=== PATIENT | male | born 1935 | race Caucasian/White ===

== ENCOUNTER 2018-09-18 17:21 | Inpatient (IN) | payer MEDICARE, SELFPAY ==
[2018-09-18] VITALS (7 sets, daily range): BP systolic 128–164; BP diastolic 70–90; PULSE 59–82; RESP 15–24; TEMP 35.7–36.8; O2SAT 97–100; BMI 18.8
--- NOTE | 2018-09-18 17:38 | ED.SYNCOPE ---
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 He states that he had 3 episodes where he passed out he states that he was walking while he was doing this and that he fell. He denies any head injury. He does have some bruising to his right upper arm. He does state that he has had have difficulty and swallowing over the past several weeks. He reports that he is not currently taking any radiation or chemotherapy he states that that was completed approximately 1 month ago. He denies any fevers or chills. No chest pain no shortness of breath. He does state that he has had decreased p.o. intake due to the difficulty in swallowing. Patient does live by himself. He denies any fevers or chills no urinary symptoms. No other concerns or complaints at this time. He denies any discomfort at Related Data Home Medications Medication Instructions Recorded Confirmed amlodipine [Norvasc] 5 mg PO QDAY #0 11/23/17 clopidogrel 75 mg PO QDAY #0 11/23/17 furosemide 80 mg PO QDAY #0 11/23/17 losartan 50 mg PO QDAY #0 11/23/17 meclizine 25 mg PO HS #0 11/23/17 mupirocin 1 shahbaz TOPICAL BID #0 11/23/17 Previous Rx's Medication Instructions Recorded hydrocodone-acetaminophen [[place]] 1 tab PO Q6H PRN #10 tab 11/23/17 ondansetron [Zofran ODT] 4 mg SUBLINGUAL Q6HP PRN #10 odt 11/23/17 Allergies Allergy/AdvReac Type Severity Reaction Status Date / Time No Known Allergies Allergy Uncoded 09/18/18 17:35 Review of Systems <AVA Villatoro - Last Filed: 09/18/18 22:15> Constitutional Denies chills, Denies fatigue, Denies fever(s), Denies lethargy and Denies weakness Eyes Denies change in vision, Denies eye discharge, Denies irritation and Denies loss of vision ENT Ears, Nose, Mouth, and Throat: Denies change in voice, Denies neck pain and Denies sore throat Cardiovascular Denies dyspnea and Denies dyspnea on exertion Comments: Syncopal episodes Respiratory Denies cough, Denies dyspnea, Denies dyspnea on exertion and Denies wheezing Gastrointestinal Gastrointestinal: Denies abdominal pain, Denies change in bowel habits, Denies diarrhea, Denies nausea and Denies vomiting Genitourinary Denies hematuria, Denies flank pain, Denies urinary incontinence and Denies urinary urgency Musculoskeletal Denies neck pain Integumentary/Breasts Denies pruritus, Denies erythema, Denies rash and Denies wounds Neurologic Denies confusion, Denies loss of vision and Denies weakness Psychiatric Denies anxiety, Denies confusion, Denies depression, Denies homicidal ideation and Denies suicidal ideation Endocrine Denies fatigue and Denies flushing Hematologic/Lymphatic Denies easy bruising Allergic/Immunologic Denies wheezing Exam <AVA Villatoro - Last Filed: 09/18/18 22:15> Initial Vital Signs Initial Vital Signs: Vital Signs Temperature 98.1 F 09/18/18 17:32 Pulse Rate 82 09/18/18 17:32 Respiratory Rate 24 09/18/18 17:32 Blood Pressure 134/70 09/18/18 17:32 Pulse Oximetry 98 09/18/18 17:32 Const General: cooperative and well developed Nutritional Appearance: well nourished Orientation: alert, awake, oriented x3 and not confused [facility] Head: normal to inspection, normocephalic and atraumatic Mouth: oral mucosae normal Eyes Conjunctivae: conjunctivae normal Sclera: sclerae normal Pupils: PERRL EOM: EOM intact bilaterally Chest Chest: normal inspection of the chest Resp Effort & Inspection: normal respiratory effort, able to speak in complete sentences, no respiratory distress and no use of accessory muscles Auscultation: clear to auscultation bilaterally, no rales, no rhonchi and no wheezes Cardio Rate: regular rate Rhythm: regular rhythm Heart Sounds: no click, no gallops, no murmurs and no rubs Pulses: normal peripheral pulses GI Inspection: non-distended Palpation: soft, no hepatosplenomegaly, No guarding, No pulsatile mass and No tender Auscultation: normal bowel sounds General: No CVA tenderness Skin General: no rashes or lesions noted, No jaundice and No petechiae Neuro General: alert, oriented x3, gait normal and no focal motor deficits Speech: speech normal Extrem Other: Right upper extremity with ecchymosis. No open lesions. No swelling. Distal sensation is intact. Distal pulses are intact. Distal range of motion is intact. <Jacklyn Edwards DO - Last Filed: 09/19/18 04:22> Initial Vital Signs Initial Vital Signs: Vital Signs Temperature 98.1 F 09/18/18 17:32 Pulse Rate 82 09/18/18 17:32 Respiratory Rate 24 09/18/18 17:32 Blood Pressure 134/70 09/18/18 17:32 Pulse Oximetry 98 09/18/18 17:32 Course <AVA Villatoro - Last Filed: 09/18/18 22:15> Orders Ordered: ED Orders 09/18/18 23:41 Consult to Dietitian, Adult Routine Consult to Discharge Planning Routine 09/18/18 23:42 Consult to Physical Therapy Evaluate & Treat 09/19/18 00:17 Troponin I Routine 09/19/18 03:55 Consult to Speech Therapy Evaluate & Treat 09/19/18 06:00 Troponin I Routine Acetaminophen (Tylenol) 650 mg PO Q6HR PRN PRN Reason: As Needed for Fever/Mild Pain Heparin Sodium (Porcine) (Heparin) 5,000 unit SUBCUT BID MARY Sodium Chloride (Normal Saline 0.9%) 1,000 mls @ 75 mls/hr IV CONT MARY Last Admin: 09/18/18 23:15 Dose: 75 mls/hr Ondansetron HCl (Zofran Odt) 4 mg PO Q8HR PRN PRN Reason: Nausea And Vomiting Discontinued Medications Sodium Chloride (Normal Saline 0.9%) 1,000 mls @ 1,000 mls/hr IV BOLUS ONE Stop: 09/18/18 18:39 Last Infusion: 09/18/18 22:53 Dose: 1,000 mls/hr Infusion: 09/18/18 20:40 Dose: 0 mls/hr Admin: 09/18/18 18:20 Dose: 1,000 mls/hr Sodium Chloride (Normal Saline 0.9%) 1,000 mls @ 1,000 mls/hr IV BOLUS ONE Stop: 09/18/18 22:47 Last Admin: 09/18/18 22:11 Dose: 1,000 mls/hr Vital Signs - 8 hr 09/18/18 21:00 09/18/18 22:00 09/18/18 22:50 Temperature 96.3 F L Pulse Rate 67 64 61 Respiratory Rate 17 15 16 Blood Pressure 152/77 H Blood Pressure [Left Arm] 141/75 H 137/77 Pulse Oximetry 100 100 97 09/18/18 22:58 09/18/18 23:40 09/19/18 03:42 Temperature 98.2 F 97.9 F Pulse Rate 59 L 65 62 Respiratory Rate 18 16 16 Blood Pressure 144/72 H 164/90 H 156/75 H Blood Pressure [Left Arm] Pulse Oximetry 99 98 98 <Jacklyn Edwards, - Last Filed: 09/19/18 04:22> Orders Ordered: ED Orders 09/18/18 23:41 Consult to Dietitian, Adult Routine Consult to Discharge Planning Routine 09/18/18 23:42 Consult to Physical Therapy Evaluate & Treat 09/19/18 00:17 Troponin I Routine 09/19/18 03:55 Consult to Speech Therapy Evaluate & Treat 09/19/18 06:00 Troponin I Routine Acetaminophen (Tylenol) 650 mg PO Q6HR PRN PRN Reason: As Needed for Fever/Mild Pain Heparin Sodium (Porcine) (Heparin) 5,000 unit SUBCUT BID MARY Sodium Chloride (Normal Saline 0.9%) 1,000 mls @ 75 mls/hr IV CONT MARY Last Admin: 09/18/18 23:15 Dose: 75 mls/hr Ondansetron HCl (Zofran Odt) 4 mg PO Q8HR PRN PRN Reason: Nausea And Vomiting Discontinued Medications Sodium Chloride (Normal Saline 0.9%) 1,000 mls @ 1,000 mls/hr IV BOLUS ONE Stop: 09/18/18 18:39 Last Infusion: 09/18/18 22:53 Dose: 1,000 mls/hr Infusion: 09/18/18 20:40 Dose: 0 mls/hr Admin: 09/18/18 18:20 Dose: 1,000 mls/hr Sodium Chloride (Normal Saline 0.9%) 1,000 mls @ 1,000 mls/hr IV BOLUS ONE Stop: 09/18/18 22:47 Last Admin: 09/18/18 22:11 Dose: 1,000 mls/hr Vital Signs - 8 hr 09/18/18 21:00 09/18/18 22:00 09/18/18 22:50 Temperature 96.3 F L Pulse Rate 67 64 61 Respiratory Rate 17 15 16 Blood Pressure 152/77 H Blood Pressure [Left Arm] 141/75 H 137/77 Pulse Oximetry 100 100 97 09/18/18 22:58 09/18/18 23:40 09/19/18 03:42 Temperature 98.2 F 97.9 F Pulse Rate 59 L 65 62 Respiratory Rate 18 16 16 Blood Pressure 144/72 H 164/90 H 156/75 H Blood Pressure [Left Arm] Pulse Oximetry 99 98 98 MDM - Syncope <AVA Villatoro - Last Filed: 09/18/18 22:15> Lab Data Result diagrams: 09/18/18 18:10 09/18/18 18:10 Lab Results 09/18/18 09/18/18 09/18/18 Range/Units 18:10 18:10 18:10 WBC 10.8 (4.5-11.0) X10^3/uL RBC 3.99 L (4.5-5.9) X10^6/uL Hgb 13.0 L (13.5-17.5) g/dL Hct 38.2 L (41-53) % MCV 95.9 (80-100) fL MCH 32.7 (26-34) PG MCHC 34.1 (30-36) % RDW 14.0 (11.6-14.8) % Plt Count 214 (150-400) X10^3/uL Neut % (Auto) 87.2 H (50-75) % Lymph % (Auto) 4.1 L (25-40) % [place] % (Auto) 7.7 (3-14) % Eos % (Auto) 0.5 L (2-4) % Baso % (Auto) 0.5 (0-2) % Neut # (Auto) 9500 H (7433-0078) /uL PT 12.2 (10.1-12.7) SECONDS INR 1.1 (0.9-1.3) D-Dimer 2922 H (<230) ng/mL Sodium 140 (137-145) mmol/L Potassium 3.8 (3.4-5.1) mmol/L Chloride 102 (98-107) mmol/L Carbon Dioxide 25 (22-32) mmol/L BUN 20 (9-20) mg/dL Creatinine 0.90 (0.66-1.25) mg/dL Estimated GFR > 60.0 (>60) mL/min BUN/Creatinine Ratio 22.2 H (6-22) Glucose 111 H (80-110) mg/dL Lactate (0.7-2.1) mmol/L Calcium 9.2 (8.4-10.2) mg/dL Total Bilirubin 0.6 (0.2-1.3) mg/dL AST 20 (17-59) IU/L ALT 24 (21-72) IU/L Alkaline Phosphatase 82 (38-126) U/L Total Creatine Kinase 54 L (55-170) U/L CK-MB (CK-2) TNP CK-MB (CK-2) Rel Index TNP Troponin I 0.105 H (0.01-0.034) ng/mL Total Protein 7.1 (6.3-8.2) g/dL Albumin 3.8 (3.5-5.0) g/dL Globulin 3.3 (1.7-4.1) g/dL Albumin/Globulin Ratio 1.2 (1.0-2.8) 09/18/18 09/19/18 Range/Units 18:10 00:17 WBC (4.5-11.0) X10^3/uL RBC (4.5-5.9) X10^6/uL Hgb (13.5-17.5) g/dL Hct (41-53) % MCV (80-100) fL MCH (26-34) PG MCHC (30-36) % RDW (11.6-14.8) % Plt Count (150-400) X10^3/uL Neut % (Auto) (50-75) % Lymph % (Auto) (25-40) % [place] % (Auto) (3-14) % Eos % (Auto) (2-4) % Baso % (Auto) (0-2) % Neut # (Auto) (5254-0920) /uL PT (10.1-12.7) SECONDS INR (0.9-1.3) D-Dimer (<230) ng/mL Sodium (137-145) mmol/L Potassium (3.4-5.1) mmol/L Chloride (98-107) mmol/L Carbon Dioxide (22-32) mmol/L BUN (9-20) mg/dL Creatinine (0.66-1.25) mg/dL Estimated GFR (>60) mL/min BUN/Creatinine Ratio (6-22) Glucose (80-110) mg/dL Lactate 1.5 (0.7-2.1) mmol/L Calcium (8.4-10.2) mg/dL Total Bilirubin (0.2-1.3) mg/dL AST (17-59) IU/L ALT (21-72) IU/L Alkaline Phosphatase (38-126) U/L Total Creatine Kinase (55-170) U/L CK-MB (CK-2) CK-MB (CK-2) Rel Index Troponin I 0.088 H (0.01-0.034) ng/mL Total Protein (6.3-8.2) g/dL Albumin (3.5-5.0) g/dL Globulin (1.7-4.1) g/dL Albumin/Globulin Ratio (1.0-2.8) Point of Care Testing Glucose POC 109 Urine Dip Bedside Urine Glucose Negative Bedside Urine Bilirubin - Negative Bedside Urine Ketone ++ 40 Urine Specific [place] 1.020 Bedside Urine Occult Blood - Negative Bedside Urine pH 6.0 Bedside Urine Protein - Negative Bedside Urine Urobilinogen - Negative Bedside Urine Nitrite - Negative Bedside Urine Leukocytes - Negative Esterase Imaging Data Chest x-ray: Radiologist's impression: [address] [address] XRay Report Signed Patient: Murali Grant LMR#: [id number] : 5Acct:[id number] Age/Sex: 83 / MDate of Service: 09/18/18 Loc: ED Accession Number: [id number] Procedure: XR chest 1V Ordering Provider: Fernando Shipman PROCEDURE: XR CHEST 1V INDICATIONS: Syncopal episodes TECHNIQUE: One view of the chest was acquired. COMPARISON: None. FINDINGS: Surgical changes and devices: None. Lungs and pleura: No pleural effusions or pneumothorax. Lungs are clear. Mediastinum: Mediastinal contours appear normal. Heart size is normal. Bones and chest wall: No suspicious bony lesions. Overlying soft tissues appear unremarkable. IMPRESSION: No acute cardiopulmonary findings. Dictated by: Natalia De La O M.D. on 09/18/2018 at 18:42 Approved by: Natalia De La O M.D. on 09/18/2018 at 18:42 CT scan - chest: Radiologist's impression: Signed Patient: Murali Grant LMR#: [id number] : 5Acct:[id number] Age/Sex: 83 / MDate of Service: 09/18/18 Loc: ED Accession Number: [id number] Procedure: CT angio chest PE protocol Ordering Provider: Fernando Shipman PROCEDURE: CT ANGIO CHEST PE PROTOCOL INDICATIONS: Elevated D-dimer and syncopal episodes TECHNIQUE: After the administration of intravenous contrast, 2 mm thick sections acquired from the pulmonary apices to the posterior costophrenic angles. 3-dimensional maximum intensity projection (MIP) coronal and sagittal reformats were then acquired through the thorax. For radiation dose reduction, the following was used: automated exposure control, adjustment of mA and/or kV according to patient size. COMPARISON: [facility], CT, PE STUDY (CTA CHEST), 09/09/2014, 19:53. FINDINGS: Image quality: Excellent. Pulmonary arteries: Pulmonary arteries are normal in size, and demonstrate no intraluminal filling defects to suggest central pulmonary embolism. Lungs and pleura: Mild pulmonary radiopacities are present within the superior segment of the right lower lobe. 2 adjacent 3 mm diameter pulmonary nodules are present at the lateral left lung base (series 5, image 42). The lungs are otherwise clear. No pleural effusions or pneumothorax. Central and peripheral airways are patent. Mediastinum: Heart size is normal, without pericardial effusion. No mediastinal or hilar adenopathy. 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 Thoracic aorta is normal in caliber and enhancement. Esophagus is normal in caliber, without hiatal hernia. Bones and chest wall: No suspicious bony lesions. Ribs and thoracic spine appear intact throughout. Thyroid gland is unremarkable. No axillary or supraclavicular adenopathy. Abdomen: Visualized upper abdominal solid organs appear normal in the early arterial phase of enhancement. IMPRESSION: 1. No acute pulmonary embolus. 2. 3 mm left lower lobe pulmonary nodules. Please see followup guidelines below. Low-risk patient no further followup recommended. 3. Trace pulmonary radiopacities within the right lower lobe which may represent mild aspiration or infection. Short interval followup is recommended to ensure resolution of this finding and exclude underlying pulmonary pathology. Note: Fleischner Society criteria for lung nodule followup. Nodule size (mm)Low-risk patientHigh-risk patient?4No follow-up neededFollow-up at 12 mo; if no change, no further follow-up>6-5Pflbpl-ba CT at 12 mo; if no change, no further follow-up needed.Initial follow-up CT at 6-12 mo, then 18-24 mo if no change. >6-8Initial follow-up CT at 6-12 mo, then 18-24 mo if no change. Initial follow-up CT at 3-6 mo, then 9-12 mo and 24 mo if no change. >8Follow-up CT at 3, 9, 24 mo. Or PET and/or biopsy.Same as for low-risk pts. Non-solid (ground-glass) or partly solid nodules may require longer follow-up to exclude indolent adenocarcinoma. Dictated by: Natalia De La O M.D. on 09/18/2018 at 19:42 Approved by: Natalia De La O M.D. on 09/18/2018 at 19:48 CT scan - head: Radiologist's impression: Signed Patient: Murali Grant LMR#: [id number] : 5Acct:[id number] Age/Sex: 83 / MDate of Service: 09/18/18 Loc: ED Accession Number: [id number] Procedure: CT head/brain wo con Ordering Provider: Fernando Shipman PROCEDURE: CT HEAD/BRAIN WO CON INDICATIONS: Syncopal episodes today TECHNIQUE: Noncontrast 4.5 mm thick angled axial sections acquired from the foramen magnum to the vertex, with coronal and sagittal reformats. For radiation dose reduction, the following was used: automated exposure control, adjustment of mA and/or kV according to patient size. COMPARISON: [facility], CT, CT HEAD WITHOUT CONTRAST, 09/05/2018, 11:54. FINDINGS: Image quality: Excellent. CSF spaces: Basal cisterns are patent. No extra-axial fluid collections. The ventricles are symmetric in size and shape. Brain: No intracranial bleeds or masses. There is cerebral volume loss for age, with resultant ventricular and sulcal prominence. There are periventricular and deep white matter chronic small vessel ischemic changes. Chronic appearing lacunar infarcts are present within the bilateral basal ganglia. There is intracranial internal carotid artery atherosclerosis. Skull and face: Calvarium and visualized facial bones appear intact, without suspicious lesions. Sinuses: Fluid is redemonstrated within the right maxillary sinus unchanged from the study dated 09/05/18. Visualized sinuses and mastoids are otherwise clear. IMPRESSION: 1. No acute intracranial findings. 2. Findings associated with chronic microvascular ischemic changes and old lacunar infarcts. 3. Probable right maxillary sinusitis. Dictated by: Natalia De La O M.D. on 09/18/2018 at 19:01 Approved by: Natalia De La O M.D. on 09/18/2018 at 19:08 R humerus: Radiologist's impression: [address] [address] XRay Report Signed Patient: Murali Grant LMR#: [id number] : 5Acct:[id number] Age/Sex: 83 / MDate of Service: 09/18/18 Loc: ED Accession Number: [id number] Procedure: XR humerus RT 2V Ordering Provider: Fernando Shipman PROCEDURE: XR HUMERUS RT 2V INDICATIONS: Bruising to right upper arm area after ground level fall TECHNIQUE: 2 views of the humerus were acquired. COMPARISON: None. FINDINGS: Bones: No fractures or dislocations. No suspicious bony lesions. Moderate degenerative changes present at the acromioclavicular joint. Soft tissues: No suspicious soft tissue calcifications. IMPRESSION: Degenerative change. No acute radiographic findings. If pain persists, repeat study in 5-7 days is recommended to exclude occult fracture. Dictated by: Natalia De La O M.D. on 09/18/2018 at 18:41 Approved by: Natalia De La O M.D. on 09/18/2018 at 18:42 soft tissue neck: Radiologist's impression: [address] [address] [address] Scan Report Signed Patient: Murali Grant LMR#: [id number] : 5Acct:[id number] Age/Sex: 83 / MDate of Service: 09/18/18 Loc: ED Accession Number: [id number] Procedure: CT soft tissue neck w con Ordering Provider: Fernando Shipman PROCEDURE: CT SOFT TISSUE NECK W CON INDICATIONS: Difficulty in swallowing,hx of CA TECHNIQUE: After the administration of intravenous contrast, 3.0 mm axial sections acquired from the sella to the aortic arch. Additional oblique axial 3.0 mm sections acquired through the pharynx. 3 mm thick coronal and sagittal reformats were generated. For radiation dose reduction, the following was used: automated exposure control. COMPARISON: [facility], CT, CT SOFT TISSUE NECK WITH CONTRAST, 06/30/2018, 14:05. FINDINGS: Image quality: Excellent. Lymph nodes: No enlarged lymph nodes seen throughout the neck. Vessels: Visualized vasculature appears patent. Neck spaces: The oropharynx, nasopharynx, and pharynx demonstrate no mucosal lesions. The vocal cords, false vocal cords, pyriform sinuses, epiglottis, vallecula, and tongue base all appear normal. Extramucosal spaces appear unremarkable. Glands: The right parotid and submandibular glands appear normal. Patient is status post left parotid gland resection. Thyroid gland is unremarkable. Miscellaneous: Visualized brain and orbits appear normal. Lung apices appear clear. Superficial soft tissues appear normal. Bones: No suspicious bony lesions. Severe degenerative changes are present throughout the cervical spine. There is grade I C3 on C4 anterolisthesis. There is mucoperiosteal thickening of the right maxillary sinus and an air-fluid level within. This finding is similar to the study dated 06/30/18. Visualized sinuses and mastoids appear otherwise unremarkable. IMPRESSION: 1. No findings to explain dysphagia. If further characterization is warranted, a functional study such as a modified speech exam may be helpful. 2. Findings suspicious for acute on chronic right maxillary sinusitis. Dictated by: Natalia De La O M.D. on 09/18/2018 at 19:09 Approved by: Natalia De La O M.D. on 09/18/2018 at 19:18 ECG Data Interpretation: EKG shows normal sinus rhythm with no ST elevation or depression. No ectopy. Ventricular rate is 76. Pr interval 150. QRS duration of 96. QTC 432. MDM Narrative Medical decision making narrative: CT scan of the head was obtained was negative for any acute findings. CT scan of soft tissue of the neck was obtained and was unremarkable. X-ray of the right humerus area was obtained and was negative for any acute fractures. Chest x-ray was obtained and was negative for any acute findings. CBC results were unremarkable. Chemistry panel was unremarkable. D-dimer was elevated at 2900. Therefore chest CT PE protocol was obtained was negative for PE. Troponin was elevated at 0.1. EKG shows normal sinus rhythm with no ST elevation or depression. No ectopy. Patient is admitted due to weakness and syncopal episodes. This may be due to dehydration and poor dietary intake due to having difficulty in swallowing. <Jacklyn Edwards, DO - Last Filed: 09/19/18 04:22> Lab Data Lab Results 09/18/18 09/18/18 09/18/18 Range/Units 18:10 18:10 18:10 WBC 10.8 (4.5-11.0) X10^3/uL RBC 3.99 L (4.5-5.9) X10^6/uL Hgb 13.0 L (13.5-17.5) g/dL Hct 38.2 L (41-53) % MCV 95.9 (80-100) fL MCH 32.7 (26-34) PG MCHC 34.1 (30-36) % RDW 14.0 (11.6-14.8) % Plt Count 214 (150-400) X10^3/uL Neut % (Auto) 87.2 H (50-75) % Lymph % (Auto) 4.1 L (25-40) % [place] % (Auto) 7.7 (3-14) % Eos % (Auto) 0.5 L (2-4) % Baso % (Auto) 0.5 (0-2) % Neut # (Auto) 9500 H (4270-3308) /uL PT 12.2 (10.1-12.7) SECONDS INR 1.1 (0.9-1.3) D-Dimer 2922 H (<230) ng/mL Sodium 140 (137-145) mmol/L Potassium 3.8 (3.4-5.1) mmol/L Chloride 102 (98-107) mmol/L Carbon Dioxide 25 (22-32) mmol/L BUN 20 (9-20) mg/dL Creatinine 0.90 (0.66-1.25) mg/dL Estimated GFR > 60.0 (>60) mL/min BUN/Creatinine Ratio 22.2 H (6-22) Glucose 111 H (80-110) mg/dL Lactate (0.7-2.1) mmol/L Calcium 9.2 (8.4-10.2) mg/dL Total Bilirubin 0.6 (0.2-1.3) mg/dL AST 20 (17-59) IU/L ALT 24 (21-72) IU/L Alkaline Phosphatase 82 (38-126) U/L Total Creatine Kinase 54 L (55-170) U/L CK-MB (CK-2) TNP CK-MB (CK-2) Rel Index TNP Troponin I 0.105 H (0.01-0.034) ng/mL Total Protein 7.1 (6.3-8.2) g/dL Albumin 3.8 (3.5-5.0) g/dL Globulin 3.3 (1.7-4.1) g/dL Albumin/Globulin Ratio 1.2 (1.0-2.8) 09/18/18 09/19/18 Range/Units 18:10 00:17 WBC (4.5-11.0) X10^3/uL RBC (4.5-5.9) X10^6/uL Hgb (13.5-17.5) g/dL Hct (41-53) % MCV (80-100) fL MCH (26-34) PG MCHC (30-36) % RDW (11.6-14.8) % Plt Count (150-400) X10^3/uL Neut % (Auto) (50-75) % Lymph % (Auto) (25-40) % [place] % (Auto) (3-14) % Eos % (Auto) (2-4) % Baso % (Auto) (0-2) % Neut # (Auto) (7642-4029) /uL PT (10.1-12.7) SECONDS INR (0.9-1.3) D-Dimer (<230) ng/mL Sodium (137-145) mmol/L Potassium (3.4-5.1) mmol/L Chloride (98-107) mmol/L Carbon Dioxide (22-32) mmol/L BUN (9-20) mg/dL Creatinine (0.66-1.25) mg/dL Estimated GFR (>60) mL/min BUN/Creatinine Ratio (6-22) Glucose (80-110) mg/dL Lactate 1.5 (0.7-2.1) mmol/L Calcium (8.4-10.2) mg/dL Total Bilirubin (0.2-1.3) mg/dL AST (17-59) IU/L ALT (21-72) IU/L Alkaline Phosphatase (38-126) U/L Total Creatine Kinase (55-170) U/L CK-MB (CK-2) CK-MB (CK-2) Rel Index Troponin I 0.088 H (0.01-0.034) ng/mL Total Protein (6.3-8.2) g/dL Albumin (3.5-5.0) g/dL Globulin (1.7-4.1) g/dL Albumin/Globulin Ratio (1.0-2.8) Point of Care Testing Glucose POC 109 Urine Dip Bedside Urine Glucose Negative Bedside Urine Bilirubin - Negative Bedside Urine Ketone ++ 40 Urine Specific [place] 1.020 Bedside Urine Occult Blood - Negative Bedside Urine pH 6.0 Bedside Urine Protein - Negative Bedside Urine Urobilinogen - Negative Bedside Urine Nitrite - Negative Bedside Urine Leukocytes - Negative Esterase Discharge Plan Departure Patient Disposition: Admitted As Inpatient Clinical Impression: Syncope, Weakness Discharge Date/Time: 09/18/18 23:00 Interventions: ED Discharge Assessment Last Done: 09/18/18 22:58 Admit Date/Time: 09/18/18 21:48 Admit Provider: Calvin Hope <Jacklyn Edwards DO - Last Filed: 09/19/18 04:22> Cosign ED Attending Cosignature Attestation: I was immediately available in the department for consultation. This documentation has been reviewed and I agree with assessment and plan. Supervised by Jacklyn Edwards DO
--- NOTE | 2018-09-18 17:41 | DI.CT.S_ITS ---
PROCEDURE: CT HEAD/BRAIN WO CON INDICATIONS: Syncopal episodes today TECHNIQUE: Noncontrast 4.5 mm thick angled axial sections acquired from the foramen magnum to the vertex, with coronal and sagittal reformats. For radiation dose reduction, the following was used: automated exposure control, adjustment of mA and/or kV according to patient size. COMPARISON: [facility], CT, CT HEAD WITHOUT CONTRAST, 09/05/2018, 11:54. FINDINGS: Image quality: Excellent. CSF spaces: Basal cisterns are patent. No extra-axial fluid collections. The ventricles are symmetric in size and shape. Brain: No intracranial bleeds or masses. There is cerebral volume loss for age, with resultant ventricular and sulcal prominence. There are periventricular and deep white matter chronic small vessel ischemic changes. Chronic appearing lacunar infarcts are present within the bilateral basal ganglia. There is intracranial internal carotid artery atherosclerosis. Skull and face: Calvarium and visualized facial bones appear intact, without suspicious lesions. Sinuses: Fluid is redemonstrated within the right maxillary sinus unchanged from the study dated 09/05/18. Visualized sinuses and mastoids are otherwise clear. IMPRESSION: 1. No acute intracranial findings. 2. Findings associated with chronic microvascular ischemic changes and old lacunar infarcts. 3. Probable right maxillary sinusitis. Dictated by: Natalia De La O M.D. on 09/18/2018 at 19:01 Approved by: Natalia De La O M.D. on 09/18/2018 at 19:08
--- NOTE | 2018-09-18 17:41 | DI.RAD.S_ITS ---
PROCEDURE: XR CHEST 1V INDICATIONS: Syncopal episodes TECHNIQUE: One view of the chest was acquired. COMPARISON: None. FINDINGS: Surgical changes and devices: None. Lungs and pleura: No pleural effusions or pneumothorax. Lungs are clear. Mediastinum: Mediastinal contours appear normal. Heart size is normal. Bones and chest wall: No suspicious bony lesions. Overlying soft tissues appear unremarkable. IMPRESSION: No acute cardiopulmonary findings. Dictated by: Natalia De La O M.D. on 09/18/2018 at 18:42 Approved by: Natalia De La O M.D. on 09/18/2018 at 18:42
--- NOTE | 2018-09-18 17:43 | DI.RAD.S_ITS ---
PROCEDURE: XR HUMERUS RT 2V INDICATIONS: Bruising to right upper arm area after ground level fall TECHNIQUE: 2 views of the humerus were acquired. COMPARISON: None. FINDINGS: Bones: No fractures or dislocations. No suspicious bony lesions. Moderate degenerative changes present at the acromioclavicular joint. Soft tissues: No suspicious soft tissue calcifications. IMPRESSION: Degenerative change. No acute radiographic findings. If pain persists, repeat study in 5-7 days is recommended to exclude occult fracture. Dictated by: Natalia De La O M.D. on 09/18/2018 at 18:41 Approved by: Natalia De La O M.D. on 09/18/2018 at 18:42
--- NOTE | 2018-09-18 18:13 | PC.NURSE ---
Milly(sister) and Abdiaziz Prasad [phone] in [place]
[2018-09-18] MEDS: SODIUM CHLORIDE 0.9% 1,000 ML 1000 ML IV ×2 (18:20→22:11)
[2018-09-18 18:24] LABS: Add Manual Diff / Slide Review NO; Basophils Percent Auto 0.5 % (0-2); Eosinophils Percent Auto 0.5 % (2-4); Hematocrit 38.2 % (41-53); Lymphocytes Percent Auto 4.1 % (25-40); Mean Corpuscular HGB Conc 34.1 % (30-36); Mean Corpuscular Hemoglobin 32.7 PG (26-34); Mean Corpuscular Volume 95.9 fL (80-100); Monocytes Percent Auto 7.7 % (3-14); Neutrophils Absolute Auto 9500 /uL (3000-5900); Neutrophils Percent Auto 87.2 % (50-75); Platelet Count 214 X10^3/uL (150-400); Red Blood Cell Count 3.99 X10^6/uL (4.5-5.9); White Blood Cell Count 10.8 X10^3/uL (4.5-11.0)
[2018-09-18 18:27] LABS: INR 1.1 (0.9-1.3); Prothrombin Time 12.2 SECONDS (10.1-12.7)
[2018-09-18 18:31] LABS: Lactate (Lactic Acid) 1.5 mmol/L (0.7-2.1)
[2018-09-18 18:32] LABS: Alanine Aminotransferase 24 IU/L (21-72); Albumin 3.8 g/dL (3.5-5.0); Albumin Globulin Ratio 1.2 (1.0-2.8); Alkaline Phosphatase 82 U/L (38-126); Aspartate Aminotransferase 20 IU/L (17-59); BUN Creatinine Ratio 22.2 (6-22); Bilirubin Total 0.6 mg/dL (0.2-1.3); Blood Urea Nitrogen 20 mg/dL (9-20); Calcium 9.2 mg/dL (8.4-10.2); Carbon Dioxide 25 mmol/L (22-32); Chloride 102 mmol/L (98-107); Creatine Kinase 54 U/L (55-170); Estimated Glomerular Filt Rate > 60.0 mL/min (>60); Globulin 3.3 g/dL (1.7-4.1); Glucose 111 mg/dL (80-110); HEMOLYSIS < 15 (0-50); Potassium 3.8 mmol/L (3.4-5.1); Sodium 140 mmol/L (137-145); Total Protein 7.1 g/dL (6.3-8.2)
[2018-09-18 18:37] LABS: D Dimer 2922 ng/mL (<230)
[2018-09-18 18:43] LABS: Troponin I 0.105 ng/mL (0.01-0.034)
--- NOTE | 2018-09-18 19:18 | DI.CT.S_ITS ---
PROCEDURE: CT ANGIO CHEST PE PROTOCOL INDICATIONS: Elevated D-dimer and syncopal episodes TECHNIQUE: After the administration of intravenous contrast, 2 mm thick sections acquired from the pulmonary apices to the posterior costophrenic angles. 3-dimensional maximum intensity projection (MIP) coronal and sagittal reformats were then acquired through the thorax. For radiation dose reduction, the following was used: automated exposure control, adjustment of mA and/or kV according to patient size. COMPARISON: [facility], CT, PE STUDY (CTA CHEST), 09/09/2014, 19:53. FINDINGS: Image quality: Excellent. Pulmonary arteries: Pulmonary arteries are normal in size, and demonstrate no intraluminal filling defects to suggest central pulmonary embolism. Lungs and pleura: Mild pulmonary radiopacities are present within the superior segment of the right lower lobe. 2 adjacent 3 mm diameter pulmonary nodules are present at the lateral left lung base (series 5, image 42). The lungs are otherwise clear. No pleural effusions or pneumothorax. Central and peripheral airways are patent. Mediastinum: Heart size is normal, without pericardial effusion. No mediastinal or hilar adenopathy. 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 Thoracic aorta is normal in caliber and enhancement. Esophagus is normal in caliber, without hiatal hernia. Bones and chest wall: No suspicious bony lesions. Ribs and thoracic spine appear intact throughout. Thyroid gland is unremarkable. No axillary or supraclavicular adenopathy. Abdomen: Visualized upper abdominal solid organs appear normal in the early arterial phase of enhancement. IMPRESSION: 1. No acute pulmonary embolus. 2. 3 mm left lower lobe pulmonary nodules. Please see followup guidelines below. Low-risk patient no further followup recommended. 3. Trace pulmonary radiopacities within the right lower lobe which may represent mild aspiration or infection. Short interval followup is recommended to ensure resolution of this finding and exclude underlying pulmonary pathology. Note: Fleischner Society criteria for lung nodule followup. Nodule size (mm)Low-risk patientHigh-risk patient?4No follow-up neededFollow-up at 12 mo; if no change, no further follow-up>[id number] CT at 12 mo; if no change, no further follow-up needed.Initial follow-up CT at 6-12 mo, then 18-24 mo if no change. >6-8Initial follow-up CT at 6-12 mo, then 18-24 mo if no change. Initial follow-up CT at 3-6 mo, then 9-12 mo and 24 mo if no change. >8Follow-up CT at 3, 9, 24 mo. Or PET and/or biopsy.Same as for low-risk pts. Non-solid (ground-glass) or partly solid nodules may require longer follow-up to exclude indolent adenocarcinoma. Dictated by: Natalia De La O M.D. on 09/18/2018 at 19:42 Approved by: Natalia De La O M.D. on 09/18/2018 at 19:48
--- NOTE | 2018-09-18 21:42 | ED_ITS ---
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 He states that he had 3 episodes where he passed out he states that he was walking while he was doing this and that he fell. He denies any head injury. He does have some bruising to his right upper arm. He does state that he has had have difficulty and swallowing over the past several weeks. He reports that he is not currently taking any radiation or chemotherapy he states that that was completed approximately 1 month ago. He denies any fevers or chills. No chest pain no shortness of breath. He does state that he has had decreased p.o. intake due to the difficulty in swallowing. Patient does live by himself. He denies any fevers or chills no urinary symptoms. No other concerns or complaints at this time. He denies any discomfort at Related Data Home Medications Medication Instructions Recorded Confirmed amlodipine [Norvasc] 5 mg PO QDAY #0 11/23/17 clopidogrel 75 mg PO QDAY #0 11/23/17 furosemide 80 mg PO QDAY #0 11/23/17 losartan 50 mg PO QDAY #0 11/23/17 meclizine 25 mg PO HS #0 11/23/17 mupirocin 1 shahbaz TOPICAL BID #0 11/23/17 Previous Rx's Medication Instructions Recorded hydrocodone-acetaminophen [[place]] 1 tab PO Q6H PRN #10 tab 11/23/17 ondansetron [Zofran ODT] 4 mg SUBLINGUAL Q6HP PRN #10 odt 11/23/17 Allergies Allergy/AdvReac Type Severity Reaction Status Date / Time No Known Allergies Allergy Uncoded 09/18/18 17:35 Review of Systems <AVA Villatoro - Last Filed: 09/18/18 22:15> Constitutional Denies chills, Denies fatigue, Denies fever(s), Denies lethargy and Denies weakness Eyes Denies change in vision, Denies eye discharge, Denies irritation and Denies loss of vision ENT Ears, Nose, Mouth, and Throat: Denies change in voice, Denies neck pain and Denies sore throat Cardiovascular Denies dyspnea and Denies dyspnea on exertion Comments: Syncopal episodes Respiratory Denies cough, Denies dyspnea, Denies dyspnea on exertion and Denies wheezing Gastrointestinal Gastrointestinal: Denies abdominal pain, Denies change in bowel habits, Denies diarrhea, Denies nausea and Denies vomiting Genitourinary Denies hematuria, Denies flank pain, Denies urinary incontinence and Denies urinary urgency Musculoskeletal Denies neck pain Integumentary/Breasts Denies pruritus, Denies erythema, Denies rash and Denies wounds Neurologic Denies confusion, Denies loss of vision and Denies weakness Psychiatric Denies anxiety, Denies confusion, Denies depression, Denies homicidal ideation and Denies suicidal ideation Endocrine Denies fatigue and Denies flushing Hematologic/Lymphatic Denies easy bruising Allergic/Immunologic Denies wheezing Exam <AVA Villatoro - Last Filed: 09/18/18 22:15> Initial Vital Signs Initial Vital Signs: Vital Signs Temperature 98.1 F 09/18/18 17:32 Pulse Rate 82 09/18/18 17:32 Respiratory Rate 24 09/18/18 17:32 Blood Pressure 134/70 09/18/18 17:32 Pulse Oximetry 98 09/18/18 17:32 Const General: cooperative and well developed Nutritional Appearance: well nourished Orientation: alert, awake, oriented x3 and not confused [facility] Head: normal to inspection, normocephalic and atraumatic Mouth: oral mucosae normal Eyes Conjunctivae: conjunctivae normal Sclera: sclerae normal Pupils: PERRL EOM: EOM intact bilaterally Chest Chest: normal inspection of the chest Resp Effort & Inspection: normal respiratory effort, able to speak in complete sentences, no respiratory distress and no use of accessory muscles Auscultation: clear to auscultation bilaterally, no rales, no rhonchi and no wheezes Cardio Rate: regular rate Rhythm: regular rhythm Heart Sounds: no click, no gallops, no murmurs and no rubs Pulses: normal peripheral pulses GI Inspection: non-distended Palpation: soft, no hepatosplenomegaly, No guarding, No pulsatile mass and No tender Auscultation: normal bowel sounds General: No CVA tenderness Skin General: no rashes or lesions noted, No jaundice and No petechiae Neuro General: alert, oriented x3, gait normal and no focal motor deficits Speech: speech normal Extrem Other: Right upper extremity with ecchymosis. No open lesions. No swelling. Distal sensation is intact. Distal pulses are intact. Distal range of motion is intact. <Jacklyn Edwards DO - Last Filed: 09/19/18 04:22> Initial Vital Signs Initial Vital Signs: Vital Signs Temperature 98.1 F 09/18/18 17:32 Pulse Rate 82 09/18/18 17:32 Respiratory Rate 24 09/18/18 17:32 Blood Pressure 134/70 09/18/18 17:32 Pulse Oximetry 98 09/18/18 17:32 Course <AVA Villatoro - Last Filed: 09/18/18 22:15> Orders Ordered: ED Orders 09/18/18 23:41 Consult to Dietitian, Adult Routine Consult to Discharge Planning Routine 09/18/18 23:42 Consult to Physical Therapy Evaluate & Treat 09/19/18 00:17 Troponin I Routine 09/19/18 03:55 Consult to Speech Therapy Evaluate & Treat 09/19/18 06:00 Troponin I Routine Acetaminophen (Tylenol) 650 mg PO Q6HR PRN PRN Reason: As Needed for Fever/Mild Pain Heparin Sodium (Porcine) (Heparin) 5,000 unit SUBCUT BID MARY Sodium Chloride (Normal Saline 0.9%) 1,000 mls @ 75 mls/hr IV CONT MARY Last Admin: 09/18/18 23:15 Dose: 75 mls/hr Ondansetron HCl (Zofran Odt) 4 mg PO Q8HR PRN PRN Reason: Nausea And Vomiting Discontinued Medications Sodium Chloride (Normal Saline 0.9%) 1,000 mls @ 1,000 mls/hr IV BOLUS ONE Stop: 09/18/18 18:39 Last Infusion: 09/18/18 22:53 Dose: 1,000 mls/hr Infusion: 09/18/18 20:40 Dose: 0 mls/hr Admin: 09/18/18 18:20 Dose: 1,000 mls/hr Sodium Chloride (Normal Saline 0.9%) 1,000 mls @ 1,000 mls/hr IV BOLUS ONE Stop: 09/18/18 22:47 Last Admin: 09/18/18 22:11 Dose: 1,000 mls/hr Vital Signs - 8 hr 09/18/18 21:00 09/18/18 22:00 09/18/18 22:50 Temperature 96.3 F L Pulse Rate 67 64 61 Respiratory Rate 17 15 16 Blood Pressure 152/77 H Blood Pressure [Left Arm] 141/75 H 137/77 Pulse Oximetry 100 100 97 09/18/18 22:58 09/18/18 23:40 09/19/18 03:42 Temperature 98.2 F 97.9 F Pulse Rate 59 L 65 62 Respiratory Rate 18 16 16 Blood Pressure 144/72 H 164/90 H 156/75 H Blood Pressure [Left Arm] Pulse Oximetry 99 98 98 <Jacklyn Edwards, - Last Filed: 09/19/18 04:22> Orders Ordered: ED Orders 09/18/18 23:41 Consult to Dietitian, Adult Routine Consult to Discharge Planning Routine 09/18/18 23:42 Consult to Physical Therapy Evaluate & Treat 09/19/18 00:17 Troponin I Routine 09/19/18 03:55 Consult to Speech Therapy Evaluate & Treat 09/19/18 06:00 Troponin I Routine Acetaminophen (Tylenol) 650 mg PO Q6HR PRN PRN Reason: As Needed for Fever/Mild Pain Heparin Sodium (Porcine) (Heparin) 5,000 unit SUBCUT BID MARY Sodium Chloride (Normal Saline 0.9%) 1,000 mls @ 75 mls/hr IV CONT MARY Last Admin: 09/18/18 23:15 Dose: 75 mls/hr Ondansetron HCl (Zofran Odt) 4 mg PO Q8HR PRN PRN Reason: Nausea And Vomiting Discontinued Medications Sodium Chloride (Normal Saline 0.9%) 1,000 mls @ 1,000 mls/hr IV BOLUS ONE Stop: 09/18/18 18:39 Last Infusion: 09/18/18 22:53 Dose: 1,000 mls/hr Infusion: 09/18/18 20:40 Dose: 0 mls/hr Admin: 09/18/18 18:20 Dose: 1,000 mls/hr Sodium Chloride (Normal Saline 0.9%) 1,000 mls @ 1,000 mls/hr IV BOLUS ONE Stop: 09/18/18 22:47 Last Admin: 09/18/18 22:11 Dose: 1,000 mls/hr Vital Signs - 8 hr 09/18/18 21:00 09/18/18 22:00 09/18/18 22:50 Temperature 96.3 F L Pulse Rate 67 64 61 Respiratory Rate 17 15 16 Blood Pressure 152/77 H Blood Pressure [Left Arm] 141/75 H 137/77 Pulse Oximetry 100 100 97 09/18/18 22:58 09/18/18 23:40 09/19/18 03:42 Temperature 98.2 F 97.9 F Pulse Rate 59 L 65 62 Respiratory Rate 18 16 16 Blood Pressure 144/72 H 164/90 H 156/75 H Blood Pressure [Left Arm] Pulse Oximetry 99 98 98 MDM - Syncope <AVA Villatoro - Last Filed: 09/18/18 22:15> Lab Data Result diagrams: 09/18/18 18:10 09/18/18 18:10 Lab Results 09/18/18 09/18/18 09/18/18 Range/Units 18:10 18:10 18:10 WBC 10.8 (4.5-11.0) X10^3/uL RBC 3.99 L (4.5-5.9) X10^6/uL Hgb 13.0 L (13.5-17.5) g/dL Hct 38.2 L (41-53) % MCV 95.9 (80-100) fL MCH 32.7 (26-34) PG MCHC 34.1 (30-36) % RDW 14.0 (11.6-14.8) % Plt Count 214 (150-400) X10^3/uL Neut % (Auto) 87.2 H (50-75) % Lymph % (Auto) 4.1 L (25-40) % Weber % (Auto) 7.7 (3-14) % Eos % (Auto) 0.5 L (2-4) % Baso % (Auto) 0.5 (0-2) % Neut # (Auto) 9500 H (9948-7727) /uL PT 12.2 (10.1-12.7) SECONDS INR 1.1 (0.9-1.3) D-Dimer 2922 H (<230) ng/mL Sodium 140 (137-145) mmol/L Potassium 3.8 (3.4-5.1) mmol/L Chloride 102 (98-107) mmol/L Carbon Dioxide 25 (22-32) mmol/L BUN 20 (9-20) mg/dL Creatinine 0.90 (0.66-1.25) mg/dL Estimated GFR > 60.0 (>60) mL/min BUN/Creatinine Ratio 22.2 H (6-22) Glucose 111 H (80-110) mg/dL Lactate (0.7-2.1) mmol/L Calcium 9.2 (8.4-10.2) mg/dL Total Bilirubin 0.6 (0.2-1.3) mg/dL AST 20 (17-59) IU/L ALT 24 (21-72) IU/L Alkaline Phosphatase 82 (38-126) U/L Total Creatine Kinase 54 L (55-170) U/L CK-MB (CK-2) TNP CK-MB (CK-2) Rel Index TNP Troponin I 0.105 H (0.01-0.034) ng/mL Total Protein 7.1 (6.3-8.2) g/dL Albumin 3.8 (3.5-5.0) g/dL Globulin 3.3 (1.7-4.1) g/dL Albumin/Globulin Ratio 1.2 (1.0-2.8) 09/18/18 09/19/18 Range/Units 18:10 00:17 WBC (4.5-11.0) X10^3/uL RBC (4.5-5.9) X10^6/uL Hgb (13.5-17.5) g/dL Hct (41-53) % MCV (80-100) fL MCH (26-34) PG MCHC (30-36) % RDW (11.6-14.8) % Plt Count (150-400) X10^3/uL Neut % (Auto) (50-75) % Lymph % (Auto) (25-40) % Weber % (Auto) (3-14) % Eos % (Auto) (2-4) % Baso % (Auto) (0-2) % Neut # (Auto) (4474-7462) /uL PT (10.1-12.7) SECONDS INR (0.9-1.3) D-Dimer (<230) ng/mL Sodium (137-145) mmol/L Potassium (3.4-5.1) mmol/L Chloride (98-107) mmol/L Carbon Dioxide (22-32) mmol/L BUN (9-20) mg/dL Creatinine (0.66-1.25) mg/dL Estimated GFR (>60) mL/min BUN/Creatinine Ratio (6-22) Glucose (80-110) mg/dL Lactate 1.5 (0.7-2.1) mmol/L Calcium (8.4-10.2) mg/dL Total Bilirubin (0.2-1.3) mg/dL AST (17-59) IU/L ALT (21-72) IU/L Alkaline Phosphatase (38-126) U/L Total Creatine Kinase (55-170) U/L CK-MB (CK-2) CK-MB (CK-2) Rel Index Troponin I 0.088 H (0.01-0.034) ng/mL Total Protein (6.3-8.2) g/dL Albumin (3.5-5.0) g/dL Globulin (1.7-4.1) g/dL Albumin/Globulin Ratio (1.0-2.8) Point of Care Testing Glucose POC 109 Urine Dip Bedside Urine Glucose Negative Bedside Urine Bilirubin - Negative Bedside Urine Ketone ++ 40 Urine Specific [place] 1.020 Bedside Urine Occult Blood - Negative Bedside Urine pH 6.0 Bedside Urine Protein - Negative Bedside Urine Urobilinogen - Negative Bedside Urine Nitrite - Negative Bedside Urine Leukocytes - Negative Esterase Imaging Data Chest x-ray: Radiologist's impression: [address] [address] XRay Report Signed Patient: Murali Grant LMR#: [id number] : 5Acct:[id number] Age/Sex: 83 / MDate of Service: 09/18/18 Loc: ED Accession Number: [id number] Procedure: XR chest 1V Ordering Provider: Fernando Shipman PROCEDURE: XR CHEST 1V INDICATIONS: Syncopal episodes TECHNIQUE: One view of the chest was acquired. COMPARISON: None. FINDINGS: Surgical changes and devices: None. Lungs and pleura: No pleural effusions or pneumothorax. Lungs are clear. Mediastinum: Mediastinal contours appear normal. Heart size is normal. Bones and chest wall: No suspicious bony lesions. Overlying soft tissues appear unremarkable. IMPRESSION: No acute cardiopulmonary findings. Dictated by: Natalia De La O M.D. on 09/18/2018 at 18:42 Approved by: Natalia De La O M.D. on 09/18/2018 at 18:42 CT scan - chest: Radiologist's impression: Signed Patient: Murali Grant LMR#: [id number] : 5Acct:[id number] Age/Sex: 83 / MDate of Service: 09/18/18 Loc: ED Accession Number: [id number] Procedure: CT angio chest PE protocol Ordering Provider: Fernando Shipman PROCEDURE: CT ANGIO CHEST PE PROTOCOL INDICATIONS: Elevated D-dimer and syncopal episodes TECHNIQUE: After the administration of intravenous contrast, 2 mm thick sections acquired from the pulmonary apices to the posterior costophrenic angles. 3-dimensional maximum intensity projection (MIP) coronal and sagittal reformats were then acquired through the thorax. For radiation dose reduction, the following was used: automated exposure control, adjustment of mA and/or kV according to patient size. COMPARISON: [facility], CT, PE STUDY (CTA CHEST), 09/09/2014, 19:53. FINDINGS: Image quality: Excellent. Pulmonary arteries: Pulmonary arteries are normal in size, and demonstrate no intraluminal filling defects to suggest central pulmonary embolism. Lungs and pleura: Mild pulmonary radiopacities are present within the superior segment of the right lower lobe. 2 adjacent 3 mm diameter pulmonary nodules are present at the lateral left lung base (series 5, image 42). The lungs are otherwise clear. No pleural effusions or pneumothorax. Central and peripheral airways are patent. Mediastinum: Heart size is normal, without pericardial effusion. No mediastinal or hilar adenopathy. 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 Thoracic aorta is normal in caliber and enhancement. Esophagus is normal in caliber, without hiatal hernia. Bones and chest wall: No suspicious bony lesions. Ribs and thoracic spine appear intact throughout. Thyroid gland is unremarkable. No axillary or supraclavicular adenopathy. Abdomen: Visualized upper abdominal solid organs appear normal in the early arterial phase of enhancement. IMPRESSION: 1. No acute pulmonary embolus. 2. 3 mm left lower lobe pulmonary nodules. Please see followup guidelines below. Low-risk patient no further followup recommended. 3. Trace pulmonary radiopacities within the right lower lobe which may represent mild aspiration or infection. Short interval followup is recommended to ensure resolution of this finding and exclude underlying pulmonary pathology. Note: Fleischner Society criteria for lung nodule followup. Nodule size (mm)Low-risk patientHigh-risk patient?4No follow-up neededFollow-up at 12 mo; if no change, no further follow-up>5-2Oryebx-fd CT at 12 mo; if no change, no further follow-up needed.Initial follow-up CT at 6-12 mo, then 18-24 mo if no change. >6-8Initial follow-up CT at 6-12 mo, then 18-24 mo if no change. Initial follow- up CT at 3-6 mo, then 9-12 mo and 24 mo if no change. >8Follow-up CT at 3, 9, 24 mo. Or PET and/or biopsy.Same as for low-risk pts. Non-solid (ground-glass) or partly solid nodules may require longer follow-up to exclude indolent adenocarcinoma. Dictated by: Natalia De La O M.D. on 09/18/2018 at 19:42 Approved by: Natalia De La O M.D. on 09/18/2018 at 19:48 CT scan - head: Radiologist's impression: Signed Patient: Murali Grant LMR#: [id number] : 5Acct:[id number] Age/Sex: 83 / MDate of Service: 09/18/18 Loc: ED Accession Number: [id number] Procedure: CT head/brain wo con Ordering Provider: Fernando Shipman PROCEDURE: CT HEAD/BRAIN WO CON INDICATIONS: Syncopal episodes today TECHNIQUE: Noncontrast 4.5 mm thick angled axial sections acquired from the foramen magnum to the vertex, with coronal and sagittal reformats. For radiation dose reduction, the following was used: automated exposure control, adjustment of mA and/or kV according to patient size. COMPARISON: [facility], CT, CT HEAD WITHOUT CONTRAST, 09/05/2018, 11:54. FINDINGS: Image quality: Excellent. CSF spaces: Basal cisterns are patent. No extra-axial fluid collections. The ventricles are symmetric in size and shape. Brain: No intracranial bleeds or masses. There is cerebral volume loss for age , with resultant ventricular and sulcal prominence. There are periventricular and deep white matter chronic small vessel ischemic changes. Chronic appearing lacunar infarcts are present within the bilateral basal ganglia. There is intracranial internal carotid artery atherosclerosis. Skull and face: Calvarium and visualized facial bones appear intact, without suspicious lesions. Sinuses: Fluid is redemonstrated within the right maxillary sinus unchanged from the study dated 09/05/18. Visualized sinuses and mastoids are otherwise clear. IMPRESSION: 1. No acute intracranial findings. 2. Findings associated with chronic microvascular ischemic changes and old lacunar infarcts. 3. Probable right maxillary sinusitis. Dictated by: Natalia De La O M.D. on 09/18/2018 at 19:01 Approved by: Natalia De La O M.D. on 09/18/2018 at 19:08 R humerus: Radiologist's impression: [address] [address] XRay Report Signed Patient: Murali Grant LMR#: [id number] : 5Acct:[id number] Age/Sex: 83 / MDate of Service: 09/18/18 Loc: ED Accession Number: [id number] Procedure: XR humerus RT 2V Ordering Provider: Fernando Shipman PROCEDURE: XR HUMERUS RT 2V INDICATIONS: Bruising to right upper arm area after ground level fall TECHNIQUE: 2 views of the humerus were acquired. COMPARISON: None. FINDINGS: Bones: No fractures or dislocations. No suspicious bony lesions. Moderate degenerative changes present at the acromioclavicular joint. Soft tissues: No suspicious soft tissue calcifications. IMPRESSION: Degenerative change. No acute radiographic findings. If pain persists, repeat study in 5-7 days is recommended to exclude occult fracture. Dictated by: Natalia De La O M.D. on 09/18/2018 at 18:41 Approved by: Natalia De La O M.D. on 09/18/2018 at 18:42 soft tissue neck: Radiologist's impression: [address] [address] [address] Scan Report Signed Patient: Murali Grant LMR#: [id number] : 5Acct:[id number] Age/Sex: 83 / MDate of Service: 09/18/18 Loc: ED Accession Number: [id number] Procedure: CT soft tissue neck w con Ordering Provider: Fernando Shipman PROCEDURE: CT SOFT TISSUE NECK W CON INDICATIONS: Difficulty in swallowing,hx of CA TECHNIQUE: After the administration of intravenous contrast, 3.0 mm axial sections acquired from the sella to the aortic arch. Additional oblique axial 3.0 mm sections acquired through the pharynx. 3 mm thick coronal and sagittal reformats were generated. For radiation dose reduction, the following was used: automated exposure control. COMPARISON: [facility], CT, CT SOFT TISSUE NECK WITH CONTRAST, 06/30, 14:05. FINDINGS: Image quality: Excellent. Lymph nodes: No enlarged lymph nodes seen throughout the neck. Vessels: Visualized vasculature appears patent. Neck spaces: The oropharynx, nasopharynx, and pharynx demonstrate no mucosal lesions. The vocal cords, false vocal cords, pyriform sinuses, epiglottis, vallecula, and tongue base all appear normal. Extramucosal spaces appear unremarkable. Glands: The right parotid and submandibular glands appear normal. Patient is status post left parotid gland resection. Thyroid gland is unremarkable. Miscellaneous: Visualized brain and orbits appear normal. Lung apices appear clear. Superficial soft tissues appear normal. Bones: No suspicious bony lesions. Severe degenerative changes are present throughout the cervical spine. There is grade I C3 on C4 anterolisthesis. There is mucoperiosteal thickening of the right maxillary sinus and an air-fluid level within. This finding is similar to the study dated 06/30/18. Visualized sinuses and mastoids appear otherwise unremarkable. IMPRESSION: 1. No findings to explain dysphagia. If further characterization is warranted, a functional study such as a modified speech exam may be helpful. 2. Findings suspicious for acute on chronic right maxillary sinusitis. Dictated by: Natalia De La O M.D. on 09/18/2018 at 19:09 Approved by: Natalia De La O M.D. on 09/18/2018 at 19:18 ECG Data Interpretation: EKG shows normal sinus rhythm with no ST elevation or depression. No ectopy. Ventricular rate is 76. Pr interval 150. QRS duration of 96. QTC 432. MDM Narrative Medical decision making narrative: CT scan of the head was obtained was negative for any acute findings. CT scan of soft tissue of the neck was obtained and was unremarkable. X-ray of the right humerus area was obtained and was negative for any acute fractures. Chest x-ray was obtained and was negative for any acute findings. CBC results were unremarkable. Chemistry panel was unremarkable. D-dimer was elevated at 2900. Therefore chest CT PE protocol was obtained was negative for PE. Troponin was elevated at 0.1. EKG shows normal sinus rhythm with no ST elevation or depression. No ectopy. Patient is admitted due to weakness and syncopal episodes. This may be due to dehydration and poor dietary intake due to having difficulty in swallowing. <Jacklyn Edwards, DO - Last Filed: 09/19/18 04:22> Lab Data Lab Results 09/18/18 09/18/18 09/18/18 Range/Units 18:10 18:10 18:10 WBC 10.8 (4.5-11.0) X10^3/uL RBC 3.99 L (4.5-5.9) X10^6/uL Hgb 13.0 L (13.5-17.5) g/dL Hct 38.2 L (41-53) % MCV 95.9 (80-100) fL MCH 32.7 (26-34) PG MCHC 34.1 (30-36) % RDW 14.0 (11.6-14.8) % Plt Count 214 (150-400) X10^3/uL Neut % (Auto) 87.2 H (50-75) % Lymph % (Auto) 4.1 L (25-40) % Weber % (Auto) 7.7 (3-14) % Eos % (Auto) 0.5 L (2-4) % Baso % (Auto) 0.5 (0-2) % Neut # (Auto) 9500 H (1682-0573) /uL PT 12.2 (10.1-12.7) SECONDS INR 1.1 (0.9-1.3) D-Dimer 2922 H (<230) ng/mL Sodium 140 (137-145) mmol/L Potassium 3.8 (3.4-5.1) mmol/L Chloride 102 (98-107) mmol/L Carbon Dioxide 25 (22-32) mmol/L BUN 20 (9-20) mg/dL Creatinine 0.90 (0.66-1.25) mg/dL Estimated GFR > 60.0 (>60) mL/min BUN/Creatinine Ratio 22.2 H (6-22) Glucose 111 H (80-110) mg/dL Lactate (0.7-2.1) mmol/L Calcium 9.2 (8.4-10.2) mg/dL Total Bilirubin 0.6 (0.2-1.3) mg/dL AST 20 (17-59) IU/L ALT 24 (21-72) IU/L Alkaline Phosphatase 82 (38-126) U/L Total Creatine Kinase 54 L (55-170) U/L CK-MB (CK-2) TNP CK-MB (CK-2) Rel Index TNP Troponin I 0.105 H (0.01-0.034) ng/mL Total Protein 7.1 (6.3-8.2) g/dL Albumin 3.8 (3.5-5.0) g/dL Globulin 3.3 (1.7-4.1) g/dL Albumin/Globulin Ratio 1.2 (1.0-2.8) 09/18/18 09/19/18 Range/Units 18:10 00:17 WBC (4.5-11.0) X10^3/uL RBC (4.5-5.9) X10^6/uL Hgb (13.5-17.5) g/dL Hct (41-53) % MCV (80-100) fL MCH (26-34) PG MCHC (30-36) % RDW (11.6-14.8) % Plt Count (150-400) X10^3/uL Neut % (Auto) (50-75) % Lymph % (Auto) (25-40) % Weber % (Auto) (3-14) % Eos % (Auto) (2-4) % Baso % (Auto) (0-2) % Neut # (Auto) (9790-3100) /uL PT (10.1-12.7) SECONDS INR (0.9-1.3) D-Dimer (<230) ng/mL Sodium (137-145) mmol/L Potassium (3.4-5.1) mmol/L Chloride (98-107) mmol/L Carbon Dioxide (22-32) mmol/L BUN (9-20) mg/dL Creatinine (0.66-1.25) mg/dL Estimated GFR (>60) mL/min BUN/Creatinine Ratio (6-22) Glucose (80-110) mg/dL Lactate 1.5 (0.7-2.1) mmol/L Calcium (8.4-10.2) mg/dL Total Bilirubin (0.2-1.3) mg/dL AST (17-59) IU/L ALT (21-72) IU/L Alkaline Phosphatase (38-126) U/L Total Creatine Kinase (55-170) U/L CK-MB (CK-2) CK-MB (CK-2) Rel Index Troponin I 0.088 H (0.01-0.034) ng/mL Total Protein (6.3-8.2) g/dL Albumin (3.5-5.0) g/dL Globulin (1.7-4.1) g/dL Albumin/Globulin Ratio (1.0-2.8) Point of Care Testing Glucose POC 109 Urine Dip Bedside Urine Glucose Negative Bedside Urine Bilirubin - Negative Bedside Urine Ketone ++ 40 Urine Specific Brinklow 1.020 Bedside Urine Occult Blood - Negative Bedside Urine pH 6.0 Bedside Urine Protein - Negative Bedside Urine Urobilinogen - Negative Bedside Urine Nitrite - Negative Bedside Urine Leukocytes - Negative Esterase Discharge Plan Departure Patient Disposition: Admitted As Inpatient Clinical Impression: Syncope, Weakness Discharge Date/Time: 09/18/18 23:00 Interventions: ED Discharge Assessment Last Done: 09/18/18 22:58 Admit Date/Time: 09/18/18 21:48 Admit Provider: Calvin Hope <Jacklyn Edwards DO - Last Filed: 09/19/18 04:22> Cosign ED Attending Cosignature Attestation: I was immediately available in the department for consultation. This documentation has been reviewed and I agree with assessment and plan. Supervised by Jacklyn Edwards DO
--- NOTE | 2018-09-18 23:08 | P.HP_ITS ---
History of Present Illness Date Patient Seen: 09/18/18 Time Patient Seen: 21:45 Chief complaint: I could not stand up. I kept passing out Narrative: The patient is an 83-year-old male with PMH significant for HTN, bladder cancer, and throat cancer (s/p right parotid gland resection, receiving radiation treatments). It is reported that patient was found by his neighbor who contacted the EMS for evaluation in hospital transfer. Patient reports experiencing syncopal with loss of consciousness events over the past week. He notes having 3 episodes today, 2 yesterday, and once daily multiple days prior. Events typically occur with position change. Associated symptoms include lightheadedness and generalized weakness. Denies experiencing chest pain, palpitations, diaphoresis, or dyspnea. Reports an injury to the head and right upper extremity. The events have been unwitnessed and patient is unable to know duration for loss of consciousness. Denies bowel or bladder incontinence. Denies recent illness and hospitalizations. Reports tolerance to radiation therapy. Notes having a surgery on left aspect of the neck 6 weeks ago, respectively. Patient has been having difficulty swallowing and as a result has had poor food and fluid intake. Reports weight loss of 33 lb over the past 1 month. There is a concern in regard to patient's ability to care for himself. He reports living on his own and doing his own activities of daily living; however , patient does have a degree of cognitive decline. It is not clear if that is his baseline or an acute presentation. In addition he has decreased mobility and degree of deconditioning, which poses a concern for safety. Patient does has a son, who manages his medications; however, it is not entirely clear how frequently he interacts w/ the patient. Patient History Medical History Essential hypertension (Acute) Malignant neoplasm of throat (Acute) History of bladder cancer (Inactive) Family & Social History Tobacco & Substance use: Smoking Status Denies prior or current use alcohol intake frequency holiday/special occasion, last drink 1 year ago , denies history of heavy or excessive EtOH use Substance Use Type Denies prior or current use Meds Home Medications Medication Instructions Recorded Confirmed Type amlodipine [Norvasc] 5 mg PO QDAY #0 11/23/17 History clopidogrel 75 mg PO QDAY #0 11/23/17 History furosemide 80 mg PO QDAY #0 11/23/17 History hydrocodone-acetaminophen [[place]] 1 tab PO Q6H PRN #10 tab 11/23/17 Rx losartan 50 mg PO QDAY #0 11/23/17 History meclizine 25 mg PO HS #0 11/23/17 History mupirocin 1 shahbaz TOPICAL BID #0 11/23/17 History ondansetron [Zofran ODT] 4 mg SUBLINGUAL Q6HP PRN #10 odt 11/23/17 Rx Allergies Allergy/AdvReac Type Severity Reaction Status Date / Time No Known Allergies Allergy Uncoded 09/18/18 17:35 Review of Systems Review of Systems Detailed review of systems is unobtainable due to age related memory decline Constitutional: 33 lb weight loss in 1 month, diminished appetite Cardiovascular: Reports dizziness and lightheadedness Denies dyspnea, orthopnea, peripheral edema Respiratory: Denies pleurisy GI: Denies abdominal pain, nausea, vomiting, diarrhea, melena and hematochezia : Denies dysuria, hematuria, or change and maturation Musc: Generalized weakness, unsteady gait and difficulty ambulating unobtainable due to mental condition Constitutional Constitutional: Reports poor appetite, Reports weakness and Reports weight loss Neurologic Neurologic: Reports weakness Exam Vital Signs (past 8 hours): - 09/18/18 17:32 09/18/18 20:09 09/18/18 21:00 Temperature 98.1 F Pulse Rate 82 60 67 Respiratory Rate 24 15 17 Blood Pressure 134/70 Blood Pressure [Left Arm] 128/77 141/75 H Pulse Oximetry 98 100 100 09/18/18 22:00 Temperature Pulse Rate 64 Respiratory Rate 15 Blood Pressure Blood Pressure [Left Arm] 137/77 Pulse Oximetry 100 Oxygen Delivery Method Room Air Narrative Exam Narrative: Constitutional: No acute distress Head: NC / AT EENT: Pupils equal and reactive, sclerae anicteric Right external ear w/ scabbing / abrasion External nose intact, no epistaxis Oropharynx without lesions, dental caries, poor oral hygiene Neck: NC / AT, mild edema and tenderness at the left aspect of the neck, no focal cervical tenderness Chest: CTAB, on room air, symmetrical chest rise, respiratory effort unlabored CV: S1S2, no m/r/g : NT / ND, hypoactive BS, no organomegally Back / Spine / Pelvis: no focal neurological tenderness of spine Skin: numerous lesions and actinic keratosis noted on face and upper torso; right forearm hematoma Neuro: Alert, oriented to self, aware of being in the hospital, fair recall of events that led to hospital admission, no tremmor Extremities: No edema, distal pulses diminished, extremity sensation intact Objective Labs Result Diagrams: 09/18/18 18:10 09/18/18 18:10 Labs: Laboratory Results - last 24 hr 09/18/18 09/18/18 09/18/18 18:10 18:10 18:10 WBC 10.8 RBC 3.99 L Hgb 13.0 L Hct 38.2 L MCV 95.9 MCH 32.7 MCHC 34.1 RDW 14.0 Plt Count 214 Neut % (Auto) 87.2 H Lymph % (Auto) 4.1 L [place] % (Auto) 7.7 Eos % (Auto) 0.5 L Baso % (Auto) 0.5 Neut # (Auto) 9500 H PT 12.2 INR 1.1 D-Dimer 2922 H Sodium 140 Potassium 3.8 Chloride 102 Carbon Dioxide 25 BUN 20 Creatinine 0.90 Estimated GFR > 60.0 BUN/Creatinine Ratio 22.2 H Glucose 111 H Lactate Calcium 9.2 Total Bilirubin 0.6 AST 20 ALT 24 Alkaline Phosphatase 82 Total Creatine Kinase 54 L CK-MB (CK-2) TNP CK-MB (CK-2) Rel Index TNP Troponin I 0.105 H Total Protein 7.1 Albumin 3.8 Globulin 3.3 Albumin/Globulin Ratio 1.2 09/18/18 18:10 WBC RBC Hgb Hct MCV MCH MCHC RDW Plt Count Neut % (Auto) Lymph % (Auto) [place] % (Auto) Eos % (Auto) Baso % (Auto) Neut # (Auto) PT INR D-Dimer Sodium Potassium Chloride Carbon Dioxide BUN Creatinine Estimated GFR BUN/Creatinine Ratio Glucose Lactate 1.5 Calcium Total Bilirubin AST ALT Alkaline Phosphatase Total Creatine Kinase CK-MB (CK-2) CK-MB (CK-2) Rel Index Troponin I Total Protein Albumin Globulin Albumin/Globulin Ratio Assessment & Plan Plan: Assessment/Plan Narrative: Syncope and collapse CT head without acute intracranial findings; chronic microvascular ischemic changes and old lacunar infarcts - Telemetry monitoring - Echo - Orthostatic BPs - IVF - Fall precautions - Request records from PCP Elevated Troponin No angina or symptoms of ACS. EKG non-ischemic. - Trend troponin Q6H, scheduled for 0000 and 0600 Elevated D-Dimer, CTA negative for PE Malignant neoplasm of throat, s/p recent (6 weeks, by report) left parotid gland resection CT soft tissue neck without acute findings / abnormalities - concern for delayed complication - records requested Facial weakness / Right facial droop - a complication of parotidectomy ? - h/o TIA / CVA, reason for plavix is not clear (per CT head: chronic appearing lacunar infarcts are present within the bilateral basal ganglia) Weight loss (significant) 2/2 facial weakness, dysphagia - Consult speech, eval and treat - NPO - Aspiration precautions Generalized weakness multifactorial: debility / deconditioning vs weight loss vs side effect radiation tx - PT eval and treat re: debility and deconditioning Dysphagia w/ concern for aspiration - NPO - Swallow evaluation in am Essential Hypertension BP controlled. 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 Not clear if was on amlodipine and lasix as well. - Trend BP - Hold OIL AND GAS DRAFTER anti-hypertensives Right arm pain XR humerus negative for fracture and dislocation Home safety concern - Consult SW re: home care, determine if patient is safe to return home
[2018-09-18] MEDS: SODIUM CHLORIDE 0.9% 1,000 ML 75 ML IV (23:15)
--- NOTE | 2018-09-18 23:17 | PC.NURSE ---
Addendum entered by Katharine Lamar R.N. 09/18/18 23:22: Pt oriented to room and call system. Call light w/in reach, bed alarm on for pt safety. Original Note: Pt arrived to [facility] 209 from ER at 2250. Awake, oriented. Had a fall at home this afternoon, Denies discomfort, Pt states he has lost 33 pound in the past month. Dietary consult senet. IV fluids infusing as per orders.
[2018-09-19] VITALS (9 sets, daily range): BP systolic 152–169; BP diastolic 61–108; PULSE 51–86; RESP 16–20; TEMP 36.4–36.7; O2SAT 98–100; BMI 20.9
[2018-09-19 00:53] LABS: Troponin I 0.088 ng/mL (0.01-0.034)
[2018-09-19 06:42] LABS: Troponin I 0.085 ng/mL (0.01-0.034)
--- NOTE | 2018-09-19 08:31 | CM.DANOTE ---
DCP: Case received, EMR reviewed and met with patient. Introduced self and role. DCP template completed with information currently available. Patient is an 83 year old male who admitted yesterday evening via ambulance to te care of the hospitalist team. PCP: Dr. Price. Payer: confirmed: Medicare/[employer]. Patient came in with symptoms of syncope. Lives alone, but has son that is lives nearby. Initially was told that patient lives with son, but patient said that he does not. Asked patient if he had any other family, a daughter, and denied. Son's name is mauricio, and has a [place] address. P: DCP to continue to follow closely. Will contact son as well regarding home plan. Torri Dave RN/Gas Cutter
[2018-09-19] MEDS: HEPARIN 5,000 UNIT/ML VIAL 5000 UNIT SUBCUT ×2 (09:39→21:04)
--- NOTE | 2018-09-19 09:55 | PT.IIE ---
Addendum entered and electronically signed by Cata Edward, PT 09/19/18 13:27: I certify I directly supervised and guided this session. Pili Edward DPT Original Note: Medical History (Last Reviewed 09/18/18 @ 23:00 by AVA Alegria) Essential hypertension (Acute) Malignant neoplasm of throat (Acute) History of bladder cancer (Inactive) Physical Therapy Inpatient Evaluation/Re-Eval M1 PT/OT-IP Prior Functional Status Start: 09/19/18 12:03 Freq: NEEDED Status: Active Protocol: Document 09/19/18 09:55 (Rec: 09/19/18 12:44 [email or web address]) Medical Review Prior Functional Status Medical History Reviewed Yes Communication No deficits noted. Mobility and Gait Prior to admit, pt states full independence with all mobilities including ambulation > 1 mile and no AD. Social History Household Members none Living Arrangements House Number of Floors (Floors) One Floor Number of Stairs To Enter/Railing? 1 step to enter Home Environment Standard Height Toilet Walk in Shower Built-In Shower Seat Home Equipment Hand Held Shower Additional Social History Comment Son Javy visits and checks in periodically (unclear how often). Pt states his son could be availiable for / assist at d/c if needed. M2 PT-IP Current Condition Start: 09/19/18 12:03 Freq: NEEDED Status: Active Protocol: Document 09/19/18 09:55 (Rec: 09/19/18 12:44 [email or web address]) Physical Therapy Current Condition Current Condition Evaluation Date 09/19/18 Treatment Diagnosis Generalized weakness, difficulty with gait; s/p GLF with syncope episode Onset Date 09/18/18 M3 PT-IP Subjective Start: 09/19/18 12:03 Freq: NEEDED Status: Active Protocol: Document 09/19/18 09:55 (Rec: 09/19/18 12:44 [email or web address]) Subjective Physical Therapy Visit Type Type Initial Evaluation Visit Start Time 09:55 Visit Stop Time 10:36 Total Visit Minutes 41 Number of X RAY PHYSICIAN Visits 0 Physical Therapy Visit Comments Patient Comments Pt agreeable to work with PT today including ambulation. States he thinks his syncope episode is related to his recent cancer treatment. Patient Goals Pt plans to return home when discharged. M4 PT-IP Mobility and Gait Start: 09/19/18 12:03 Freq: NEEDED Status: Active Protocol: Document 09/19/18 09:55 (Rec: 09/19/18 12:44 [email or web address]) PT-Bed Mobility Assessment Supine to Sit Supine to Sit Standby Assistance Scooting Scooting to Edge of Bed Standby Assistance PT-Transfer Assessment Sit to and From Stand Sit to and from Stand Minimal Assistance Moderate Assistance 1 Person Assistance Equipment Transfer Assistive Device Front Wheeled Walker Orthotic/Prosthetic Devices or Brace: No Transfers Transfer Destination Chair Comments Mobility Comments Supine/HOB elevated BP at rest is 157/70. Seated EOB 152/72 . Pt standing EOB and marching in place ~30 secs is [place] X1 with fww and pt c/o of dizziness with BP 160/70. Stand > sit [place] x1 and pt cued to rest and breathe. After about 1 min rest he stated feeling ready to try again. Sit > stand is modA x1 and fww, no c/o dizziness and pt agrees to ambulate to chair. Gait Assessment Gait Gait Assistance Required: Contact Guard Assist Distance (Feet) 15 Able to Maintain Weight Bearing Status Yes During Gait Assistive Devices Assistive Device Gait Belt Front Wheeled Walker Orthotic/Prosthetic Devices or Brace: No Gait Deviations General Gait Pattern Decreased Stride Length Decreased Feet Clearance Factors Limiting Gait Function Factors Limiting Gait Function Decreased Activity Tolerance Decreased Strength Poor Balance Poor Safety Awareness Comments Gait Comments Pt ambulates 15 ft. from EOB to recliner using fww and CGA. He demontrates decreased gait speed with small steps of variable step width. He demonstrates no LOB and has no c/o of dizziness during ambulation. PT-Balance Assessment Sitting Balance and Reactions Static Sitting Balance Ability Good Dynamic Sitting Balance Ability Fair Standing Balance and Reactions Static Standing Balance Ability Fair Dynamic Standing Balance Ability Fair Device Used fww M5 PT-IP Objective Assessments Start: 09/19/18 12:03 Freq: NEEDED Status: Active Protocol: Document 09/19/18 09:55 (Rec: 09/19/18 12:44 [email or web address]) Orientation Orientation/Cognition Level of Alertness Alert Orientation Name Birthday Place Situation Language Function Ability No Deficits Noted Safety Awareness Decreased Safety Awareness Comments Pt has soft voice and does require some additional time to respond at times. Strength Lower Extremity Strength Assessment Bilaterally Impaired Comments Strength Comments Grossly tested 3+/5 BLE. M6 PT-IP Treatment Start: 09/19/18 12:03 Freq: NEEDED Status: Active Protocol: Document 09/19/18 09:55 (Rec: 09/19/18 12:44 [email or web address]) Physical Therapy Treatment Exercises Exercises Quad Sets Heel Slides Other Treatments Other Treatment Performed Quad sets X10, 5 sec holds. Heel slides X10, 5 sec holds. M7 PT-IP Assessment and Plan Start: 09/19/18 12:03 Freq: NEEDED Status: Active Protocol: Document 09/19/18 09:55 (Rec: 09/19/18 12:44 [email or web address]) PT Summary Assessment and Plan Potential Rehabilitation Potential Good Status of Condition at Evaluation Evolving Summary Impairments Pain ROM Strength Balance Bed Mobility Transfers Gait Activity Tolerance Progress Towards Goals Slow Progress due to Activity Tolerance Assessment Summary Pt presents with generalized weakness and difficulty walking after a recent episode of syncope and resultant GLF. Pt fatigues easily and requires modA for sit <> stands and CGA during walking. Increase risk for falls is also noted with variable step width during ambulation. Recommendation at this time is for SNF vs. Home with 24/7 assist and HH. Goals Bed Mobility Goal Independent Transfer Goal Standby Assistance Gait Goal Standby Assistance Front Wheel Walker Gait Distance 150 Other Goals Up/down 1 platform step with fww. Days to Meet Goals 5 Frequency of Treatment Frequency Of Treatment Twice a Day Treatment Plan Physical Therapy Treatment Plan Bed Mobility Training Transfer Training Gait Training Therapeutic Exercise Balance Retraining Discharge Planning Hot or Cold Pack Neuromuscular Re-ed Coordination Retraining Other Recommendations and Next Treatment Progress ambulation and Focus functional strengthening. Recommendations To Nursing Amount of Assist Needed 2 Person Assist Discharge Recommendations PT Discharge Recommendations Home with 24/7 Assist Home Health SNF Rehab Other Discharge Recommendations Home with 24/7 assist and HH vs. SNF Equipment Needed for Home Before fww depending on pt status at Discharge discharge.
[2018-09-19] MEDS: SODIUM CHLORIDE 0.9% 1,000 ML 125 ML IV (11:16)
--- NOTE | 2018-09-19 11:24 | P.PN_ITS ---
Subjective Date Patient Seen: 09/19/18 Time Patient Seen: 11:20 Interval history: FOLLOW UP ON SYNCOPE, DECONDITIONING, WEAKNESS Patient seen at bedside. Still complains of profound weakness but was able to stand up with PT (however heart rate went up to 160 while doing so). He complained of dizziness. No overnight events. Exam Vital Signs (past 8 hours): - 09/19/18 03:42 09/19/18 06:37 09/19/18 07:30 Temperature 97.9 F 97.9 F Pulse Rate 62 64 Pulse Rate [Orthostatic Lying] 60 Pulse Rate [Orthostatic Sitting] 75 Pulse Rate [Orthostatic Standing] 86 Respiratory Rate 16 19 Blood Pressure 156/75 H 155/108 H Blood Pressure [Orthostatic Lying] 159/83 H Blood Pressure [Orthostatic Sitting] 158/79 H Blood Pressure [Orthostatic Standing] 158/86 H Pulse Oximetry 98 100 09/19/18 10:36 Temperature Pulse Rate Pulse Rate [Orthostatic Lying] 54 L Pulse Rate [Orthostatic Sitting] 69 Pulse Rate [Orthostatic Standing] 71 Respiratory Rate Blood Pressure Blood Pressure [Orthostatic Lying] 157/70 H Blood Pressure [Orthostatic Sitting] 152/72 H Blood Pressure [Orthostatic Standing] 160/77 H Pulse Oximetry Oxygen Delivery Method Room Air Narrative Exam Narrative: Constitutional: No acute distress, AAOx1-2 Head: NC / AT, PERRLA BL Neck: Supple, no JVD Chest: CTABL, no wheezing or crackles CV: S1S2, no m/r/g GI: Normal BS, soft, nontender, no organomegally Skin: numerous lesions and actinic keratosis noted on face and upper torso; right forearm hematoma Neuro: NFD Psych: AAOx1-2, appropriate mood. Able to make his own decisions Extremities: No edema Objective Labs Result Diagrams: 09/18/18 18:10 09/18/18 18:10 Labs: Laboratory Results - last 24 hr 09/18/18 09/18/18 09/18/18 18:10 18:10 18:10 WBC 10.8 RBC 3.99 L Hgb 13.0 L Hct 38.2 L MCV 95.9 MCH 32.7 MCHC 34.1 RDW 14.0 Plt Count 214 Neut % (Auto) 87.2 H Lymph % (Auto) 4.1 L [place] % (Auto) 7.7 Eos % (Auto) 0.5 L Baso % (Auto) 0.5 Neut # (Auto) 9500 H PT 12.2 INR 1.1 D-Dimer 2922 H Sodium 140 Potassium 3.8 Chloride 102 Carbon Dioxide 25 BUN 20 Creatinine 0.90 Estimated GFR > 60.0 BUN/Creatinine Ratio 22.2 H Glucose 111 H Lactate Calcium 9.2 Total Bilirubin 0.6 AST 20 ALT 24 Alkaline Phosphatase 82 Total Creatine Kinase 54 L CK-MB (CK-2) TNP CK-MB (CK-2) Rel Index TNP Troponin I 0.105 H Total Protein 7.1 Albumin 3.8 Globulin 3.3 Albumin/Globulin Ratio 1.2 09/18/18 09/19/18 09/19/18 18:10 00:17 06:00 WBC RBC Hgb Hct MCV MCH MCHC RDW Plt Count Neut % (Auto) Lymph % (Auto) [place] % (Auto) Eos % (Auto) Baso % (Auto) Neut # (Auto) PT INR D-Dimer Sodium Potassium Chloride Carbon Dioxide BUN Creatinine Estimated GFR BUN/Creatinine Ratio Glucose Lactate 1.5 Calcium Total Bilirubin AST ALT Alkaline Phosphatase Total Creatine Kinase CK-MB (CK-2) CK-MB (CK-2) Rel Index Troponin I 0.088 H 0.085 H Total Protein Albumin Globulin Albumin/Globulin Ratio Assessment & Plan Plan: Assessment/Plan Narrative: 1. Syncope and collapse -Possibly due to weakness and deconditioning -Patient is orthostatic -CT head without acute intracranial findings; chronic microvascular ischemic changes and old lacunar infarcts -Continue Telemetry monitoring at this time -Increase hydration to 150cc/hr - Echo pending - Continue Fall precautions 2. Elevated Troponin - Likely demand ischemia in light of dehydration - No angina or symptoms of ACS. EKG non-ischemic - Trop x3 downtrending - Continue to monitor on telemetry 3. Elevated D-Dimer - very non specific finding, possibly from throat neoplasm - CTA negative for PE - CT soft tissue neck without acute findings / abnormalities - Continue to monitor for hypoxia or LE swelling 4. Facial weakness / Right facial droop - Possibly from prior CVA vs complication of surgery - h/o TIA / CVA, reason for plavix is not clear (per CT head: chronic appearing lacunar infarcts are present within the bilateral basal ganglia) 5. Deconditioning - With weight loss and generalized weakness - No consistent pediatric care coordinator present - Speech, PT/OT on board, will follow up - NPO for now - Aspiration precautions - Social work consult for possible placement 6. Dysphagia w/ concern for aspiration - NPO for now - Swallow evaluation pending 7. Essential Hypertension - BP elevated this morning - Will resume amlodipine and losartan at this time - monitor BP 8. Right arm pain - Possible concussion - PE with R forearm hematoma - XR humerus negative for fracture and dislocation - icepacks as needed 20 min spent evaluating and providing care for patient FULL CODE Quality VTE Deep Vein Thrombosis/Pulmonary Embolism Present on Admission: No
--- NOTE | 2018-09-19 13:37 | PT.IPTN ---
Physical Therapy Treatment Note M2 PT-IP Current Condition Start: 09/19/18 12:03 Freq: NEEDED Status: Active Protocol: Document 09/19/18 09:55 (Rec: 09/19/18 12:44 [email or web address]) Physical Therapy Current Condition Current Condition Evaluation Date 09/19/18 Treatment Diagnosis Generalized weakness, difficulty with gait; s/p GLF with syncope episode Onset Date 09/18/18 M3 PT-IP Subjective Start: 09/19/18 12:03 Freq: NEEDED Status: Active Protocol: Document 09/19/18 13:37 (Rec: 09/19/18 15:17 [email or web address]) Subjective Physical Therapy Visit Type Type Treatment Note Visit Start Time 13:37 Visit Stop Time 14:11 Total Visit Minutes 34 Number of CUSHION COVER INSPECTOR Visits 0 Physical Therapy Visit Comments Patient Comments Pt says he is trying to do his exercises once/hour. States that prior to admit he was able to walk from room to room in his house easily (this is different from what he reported at [facility] as a mile or greater ambulation tolerances) . M4 PT-IP Mobility and Gait Start: 09/19/18 12:03 Freq: NEEDED Status: Active Protocol: Document 09/19/18 13:37 (Rec: 09/19/18 15:17 [email or web address]) PT-Transfer Assessment Sit to and From Stand Sit to and from Stand Contact Guard Assistance Equipment Transfer Assistive Device Front Wheeled Walker Orthotic/Prosthetic Devices or Brace: No Comments Mobility Comments Sit <> stand requires CGA fww and BUE assist for ascend/ descend. When pt asked to attempt sitting without UE assist, he is able to control 60% of the descend and then finishes with a plop despite cues. Gait Assessment Gait Gait Assistance Required: Contact Guard Assist Able to Maintain Weight Bearing Status Yes During Gait Assistive Devices Assistive Device Gait Belt Front Wheeled Walker Orthotic/Prosthetic Devices or Brace: No Gait Deviations General Gait Pattern Decreased Stride Length Decreased Feet Clearance Factors Limiting Gait Function Factors Limiting Gait Function Decreased Activity Tolerance Decreased Strength Poor Balance Poor Safety Awareness Comments Gait Comments Pt ambulates 2 x10 ft from chair <> EOB with CGA and fww . Continues to need cuing for improved gait mechanics and upright posture. He fatigues easily and needed a few minutes rest before returning to the recliner. M5 PT-IP Objective Assessments Start: 09/19/18 12:03 Freq: NEEDED Status: Active Protocol: Document 09/19/18 13:37 (Rec: 09/19/18 15:17 [email or web address]) Orientation Orientation/Cognition Level of Alertness Alert M6 PT-IP Treatment Start: 09/19/18 12:03 Freq: NEEDED Status: Active Protocol: Document 09/19/18 13:37 (Rec: 09/19/18 15:17 [email or web address]) Physical Therapy Treatment Other Treatments Other Treatment Performed 3X3 sit <> stands performed with cues to stand upright 5 seconds before descending with control to the chair. Pt completes using BUE assist on arm rests for ascend/descend or uses [place] maneuver to help control. Max cues to use the power of his legs and to remember to breathe. Pt needs ~2 mins rest between sets. VSS remain stable for duration of session. M7 PT-IP Assessment and Plan Start: 09/19/18 12:03 Freq: NEEDED Status: Active Protocol: Document 09/19/18 13:37 (Rec: 09/19/18 15:17 [email or web address]) PT Summary Assessment and Plan Potential Rehabilitation Potential Good Summary Impairments Pain ROM Strength Balance Bed Mobility Transfers Gait Activity Tolerance Assessment Summary Pt with generalized weakness and difficulty with gait. He demonstrates motivation to get stronger, reporting that he is trying to do his exercises every hour. He fatigues easily, needing frequent breaks. CGA needed for sit <> stand and ambulation. Continue to recommend SNF vs home with 24/7 assist and HH. Goals Bed Mobility Goal Independent Transfer Goal Standby Assistance Gait Goal Standby Assistance Gait Distance 150 Other Goals Up/down 1 platform step with fww. Days to Meet Goals 5 Frequency of Treatment Frequency Of Treatment Twice a Day Treatment Plan Physical Therapy Treatment Plan Bed Mobility Training Transfer Training Gait Training Therapeutic Exercise Balance Retraining Discharge Planning Hot or Cold Pack Neuromuscular Re-ed Coordination Retraining Other Recommendations and Next Treatment Assess standing and ambulation Focus without AD. Recommendations To Nursing Amount of Assist Needed 2 Person Assist Discharge Recommendations PT Discharge Recommendations Home with 24/7 Assist Home Health SNF Rehab Other Discharge Recommendations Home with 24/7 assist and HH vs. SNF Equipment Needed for Home Before fww depending on pt status at Discharge discharge.
--- NOTE | 2018-09-19 13:37 | PT.IPTN ---
Addendum entered and electronically signed by Cata Edward, PT 09/19/18 15:51: I certify I directly supervised and guided this session. Pili Edward, DPJuan F Original Note: Physical Therapy Treatment Note M2 PT-IP Current Condition Start: 09/19/18 12:03 Freq: NEEDED Status: Active Protocol: Document 09/19/18 09:55 (Rec: 09/19/18 12:44 [email or web address]) Physical Therapy Current Condition Current Condition Evaluation Date 09/19/18 Treatment Diagnosis Generalized weakness, difficulty with gait; s/p GLF with syncope episode Onset Date 09/18/18 M3 PT-IP Subjective Start: 09/19/18 12:03 Freq: NEEDED Status: Active Protocol: Document 09/19/18 13:37 (Rec: 09/19/18 15:17 [email or web address]) Subjective Physical Therapy Visit Type Type Treatment Note Visit Start Time 13:37 Visit Stop Time 14:11 Total Visit Minutes 34 Number of EDUCATIONAL RESOURCE COORDINATOR Visits 0 Physical Therapy Visit Comments Patient Comments Pt says he is trying to do his exercises once/hour. States that prior to admit he was able to walk from room to room in his house easily (this is different from what he reported at [facility] as a mile or greater ambulation tolerances) . M4 PT-IP Mobility and Gait Start: 09/19/18 12:03 Freq: NEEDED Status: Active Protocol: Document 09/19/18 13:37 (Rec: 09/19/18 15:17 [email or web address]) PT-Transfer Assessment Sit to and From Stand Sit to and from Stand Contact Guard Assistance Equipment Transfer Assistive Device Front Wheeled Walker Orthotic/Prosthetic Devices or Brace: No Comments Mobility Comments Sit <> stand requires CGA fww and BUE assist for ascend/ descend. When pt asked to attempt sitting without UE assist, he is able to control 60% of the descend and then finishes with a plop despite cues. Gait Assessment Gait Gait Assistance Required: Contact Guard Assist Able to Maintain Weight Bearing Status Yes During Gait Assistive Devices Assistive Device Gait Belt Front Wheeled Walker Orthotic/Prosthetic Devices or Brace: No Gait Deviations General Gait Pattern Decreased Stride Length Decreased Feet Clearance Factors Limiting Gait Function Factors Limiting Gait Function Decreased Activity Tolerance Decreased Strength Poor Balance Poor Safety Awareness Comments Gait Comments Pt ambulates 2 x10 ft from chair <> EOB with CGA and fww . Continues to need cuing for improved gait mechanics and upright posture. He fatigues easily and needed a few minutes rest before returning to the recliner. M5 PT-IP Objective Assessments Start: 09/19/18 12:03 Freq: NEEDED Status: Active Protocol: Document 09/19/18 13:37 (Rec: 09/19/18 15:17 [email or web address]) Orientation Orientation/Cognition Level of Alertness Alert M6 PT-IP Treatment Start: 09/19/18 12:03 Freq: NEEDED Status: Active Protocol: Document 09/19/18 13:37 (Rec: 09/19/18 15:17 [email or web address]) Physical Therapy Treatment Other Treatments Other Treatment Performed 3X3 sit <> stands performed with cues to stand upright 5 seconds before descending with control to the chair. Pt completes using BUE assist on arm rests for ascend/descend or uses [place] maneuver to help control. Max cues to use the power of his legs and to remember to breathe. Pt needs ~2 mins rest between sets. VSS remain stable for duration of session. M7 PT-IP Assessment and Plan Start: 09/19/18 12:03 Freq: NEEDED Status: Active Protocol: Document 09/19/18 13:37 (Rec: 09/19/18 15:17 [email or web address]) PT Summary Assessment and Plan Potential Rehabilitation Potential Good Summary Impairments Pain ROM Strength Balance Bed Mobility Transfers Gait Activity Tolerance Assessment Summary Pt with generalized weakness and difficulty with gait. He demonstrates motivation to get stronger, reporting that he is trying to do his exercises every hour. He fatigues easily, needing frequent breaks. CGA needed for sit <> stand and ambulation. Continue to recommend SNF vs home with 24/7 assist and HH. Goals Bed Mobility Goal Independent Transfer Goal Standby Assistance Gait Goal Standby Assistance Gait Distance 150 Other Goals Up/down 1 platform step with fww. Days to Meet Goals 5 Frequency of Treatment Frequency Of Treatment Twice a Day Treatment Plan Physical Therapy Treatment Plan Bed Mobility Training Transfer Training Gait Training Therapeutic Exercise Balance Retraining Discharge Planning Hot or Cold Pack Neuromuscular Re-ed Coordination Retraining Other Recommendations and Next Treatment Assess standing and ambulation Focus without AD. Recommendations To Nursing Amount of Assist Needed 2 Person Assist Discharge Recommendations PT Discharge Recommendations Home with / Assist Home Health SNF Rehab Other Discharge Recommendations Home with 24/7 assist and HH vs. SNF Equipment Needed for Home Before fww depending on pt status at Discharge discharge.
--- NOTE | 2018-09-19 13:41 | CM.DPC ---
Addendum entered by Torri Dave R.N. 09/19/18 16:06: Have discussed case with SID Rashid, who is taking over case. Original Note: DCP Cont: Genevieve called, and wanted to know about switching Power of Liquid Sugar Fortifier from the son to her, and how to go about doing this? She also wanted to send pictures of what patient's house looked like. Let her know that social security benefits interviewer is now handling the case, and gave her the direct number. Let her know that social security benefits interviewer would be in touch with her, for she is seeing patients, and interviewing patient as well. Continued to repeat statement as before, calling the police, etc. P: family preservation caseworker to take over case. oTrri Dave RN/[employer]
--- NOTE | 2018-09-19 15:02 | OT.IP.TRT ---
Occupational Therapy Treatment Note M3 OT- IP Subjective and Pain Start: 09/19/18 15:00 Freq: Status: Active Protocol: Document 09/19/18 15:01 [facility] (Rec: 09/19/18 15:02 [facility] [id number]) OT- Subjective Occupational Therapy Visit Type Type Patient Refusal Notes Pt just finishing up with PT and too tired at this time to participate with with OT for OT eval, therefore to eval pt tomorrow.
--- NOTE | 2018-09-19 16:47 | ST.IPIE ---
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 History of bladder cancer (Inactive Medical) ST IP Initial Evaulation Report HUMAN RESOURCES SPECIALIST Clinical Swallow Evaluation Start: 09/19/18 15:19 Freq: Status: Active Protocol: Document 09/19/18 15:19 [facility] (Rec: 09/19/18 15:29 [facility] [id number]) Clinical Swallow Evaluation Session Time Total Visit Minutes 60 Referral Reason for Referral NPO d/t difficulty swallowing Setting Assessment Location Acute Care Visit Type Note Type Initial Evaluation Next Note Type Next Note Type Treatment Note Patient Information Identification Type Name History Patient was made NPO in the ER and referred for a swallow evaluation due to complaints of difficulty swallowing s/p radiation and 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 Review of previous medical records showed patient had a clinical swallow evaluation at [facility] on 09/06/18. Recommendations were for regular textures, thin liquids with an MBSS to be considered as an outpatient procedure. Patient's medical history is significant for recent 30 lb weight loss. He reports he lives at home alone and cooks for himself. Subjective Observations Patient was alert and oriented . He agreed to participate in the evaluation stating he was hungry and his mouth was dry. Evaluation Liquids Trialed Ice Chips Thin Solids Trialed Puree Dysphagia Mechanical Dysphagia Advanced Administration Type Tea Spoon Controlled Cup Sip Self-Feeding Oral Impairment Mildly Impaired Oral Strategies Upright at 90 degrees Lingual Sweep Controlled Bite/Sip Size Alternate Liquids/Solids Oral Phase Comments Oral mechanism evaluation revealed right tongue deviation upon protrusion ( likely related to facial palsy). Patient able to lateralize tongue to right and left. Mildly impaired coordination and range of motion. Dentition consists of upper denture with a few lower natural teeth. Adequate bolus acceptance. No anterior spillage noted. Mastication appeared functional for puree and dysphagia mechanical textures. Patient exhibited difficulty with dysphagia advanced textures requiring finger sweep to clear residue from teeth. His preference is for softer foods at this time. Pharyngeal Impairment Mildly Impaired Pharyngeal Strategies Double Swallow Small Bites and Sips Pharyngeal Phase Comments Patient stated he usually has difficulty with the second swallow when he drinks. This was observed on one instance when patient self-administered a large cup sip of water requiring two swallows resulting in coughing. Suspect decreased coordination and swallow timing. No coughing was observed on all other occasions when patient took small controlled sips requiring one swallow only. No overt s/sx of aspiration on solid trials, though on a few occasions patient grimaced and swallow response was delayed 3-4 seconds. Patient denied odynophagia. He is requesting softer foods at this time for ease. Findings Rehabilitation Potential Fair Impressions Patient presents with mild oral dysphagia and suspected mild pharyngeal dysphagia related to impairments in swallow timing. 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 Patient is able to self-feed but would benefit from 1:1 supervision during meals for reminders to use cues and to ensure swallow safety. Diet Recommendations Liquids Order Thin Diet Order Dysphagia Mechanical Medication Recommendations As Tolerated Additional Dietary Needs Single Sips 1:1 Supervision Reminders to Use Strategies Aspiration Precautions Recommended Precautions Upright at 90 Degrees Alternate Liquids/Solids Small Bites/Sips Lingual Sweep Treatment Plan Placement Recommendations after [facility] Facility Discharge Appropriate for Therapy Yes Therapy Recommendations Continue to see patient during inpatient stay for ongoing education and dysphagia management including instrumental assessment as needed if patient shows clinical signs of aspiration. Recommend cognitive evaluation to assist in discharge planning. Dysphagia Goals The patient will demonstrate diet texture upgrade trials with adequate mastication and w/o s/sx of aspiration with 10/10 trials. The patient will demonstrate the ability to adequately self -monitor swallowing skills and perform appropriate compensatory techniques to reduce s/s of aspiration without cues. The patient will participate in cognitive assessment to assist in discharge planning.
[2018-09-19] MEDS: ATORVASTATIN 20 MG TABLET 40 MG PO (21:04)
[2018-09-20] VITALS (8 sets, daily range): BP systolic 138–169; BP diastolic 67–91; PULSE 51–77; RESP 16–21; TEMP 36.2–36.6; O2SAT 94–99
--- NOTE | 2018-09-20 00:40 | PC.NURSE ---
Checked pt.x 2 sound asleep, will monitor & assess pt. when he wakes up.
[2018-09-20] MEDS: SODIUM CHLORIDE 0.9% 1,000 ML 125 ML IV ×2 (02:35→10:54)
[2018-09-20 06:49] LABS: Add Manual Diff / Slide Review NO; Basophils Percent Auto 0.5 % (0-2); Eosinophils Percent Auto 4.5 % (2-4); Hematocrit 34.9 % (41-53); Hemoglobin 11.7 g/dL (13.5-17.5); Lymphocytes Percent Auto 7.3 % (25-40); Mean Corpuscular HGB Conc 33.4 % (30-36); Mean Corpuscular Hemoglobin 32.2 PG (26-34); Mean Corpuscular Volume 96.5 fL (80-100); Monocytes Percent Auto 8.3 % (3-14); Neutrophils Absolute Auto 5100 /uL (3000-5900); Neutrophils Percent Auto 79.4 % (50-75); Platelet Count 178 X10^3/uL (150-400); Red Blood Cell Count 3.62 X10^6/uL (4.5-5.9); Red Cell Distribution Width 13.9 % (11.6-14.8); White Blood Cell Count 6.5 X10^3/uL (4.5-11.0)
[2018-09-20 06:56] LABS: Blood Urea Nitrogen 9 mg/dL (9-20); Calcium 8.3 mg/dL (8.4-10.2); Carbon Dioxide 25 mmol/L (22-32); Chloride 107 mmol/L (98-107); Estimated Glomerular Filt Rate > 60.0 mL/min (>60); Glucose 86 mg/dL (80-110); HEMOLYSIS < 15 (0-50); Potassium 3.4 mmol/L (3.4-5.1); Sodium 141 mmol/L (137-145)
--- NOTE | 2018-09-20 08:12 | CM.SWNOTE ---
CERTIFIED HAND THERAPIST Note: Reviewed chart. Patient is a 83yr old male admitted to I. with complaints of passing out. CERTIFIED HAND THERAPIST received referral from [facility] for d/c planning and social issues. CERTIFIED HAND THERAPIST met with patient on 09-19 in AM to do assessment. Patient sitting in recliner at time of visit. has seen him prior to CERTIFIED HAND THERAPIST visit and reports patient alert and oriented x3. Patient somewhat slow responding to questions but appropriate. Patient reports that he resides alone in [place]. Patient has neighbors nearby by that he considers close friends they are: Arturo, Genevieve, and Alisha whom is Arturo's spouse. Patient also reports he has one living son Javy. Patient denies having additional biological children. Notes from [facility] approximately 2 weeks ago report patient was at [facility] treated for CVA. At time of that d/c patient was sent home with and it was recommended that patient have 24/ supervision. Patient reports that he refused HH because I don't want anyone in my home. Patient reports that his son/Javy lives with him off/on. Currently patient has not seen or heard from Javy since last week. Patient reports that he receives approximately $2,000.00 per month from . Patient does report that if Javy needs money patient gives it to him. CERTIFIED HAND THERAPIST asked patient if he is aware of whether or not Javy uses drugs? Patient reports probably. Several call from patient's friends Genevieve and Arturo to I. staff with concerns related to patient's currently living situation. Friend's report that residence is filthy and that patient's son is not taking care of him. Patient reports that Javy is his medical decision maker if patient is unable to make decisions. Patient also provided CM team with permission to speak with son/Javy, friend's Genevieve and Arturo. CERTIFIED HAND THERAPIST requested PT/OT/ST evaluations to assist in determining d/c planning needs. P: Pending. Patient denies any physical/verbal abuse by son/Javy. Patient also denies that his son takes his income without permission. Patient may need SNF pending therapy results. It sounds that lobsterman planning may be needed. Will discuss further with patient, son and friend's today. SID Maloney Discharge Planning/Care Management CM Discharge Assessment Start: 09/19/18 08:30 Freq: Status: Active Protocol: Document 09/19/18 08:30 (Rec: 09/19/18 08:41 [id number]) Discharge Planning Assessment Advance Directives? No Advance Directives on File No History Provided By Patient Medical Record Prior Living Arrangements House Household Members none Type of transporation used prior to Drives own vehicle admit Independent with ADL's Yes Is patient alert and oriented? Yes Barriers to Discharge Yes Comment Unclear how involved son is, patient lives alone Transportation Arrangement Son Whiteboard Updated in Patient Room with Yes name and ext. # of Steamfitter Apprentice Review Status In Process Next Review Type Continued Stay Review 09/19/18 08:31 CM Disch. Assessment Note by Torri Dave DCP: Case received, EMR reviewed and met with patient. Introduced self and role. DCP template completed with information currently available. Patient is an 83 year old male who admitted yesterday evening via ambulance to te care of the hospitalist team. PCP: Dr. Price. Payer: confirmed: Medicare/[employer]. Patient came in with symptoms of syncope. Lives alone, but has son that is lives nearby. Initially was told that patient lives with son, but patient said that he does not. Asked patient if he had any other family, a daughter, and denied. Son's name is javy, and has a [place] address. P: DCP to continue to follow closely. Will contact son as well regarding home plan. Torri Dave RN/Mutual Fund Manager Initialized on 09/19/18 08:31 - END OF NOTE
[2018-09-20] MEDS: AMLODIPINE 5 MG TABLET PO (09:19)
[2018-09-20] MEDS: LOSARTAN 50 MG TABLET PO (09:19)
[2018-09-20] MEDS: ASPIRIN EC 81 MG TABLET PO (09:19)
[2018-09-20] MEDS: CLOPIDOGREL 75 MG TABLET PO (09:19)
[2018-09-20] MEDS: HEPARIN 5,000 UNIT/ML VIAL 5000 UNIT SUBCUT ×2 (09:20→19:11)
--- NOTE | 2018-09-20 10:55 | PT.IPTN ---
Current Diagnoses Syncope and collapse (09/18/18) Physical Therapy Treatment Note M2 PT-IP Current Condition Start: 09/19/18 12:03 Freq: NEEDED Status: Active Protocol: Document 09/19/18 09:55 (Rec: 09/19/18 12:44 [email or web address]) Physical Therapy Current Condition Current Condition Evaluation Date 09/19/18 Treatment Diagnosis Generalized weakness, difficulty with gait; s/p GLF with syncope episode Onset Date 09/18/18 M3 PT-IP Subjective Start: 09/19/18 12:03 Freq: NEEDED Status: Active Protocol: Document 09/20/18 10:55 AB (Rec: 09/20/18 12:18 AB [id number]) Subjective Physical Therapy Visit Type Type Progress Note Visit Start Time 10:55 Visit Stop Time 11:20 Total Visit Minutes 25 Number of CLINICAL REIMBURSEMENT SPECIALIST Visits 0 Physical Therapy Visit Comments Patient Comments pt agreeable to do PT Therapy Pain Assessment Pain Present Pain Present Denied Pain M4 PT-IP Mobility and Gait Start: 09/19/18 12:03 Freq: NEEDED Status: Active Protocol: Document 09/20/18 10:55 AB (Rec: 09/20/18 12:18 AB [id number]) PT-Bed Mobility Assessment Supine to Sit Supine to Sit Standby Assistance Scooting Scooting to Edge of Bed Standby Assistance PT-Transfer Assessment Sit to and From Stand Sit to and from Stand Contact Guard Assistance Minimal Assistance Equipment Transfer Assistive Device Gait Belt Front Wheeled Walker Transfers Transfer Destination Toilet Transfer Technique pt ambulated to the toilet using FWW Comments Mobility Comments pt ambulated to the tilet using FWW CGA to min A and cues with (+) LOB x 1 requiring min A for recovery. pt was able to maintain standing using FWW for support CGA while completing toileting and ambulated towards the sink using FWW CGA to min A. BP in supine: 139/65 sitting on EOB: 150/71 after ambulation sitting on chair: 142/67 O2 sat 96%; pt with c/o dizziness but less during ambulation Gait Assessment Gait Gait Assistance Required: Contact Guard Assist Minimum Assistance Distance (Feet) 30 Able to Maintain Weight Bearing Status Yes During Gait Assistive Devices Assistive Device Gait Belt Front Wheeled Walker Orthotic/Prosthetic Devices or Brace: No Gait Deviations General Gait Pattern Decreased Stride Length Decreased Feet Clearance Factors Limiting Gait Function Factors Limiting Gait Function Decreased Activity Tolerance Decreased Strength Poor Balance Poor Safety Awareness Comments Gait Comments pt agreed to do further ambulation in room and completed ~ 30 ft using FWW CGA to min A and cues. M5 PT-IP Objective Assessments Start: 09/19/18 12:03 Freq: NEEDED Status: Active Protocol: Document 09/19/18 13:37 (Rec: 09/19/18 15:17 [email or web address]) Orientation Orientation/Cognition Level of Alertness Alert M6 PT-IP Treatment Start: 09/19/18 12:03 Freq: NEEDED Status: Active Protocol: Document 09/20/18 10:55 AB (Rec: 09/20/18 12:18 AB [id number]) Physical Therapy Treatment Education Education Provided Safety M7 PT-IP Assessment and Plan Start: 09/19/18 12:03 Freq: NEEDED Status: Active Protocol: Document 09/20/18 10:55 AB (Rec: 09/20/18 12:18 AB [id number]) PT Summary Assessment and Plan Potential Rehabilitation Potential Fair Summary Impairments Pain ROM Strength Balance Coordination Sensation Tone Cognition Bed Mobility Transfers Gait Activity Tolerance Progress Towards Goals Slow Progress due to Activity Tolerance Assessment Summary Pt requiring CGA to min A with ambulation wiht (+) LOB during ambulation. pt will require 24/7 assist. pt will need SNF rehab at this time unless there will be 24/7 assist at home and also homehealth PT. Goals Bed Mobility Goal Independent Transfer Goal Standby Assistance Gait Goal Standby Assistance Gait Distance 150 Other Goals Up/down 1 platform step with fww. Days to Meet Goals 5 Frequency of Treatment Frequency Of Treatment Twice a Day Treatment Plan Physical Therapy Treatment Plan Bed Mobility Training Transfer Training Gait Training Therapeutic Exercise Balance Retraining Discharge Planning Hot or Cold Pack Neuromuscular Re-ed Coordination Retraining Other Recommendations and Next Treatment ambulation Focus Recommendations To Nursing Amount of Assist Needed 1 Person Assist Discharge Recommendations Other Discharge Recommendations SNF vs home with 24/7 and PT Equipment Needed for Home Before fww depending on pt status at Discharge discharge.
--- NOTE | 2018-09-20 12:52 | P.PN_ITS ---
Subjective Date Patient Seen: 09/20/18 Time Patient Seen: 12:46 Interval history: FOLLOW UP ON SYNCOPE, DECONDITIONING, WEAKNESS Patient seen at bedside. Doing better but is still pretty weak. No acute overnight events. Son is present at bedside. Per son, Patient was diagnosed with skin cancer around throat 2 months ago. He had it resected, irradiated, and chemotherapy first round was finished 2 weeks ago. Since then patient progressively gotten weak with decreased PO intake and frequent falls. He was evaluated at another hospital 2 weeks ago for possibility of TIA which according to son was ruled out but no reason as to why he is weak has been found. Exam Vital Signs (past 8 hours): - 09/20/18 09:19 09/20/18 10:27 Temperature 97.9 F Pulse Rate 64 64 Pulse Rate [Orthostatic Lying] 59 L Pulse Rate [Orthostatic Sitting] 60 Pulse Rate [Orthostatic Standing] 74 Respiratory Rate 19 Blood Pressure 143/73 H 143/73 H Blood Pressure [Orthostatic Lying] 154/67 H Blood Pressure [Orthostatic Sitting] 145/89 H Blood Pressure [Orthostatic Standing] 138/82 Pulse Oximetry 96 Oxygen Delivery Method Room Air Narrative Exam Narrative: Constitutional: No acute distress, AAOx1-2 Head: NC / AT, PERRLA BL Neck: Supple, no JVD Chest: CTABL, no wheezing or crackles CV: S1S2, no m/r/g GI: Normal BS, soft, nontender, no organomegally Skin: numerous lesions and actinic keratosis noted on face and upper torso; right forearm hematoma Neuro: NFD Psych: AAOx1-2, appropriate mood. Able to make his own decisions Extremities: No edema Objective Labs Result Diagrams: 09/20/18 06:24 09/20/18 06:24 Labs: Laboratory Results - last 24 hr 09/20/18 09/20/18 06:24 06:24 WBC 6.5 RBC 3.62 L Hgb 11.7 L Hct 34.9 L MCV 96.5 MCH 32.2 MCHC 33.4 RDW 13.9 Plt Count 178 Neut % (Auto) 79.4 H Lymph % (Auto) 7.3 L [place] % (Auto) 8.3 Eos % (Auto) 4.5 H Baso % (Auto) 0.5 Neut # (Auto) 5100 Sodium 141 Potassium 3.4 Chloride 107 Carbon Dioxide 25 BUN 9 Creatinine 0.60 L Estimated GFR > 60.0 BUN/Creatinine Ratio 15.0 Glucose 86 Calcium 8.3 L Assessment & Plan Plan: Assessment/Plan Narrative: 1. Syncope and collapse -Possibly due to weakness and deconditioning -Patient is orthostatic -CT head without acute intracranial findings; chronic microvascular ischemic changes and old lacunar infarcts -Continue Telemetry monitoring at this time -Decrease hydration to 100cc/hr as patient is now passed swallow evaluation - Echo pending - Continue Fall precautions 2. Elevated Troponin - Likely demand ischemia in light of dehydration - No angina or symptoms of ACS. EKG non-ischemic - Trop x3 downtrending - Continue to monitor on telemetry 3. Elevated D-Dimer - very non specific finding, possibly from throat neoplasm - CTA negative for PE - CT soft tissue neck without acute findings / abnormalities - Continue to monitor for hypoxia or LE swelling 4. Facial weakness / Right facial droop - Possibly from prior CVA vs complication of surgery/chemotherapy - Passed swallow evaluation by speech - Resume ASA, Atorvastatin, Plavix (unclear why patient is on plavix at home- possibly due to ASA failure?) 5. Deconditioning - With weight loss and generalized weakness - No consistent urgent care nurse practitioner present - Speech, PT/OT on board, recommend SNF - Passed swallow eval - Aspiration precautions - Social work consult for possible placement 6. Dysphagia w/ concern for aspiration - Passed swallow evaluation, on dysphagia diet 7. Essential Hypertension - BP elevated this morning - Will resume amlodipine and losartan at this time - monitor BP 8. Right arm pain - Possible concussion - PE with R forearm hematoma - XR humerus negative for fracture and dislocation - icepacks as needed 20 min spent evaluating and providing care for patient Family and the patient wish to pursue other sources of help before going to nursing facility, pending discussion with case managemeng FULL CODE Quality VTE Deep Vein Thrombosis/Pulmonary Embolism Present on Admission: No
--- NOTE | 2018-09-20 12:55 | OT.IP.EVAL ---
Current Diagnoses Syncope and collapse (09/18/18) Past Medical History (Last Reviewed 09/18/18 @ 23:00 by AVA Alegria) Essential hypertension (Acute) Malignant neoplasm of throat (Acute) History of bladder cancer (Inactive) Occupational Therapy Inpatient Evaluation/Re-Eval M1 PT/OT-IP Prior Functional Status Start: 09/19/18 12:03 Freq: NEEDED Status: Active Protocol: Document 09/19/18 09:55 (Rec: 09/19/18 12:44 [email or web address]) Medical Review Prior Functional Status Medical History Reviewed Yes Communication No deficits noted. Mobility and Gait Prior to admit, pt states full independence with all mobilities including ambulation > 1 mile and no AD. Social History Household Members none Living Arrangements House Number of Floors (Floors) One Floor Number of Stairs To Enter/Railing? 1 step to enter Home Environment Standard Height Toilet Walk in Shower Built-In Shower Seat Home Equipment Hand Held Shower Additional Social History Comment Son Javy visits and checks in periodically (unclear how often). Pt states his son could be available for 24/7 assist at d/c if needed. M1 PT/OT-IP Prior Functional Status Start: 09/19/18 15:00 Freq: NEEDED Status: Active Protocol: Document 09/20/18 12:30 [facility] (Rec: 09/20/18 12:54 [facility] [id number]) Medical Review Prior Functional Status Medical History Reviewed Yes Communication No deficits noted. Mobility and Gait Prior to admit, pt states full independence with all mobilities including ambulation > 1 mile and no AD. However pt later states after last hospitalization only walking in his house mainly and neighbors needed assist with yardwork and driving. Activities of Daily Living and IADL's Independent with ADl's. Social History Household Members none Living Arrangements House Number of Floors (Floors) One Floor Number of Stairs To Enter/Railing? 1 step to enter Home Environment Standard Height Toilet Walk in Shower Built-In Shower Seat Home Equipment Hand Held Shower Additional Social History Comment Son Javy visits and checks in periodically (unclear how often). Pt states his son could be available for 24/7 assist at d/c if needed. M2 OT-IP Current Condition Start: 09/19/18 15:00 Freq: Status: Active Protocol: Document 09/20/18 12:30 [facility] (Rec: 09/20/18 12:54 [facility] [id number]) Occupational Therapy Current Condition Current Condition Evaluation Date 09/20/18 Treatment Diagnosis Syncope, weakness Diagnosis Onset Date 09/18/18 M3 OT- IP Subjective and Pain Start: 09/19/18 15:00 Freq: Status: Active Protocol: Document 09/20/18 12:30 [facility] (Rec: 09/20/18 12:54 [facility] [id number]) OT- Subjective Occupational Therapy Visit Type Type Initial Evaluation Visit Start Time 11:40 Visit Stop Time 12:10 Notes Seen in AM also for cognitive assessment. Occupational Therapy Visit Comments Patient Comments Pt insistent on going home versus to rehab. Pt states neighbor had a bad experience at rehab, and states that his son will be home to assist . Patient/Caregiver Goals To go home. OT Pain Assessment Pain When Pain Assessed At Rest Pain Present Pain Present Denied Pain M4 OT- IP ADL's Start: 09/19/18 15:00 Freq: Status: Active Protocol: Document 09/20/18 12:30 [facility] (Rec: 09/20/18 12:54 [facility] [id number]) OT ADL-Grooming General Evaluation Grooming Ability Standby Assistance Contact Guard Assistance Comments OT Grooming Comments CGA for balance occasionally, or pt having to hold to the counter for balance. OT ADL-Oral Care General Eval Oral Care Ability Independent OT ADL-Dressing General Eval Lower Body Dressing Ability Standby Assistance Minimal Assistance Comments OT Dressing Comments CGA to SHARRON for balance while adjusting gown while trying to stand and urinate into urinal. Pt able to bend over while sitting to fiona/doff socks. However pt complaining of dizziness BP 160/77. OT ADL-Toileting General Evaluation Toileting Ability Contact Guard Assistance Devices Toileting Assistive Devices Urinal Comments OT Toileting Comments CGA for balance while standing to use the urinal for balance . SHARRON when not using one hand on the walker. M5 OT- IP IADL's Start: 09/19/18 15:00 Freq: Status: Active Protocol: Document 09/20/18 12:30 [facility] (Rec: 09/20/18 12:54 [facility] [id number]) OT-Instrumental Activities of Daily Living Home Safety Awareness Home Safety Comments Pt states has been able to do IADL needs, however do to pt's decreased balance and endurance will need assist if going home. Medication Management Medication Management Comments Pt will need assist at home. Money Management Money Management Comments Pt will need assist at home Meal Preparation Meal Preparation Comments Pt will need assist at home. Truss Maker Truss Maker Comments Pt will need assist at home. Driving Driving Comments Pt states has been recently getting intermittent assist for driving. M6 OT- IP Functional Cognition Start: 09/19/18 15:00 Freq: Status: Active Protocol: Document 09/20/18 12:30 [facility] (Rec: 09/20/18 12:54 [facility] [id number]) Cognitive Factors Limiting Selfcare Function Cognitive Ability Level of Alertness Alert Patient Orientation Name Place Situation Attention Span Ability Capable of Focused Attention Capable of Sustained Attention Ability to Follow Commands Able to Follow One Step Commands Memory Description Short Term Impaired Working Impaired Safety Awareness Underestimates Need for Assistance Problem Solving Ability Needs Assist to Identify Solutions Cognitive Tests SLUMS Pt scored 21/30 which implies cognitive deficits and having trouble with memory items and drawing on a clock. Pt needing increased time to complete and digest information of the assessment. Cognitive Comments Cognitive Assessment Comments Pt is a bit impulsive, decreased safety awareness and vc to keep fww in front of him at all times. M7 OT- IP Mobility and Balance Start: 09/19/18 15:00 Freq: Status: Active Protocol: Document 09/20/18 12:30 [facility] (Rec: 09/20/18 12:54 [email or web address]) OT-Transfer Assessment Sit to and From Stand Sit to and from Stand Moderate Assistance Transfers Transfer Ability Contact Guard Assistance Technique Transfer Destination Chair Transfer Technique Stand Step Pivot Devices Transfer Assistive Devices Gait Belt Front Wheeled Walker Comments Mobility Comments Pt needing MODA to stand from recliner, pt states recliner in lower at home. Pt once up CGA for balance . Pt in a loyola to get to the bathroom and needing SHARRON for balance and ended up having the pt use the urinal instead. OT- Balance Assessment Sitting Balance and Reactions Static Sitting Balance Ability Normal Dynamic Sitting Balance Ability Normal Standing Balance and Reactions Static Standing Balance Ability Fair Dynamic Standing Balance Ability Poor Balance Tests Functional Reach Test 5 inches which indicates high fall risk M8 OT- IP Objective Assessments Start: 09/19/18 15:00 Freq: Status: Active Protocol: Document 09/20/18 12:30 [facility] (Rec: 09/20/18 12:54 [facility] [id number]) OT Gross Range of Motion Upper Extremity Range of Motion Assessment Bilaterally Impaired ROM Impairments RUE shoulder 0-20, bruise noted on his right elbow from fall. PROM 0-100 RUE. LUE 0-80. OT Strength Upper Extremity Strength Assessment Bilaterally Impaired Comments Strength Comments BUE strength 3-/5 to 3+/5. M9 OT- IP Assessment and Plan Start: 09/19/18 15:00 Freq: Status: Active Protocol: Document 09/20/18 12:30 [facility] (Rec: 09/20/18 12:54 [facility] [id number]) OT Summary Assessment and Plan Potential Rehabilitation Potential Good Analytic Complexity at Evaluation Moderate Summary OT Impairments Range of Motion Strength Balance Functional Cognition Functional Mobility Self-Feeding Grooming Dressing Toileting Bathing Toilet Transfers Shower Transfers Progress Towards Goals Slow Progress due to Medical Issues Slow Progress due to Activity Tolerance Slow Progress due to Cognition Assessment Summary Pt MOD complexity main barriers are balance, decreased endurance, safety awareness, strength, and now needing assist for all ADl's and functional mobility needs. In addition pt has decreased use of RUE due to the fall and suggested pt would benefit from skilled rehab to get back to prior level of care FREDERICK for all needs and lives alone. Curently pt is a high fall risk. Pt now needing use of FWW for safety. Goals Self-Feeding Goal Standby Assistance Grooming Goal Independent Dressing Goal Independent Toileting Goal Independent Bathing Goal Standby Assistance Toilet Transfer Goal Standby Assistance Shower Transfer Goal Standby Assistance Patient/Caregiver Education Goal Caregiver Independent Assisting Patient Days to Meet Goals 7 Frequency of Treatment Frequency Of Treatment Once a Day Treatment Plan OT Treatment Plan ADL Training Functional Cognition Training Functional Mobility Patient/Family Education Discharge Planning Other Treatment Recommendations and Next Family training with pt's son. Treatment Focus Discharge Recommendations OT Discharge Recommendations SNF Rehab Other Discharge Recommendations Pt refusing SNF, therefore pt will need / assist and home health. Home Equipment Needs FWW
--- NOTE | 2018-09-20 13:55 | PT.IPTN ---
Addendum entered and electronically signed by Cata Edward, PT 09/20/18 14:58: I certify I directly supervised and guided this session. Pili Edward, DPT Original Note: Current Diagnoses Syncope and collapse (09/18/18) Physical Therapy Treatment Note M2 PT-IP Current Condition Start: 09/19/18 12:03 Freq: NEEDED Status: Active Protocol: Document 09/19/18 09:55 (Rec: 09/19/18 12:44 [email or web address]) Physical Therapy Current Condition Current Condition Evaluation Date 09/19/18 Treatment Diagnosis Generalized weakness, difficulty with gait; s/p GLF with syncope episode Onset Date 09/18/18 M3 PT-IP Subjective Start: 09/19/18 12:03 Freq: NEEDED Status: Active Protocol: Document 09/20/18 13:50 (Rec: 09/20/18 14:52 [id number]) Subjective Physical Therapy Visit Type Type Treatment Note Visit Start Time 13:55 Visit Stop Time 14:20 Total Visit Minutes 25 Number of DOOR CLAMPER Visits 0 Physical Therapy Visit Comments Patient Comments Pt agreeable to do PT today. Still working on his exercises maybe 6X/day. Patient Goals States wanting to go home at discharge. M4 PT-IP Mobility and Gait Start: 09/19/18 12:03 Freq: NEEDED Status: Active Protocol: Document 09/20/18 13:50 (Rec: 09/20/18 14:52 [id number]) PT-Bed Mobility Assessment Sit to Supine Sit to Supine Standby Assistance Scooting Scooting to Edge of Bed Standby Assistance PT-Transfer Assessment Sit to and From Stand Sit to and from Stand Contact Guard Assistance Equipment Transfer Assistive Device Gait Belt Front Wheeled Walker Orthotic/Prosthetic Devices or Brace: No Transfers Transfer Destination Bed Comments Mobility Comments Sit <> stand CGA for balance and performs slowly, but with good control (no plopping or LOB). Pt requests to use urinal and maintains standing balance SBA to complete. Gait Assessment Gait Gait Assistance Required: Contact Guard Assist Distance (Feet) 150 Able to Maintain Weight Bearing Status Yes During Gait Assistive Devices Assistive Device Gait Belt Front Wheeled Walker Orthotic/Prosthetic Devices or Brace: No Gait Deviations General Gait Pattern Decreased Stride Length Decreased Feet Clearance Factors Limiting Gait Function Factors Limiting Gait Function Decreased Activity Tolerance Decreased Strength Poor Balance Poor Safety Awareness Comments Gait Comments Pt prefered to ambulate vs. perform sit <> stand functional strengthening. Ambulated 150 ft CGA with fww and min cues for upright posture. At one point during ambulation pt did report a little dizziness, but requested to continue. Functional Assessments Other Functional Tests Performed BP = 149/77 resting/seated After standing to use the urinal (~2 mins) BP 141/79. Post ambulation, seated BP 140 /70 with increased c/o dizziness when seated. M5 PT-IP Objective Assessments Start: 09/19/18 12:03 Freq: NEEDED Status: Active Protocol: Document 09/19/18 13:37 (Rec: 09/19/18 15:17 [email or web address]) Orientation Orientation/Cognition Level of Alertness Alert M6 PT-IP Treatment Start: 09/19/18 12:03 Freq: NEEDED Status: Active Protocol: Document 09/20/18 10:55 AB (Rec: 09/20/18 12:18 AB [id number]) Physical Therapy Treatment Education Education Provided Safety M7 PT-IP Assessment and Plan Start: 09/19/18 12:03 Freq: NEEDED Status: Active Protocol: Document 09/20/18 13:50 (Rec: 09/20/18 14:52 [id number]) PT Summary Assessment and Plan Potential Rehabilitation Potential Good Summary Impairments Pain ROM Strength Balance Coordination Cognition Bed Mobility Transfers Gait Activity Tolerance Progress Towards Goals Slow Progress due to Activity Tolerance Assessment Summary Pt ambulated 150ft with fww and CGA. Balance is improved this session as evidenced by ability to stand ~2 mins. without UE assist and SBA. He fatigues easily and c/o of dizziness off/on throughout session. Continue to recommend SNF, or home with 24 /7 assist and HH. Goals Bed Mobility Goal Independent Transfer Goal Standby Assistance Gait Goal Standby Assistance Front Wheel Walker Gait Distance 200 Other Goals Up/down 1 platform step with fww. Days to Meet Goals 5 Frequency of Treatment Frequency Of Treatment Twice a Day Treatment Plan Physical Therapy Treatment Plan Bed Mobility Training Transfer Training Gait Training Therapeutic Exercise Balance Retraining Discharge Planning Hot or Cold Pack Neuromuscular Re-ed Coordination Retraining Other Recommendations and Next Treatment ambulation. Functional LE Focus strengthening. Recommendations To Nursing Amount of Assist Needed 1 Person Assist Discharge Recommendations PT Discharge Recommendations Home with 24/7 Assist Home Health SNF Rehab Other Discharge Recommendations SNF vs home with 24/7 and PT Equipment Needed for Home Before fww depending on pt status at Discharge discharge.
--- NOTE | 2018-09-20 14:01 | ST.IPDYTX ---
Care Team Visit Care Team Role Provider Type Quincy Price MD Family Provider Physician Primary Care Provider Specialty: Family Practice Address: [address], [place], [address] Email: AVA Villatoro Emergency Provider Advanced Assignment Desk Assistant Specialty: Emergency Medicine Address: [address] [place] [address], [address] Email: AVA Alegria Admit Provider Advanced Assignment Desk Assistant Attending Provider Specialty: Internal Medicine Address: [address] [place] [address], [id number] Email: PHARMACEUTICAL SALES SPECIALIST Dysphagia Treatment PHARMACEUTICAL SALES SPECIALIST Dysphagia Treatment Start: 09/20/18 13:52 Freq: Status: Active Protocol: Document 09/20/18 13:52 MRM (Rec: 09/20/18 14:00 MRM [id number]) Dysphagia Treatment Session Time Visit Start Time 12:00 Visit Stop Time 12:20 Total Visit Minutes 20 Setting Assessment Location Acute Care Visit Type Note Type Treatment Note Next Note Type Next Note Type Treatment Note Patient Information Identification Type Name ID Wristband Other Subjective Observations Patient awake and alert, finishing occupational therapy with [employer]. No complaints of pain. He stated that he feels that he is getting stronger. Throughout the session, patient presented with significant depression and often became teary. PHARMACEUTICAL SALES SPECIALIST provided education related to ideal types of foods to eat when he is discharged. Patient stated that he cooks his own meals. He then stated, I've lost 35 pounds in a month. He then became visibly upset and began to cry. PHARMACEUTICAL SALES SPECIALIST inquired if the patient was feeling well and asked if he needed anything. Patient stated that he was doing much better and did not need anything. However, he continued to cry. His demeanor was consistent throughout treatment. OTDigna, came back briefly during speech treatment to ask patient for his son's phone number. The patient had difficulty recalling the phone number and stated, He will be sleeping during the day. OT asked if his son worked at night and patient stated, No, he doesn't work. He stays up all night. PHARMACEUTICAL SALES SPECIALIST informed nursing of patient's emotional state and will speak with care management about these events after the session. Treatment Liquids Trialed Thin Solids Trialed Dysphagia Mechanical Oral Strategies Upright at 90 degrees Pharyngeal Strategies Double Swallow Small Bites and Sips Alternate Liquids/Solids Treatment Activities Patient independent in eating lunch. Able to tolerate soup and thin liquids without overt s/s of aspiration. Patient did present with a wet vocal quality prior to eating. This was observed x3 during meal, but independent throat clear was implemented. No cough or overt s/s of aspriation observed during 20 minutes of treatment. Patient stated that he takes about an hour to complete a meal. No apparent difficulty observed. Good tolerance of current meal. No upgrade recommended due to patient's need for moisture with meals (history of pharyngeal radiation). Continue current diet. Assessment Patient Response to Treatment Good Rehab Potential Good Assessment of Improvement Patient is tolerating dysphagia mechanical textures and thin liquids without difficulty. 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 Continue to reassess patient's swallowing ability. Diet Recommendations Recommendations Continue Current Diet Liquids Order Thin Diet Order Dysphagia Mechanical Medication Recommendations As Tolerated Aspiration Precautions Recommended Precautions Upright at 90 Degrees Alternate Liquids/Solids Frequent Rest Periods Small Bites/Sips Effortful Swallow Treatment Plan Placement Recommendation after Discharge Other Appropriate for Continued Therapy Yes Therapy Recommendations Ongoing dysphagia intervention . Follow up with additional written resources for effects on swallowing after radiation. Dysphagia Goals 1. The patient will demonstrate diet upgrade trials without signs and/or symptoms of aspiration with 10/10 trials. 2. The patient will demonstrate the ability to adequately self-monitor swallowing skills and perform appropriate compensatory techniques to reduce s/s of aspiration. 3. The patient will participate in cognitive assessment to assist in discharge planning.
--- NOTE | 2018-09-20 16:17 | CM.DPNOTE ---
DCP/Continued: Reviewed chart. All therapies have recommended SNF at time of d/c. SNF list has been provided to patient. Per OT/Albina, she has spoken to patient's son/Javy # [phone]. He reports that he can care for patient in the home. He plans to meet therapy at [facility] tomorrow at 10:00AM for caregiver training. RESIDENTIAL DESIGNER unable to follow up with friend/neighbors today re: patient's current living situation. Will request RESIDENTIAL DESIGNER follow up tomorrow with patient and son. Unclear at this time if A.P.S. report needed. Will need to call back friend/neighbors and discuss living circumstances with son and patient. Current recommendation is SNF. Patient would benefit greatly from additional therapy and nutrition. P: Pending. Home vs. SNF. If home recommend HH but patient has cancelled HH in the past. SID Maloney
[2018-09-20] MEDS: ATORVASTATIN 20 MG TABLET 40 MG PO (19:10)
[2018-09-21] VITALS (9 sets, daily range): BP systolic 133–182; BP diastolic 63–101; PULSE 55–87; RESP 18–19; TEMP 36.3–36.7; O2SAT 97–100
[2018-09-21] MEDS: SODIUM CHLORIDE 0.9% 1,000 ML 100 ML IV (05:18)
--- NOTE | 2018-09-21 06:50 | PC.NURSE ---
Pt A&O. able to make needs known. pt has urinary frequency and urgency. bed alarm active. he does feel dizzy when getting up. call light in reach. IVF infusing.
[2018-09-21] MEDS: CLOPIDOGREL 75 MG TABLET PO (08:58)
[2018-09-21] MEDS: LOSARTAN 50 MG TABLET PO (08:59)
[2018-09-21] MEDS: AMLODIPINE 5 MG TABLET PO (09:00)
[2018-09-21] MEDS: HEPARIN 5,000 UNIT/ML VIAL 5000 UNIT SUBCUT ×2 (09:02→21:11)
[2018-09-21] MEDS: ASPIRIN EC 81 MG TABLET PO (09:56)
--- NOTE | 2018-09-21 11:01 | ST.IPDYTX ---
Care Team Visit Care Team Role Provider Type Quincy Price MD Family Provider Physician Primary Care Provider Specialty: Family Practice Address: [address], [place], [address] Email: AVA Villatoro Emergency Provider Advanced Terminal Gauger Specialty: Emergency Medicine Address: [address] [place] [address], [id number] Email: AVA Alegria Admit Provider Advanced Terminal Gauger Attending Provider Specialty: Internal Medicine Address: [address] [place] [address], [id number] Email: OPHTHALMIC TECHNICIAN Dysphagia Treatment OPHTHALMIC TECHNICIAN Dysphagia Treatment Start: 09/20/18 13:52 Freq: Status: Active Protocol: Document 09/21/18 10:52 MRM (Rec: 09/21/18 11:01 MRM [id number]) Dysphagia Treatment Session Time Visit Start Time 10:10 Visit Stop Time 10:22 Total Visit Minutes 12 Setting Assessment Location Acute Care Visit Type Note Type Treatment Note Next Note Type Next Note Type Treatment Note Patient Information Identification Type Name Other Subjective Observations Patient was resting in bed, but woke easily after OPHTHALMIC TECHNICIAN voicing. He told OPHTHALMIC TECHNICIAN that he did not rest much last night and frequently felt the need to urinate. He stated that he feels very weak today and does not feel strong enough to go home. He appeared very fatigued and spoke with significantly reduced vocal quality. OPHTHALMIC TECHNICIAN asked the patient if he would be willing to go somewhere to have more therapy before going home. Patient immediately shook his head and stated, No, I don't want to anywhere other than home. OPHTHALMIC TECHNICIAN reinforced the importance of regaining strength and adequately learning how to implement strategies and use new compensatory measures (walker, etc.) prior to going home in order to ensure safety. The patient agreed, but again declined to go anywhere other than home after leaving the hospital. OPHTHALMIC TECHNICIAN encouraged petenet to voice his concern about strength to the doctor and discuss further discharge options. He would largely benefit from discharging to SNF for additional intervention prior to returning home. Patient's son was scheduled for family training at 10:00 am, but by 10:22, he still had not arrived. OPHTHALMIC TECHNICIAN was only able to provide education to patient. Relayed all info to the RN, Alcon. Treatment Treatment Activities OPHTHALMIC TECHNICIAN provided extensive written education regarding the effects of radiation therapy on swallowing. The packet contained information targeting improving swallowing ability (oropharyngeal strenght, lingual ROM and strength), meal preparation, strategies on how often to eat and what to eat, how to prevent trismus, how to address dry mouth, etc. OPHTHALMIC TECHNICIAN summarized the information to avoid overwhelming the patient . He was able to read all the information and verbalize understanding. OPHTHALMIC TECHNICIAN had planned to address this information in detail with the patient's family, who will be his primary caregiver should he return home, but his son did not show up. Patient accepted the information and verbalized understanding and stated that would read it again to use it at home. Nursing reported that the patient was eating and drinking without difficulty. No trials observed this session. Assessment Patient Response to Treatment Good Rehab Potential Good Assessment of Improvement Patient continues to tolerate dysphagia mechanical textures with thin liquids without difficulty. OPHTHALMIC TECHNICIAN provided education regarding radition and swallowing for the patient in order for him to improve his eating ability when he goes home (however, his ability to cook for himself and independently maintain adequtae nutrition/hydration aside from radiation treatment to his pharynx remains uncertain). Patient verbalized understanding. OPHTHALMIC TECHNICIAN will attempt to follow up for reassessment of diet and to answer any questions the patient or his son may have, if time allows. Strongly recommend discharge to SNF due to patient's overall reduced strength and his voiced aprehension of discharging home today. Diet Recommendations Recommendations Continue Current Diet Liquids Order Thin Diet Order Dysphagia Mechanical Medication Recommendations As Tolerated Aspiration Precautions Recommended Precautions Upright at 90 Degrees Alternate Liquids/Solids Frequent Rest Periods Small Bites/Sips Effortful Swallow Double Swallow Lingual Sweep Treatment Plan Placement Recommendation after Discharge Care Home Facility Appropriate for Continued Therapy Yes Therapy Recommendations Ongoing dysphagia intervention . Follow up to answer any remaining questions after providing written resources for effects on swallowing after radiation. Dysphagia Goals 1. The patient will demonstrate diet upgrade trials without signs and/or symptoms of aspiration with 10/10 trials. 2. The patient will demonstrate the ability to adequately self-monitor swallowing skills and perform appropriate compensatory techniques to reduce s/s of aspiration. 3. The patient will participate in cognitive assessment to assist in discharge planning.
--- NOTE | 2018-09-21 11:56 | PT.IPTN ---
Current Diagnoses Syncope and collapse (09/18/18) Physical Therapy Treatment Note M2 PT-IP Current Condition Start: 09/19/18 12:03 Freq: NEEDED Status: Active Protocol: Document 09/19/18 09:55 (Rec: 09/19/18 12:44 [id number]) Physical Therapy Current Condition Current Condition Evaluation Date 09/19/18 Treatment Diagnosis Generalized weakness, difficulty with gait; s/p GLF with syncope episode Onset Date 09/18/18 M3 PT-IP Subjective Start: 09/19/18 12:03 Freq: NEEDED Status: Active Protocol: Document 09/21/18 11:55 GGD (Rec: 09/21/18 11:56 GGD [id number]) Subjective Physical Therapy Visit Type Type Patient Refusal Notes Pt states he had a bad night and dosen't want to get up. PT Discharge Recommendations Home with 24/7 Assist Home Health SNF Rehab Other Discharge Recommendations SNF vs home with 24/7 and PT Equipment Needed for Home Before fww depending on pt status at Discharge discharge.
--- NOTE | 2018-09-21 12:55 | OT.IP.TRT ---
Current Diagnoses Syncope and collapse (09/18/18) Occupational Therapy Treatment Note M2 OT-IP Current Condition Start: 09/19/18 15:00 Freq: Status: Active Protocol: Document 09/20/18 12:30 [facility] (Rec: 09/20/18 12:54 [facility] [id number]) Occupational Therapy Current Condition Current Condition Evaluation Date 09/20/18 Treatment Diagnosis Syncope, weakness Diagnosis Onset Date 09/18/18 M3 OT- IP Subjective and Pain Start: 09/19/18 15:00 Freq: Status: Active Protocol: Document 09/21/18 12:49 [facility] (Rec: 09/21/18 12:55 [facility] [id number]) OT- Subjective Occupational Therapy Visit Type Type Patient eating lunch. Notes Pt's son, Javy called yesterday and agreed to come for family training today at 10 AM. Javy has not shown up yet and left a message on the home answering machine. Pt stating not feeling well and observed pt eating lunch Noted pt coughing and needing cues to slow down and re-educated to [employer] precautions /suggestions posted on the wall. While out of the room talking to the nurse,observed pt standing up from the bed without calling for assist , pt has poor safety awareness and high fall risk and would benefit from skilled rehab as questionable if pt will have 21/06 assist at home as pt's son has not shown up for caregiver training. Status: Active Protocol: Document 09/20/18 12:30 [facility] (Rec: 09/20/18 12:54 [facility] [id number]) OT Summary Assessment and Plan Potential Rehabilitation Potential Good Analytic Complexity at Evaluation Moderate Summary OT Impairments Range of Motion Strength Balance Functional Cognition Functional Mobility Self-Feeding Grooming Dressing Toileting Bathing Toilet Transfers Shower Transfers Progress Towards Goals Slow Progress due to Medical Issues Slow Progress due to Activity Tolerance Slow Progress due to Cognition Assessment Summary Pt MOD complexity main barriers are balance, decreased endurance, safety awareness, strength, and now needing assist for all ADl's and functional mobility needs. In addition pt has decreased use of RUE due to the fall and suggested pt would benefit from skilled rehab to get back to prior level of care FREDERICK for all needs and lives alone. Curently pt is a high fall risk. Pt now needing use of FWW for safety. Goals Self-Feeding Goal Standby Assistance Grooming Goal Independent Dressing Goal Independent Toileting Goal Independent Bathing Goal Standby Assistance Toilet Transfer Goal Standby Assistance Shower Transfer Goal Standby Assistance Patient/Caregiver Education Goal Caregiver Independent Assisting Patient Days to Meet Goals 7 Frequency of Treatment Frequency Of Treatment Once a Day Treatment Plan OT Treatment Plan ADL Training Functional Cognition Training Functional Mobility Patient/Family Education Discharge Planning Other Treatment Recommendations and Next Family training with pt's son. Treatment Focus Discharge Recommendations OT Discharge Recommendations SNF Rehab Other Discharge Recommendations Pt refusing SNF, therefore pt will need 24/ assist and home health. Home Equipment Needs FWW
--- NOTE | 2018-09-21 13:31 | CM.DPC ---
Addendum entered by SID Tristan 09/21/18 15:35: ADD: Per PT, completed PT/OT CG training with Alisha and Arturo and was bedside and discussion regarding recommendation of SNF and pt now agreeable to SNF at [facility]. SW met bedside with pt, Alisha and Arturo, and they confirm that preference is [facility] at d/c likely tomorrow due to the late time in the day. Alisha and Arturo also helping pt to complete DPOA pwk and pt requesting they also work on financial POA to help pay his bills. CC Deisy made referral to [facility] and Kylie admissions confirms they can accept the pt tomorrow. SW updated RN and left msg for MD. Plan: SW to follow for likely d/c to [facility] tomorrow if medically stable. SID Tristan Original Note: DCP Discharge Home with HH Per PT/OT, pt requesting not to do therapy today as he feels too weak and tired and PT/OT encouraged SNF rehab and pt resistant and declining SNF at this time. Per MD, pt is medically stable to d/c today and since pt refusing SNF then d/c home with HH. Pt's son Javy was scheduled to arrive bedside at 1000 for CG training with PT/OT and as of 1314 son still not bedside and SW called him twice and left messages for return call and no word from son Javy yet. SW called pt's neighbor/friend Alisha ([phone]) who pt has approved for SW to contact and discussed pt's current situation, recommendations, and pt's refusal for SNF and d/c orders. Alisha states she is a AGRICULTURAL SYSTEMS SPECIALIST and would be willing to come bedside to participate in CG training with PT/OT and discuss SNF with the pt as she feels pt is unsafe to return home and feels pt's son Javy is not reliable to be present 21/06 for assist. SW met bedside with pt and explained role and discussed current recommendation of SNF and 100% coverage for first 20 days by Medicare and pt states he just want to go home. SW discussed the concerns with going straight home and possible readmit in worse shape and updated that Alisha will be bedside soon and pt thankful. SW discussed HH since pt has cancelled HH in the past and pt discussed how HH just filled out paperwork and asked him questions and SW informed him that the first appointment involves this but subsequent appointments would include PT and RN support if he could manage getting through the first assessment appointment and pt states he would be agreeable to this and does not have HH preference. SW updated PT/OT/RN and waiting for friend support Alisha to be bedside soon. Plan: SW to follow closely for CG training with pt and friend Alisha towards encouraging towards recommendation of SNF rehab. If pt decides on home then HH to be set up. SID Tristan
--- NOTE | 2018-09-21 14:30 | OT.IP.TRT ---
Current Diagnoses Syncope and collapse (09/18/18) Occupational Therapy Treatment Note M2 OT-IP Current Condition Start: 09/19/18 15:00 Freq: Status: Active Protocol: Document 09/20/18 12:30 [facility] (Rec: 09/20/18 12:54 [facility] [id number]) Occupational Therapy Current Condition Current Condition Evaluation Date 09/20/18 Treatment Diagnosis Syncope, weakness Diagnosis Onset Date 09/18/18 M3 OT- IP Subjective and Pain Start: 09/19/18 15:00 Freq: Status: Active Protocol: Document 09/21/18 14:30 PJM (Rec: 09/21/18 15:38 PJM [id number]) OT- Subjective Occupational Therapy Visit Type Type Administrative Note Visit Start Time 14:30 Notes Pt's son did not arrive for scheduled family training at 10 AM. Per therapeutic case manager, Mary, pt's neighbor, Taurus to come for training this afternoon. When Taurus arrived, she states she lives across town from pt and cannot provide 24 hr assist at d/c. Dr Schroeder in room to discuss d/c plan with pt. Pt now agreeable to go to SNF and will d/c tomorrow if bed available. No charge.
--- NOTE | 2018-09-21 15:45 | PC.NURSE ---
Patient reported he did not feel ready for discharge today. Patient now agreeable to SNF after talking to his friend/neighbor that helps care for him. Patient c/o of frequent urination overnight, stating he had a very hard night because of it, reports it has been improving since this morning. Denies pain. Discharge order cancelled and anticipate transfer to SNF tomorrow or as able per discharge planning. Unable to reach pérez Palafox today, patient aware. Bed alarm on for safety with urinal and call light within reach.
--- NOTE | 2018-09-21 18:22 | PM.PN.1 ---
Subjective Date Patient Seen: 09/21/18 Interval history: Patient reports feeling dizzy. He is tearful as his neighbor is here and recommending SNF stay. The patient agrees to go to [facility] Exam Vital Signs (past 8 hours): - 09/21/18 13:00 09/21/18 16:00 Temperature 97.4 F L 97.6 F Pulse Rate 78 57 L Pulse Rate [Orthostatic Lying] 57 L Pulse Rate [Orthostatic Sitting] 65 Pulse Rate [Orthostatic Standing] 72 Respiratory Rate 18 19 Blood Pressure 140/77 153/77 H Blood Pressure [Orthostatic Lying] 153/77 H Blood Pressure [Orthostatic Sitting] 133/63 Blood Pressure [Orthostatic Standing] 134/75 Pulse Oximetry 99 100 Oxygen Delivery Method Room Air Narrative Exam Narrative: Ill appearing male in No Acute Distress Lungs: decreased but clear to ausculatation CV: RRR nl Sl S2 ABd: soft/ non tender Ext: no edema Objective Labs Result Diagrams: 09/20/18 06:24 09/20/18 06:24 Assessment & Plan (1) Syncope: Problem details: Suspect secondary to generalized weakness Patient did have evidence of orthostatic hypotension. Will continue to follow Qualifiers: Encounter type: Syncope type: unspecified Qualified Code(s): R55 - Syncope and collapse Current visit: Yes Status: Acute (2) Weakness: Problem details: Suspect he has generalized weakness and would benefit from prolonged skill PT/OT at discharge Current visit: Yes Status: Acute (3) Strain of right shoulder: Problem details: continue pain management Current visit: No Status: Acute (4) Generalized weakness: Current visit: No Status: Acute Plan: Assessment/Plan Narrative: To SNF when bed available Quality VTE Deep Vein Thrombosis/Pulmonary Embolism Present on Admission: No
--- NOTE | 2018-09-21 18:25 | P.PN_ITS ---
Subjective Date Patient Seen: 09/21/18 Interval history: Patient reports feeling dizzy. He is tearful as his neighbor is here and recommending SNF stay. The patient agrees to go to [facility] Exam Vital Signs (past 8 hours): - 09/21/18 13:00 09/21/18 16:00 Temperature 97.4 F L 97.6 F Pulse Rate 78 57 L Pulse Rate [Orthostatic Lying] 57 L Pulse Rate [Orthostatic Sitting] 65 Pulse Rate [Orthostatic Standing] 72 Respiratory Rate 18 19 Blood Pressure 140/77 153/77 H Blood Pressure [Orthostatic Lying] 153/77 H Blood Pressure [Orthostatic Sitting] 133/63 Blood Pressure [Orthostatic Standing] 134/75 Pulse Oximetry 99 100 Oxygen Delivery Method Room Air Narrative Exam Narrative: Ill appearing male in No Acute Distress Lungs: decreased but clear to ausculatation CV: RRR nl Sl S2 ABd: soft/ non tender Ext: no edema Objective Labs Result Diagrams: 09/20/18 06:24 09/20/18 06:24 Assessment & Plan (1) Syncope: Problem details: Suspect secondary to generalized weakness Patient did have evidence of orthostatic hypotension. Will continue to follow Qualifiers: Encounter type: Syncope type: unspecified Qualified Code(s): R55 - Syncope and collapse Current visit: Yes Status: Acute (2) Weakness: Problem details: Suspect he has generalized weakness and would benefit from prolonged skill PT/ OT at discharge Current visit: Yes Status: Acute (3) Strain of right shoulder: Problem details: continue pain management Current visit: No Status: Acute (4) Generalized weakness: Current visit: No Status: Acute Plan: Assessment/Plan Narrative: To SNF when bed available Quality VTE Deep Vein Thrombosis/Pulmonary Embolism Present on Admission: No
[2018-09-21] MEDS: TAMSULOSIN 0.4 MG CAPSULE PO (21:10)
[2018-09-21] MEDS: ATORVASTATIN 20 MG TABLET 40 MG PO (21:11)
[2018-09-22 05:51] VITALS: BP 152/69; PULSE 88; RESP 18; TEMP 36.5; O2SAT 98
[2018-09-22 08:00] VITALS: BP 125/75; BP 147/68; BP 161/91; PULSE 87; PULSE 89; PULSE 98; TEMP 36.4; O2SAT 97
--- NOTE | 2018-09-22 09:24 | PC.NURSE ---
Orthostatic BP and HR checked this morning. Patient reported a little dizziness with sitting and a little more dizziness with standing. Patient wanted to sit up in chair for breakfast, assisted to chair, patient feeling better. Call light within reach. Chair alarm for safety.
[2018-09-22] MEDS: LOSARTAN 50 MG TABLET PO (09:46)
[2018-09-22] MEDS: HEPARIN 5,000 UNIT/ML VIAL 5000 UNIT SUBCUT (09:46)
[2018-09-22] MEDS: CLOPIDOGREL 75 MG TABLET PO (09:47)
[2018-09-22] MEDS: AMLODIPINE 5 MG TABLET PO (09:47)
[2018-09-22] MEDS: ASPIRIN EC 81 MG TABLET PO (09:47)
--- NOTE | 2018-09-22 10:20 | PT.IPTN ---
Current Diagnoses Weakness (09/18/18) Syncope and collapse (09/18/18) Strain of unspecified muscle, fascia and tendon at shoulder and upper arm level, right arm, initial encounter (09/18/18) Physical Therapy Treatment Note M2 PT-IP Current Condition Start: 09/19/18 12:03 Freq: NEEDED Status: Active Protocol: Document 09/19/18 09:55 (Rec: 09/19/18 12:44 [id number]) Physical Therapy Current Condition Current Condition Evaluation Date 09/19/18 Treatment Diagnosis Generalized weakness, difficulty with gait; s/p GLF with syncope episode Onset Date 09/18/18 M3 PT-IP Subjective Start: 09/19/18 12:03 Freq: NEEDED Status: Active Protocol: Document 09/22/18 10:20 GGD (Rec: 09/22/18 12:14 GGD [id number]) Subjective Physical Therapy Visit Type Type Treatment Note Visit Start Time 09:55 Visit Stop Time 10:20 Total Visit Minutes 25 Number of CROP OR GRAIN FARMER Visits 1 Physical Therapy Visit Comments Patient Comments Pt states he willing to walk. M4 PT-IP Mobility and Gait Start: 09/19/18 12:03 Freq: NEEDED Status: Active Protocol: Document 09/22/18 10:20 GGD (Rec: 09/22/18 12:14 GGD [id number]) PT-Transfer Assessment Sit to and From Stand Sit to and from Stand Contact Guard Assistance Use of Upper Extremities Equipment Transfer Assistive Device Gait Belt Front Wheeled Walker Orthotic/Prosthetic Devices or Brace: No Transfers Transfer Destination Chair Gait Assessment Gait Gait Assistance Required: Contact Guard Assist Distance (Feet) 80 Able to Maintain Weight Bearing Status Yes During Gait Assistive Devices Assistive Device Gait Belt Front Wheeled Walker Orthotic/Prosthetic Devices or Brace: No Gait Deviations General Gait Pattern Decreased Stride Length Decreased Feet Clearance Factors Limiting Gait Function Factors Limiting Gait Function Decreased Activity Tolerance Decreased Strength Poor Balance Comments Gait Comments Pt safely used UE for transfers. He had no Unseadiness with gait. He did have dizziness with initial stand. M5 PT-IP Objective Assessments Start: 09/19/18 12:03 Freq: NEEDED Status: Active Protocol: Document 09/19/18 13:37 (Rec: 09/19/18 15:17 [id number]) Orientation Orientation/Cognition Level of Alertness Alert M6 PT-IP Treatment Start: 09/19/18 12:03 Freq: NEEDED Status: Active Protocol: Document 09/20/18 10:55 AB (Rec: 09/20/18 12:18 AB [id number]) Physical Therapy Treatment Education Education Provided Safety M7 PT-IP Assessment and Plan Start: 09/19/18 12:03 Freq: NEEDED Status: Active Protocol: Document 09/22/18 10:20 GGD (Rec: 09/22/18 12:14 GGD [id number]) PT Summary Assessment and Plan Summary Assessment Summary Pt improved with gait and safety. He was less impulsive and had improved in safety awareness. He did fatigue with gait and had slowly gait pace . He would benifit from SNF rehab to improve strength and safety. Frequency of Treatment Frequency Of Treatment Twice a Day Treatment Plan Other Recommendations and Next Treatment ambulation. Functional LE Focus strengthening. Recommendations To Nursing Amount of Assist Needed 1 Person Assist Discharge Recommendations PT Discharge Recommendations SNF Rehab
--- NOTE | 2018-09-22 12:16 | CM.DPC ---
Referral faxed to [facility] and patient accepted yesterday, 09/21/18 per Mary
--- NOTE | 2018-09-22 13:39 | P.DS_ITS ---
History of Present Illness Date Patient Seen: 09/22/18 Chief complaint: I could not stand up. I kept passing out Narrative: The patient is an 83-year-old male with PMH significant for HTN, bladder cancer, and throat cancer (s/p right parotid gland resection, receiving radiation treatments). It is reported that patient was found by his neighbor who contacted the EMS for evaluation in hospital transfer. Patient reports experiencing syncopal with loss of consciousness events over the past week. He notes having 3 episodes today, 2 yesterday, and once daily multiple days prior. Events typically occur with position change. Associated symptoms include lightheadedness and generalized weakness. Denies experiencing chest pain, palpitations, diaphoresis, or dyspnea. Reports an injury to the head and right upper extremity. The events have been unwitnessed and patient is unable to know duration for loss of consciousness. Denies bowel or bladder incontinence. Denies recent illness and hospitalizations. Reports tolerance to radiation therapy. Notes having a surgery on left aspect of the neck 6 weeks ago, respectively. Patient has been having difficulty swallowing and as a result has had poor food and fluid intake. Reports weight loss of 33 lb over the past 1 month. There is a concern in regard to patient's ability to care for himself. He reports living on his own and doing his own activities of daily living; however , patient does have a degree of cognitive decline. It is not clear if that is his baseline or an acute presentation. In addition he has decreased mobility and degree of deconditioning, which poses a concern for safety. Patient does has a son, who manages his medications; however, it is not entirely clear how frequently he interacts w/ the patient. Discharge Providers Date of admission: 09/18/18 21:48 Primary care physician: Quincy Price MD Consults: 09/18/18 23:41 Consult to Dietitian, Adult Routine Comment: Reason For Exam: weight loss of 33 lbs in the past 30 days Consult to Discharge Planning Routine Comment: d/c planning, alternative living arrangement 09/18/18 23:42 Consult to Physical Therapy Evaluate & Treat Comment: debility and deconditioning Physician Instructions: Evaluate and Treat 09/19/18 03:55 Consult to Speech Therapy Evaluate & Treat Comment: Physician Instructions: Evaluate and treat 09/19/18 11:19 Consult to Occupational Therapy Evaluate & Treat Comment: Physician Instructions: Evaluate and treat Consult to Outpatient Psychiatrist Routine Comment: home situation, inability to care for himself Discharge provider: Anita Schroeder MD Discharge Date: 09/22/18 Summary Discharge Diagnosis: Syncope Orthostatic Hypotension Hypertension Hyperlipidemia History of bladder Cancer History of Head and Neck Cancer Hospital Course: Patient was admitted to the hospital for syncope. He was found to have orthostatic hypotension and dehydration. With rehydration his blood pressure improved. Patient was started back on his usual blood pressure medications but developed orthostasis again. He noted dizziness when standing upright. He was able to tolerate a dysphagia diet. After discussion with friends patient elected to go to a SNF for ongoing rehabilitation. Patient was felt to be at high risk for falling again and discharged to [facility] for ongoing care. Status at Discharge Functional status at discharge: uses cane/walker Overall status at discharge: patient is not back to baseline Time Spent with Patient Less than 30 minutes Exam Vital Signs (past 8 hours): - 09/22/18 05:51 09/22/18 08:00 Temperature 97.7 F 97.5 F L Pulse Rate 88 Pulse Rate [Orthostatic Lying] 87 Pulse Rate [Orthostatic Sitting] 89 Pulse Rate [Orthostatic Standing] 98 H Respiratory Rate 18 Blood Pressure 152/69 H Blood Pressure [Orthostatic Lying] 161/91 H Blood Pressure [Orthostatic Sitting] 147/68 H Blood Pressure [Orthostatic Standing] 125/75 Pulse Oximetry 98 97 Oxygen Delivery Method Room Air Narrative Exam Narrative: Pleasant Ill appearing male Lungs: decreased breath sounds Cv: RRR nl Sl S2 Neck: dry scaly skin on left neck/ chest wall Abd; soft/ non tender/ non distended Ext: no edema Objective Labs Result Diagrams: 09/20/18 06:24 09/20/18 06:24 Discharge Plan Discharge Plan Patient Disposition: SNF Transfer to: [facility] Under care of provider: Dr. Yan Transportation: [facility] I certify the postop hospital fdc care is medically necessary on a continuing basis for any conditions for which he/ she received care during this hospitalization.: Yes The receiving facility has agreed to accept transfer and provide medical treatment.: Yes Discharge Med Rec/Prescriptions Prescriptions: New atorvastatin [Lipitor] 20 mg Tablet 40 mg PO BEDTIME Qty: 30 RF: 0 Continue clopidogrel 75 MG tablet 75 mg PO QDAY Qty: 0 RF: 0 meclizine 25 MG tablet 25 mg PO HS Qty: 0 RF: 0 Compazine 5 mg PO Q6HR PRN (Reason: Nausea) RF: 0 Proscar 5 mg PO DAILY RF: 0 benzonatate [Tessalon Perles] 100 mg Capsule 1 cap PO TID RF: 0 Vitamin C 1,000 mg PO DAILY RF: 0 aspirin 325 mg PO DAILY RF: 0 mupirocin 2 % Ointment 1 applic TOPICAL DIRECTED RF: 0 tamsulosin 0.4 mg Capsule 0.4 mg PO DAILY RF: 0 clotrimazole 10 mg Erasto 10 mg MUCOUS MEMBRANE 5XD RF: 0 niacinamide 500 mg Tablet 500 mg PO BIDWM RF: 0 Discontinued losartan 50 MG tablet 50 mg PO QDAY Qty: 0 RF: 0 atorvastatin 10 mg Tablet 10 mg PO 4-6XD RF: 0 hydrochlorothiazide 25 mg Tablet 25 mg PO DAILY RF: 0 Follow up/Referrals: Quincy Price MD [Primary Care Provider] - Discharge Health Status Brief summary of current health status: Patient is weak Provider Discharge Instructions Diet: Low-sodium Food texture: Soft Activity: As tolerated Special Rehabilitation Services Reason for rehabilitation: Recovery r/t decondition Rehab type: Physical therapy, Occupational therapy and Speech therapy Discharge Data Primary Care Provider: Quincy Price Attending Provider: Calvin Hope Admit Date/Time: 09/18/18 21:48 Quality VTE Deep Vein Thrombosis/Pulmonary Embolism Present on Admission: No
--- NOTE | 2018-09-22 14:40 | ST.IPDYTX ---
Care Team Visit Care Team Role Provider Type Quincy Price MD Family Provider Physician Primary Care Provider Specialty: Family Practice Address: [address], [place], [address] Email: AVA Villatoro Emergency Provider Advanced Firestopper Installer Specialty: Emergency Medicine Address: [address] [place] [address], [address] Email: AVA Alegria Admit Provider Advanced Firestopper Installer Attending Provider Specialty: Internal Medicine Address: [address] [place] [address], [id number] Email: BROKERAGE BRANCH MANAGER Dysphagia Treatment BROKERAGE BRANCH MANAGER Dysphagia Treatment Start: 09/20/18 13:52 Freq: Status: Active Protocol: Document 09/22/18 14:15 MRM (Rec: 09/22/18 14:39 MRM [id number]) Dysphagia Treatment Session Time Visit Start Time 12:38 Visit Stop Time 13:00 Total Visit Minutes 22 Setting Assessment Location Acute Care Visit Type Note Type Treatment Note Next Note Type Next Note Type Treatment Note Patient Information Identification Type Name ID Wristband Other Subjective Observations Patient was awake and alert, sitting up in chair with neighbors present. Patient has agreed to discharge to [facility] for rehabilitation rather than discharge home. No complaints of pain pre/post treatment. Patient stated that he had no difficulty eating/drinking with breakfast, but both neighbors confirmed that they observed some coughing while he was eating breakfast. Nursing reported that the cougling was related to use of straw, which was immediately removed. Treatment Liquids Trialed Thin Solids Trialed Dysphagia Mechanical Administration Type Self-Feeding Oral Strategies Upright at 90 degrees Double Swallow Controlled Bite/Sip Size Alternate Liquids/Solids Other Pharyngeal Strategies Sitting Upright (90 deg) Double Swallow Small Bites and Sips Alternate Liquids/Solids Additional Dysphagia Treatment Throat clear, double swallow Strategies Treatment Activities Patient independent in all PO intake. Able to tolerate thin liquids, soup, soft banana and a magic cup (thickened ice cream). Cough observed x1 throughout 20 minute period of eating. BROKERAGE BRANCH MANAGER provided ongoing cues for patient to implement throat clear and extra swallow to clear pharynx of residue. Patient has a wet vocal quality often in conversational speech as well as during meals. With implementation of throat clear /double swallow, vocal quality improves and no coughing is observed.Patient required ongoing cues throughout therapy due to unaware of reduced vocal quality and difficulty remembering to implement strategies. BROKERAGE BRANCH MANAGER reviewed radiation+ swallowing relationship and made further recommendations ( vary temperature to improve sensation, add moisture to foods, use plastic utensils rather than metal utensils to reduce acidic taste in mouth). Assessment Patient Response to Treatment Good Rehab Potential Good Assessment of Improvement Patient and neighbors present for dyspyhagia management and training. They verbalized understanding regarding safe swallowing as well as strategies to increase appetite and intake following radiation therapy. Continues to tolerate dysphagia mechcanical textures with thin liquids. No upgrade recommended at this time. Continue no straw recommendation. Diet Recommendations Recommendations Continue Current Diet Liquids Order Thin Diet Order Dysphagia Mechanical Medication Recommendations As Tolerated Aspiration Precautions Recommended Precautions Upright at 90 Degrees Alternate Liquids/Solids Frequent Rest Periods Small Bites/Sips Effortful Swallow Double Swallow Additional Precautions Throat clear, double swallow Treatment Plan Placement Recommendation after Discharge Senior Living Facility Appropriate for Continued Therapy Yes Therapy Recommendations Continue with dysphagia management and training prior to discharge. Dysphagia Goals 1. The patient will demonstrate diet upgrade trials without signs and/or symptoms of aspiration with 10/10 trials. 2. The patient will demonstrate the ability to adequately self-monitor swallowing skills and perform appropriate compensatory techniques to reduce s/s of aspiration. 3. The patient will participate in cognitive assessment to assist in discharge planning.
--- NOTE | 2018-09-22 15:01 | CM.DPC ---
DCP Cont: DC order in place for [facility] today and Kylie w/ [facility] had accepted pt's admission. Pt and family remain agreeable to this DCP. Rural Mail Contractor Ed arranged DCP details, faxed completed PASSR and DC ppk to [facility]. RN and family updated on w/c p/u. Following closely. P: [facility] via [facility]. SID Negro
--- NOTE | 2018-09-22 15:20 | PC.NURSE ---
IV removed intact. Patient has glasses and jacket and home medications at bedside waiting for poultry picking machine tender by [facility]. Report given to Kylie at [facility] with opportunity for questions. Call light within reach.
--- NOTE | 2018-09-22 21:02 | PC.NURSE ---
Pt discharged off ac unit via wheelchair to [facility]. All belongings with patient/family member.
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
--- NOTE | 2018-09-23 13:43 | CM.SWNOTE ---
TC received from son Javy today, TRISTAN Chiang V took the call and passed the information along to this SPLITTER HEAD. Son javy states he arrived to the hospital looking for his father and seeing he was gone now is saying I'm worried sick about him. Mariia Barriga did ask is there any other family you can contact for additional information? Javy stated no. No information shared w/pérez martínez today P# [phone], son is no longer pt's DPOA and pt/family can update son as needed. Danna Black, SPLITTER HEAD
== END 2018-09-22 16:30 | DRG 312 ==
LOC: ED 21:42 → AC 21:49
PROVIDERS: Internal Medicine; Admitting Provider Nurse Practitioner Gerontology; Emergency Provider Nurse Practitioner Family; Family Provider Family Medicine; PCP Family Medicine; Visit Provider Nurse Practitioner Gerontology
DX: R55 Syncope and collapse (principal); E43 Unspecified severe protein-calorie malnutrition; I24.8 Other forms of acute ischemic heart disease; Z68.1 Body mass index [BMI] 19.9 or less, adult; C07 Malignant neoplasm of parotid gland; R13.10 Dysphagia, unspecified; M79.601 Pain in right arm; E86.0 Dehydration; I10 Essential (primary) hypertension; I95.1 Orthostatic hypotension; E78.5 Hyperlipidemia, unspecified
CPT/HCPCS: 36415; 70450; 70491; 71045; 71275; 73060; 80048; 80053; 81003; 82550; 82962; 83605; 84484; 85025; 85379; 85610; 92526; 92610; 93005; 93010; 94762; 96360; 96361; 97116; 97127; 97162; 97166; 97530; 97535; 99284; 99285; J1644; Q9967

== ENCOUNTER 2018-11-11 11:29 | Emergency (ER) | payer MEDICARE, SELFPAY ==
[2018-09-18 23:01] VITALS: BMI 18.8
[2018-11-11] VITALS (8 sets, daily range): BP systolic 115–179; BP diastolic 62–106; PULSE 67–92; RESP 14–26; TEMP 36.4; O2SAT 95–100; BMI 19.0
--- NOTE | 2018-11-11 12:02 | DI.RAD.S_ITS ---
PROCEDURE: XR CHEST 1V INDICATIONS: weakness, near syncope TECHNIQUE: One view of the chest was acquired. COMPARISON: [facility], CR, XR CHEST 1V, 09/18/2018, 17:52. FINDINGS: Surgical changes and devices: None. Lungs and pleura: No pleural effusions or pneumothorax. Lungs are clear. Mediastinum: Mediastinal contours appear normal. Heart size is normal. Bones and chest wall: No suspicious bony lesions. Overlying soft tissues appear unremarkable. IMPRESSION: No acute cardiopulmonary disease process. Dictated by: Kayla Vogt MD, PhD on 11/11/2018 at 12:26 Approved by: Kayla Vogt MD, PhD on 11/11/2018 at 12:27
[2018-11-11 12:16] LABS: Add Manual Diff / Slide Review NO; Basophils Percent Auto 0.3 % (0-2); Hematocrit 36.7 % (41-53); Hemoglobin 12.5 g/dL (13.5-17.5); Lymphocytes Percent Auto 6.6 % (25-40); Mean Corpuscular Hemoglobin 33.7 PG (26-34); Mean Corpuscular Volume 98.9 fL (80-100); Monocytes Percent Auto 8.9 % (3-14); Neutrophils Absolute Auto 8300 /uL (1500-7000); Neutrophils Percent Auto 82.2 % (50-75); Platelet Count 269 X10^3/uL (150-400); Red Blood Cell Count 3.72 X10^6/uL (4.5-5.9); Red Cell Distribution Width 14.3 % (11.6-14.8); White Blood Cell Count 10.1 X10^3/uL (4.5-11.0)
[2018-11-11 12:29] LABS: Alanine Aminotransferase 28 IU/L (21-72); Albumin 4.3 g/dL (3.5-5.0); Albumin Globulin Ratio 1.2 (1.0-2.8); Alkaline Phosphatase 90 U/L (38-126); Aspartate Aminotransferase 22 IU/L (17-59); BUN Creatinine Ratio 24.4 (6-22); Bilirubin Total 0.5 mg/dL (0.2-1.3); Blood Urea Nitrogen 22 mg/dL (9-20); Calcium 9.4 mg/dL (8.4-10.2); Carbon Dioxide 30 mmol/L (22-32); Chloride 101 mmol/L (98-107); Creatine Kinase 31 U/L (55-170); Estimated Glomerular Filt Rate > 60.0 mL/min (>60); Globulin 3.5 g/dL (1.7-4.1); Glucose 100 mg/dL (80-110); HEMOLYSIS < 15 (0-50); Lipase 58 U/L (23-300); Sodium 146 mmol/L (137-145); Total Protein 7.8 g/dL (6.3-8.2)
[2018-11-11 12:41] LABS: Troponin I < 0.012 ng/mL (0.01-0.034)
--- NOTE | 2018-11-11 12:42 | ED.WEAKNESS ---
HPI - Weakness General Chief complaint: Weakness Stated complaint: black out spells, shaking and crying Time Seen by Provider: 11/11/18 12:00 Source: patient and family Mode of arrival: ambulatory Limitations: no limitations History of Present Illness HPI Narrative: 83-year-old male with complicated medical history presents with his caregiver and a chief complaint of some decreased appetite, generalized weakness and episodes of crying over the past few days to weeks. Additionally he has had painful urination. He denies chest pain, shortness of breath nor fever or chills. He does admit to some difficulty swallowing and change in appetite. He has lost a few lb since his most recent admission about 2 months ago. He does his best to drink appropriate fluids and eat at home but there is suspicion that his oral intake is decreasing. He lives at home but has daily caregivers. He is alert and oriented and maintains control of his medical care. He is a full code. Patient becomes thick fatigued with exertion and has had increasing difficulty getting around. He is absolutely adamant and refuses the concept of nursing home facility or assisted living MD Complaint: generalized weakness Onset (ago): day(s) Duration: constant Location: generalized Severity: moderate Associated symptoms: loss of appetite Related Data Home Medications Medication Instructions Recorded Confirmed clopidogrel 37.5 mg PO DAILY #0 11/23/17 11/11/18 furosemide 80 mg PO DAILY 11/11/18 11/11/18 hydrocodone-acetaminophen 1 tab PO Q4-6H PRN 11/11/18 11/11/18 losartan 25 mg PO DAILY 11/11/18 11/11/18 Allergies Allergy/AdvReac Type Severity Reaction Status Date / Time pantoprazole [From Protonix] Allergy Unknown Verified 11/11/18 12:38 No Known Allergies Allergy Uncoded 09/18/18 17:35 Review of Systems Review of Systems All systems reviewed & are unremarkable except as noted in HPI and below Constitutional Denies chills, Denies fever(s) and Reports weakness Eyes Denies change in vision, Denies eye discharge, Denies irritation and Denies loss of vision ENT Ears, Nose, Mouth, and Throat: Denies change in voice, Reports dysphagia, Denies neck pain and Denies sore throat Cardiovascular Denies chest pain, Denies irregular heart rhythm, Denies lightheadedness, Denies palpitations, Denies dyspnea, Denies dyspnea on exertion and Denies orthopnea Respiratory Denies cough, Denies dyspnea, Denies dyspnea on exertion and Denies wheezing Gastrointestinal Gastrointestinal: Denies abdominal pain, Denies change in bowel habits, Reports dysphagia, Denies diarrhea, Denies nausea and Denies vomiting Genitourinary Denies hematuria, Denies flank pain, Reports urinary frequency, Denies urinary incontinence and Denies urinary urgency Musculoskeletal Denies neck pain Integumentary/Breasts Denies pruritus, Denies erythema, Denies rash and Denies wounds Neurologic Denies confusion, Denies loss of vision and Reports weakness Psychiatric Denies anxiety, Denies confusion, Denies depression, Denies homicidal ideation and Denies suicidal ideation Endocrine Denies palpitations Hematologic/Lymphatic Denies easy bruising Allergic/Immunologic Denies wheezing [facility] Medical History Essential hypertension (Acute) Malignant neoplasm of throat (Acute) History of bladder cancer (Inactive) Family History Other No family history of cardiac disease Social History household members: none Smoking Status: Never smoker Exam Narrative Exam Narrative: GENERAL: Chronically ill patient in no significant or obvious distress HEAD: Temporal wasting Atraumatic. Normocephalic. No temporal or scalp tenderness. EYES: Pupils equal round and reactive. Extraocular motions intact. No scleral icterus. No injection or drainage. ENT: Mildly dry mucous membranes Nose without bleeding, purulent drainage or septal hematoma. Throat without erythema, tonsillar hypertrophy or exudate. Uvula midline. Airway patent. NECK: Trachea midline. No JVD or lymphadenopathy. Supple, nontender, no meningeal signs. CARDIOVASCULAR: Regular rate and rhythm without murmurs, gallops, or rubs. RESPIRATORY: Clear to auscultation. Breath sounds equal bilaterally. No wheezes, rales, or rhonchi. GASTROINTESTINAL: Abdomen soft, non-tender, nondistended. No hepato-splenomegaly, or palpable masses. No guarding. EXTREMITIES: No clubbing, cyanosis, or edema. No joint tenderness, effusion, or edema noted. BACK: Nontender without deformity or crepitance. No flank tenderness. NEURO: AOx3. SKIN: No rash or erythema. Initial Vital Signs Initial Vital Signs: Vital Signs Temperature 97.6 F 11/11/18 11:38 Pulse Rate 85 11/11/18 11:38 Respiratory Rate 26 H 11/11/18 11:38 Blood Pressure 135/77 11/11/18 11:38 Pulse Oximetry 97 11/11/18 11:38 Course Orders Ordered: ED Orders 11/11/18 12:02 XR chest 1V Stat EKG-12 Lead Stat 11/11/18 12:08 Complete Blood Count AUTO DIFF Stat Comprehensive Metabolic Panel Stat Lipase Stat Troponin & CK Cardiac Panel Stat Discontinued Medications Sodium Chloride (Normal Saline 0.9%) 1,000 mls @ 150 mls/hr IV CONT MARY Last Infusion: 11/11/18 16:46 Dose: 0 mls/hr Admin: 11/11/18 12:53 Dose: 150 mls/hr Vital Signs - 8 hr 11/11/18 13:00 11/11/18 14:00 11/11/18 15:00 Pulse Rate 71 83 75 Respiratory Rate 20 19 15 Blood Pressure Blood Pressure [Right Arm] 123/71 179/106 H 136/69 Pulse Oximetry 99 97 96 11/11/18 15:53 11/11/18 16:00 11/11/18 16:46 Pulse Rate 92 H 67 79 Respiratory Rate 20 20 Blood Pressure 116/82 Blood Pressure [Right Arm] 133/76 Pulse Oximetry 95 95 MDM - Weakness Medical Records Attestation: I reviewed the patient's medical records. Lab Data Attestation: I reviewed the patient's lab results. Result diagrams: 11/11/18 12:08 11/11/18 12:08 Lab Results 11/11/18 11/11/18 Range/Units 12:08 12:08 WBC 10.1 (4.5-11.0) X10^3/uL RBC 3.72 L (4.5-5.9) X10^6/uL Hgb 12.5 L (13.5-17.5) g/dL Hct 36.7 L (41-53) % MCV 98.9 (80-100) fL MCH 33.7 (26-34) PG MCHC 34.0 (30-36) % RDW 14.3 (11.6-14.8) % Plt Count 269 (150-400) X10^3/uL Neut % (Auto) 82.2 H (50-75) % Lymph % (Auto) 6.6 L (25-40) % [place] % (Auto) 8.9 (3-14) % Eos % (Auto) 2.0 (2-4) % Baso % (Auto) 0.3 (0-2) % Neut # (Auto) 8300 H (4685-6706) /uL Sodium 146 H (137-145) mmol/L Potassium 4.0 (3.4-5.1) mmol/L Chloride 101 (98-107) mmol/L Carbon Dioxide 30 (22-32) mmol/L BUN 22 H (9-20) mg/dL Creatinine 0.90 (0.66-1.25) mg/dL Estimated GFR > 60.0 (>60) mL/min BUN/Creatinine Ratio 24.4 H (6-22) Glucose 100 (80-110) mg/dL Calcium 9.4 (8.4-10.2) mg/dL Total Bilirubin 0.5 (0.2-1.3) mg/dL AST 22 (17-59) IU/L ALT 28 (21-72) IU/L Alkaline Phosphatase 90 (38-126) U/L Total Creatine Kinase 31 L (55-170) U/L CK-MB (CK-2) TNP CK-MB (CK-2) Rel Index TNP Troponin I < 0.012 (0.01-0.034) ng/mL Total Protein 7.8 (6.3-8.2) g/dL Albumin 4.3 (3.5-5.0) g/dL Globulin 3.5 (1.7-4.1) g/dL Albumin/Globulin Ratio 1.2 (1.0-2.8) Lipase 58 (23-300) U/L Urine Dip Bedside Urine Glucose Negative Bedside Urine Bilirubin - Negative Bedside Urine Ketone - Negative Urine Specific [place] 1.015 Bedside Urine Occult Blood - Negative Bedside Urine pH 7.5 Bedside Urine Protein - Negative Bedside Urine Urobilinogen - Negative Bedside Urine Nitrite - Negative Bedside Urine Leukocytes - Negative Esterase Imaging Data Chest x-ray: Radiologist's impression: [address] [address] XRay Report Signed Patient: Murali Grant LMR#: [id number] : 5Acct:[id number] Age/Sex: 83 / MDate of Service: 11/11/18 Loc: ED Accession Number: [id number] Procedure: XR chest 1V Ordering Provider: Jason Perera D.O. PROCEDURE: XR CHEST 1V INDICATIONS: weakness, near syncope TECHNIQUE: One view of the chest was acquired. COMPARISON: [facility], CR, XR CHEST 1V, 09/18/2018, 17:52. FINDINGS: Surgical changes and devices: None. Lungs and pleura: No pleural effusions or pneumothorax. Lungs are clear. Mediastinum: Mediastinal contours appear normal. Heart size is normal. Bones and chest wall: No suspicious bony lesions. Overlying soft tissues appear unremarkable. IMPRESSION: No acute cardiopulmonary disease process. Dictated by: Kayla Vogt MD, PhD on 11/11/2018 at 12:26 Approved by: Kayla Vogt MD, PhD on 11/11/2018 at 12:27 [facility] Narrative Medical decision making narrative: Multiple etiologies of the patient's vague complaints considered including infection, electrolyte abnormality, cardiac event, heart failure, pneumonia, anemia, dehydration, renal failure versus other. Patient demonstrates tremendous improvement after fluids and is found sitting upright in his room eating ice cream. An ambulation trial attempted and patient walks through emergency department without any significant distress, and no hypoxia. Extensive discussion with the patient and caregiver at the bedside regarding a potential hospitalization for gentle fluid hydration, evaluation by physical therapy for ambulation but patient, (whom demonstrates capacity to myself, nursing and caregiver) insists on going home despite discussion of risks and benefits including significant injury, disability or even . He reports understanding of these risks and states he will return in the next day or 2 if he feels worse Discharge Plan Departure Patient Disposition: Home Clinical Impression: Acute dehydration, Hematuria Discharge Date/Time: 11/11/18 16:47 Interventions: ED Discharge Assessment Last Done: 11/11/18 16:46 Instructions: DI for Dehydration -- Adult Activity Restrictions/Additional Instructions: 1. Drink plenty of fluids with frequent small sips. 2. For the next 24 hours a clear liquid diet is advised. After that please employ a brat diet which would include bananas, rice, apples, toast. 3. Please take medications as directed. 4. Please follow-up with your doctor in the next 1-2 days. Call the office for an appointment. 5. Please return to the emergency Department for any worsening or persistent symptoms, such as increasing pain or fever. Prescriptions: No Action clopidogrel 75 MG tablet 37.5 mg PO DAILY Qty: 0 RF: 0 losartan 50 mg Tablet 25 mg PO DAILY RF: 0 furosemide 40 mg Tablet 80 mg PO DAILY RF: 0 hydrocodone-acetaminophen 5-325 mg tablet 1 tab PO Q4-6H PRN (Reason: pain) RF: 0 Referrals: Quincy Price MD [Primary Care Provider] -
[2018-11-11] MEDS: SODIUM CHLORIDE 0.9% 1,000 ML 150 ML IV (12:53)
--- NOTE | 2018-11-11 20:09 | ED_ITS ---
HPI - Weakness General Chief complaint: Weakness Stated complaint: black out spells, shaking and crying Time Seen by Provider: 11/11/18 12:00 Source: patient and family Mode of arrival: ambulatory Limitations: no limitations History of Present Illness HPI Narrative: 83-year-old male with complicated medical history presents with his caregiver and a chief complaint of some decreased appetite, generalized weakness and episodes of crying over the past few days to weeks. Additionally he has had painful urination. He denies chest pain, shortness of breath nor fever or chills. He does admit to some difficulty swallowing and change in appetite. He has lost a few lb since his most recent admission about 2 months ago. He does his best to drink appropriate fluids and eat at home but there is suspicion that his oral intake is decreasing. He lives at home but has daily caregivers. He is alert and oriented and maintains control of his medical care. He is a full code. Patient becomes thick fatigued with exertion and has had increasing difficulty getting around. He is absolutely adamant and refuses the concept of halfway facility or assisted living MD Complaint: generalized weakness Onset (ago): day(s) Duration: constant Location: generalized Severity: moderate Associated symptoms: loss of appetite Related Data Home Medications Medication Instructions Recorded Confirmed clopidogrel 37.5 mg PO DAILY #0 11/23/17 11/11/18 furosemide 80 mg PO DAILY 11/11/18 11/11/18 hydrocodone-acetaminophen 1 tab PO Q4-6H PRN 11/11/18 11/11/18 losartan 25 mg PO DAILY 11/11/18 11/11/18 Allergies Allergy/AdvReac Type Severity Reaction Status Date / Time pantoprazole [From Protonix] Allergy Unknown Verified 11/11/18 12:38 No Known Allergies Allergy Uncoded 09/18/18 17:35 Review of Systems Review of Systems All systems reviewed & are unremarkable except as noted in HPI and below Constitutional Denies chills, Denies fever(s) and Reports weakness Eyes Denies change in vision, Denies eye discharge, Denies irritation and Denies loss of vision ENT Ears, Nose, Mouth, and Throat: Denies change in voice, Reports dysphagia, Denies neck pain and Denies sore throat Cardiovascular Denies chest pain, Denies irregular heart rhythm, Denies lightheadedness, Denies palpitations, Denies dyspnea, Denies dyspnea on exertion and Denies orthopnea Respiratory Denies cough, Denies dyspnea, Denies dyspnea on exertion and Denies wheezing Gastrointestinal Gastrointestinal: Denies abdominal pain, Denies change in bowel habits, Reports dysphagia, Denies diarrhea, Denies nausea and Denies vomiting Genitourinary Denies hematuria, Denies flank pain, Reports urinary frequency, Denies urinary incontinence and Denies urinary urgency Musculoskeletal Denies neck pain Integumentary/Breasts Denies pruritus, Denies erythema, Denies rash and Denies wounds Neurologic Denies confusion, Denies loss of vision and Reports weakness Psychiatric Denies anxiety, Denies confusion, Denies depression, Denies homicidal ideation and Denies suicidal ideation Endocrine Denies palpitations Hematologic/Lymphatic Denies easy bruising Allergic/Immunologic Denies wheezing [facility] Medical History Essential hypertension (Acute) Malignant neoplasm of throat (Acute) History of bladder cancer (Inactive) Family History Other No family history of cardiac disease Social History household members: none Smoking Status: Never smoker Exam Narrative Exam Narrative: GENERAL: Chronically ill patient in no significant or obvious distress HEAD: Temporal wasting Atraumatic. Normocephalic. No temporal or scalp tenderness. EYES: Pupils equal round and reactive. Extraocular motions intact. No scleral icterus. No injection or drainage. ENT: Mildly dry mucous membranes Nose without bleeding, purulent drainage or septal hematoma. Throat without erythema, tonsillar hypertrophy or exudate. Uvula midline. Airway patent. NECK: Trachea midline. No JVD or lymphadenopathy. Supple, nontender, no meningeal signs. CARDIOVASCULAR: Regular rate and rhythm without murmurs, gallops, or rubs. RESPIRATORY: Clear to auscultation. Breath sounds equal bilaterally. No wheezes , rales, or rhonchi. GASTROINTESTINAL: Abdomen soft, non-tender, nondistended. No hepato-splenomegaly , or palpable masses. No guarding. EXTREMITIES: No clubbing, cyanosis, or edema. No joint tenderness, effusion, or edema noted. BACK: Nontender without deformity or crepitance. No flank tenderness. NEURO: AOx3. SKIN: No rash or erythema. Initial Vital Signs Initial Vital Signs: Vital Signs Temperature 97.6 F 11/11/18 11:38 Pulse Rate 85 11/11/18 11:38 Respiratory Rate 26 H 11/11/18 11:38 Blood Pressure 135/77 11/11/18 11:38 Pulse Oximetry 97 11/11/18 11:38 Course Orders Ordered: ED Orders 11/11/18 12:02 XR chest 1V Stat EKG-12 Lead Stat 11/11/18 12:08 Complete Blood Count AUTO DIFF Stat Comprehensive Metabolic Panel Stat Lipase Stat Troponin & CK Cardiac Panel Stat Discontinued Medications Sodium Chloride (Normal Saline 0.9%) 1,000 mls @ 150 mls/hr IV CONT MARY Last Infusion: 11/11/18 16:46 Dose: 0 mls/hr Admin: 11/11/18 12:53 Dose: 150 mls/hr Vital Signs - 8 hr 11/11/18 13:00 11/11/18 14:00 11/11/18 15:00 Pulse Rate 71 83 75 Respiratory Rate 20 19 15 Blood Pressure Blood Pressure [Right Arm] 123/71 179/106 H 136/69 Pulse Oximetry 99 97 96 11/11/18 15:53 11/11/18 16:00 11/11/18 16:46 Pulse Rate 92 H 67 79 Respiratory Rate 20 20 Blood Pressure 116/82 Blood Pressure [Right Arm] 133/76 Pulse Oximetry 95 95 MDM - Weakness Medical Records Attestation: I reviewed the patient's medical records. Lab Data Attestation: I reviewed the patient's lab results. Result diagrams: 11/11/18 12:08 11/11/18 12:08 Lab Results 11/11/18 11/11/18 Range/Units 12:08 12:08 WBC 10.1 (4.5-11.0) X10^3/uL RBC 3.72 L (4.5-5.9) X10^6/uL Hgb 12.5 L (13.5-17.5) g/dL Hct 36.7 L (41-53) % MCV 98.9 (80-100) fL MCH 33.7 (26-34) PG MCHC 34.0 (30-36) % RDW 14.3 (11.6-14.8) % Plt Count 269 (150-400) X10^3/uL Neut % (Auto) 82.2 H (50-75) % Lymph % (Auto) 6.6 L (25-40) % [place] % (Auto) 8.9 (3-14) % Eos % (Auto) 2.0 (2-4) % Baso % (Auto) 0.3 (0-2) % Neut # (Auto) 8300 H (3644-6155) /uL Sodium 146 H (137-145) mmol/L Potassium 4.0 (3.4-5.1) mmol/L Chloride 101 (98-107) mmol/L Carbon Dioxide 30 (22-32) mmol/L BUN 22 H (9-20) mg/dL Creatinine 0.90 (0.66-1.25) mg/dL Estimated GFR > 60.0 (>60) mL/min BUN/Creatinine Ratio 24.4 H (6-22) Glucose 100 (80-110) mg/dL Calcium 9.4 (8.4-10.2) mg/dL Total Bilirubin 0.5 (0.2-1.3) mg/dL AST 22 (17-59) IU/L ALT 28 (21-72) IU/L Alkaline Phosphatase 90 (38-126) U/L Total Creatine Kinase 31 L (55-170) U/L CK-MB (CK-2) TNP CK-MB (CK-2) Rel Index TNP Troponin I < 0.012 (0.01-0.034) ng/mL Total Protein 7.8 (6.3-8.2) g/dL Albumin 4.3 (3.5-5.0) g/dL Globulin 3.5 (1.7-4.1) g/dL Albumin/Globulin Ratio 1.2 (1.0-2.8) Lipase 58 (23-300) U/L Urine Dip Bedside Urine Glucose Negative Bedside Urine Bilirubin - Negative Bedside Urine Ketone - Negative Urine Specific [place] 1.015 Bedside Urine Occult Blood - Negative Bedside Urine pH 7.5 Bedside Urine Protein - Negative Bedside Urine Urobilinogen - Negative Bedside Urine Nitrite - Negative Bedside Urine Leukocytes - Negative Esterase Imaging Data Chest x-ray: Radiologist's impression: [address] [address] XRay Report Signed Patient: Murali Grant LMR#: [id number] : 5Acct:[id number] Age/Sex: 83 / MDate of Service: 11/11/18 Loc: ED Accession Number: [id number] Procedure: XR chest 1V Ordering Provider: Jason Perera D.O. PROCEDURE: XR CHEST 1V INDICATIONS: weakness, near syncope TECHNIQUE: One view of the chest was acquired. COMPARISON: [facility], CR, XR CHEST 1V, 09/18/2018, 17:52. FINDINGS: Surgical changes and devices: None. Lungs and pleura: No pleural effusions or pneumothorax. Lungs are clear. Mediastinum: Mediastinal contours appear normal. Heart size is normal. Bones and chest wall: No suspicious bony lesions. Overlying soft tissues appear unremarkable. IMPRESSION: No acute cardiopulmonary disease process. Dictated by: Kayla Vogt MD, PhD on 11/11/2018 at 12:26 Approved by: Kayla Vogt MD, PhD on 11/11/2018 at 12:27 [facility] Narrative Medical decision making narrative: Multiple etiologies of the patient's vague complaints considered including infection, electrolyte abnormality, cardiac event, heart failure, pneumonia, anemia, dehydration, renal failure versus other. Patient demonstrates tremendous improvement after fluids and is found sitting upright in his room eating ice cream. An ambulation trial attempted and patient walks through emergency department without any significant distress , and no hypoxia. Extensive discussion with the patient and caregiver at the bedside regarding a potential hospitalization for gentle fluid hydration, evaluation by physical therapy for ambulation but patient, (whom demonstrates capacity to myself, nursing and caregiver) insists on going home despite discussion of risks and benefits including significant injury, disability or even . He reports understanding of these risks and states he will return in the next day or 2 if he feels worse Discharge Plan Departure Patient Disposition: Home Clinical Impression: Acute dehydration, Hematuria Discharge Date/Time: 11/11/18 16:47 Interventions: ED Discharge Assessment Last Done: 11/11/18 16:46 Instructions: DI for Dehydration -- Adult Activity Restrictions/Additional Instructions: 1. Drink plenty of fluids with frequent small sips. 2. For the next 24 hours a clear liquid diet is advised. After that please employ a brat diet which would include bananas, rice, apples, toast. 3. Please take medications as directed. 4. Please follow-up with your doctor in the next 1-2 days. Call the office for an appointment. 5. Please return to the emergency Department for any worsening or persistent symptoms, such as increasing pain or fever. Prescriptions: No Action clopidogrel 75 MG tablet 37.5 mg PO DAILY Qty: 0 RF: 0 losartan 50 mg Tablet 25 mg PO DAILY RF: 0 furosemide 40 mg Tablet 80 mg PO DAILY RF: 0 hydrocodone-acetaminophen 5-325 mg tablet 1 tab PO Q4-6H PRN (Reason: pain) RF: 0 Referrals: Quincy Price MD [Primary Care Provider] -
== END 2018-11-11 16:47 | disposition home or self-care (01) ==
PROVIDERS: Emergency Provider Emergency Medicine; Family Provider Family Medicine; PCP Family Medicine
DX: E86.0 Dehydration (principal); R31.9 Hematuria, unspecified
CPT/HCPCS: 36591; 71045; 80053; 81003; 82550; 83690; 84484; 85025; 93005; 96360; 96361; 99284; 99285

== ENCOUNTER 2018-12-13 18:44 | Emergency (ER) | payer MEDICARE, SELFPAY ==
[2018-11-12 21:49] VITALS: BMI 18.8
[2018-12-13 18:50] VITALS: BP 115/77; PULSE 81; RESP 14; TEMP 36.2; BMI 18.0
--- NOTE | 2018-12-13 18:55 | DI.RAD.S_ITS ---
PROCEDURE: XR RIBS RT MIN 3V W CXR 1V INDICATIONS: glf yesterday,right rib pain TECHNIQUE: 2 views of the right ribs were acquired, along with a single view chest. COMPARISON: [facility], , XR CHEST 1V, 11/12/2018, 16:52. FINDINGS: Surgical changes and devices: None. Bones and chest wall: No displaced rib fractures identified. No suspicious bony lesions. Overlying soft tissues appear unremarkable. Lungs and pleura: No pleural effusions or pneumothorax. There is hyperinflation of the lungs with flattening of the hemidiaphragms compatible with COPD. Lungs appear clear. Mediastinum: Mediastinal contours appear unchanged. Heart size is normal. IMPRESSION: 1. No displaced rib fractures identified. Dictated by: Matthew Garcia M.D. on 12/13/2018 at 19:29 Approved by: Matthew Garcia M.D. on 12/13/2018 at 19:30
[2018-12-13 19:59] LABS: Add Manual Diff / Slide Review NO; Basophils Absolute Auto 0 /uL (0-100); Basophils Percent Auto 0.4 % (0-2); Eosinophils Absolute Auto 500 /uL (0-450); Eosinophils Percent Auto 7.2 % (2-4); Hematocrit 34.1 % (41-53); Hemoglobin 11.4 g/dL (13.5-17.5); Lymphocytes Absolute Auto 700 /uL (1100-4500); Mean Corpuscular HGB Conc 33.5 % (30-36); Mean Corpuscular Hemoglobin 32.8 PG (26-34); Mean Corpuscular Volume 97.9 fL (80-100); Monocytes Absolute Auto 700 /uL (0-900); Monocytes Percent Auto 11.1 % (3-14); Neutrophils Absolute Auto 4600 /uL (1500-7000); Neutrophils Percent Auto 70.3 % (50-75); Platelet Count 351 X10^3/uL (150-400); Red Blood Cell Count 3.48 X10^6/uL (4.5-5.9); Red Cell Distribution Width 13.5 % (11.6-14.8); White Blood Cell Count 6.6 X10^3/uL (4.5-11.0)
[2018-12-13 20:10] LABS: Alanine Aminotransferase 25 IU/L (21-72); Albumin 3.8 g/dL (3.5-5.0); Alkaline Phosphatase 87 U/L (38-126); Aspartate Aminotransferase 17 IU/L (17-59); BUN Creatinine Ratio 22.2 (6-22); Bilirubin Total 0.2 mg/dL (0.2-1.3); Blood Urea Nitrogen 20 mg/dL (9-20); Calcium 9.2 mg/dL (8.4-10.2); Carbon Dioxide 24 mmol/L (22-32); Chloride 103 mmol/L (98-107); Creatine Kinase 34 U/L (55-170); Estimated Glomerular Filt Rate > 60.0 mL/min (>60); Globulin 3.9 g/dL (1.7-4.1); Glucose 103 mg/dL (80-110); HEMOLYSIS < 15 (0-50); Potassium 4.2 mmol/L (3.4-5.1); Sodium 138 mmol/L (137-145); Total Protein 7.7 g/dL (6.3-8.2)
--- NOTE | 2018-12-13 20:12 | DI.CT.S_ITS ---
PROCEDURE: CT HEAD/BRAIN WO CON INDICATIONS: Ground level fall possibly hitting head TECHNIQUE: Noncontrast 4.5 mm thick angled axial sections acquired from the foramen magnum to the vertex, with coronal and sagittal reformats. For radiation dose reduction, the following was used: automated exposure control, adjustment of mA and/or kV according to patient size. COMPARISON: [facility], CT, CT HEAD/BRAIN WO CON, 11/12/2018, 16:40. FINDINGS: Image quality: Excellent. CSF spaces: Basal cisterns are patent. No extra-axial fluid collections. The ventricles are symmetric in size and shape. There is moderate cerebral volume loss, with resultant ventricular and sulcal prominence. Brain: No intracranial hemorrhage, mass, or mass effect. There are subcortical, periventricular and deep white matter hypodensities consistent with mild chronic small vessel ischemic changes. Small discrete focal hypodensities are also redemonstrated within the left internal capsule and left thalamus suggestive of prior lacunar infarcts. There is intracranial internal carotid artery atherosclerosis. Skull and face: Calvarium and visualized facial bones appear intact, without suspicious lesions. Sinuses: Visualized sinuses demonstrate mild mucosal thickening within the right maxillary sinus. Mastoid air cells are clear. IMPRESSION: 1. No acute intracranial abnormality. 2. Moderate cerebral volume loss and mild chronic white matter small vessel ischemic changes. Small focal hypodensities are redemonstrated in the left internal capsule and thalamus compatible with prior lacunar infarcts. Dictated by: Matthew Garcia M.D. on 12/13/2018 at 20:48 Approved by: Matthew Garcia M.D. on 12/13/2018 at 20:50
--- NOTE | 2018-12-13 20:12 | DI.RAD.S_ITS ---
PROCEDURE: XR HUMERUS RT 2V INDICATIONS: Ground level fall pain right upper arm TECHNIQUE: 2 views of the humerus were acquired. COMPARISON: None. FINDINGS: Bones: No fractures or dislocations. No suspicious bony lesions. Soft tissues: No suspicious soft tissue calcifications. IMPRESSION: 1. No fracture or dislocation. Dictated by: Matthew Garcia M.D. on 12/13/2018 at 21:18 Approved by: Matthew Garcia M.D. on 12/13/2018 at 21:18
--- NOTE | 2018-12-13 20:15 | ED_ITS ---
HPI - Extremity Injury (Upper) <AVA Villatoro - Last Filed: 12/13/18 22:03> General Chief Complaint: Extremity Injury, Upper Stated Complaint: FALL RIGHT SIDE PAIN RIB Time Seen by Provider: 12/13/18 18:57 Source: patient and family Mode of arrival: wheelchair Limitations: no limitations History of Present Illness HPI narrative: 83-year-old male with history of throat cancer and is a nonsmoker here for complaint of having a ground level fall earlier today. He states that he fell on his right side has pain to his right rib cage area and also to his right upper arm. He does not know if he hit his head however he thinks he did not. He denies any headache. He states that the fall was caused due to a brief loss of consciousness. He reports that he has had multiple issues with loss of consciousness on and off over the past several months. He has been seen for this multiple times. He was prior early living by himself but was moved to a care facility due to these episodes of weakness/syncope with multiple falls. Family reports that he has had loss of weight over the last several months. He has not been back to oncology for the last several months. Family member does not know why he has not been back to Oncology. No chest pain and no shortness of breath. Pain is limited to the right arm and right ribcage. Positive p.o. intake positive fluid intake. No fevers no chills. No urinary symptoms. No other concerns or complaints at this time. complaint: injury to: right and arm Related Data Home Medications Medication Instructions Recorded Confirmed clopidogrel 37.5 mg PO DAILY #0 11/23/17 11/12/18 hydrocodone-acetaminophen 1 tab PO Q4-6H PRN 11/11/18 11/12/18 losartan 25 mg PO DAILY 11/11/18 11/12/18 Previous Rx's Medication Instructions Recorded finasteride [Proscar] 5 mg PO DAILY #30 tab 11/13/18 megestrol 40 mg PO BID #60 tab 11/13/18 acetaminophen 650 mg PO Q6H PRN #30 tab 12/13/18 Allergies Allergy/AdvReac Type Severity Reaction Status Date / Time pantoprazole [From Protonix] Allergy Unknown Verified 12/13/18 18:50 Review of Systems <AVA Villatoro - Last Filed: 12/13/18 22:03> Constitutional Denies chills, Denies fever(s), Denies lethargy and Denies weakness Eyes Denies change in vision, Denies eye discharge, Denies irritation and Denies loss of vision ENT Ears, Nose, Mouth, and Throat: Denies change in voice, Denies neck pain and Denies sore throat Cardiovascular Denies chest pain, Reports syncope, Denies irregular heart rhythm, Denies lightheadedness, Denies palpitations, Denies dyspnea, Denies dyspnea on exertion and Denies orthopnea Respiratory Denies cough, Denies dyspnea, Denies dyspnea on exertion and Denies wheezing Gastrointestinal Gastrointestinal: Denies abdominal pain, Denies change in bowel habits, Denies diarrhea, Denies nausea and Denies vomiting Comments: Genitourinary Comments: Pain into her right ribcage and 2 right upper arm after ground level fall Musculoskeletal Denies neck pain Integumentary/Breasts Denies pruritus, Denies erythema, Denies rash and Denies wounds Neurologic Denies confusion, Reports syncope, Denies loss of vision and Denies weakness Psychiatric Denies anxiety, Denies confusion, Denies depression, Denies homicidal ideation and Denies suicidal ideation Endocrine Denies palpitations Hematologic/Lymphatic Denies easy bruising Allergic/Immunologic Denies wheezing Exam <Fernando Shipman [facility] - Last Filed: 12/13/18 22:03> Initial Vital Signs Initial Vital Signs: Vital Signs Temperature 97.1 F L 12/13/18 18:50 Pulse Rate 81 12/13/18 18:50 Respiratory Rate 14 12/13/18 18:50 Blood Pressure 115/77 12/13/18 18:50 Const General: cooperative and No acute distress Nutritional Appearance: well nourished Orientation: alert and awake [facility] Head: normocephalic, atraumatic, No Cintron's sign, No palpable skull fracture, No scalp lesion and No scalp tenderness Mouth: oral mucosae normal and mucous membranes abnormal Eyes Conjunctivae: conjunctivae normal Sclera: sclerae normal Pupils: PERRL EOM: EOM intact bilaterally Resp Effort & Inspection: normal respiratory effort, able to speak in complete sentences, no respiratory distress and no use of accessory muscles Auscultation: clear to auscultation bilaterally, no rales, no rhonchi and no wheezes Cardio Rate: regular rate Rhythm: regular rhythm Heart Sounds: no click, no gallops, no murmurs and no rubs Pulses: normal peripheral pulses GI Inspection: non-distended Palpation: soft, no hepatosplenomegaly, No guarding, No pulsatile mass and No tender Auscultation: normal bowel sounds Skin General: no rashes or lesions noted, No jaundice and No petechiae Extrem Other: Tenderness on palpation to the right humerus region. Slight ecchymosis. No swelling. No open lesions. Distal sensation is intact. Distal pulses are intact. Distal range of motion is intact. Right rib cage with no signs of trauma. No ecchymosis no swelling no deformities. No open lesions. <DO Juan Ramon Bernardo Last Filed: 12/13/18 22:08> Initial Vital Signs Initial Vital Signs: Vital Signs Temperature 97.1 F L 12/13/18 18:50 Pulse Rate 81 12/13/18 18:50 Respiratory Rate 14 12/13/18 18:50 Blood Pressure 115/77 12/13/18 18:50 Course <AVA Villatoro - Last Filed: 12/13/18 22:03> Orders Ordered: ED Orders 12/13/18 18:55 XR ribs RT min 3V w CXR1V Stat 12/13/18 18:58 EKG-12 Lead Stat 12/13/18 19:50 Complete Blood Count AUTO DIFF Stat Comprehensive Metabolic Panel Stat Troponin & CK Cardiac Panel Stat 12/13/18 20:12 CT head/brain wo con Stat XR humerus RT 2V Stat Discontinued Medications Acetaminophen (Tylenol) 650 mg PO NOW ONE Stop: 12/13/18 21:45 Last Admin: 12/13/18 21:45 Dose: 650 mg Vital Signs - 8 hr 12/13/18 18:50 12/13/18 20:48 12/13/18 21:00 Temperature 97.1 F L Pulse Rate 81 70 71 Pulse Rate [Bilateral Radial] Respiratory Rate 14 15 18 Blood Pressure 115/77 Blood Pressure [Right Arm] 111/68 123/69 Pulse Oximetry 100 99 12/13/18 21:34 Temperature Pulse Rate Pulse Rate [Bilateral Radial] 65 Respiratory Rate Blood Pressure Blood Pressure [Right Arm] Pulse Oximetry <DO Juan Ramon Bernardo Last Filed: 12/13/18 22:08> Orders Ordered: ED Orders 12/13/18 18:55 XR ribs RT min 3V w CXR1V Stat 12/13/18 18:58 EKG-12 Lead Stat 12/13/18 19:50 Complete Blood Count AUTO DIFF Stat Comprehensive Metabolic Panel Stat Troponin & CK Cardiac Panel Stat 12/13/18 20:12 CT head/brain wo con Stat XR humerus RT 2V Stat Discontinued Medications Acetaminophen (Tylenol) 650 mg PO NOW ONE Stop: 12/13/18 21:45 Last Admin: 12/13/18 21:45 Dose: 650 mg Vital Signs - 8 hr 12/13/18 18:50 12/13/18 20:48 12/13/18 21:00 Temperature 97.1 F L Pulse Rate 81 70 71 Pulse Rate [Bilateral Radial] Respiratory Rate 14 15 18 Blood Pressure 115/77 Blood Pressure [Right Arm] 111/68 123/69 Pulse Oximetry 100 99 12/13/18 21:34 Temperature Pulse Rate Pulse Rate [Bilateral Radial] 65 Respiratory Rate Blood Pressure Blood Pressure [Right Arm] Pulse Oximetry MDM - Extremity Injury (Upper) <AVA Villatoro - Last Filed: 12/13/18 22:03> Lab Data Result diagrams: 12/13/18 19:50 12/13/18 19:50 Lab Results 12/13/18 12/13/18 Range/Units 19:50 19:50 WBC 6.6 (4.5-11.0) X10^3/uL RBC 3.48 L (4.5-5.9) X10^6/uL Hgb 11.4 L (13.5-17.5) g/dL Hct 34.1 L (41-53) % MCV 97.9 (80-100) fL MCH 32.8 (26-34) PG MCHC 33.5 (30-36) % RDW 13.5 (11.6-14.8) % Plt Count 351 (150-400) X10^3/uL Neut % (Auto) 70.3 (50-75) % Lymph % (Auto) 11.0 L (25-40) % Heard % (Auto) 11.1 (3-14) % Eos % (Auto) 7.2 H (2-4) % Baso % (Auto) 0.4 (0-2) % Neut # (Auto) 4600 (1691-6878) /uL Lymph # (Auto) 700 L (2617-6615) /uL Heard # (Auto) 700 (0-900) /uL Eos # (Auto) 500 H (0-450) /uL Baso # (Auto) 0 (0-100) /uL Sodium 138 (137-145) mmol/L Potassium 4.2 (3.4-5.1) mmol/L Chloride 103 (98-107) mmol/L Carbon Dioxide 24 (22-32) mmol/L BUN 20 (9-20) mg/dL Creatinine 0.90 (0.66-1.25) mg/dL Estimated GFR > 60.0 (>60) mL/min BUN/Creatinine Ratio 22.2 H (6-22) Glucose 103 (80-110) mg/dL Calcium 9.2 (8.4-10.2) mg/dL Total Bilirubin 0.2 (0.2-1.3) mg/dL AST 17 (17-59) IU/L ALT 25 (21-72) IU/L Alkaline Phosphatase 87 (38-126) U/L Total Creatine Kinase 34 L (55-170) U/L CK-MB (CK-2) TNP CK-MB (CK-2) Rel Index TNP Troponin I < 0.012 (0.01-0.034) ng/mL Total Protein 7.7 (6.3-8.2) g/dL Albumin 3.8 (3.5-5.0) g/dL Globulin 3.9 (1.7-4.1) g/dL Albumin/Globulin Ratio 1.0 (1.0-2.8) Imaging Data CT scan - head: Radiologist's impression: [address] [address] [address] Scan Report Signed Patient: Murali Grant MR#: [id number] : 1935 Acct:[id number] Age/Sex: 83 / M Date of Service: 12/13/18 Loc: ED Accession Number: [id number] Procedure: CT head/brain wo con Ordering Provider: Fernando Shipman PROCEDURE: CT HEAD/BRAIN WO CON INDICATIONS: Ground level fall possibly hitting head TECHNIQUE: Noncontrast 4.5 mm thick angled axial sections acquired from the foramen magnum to the vertex, with coronal and sagittal reformats. For radiation dose reduction, the following was used: automated exposure control, adjustment of mA and/or kV according to patient size. COMPARISON: [facility], CT, CT HEAD/BRAIN WO CON, 11/12/2018, 16:40. FINDINGS: Image quality: Excellent. CSF spaces: Basal cisterns are patent. No extra-axial fluid collections. The ventricles are symmetric in size and shape. There is moderate cerebral volume loss, with resultant ventricular and sulcal prominence. Brain: No intracranial hemorrhage, mass, or mass effect. There are subcortical , periventricular and deep white matter hypodensities consistent with mild chronic small vessel ischemic changes. Small discrete focal hypodensities are also redemonstrated within the left internal capsule and left thalamus suggestive of prior lacunar infarcts. There is intracranial internal carotid artery atherosclerosis. Skull and face: Calvarium and visualized facial bones appear intact, without suspicious lesions. Sinuses: Visualized sinuses demonstrate mild mucosal thickening within the right maxillary sinus. Mastoid air cells are clear. IMPRESSION: 1. No acute intracranial abnormality. 2. Moderate cerebral volume loss and mild chronic white matter small vessel ischemic changes. Small focal hypodensities are redemonstrated in the left internal capsule and thalamus compatible with prior lacunar infarcts. Dictated by: Matthew Garcia M.D. on 12/13/2018 at 20:48 Approved by: Matthew Garcia M.D. on 12/13/2018 at 20:50 Ribs right: Radiologist's impression: XRay Report Signed Patient: Murali Grant MR#: [id number] : 1935 Acct:[id number] Age/Sex: 83 / M Date of Service: 12/13/18 Loc: ED Accession Number: [id number] Procedure: XR ribs RT min 3V w CXR1V Ordering Provider: Que Wang D.O. PROCEDURE: XR RIBS RT MIN 3V W CXR 1V INDICATIONS: glf yesterday,right rib pain TECHNIQUE: 2 views of the right ribs were acquired, along with a single view chest. COMPARISON: [facility], CR, XR CHEST 1V, 11/12/2018, 16:52. FINDINGS: Surgical changes and devices: None. Bones and chest wall: No displaced rib fractures identified. No suspicious bony lesions. Overlying soft tissues appear unremarkable. Lungs and pleura: No pleural effusions or pneumothorax. There is hyperinflation of the lungs with flattening of the hemidiaphragms compatible with COPD. Lungs appear clear. Mediastinum: Mediastinal contours appear unchanged. Heart size is normal. IMPRESSION: 1. No displaced rib fractures identified. Dictated by: Matthew Garcia M.D. on 12/13/2018 at 19:29 Approved by: Matthew Garcia M.D. on 12/13/2018 at 19:30 Right humerus : Radiologist's impression: [address] [address] XRay Report Signed Patient: Murali Grant MR#: [id number] : 1935 Acct:[id number] Age/Sex: 83 / M Date of Service: 12/13/18 Loc: ED Accession Number: [id number] Procedure: XR humerus RT 2V Ordering Provider: Fernando Shipman PROCEDURE: XR HUMERUS RT 2V INDICATIONS: Ground level fall pain right upper arm TECHNIQUE: 2 views of the humerus were acquired. COMPARISON: None. FINDINGS: Bones: No fractures or dislocations. No suspicious bony lesions. Soft tissues: No suspicious soft tissue calcifications. IMPRESSION: 1. No fracture or dislocation. Dictated by: Matthew Garcia M.D. on 12/13/2018 at 21:18 Approved by: Matthew Garcia M.D. on 12/13/2018 at 21:18 ECG Data Interpretation: EKG shows normal sinus rhythm no ST elevation or depression. . Ventricular rate of 69. Pr interval of 159. QRS duration of 106. QTC of 418. MDM Narrative Medical decision making narrative: CT scan of the head was obtained was negative for any acute findings. Chest x-ray of the and ribs show no acute fractures. X-ray of the right humerus area was negative for fractures. Signs symptoms presents contusion to the right ribcage and to right humerus. Patient with multiple syncopal episodes over the past several months. EKG shows sinus rhythm with no ST elevation or depression. No ectopy. Cardiac enzymes were obtained and were negative. Patient is in care facility . Recommend plenty of fluids. Follow up with Oncology follow-up with primary care provider this week. [id number] Tylenol as needed for any discomfort. For any worsening symptoms return to the emergency room. <Que Wang, DO - Last Filed: 12/13/18 22:08> Lab Data Lab Results 12/13/18 12/13/18 Range/Units 19:50 19:50 WBC 6.6 (4.5-11.0) X10^3/uL RBC 3.48 L (4.5-5.9) X10^6/uL Hgb 11.4 L (13.5-17.5) g/dL Hct 34.1 L (41-53) % MCV 97.9 (80-100) fL MCH 32.8 (26-34) PG MCHC 33.5 (30-36) % RDW 13.5 (11.6-14.8) % Plt Count 351 (150-400) X10^3/uL Neut % (Auto) 70.3 (50-75) % Lymph % (Auto) 11.0 L (25-40) % Heard % (Auto) 11.1 (3-14) % Eos % (Auto) 7.2 H (2-4) % Baso % (Auto) 0.4 (0-2) % Neut # (Auto) 4600 (1161-2930) /uL Lymph # (Auto) 700 L (7503-1556) /uL Heard # (Auto) 700 (0-900) /uL Eos # (Auto) 500 H (0-450) /uL Baso # (Auto) 0 (0-100) /uL Sodium 138 (137-145) mmol/L Potassium 4.2 (3.4-5.1) mmol/L Chloride 103 (98-107) mmol/L Carbon Dioxide 24 (22-32) mmol/L BUN 20 (9-20) mg/dL Creatinine 0.90 (0.66-1.25) mg/dL Estimated GFR > 60.0 (>60) mL/min BUN/Creatinine Ratio 22.2 H (6-22) Glucose 103 (80-110) mg/dL Calcium 9.2 (8.4-10.2) mg/dL Total Bilirubin 0.2 (0.2-1.3) mg/dL AST 17 (17-59) IU/L ALT 25 (21-72) IU/L Alkaline Phosphatase 87 (38-126) U/L Total Creatine Kinase 34 L (55-170) U/L CK-MB (CK-2) TNP CK-MB (CK-2) Rel Index TNP Troponin I < 0.012 (0.01-0.034) ng/mL Total Protein 7.7 (6.3-8.2) g/dL Albumin 3.8 (3.5-5.0) g/dL Globulin 3.9 (1.7-4.1) g/dL Albumin/Globulin Ratio 1.0 (1.0-2.8) Discharge Plan Departure Patient Disposition: Home Clinical Impression: Frequent falls Discharge Date/Time: 12/13/18 21:50 Interventions: ED Discharge Assessment Last Done: 12/13/18 21:49 Instructions: DI for Contusion Activity Restrictions/Additional Instructions: CT of the head and x-rays of the right ribcage and right arm were obtained and were negative for any acute findings. Signs and symptoms presents as contusion to the painful areas. Use [id number] Tylenol as needed for discomfort. Follow up with primary care provider this week for re-evaluation. Follow up with Oncology. Recommend plenty of fluids to limit syncopal episodes. For any worsening symptoms return to the emergency room. Ensure fall protocols are in place at care facility. Prescriptions: New acetaminophen 325 mg tablet 650 mg PO Q6H PRN (Reason: pain) Qty: 30 RF: 0 No Action clopidogrel 75 MG tablet 37.5 mg PO DAILY Qty: 0 RF: 0 finasteride [Proscar] 5 mg tablet 5 mg PO DAILY Qty: 30 RF: 0 megestrol 40 mg tablet 40 mg PO BID Qty: 60 RF: 0 losartan 50 mg Tablet 25 mg PO DAILY RF: 0 hydrocodone-acetaminophen 5-325 mg tablet 1 tab PO Q4-6H PRN (Reason: pain) RF: 0 Referrals: Quincy Price MD [Primary Care Provider] - <Que Wang DO - Last Filed: 12/13/18 22:08> Cosign ED Attending Davi Attestation: I was available for consultation during this patient's emergency department encounter
[2018-12-13 20:22] LABS: Troponin I < 0.012 ng/mL (0.01-0.034)
[2018-12-13 20:48] VITALS: BP 111/68; PULSE 70; RESP 15; O2SAT 100
[2018-12-13 21:00] VITALS: BP 123/69; PULSE 71; RESP 18; O2SAT 99
[2018-12-13 21:34] VITALS: PULSE 65
[2018-12-13] MEDS: ACETAMINOPHEN 325 MG TABLET 650 MG PO (21:45)
--- NOTE | 2018-12-13 21:54 | PC.NURSE ---
telephone report given to caprice thompson [facility] caregiver.
== END 2018-12-13 21:50 | disposition home or self-care (01) ==
PROVIDERS: Emergency Provider Nurse Practitioner Family; Family Provider Family Medicine; PCP Family Medicine
DX: R55 Syncope and collapse (principal); R29.6 Repeated falls; W18.30XA Fall on same level, unspecified, initial encounter
CPT/HCPCS: 36591; 70450; 71101; 73060; 80053; 82550; 84484; 85025; 93005; 93010; 99283; 99285

== ENCOUNTER → 2018-12-20 09:22 | Outpatient (CLI) | payer MEDICARE, SELFPAY ==
[2018-11-12 21:49] VITALS: BMI 18.8
--- NOTE | 2018-12-20 | DI.RAD.S_ITS ---
PROCEDURE: XR CHEST 2V INDICATIONS: COUGH TECHNIQUE: 2 views of the chest were acquired. COMPARISON: [facility], CT, CT ANGIO CHEST PE PROTOCOL, 09/18/2018, 19:16. [facility], CR, XR CHEST 1V, 11/12/2018, 16:52. [facility], CR, XR CHEST 1V, 11/11/2018, 12:16. FINDINGS: Surgical changes and devices: None. Lungs and pleura: No pleural effusions or pneumothorax. Lungs are clear. Mediastinum: Mediastinal contours are normal. Heart size is normal. Bones and chest wall: Scoliosis and degenerative changes in thoracic and lumbar spine. No suspicious bony abnormalities. Soft tissues appear unremarkable. IMPRESSION: No acute cardiopulmonary disease. Dictated by: Jairo Augustin M.D. on 12/20/2018 at 10:54 Approved by: Jairo Augustin M.D. on 12/20/2018 at 10:56
== END ==
PROVIDERS: PCP Family Medicine; Visit Provider Family Medicine
DX: R05 Cough (principal)
CPT/HCPCS: 71046

== ENCOUNTER → 2018-12-27 11:56 | Outpatient (CLI) | payer MEDICARE, SELFPAY ==
[2018-11-12 21:49] VITALS: BMI 18.8
--- NOTE | 2018-12-27 | DI.US.S_ITS ---
PROCEDURE: US CAROTID DOPPLER BI INDICATIONS: Peripheral vascular disease, unspecified TECHNIQUE: Color and pulse Doppler interrogation was performed of both carotid systems, with image documentation and velocity measurements. COMPARISON: [facility], , CAROTID ARTERY DOPPLER BILAT, 05/27/2016, 13:46. FINDINGS: Stenosis calculations are based on SRU (Society of Radiologists in Ultrasound) criteria. Right side: Brachial blood pressure: 104/63 mm Hg. Common carotid artery peak systolic velocity: 63 cm/sec. Internal carotid artery peak systolic velocity: 96 cm/sec. Internal carotid artery end diastolic velocity: 23 cm/sec. External carotid artery peak systolic velocity: 88 cm/sec. ICA/CCA peak systolic ratio: 1.5. Samson scale imaging description: Mild plaque Percent internal carotid artery stenosis: Less than 50%. Vertebral artery: Flow direction is antegrade. Left side: Brachial blood pressure: 118/65 mm Hg. Common carotid artery peak systolic velocity: 55 cm/sec. Internal carotid artery peak systolic velocity: 106 cm/sec. Internal carotid artery end diastolic velocity: 26 cm/sec. External carotid artery peak systolic velocity: 54 cm/sec. ICA/CCA peak systolic ratio: 1.9. Samson scale imaging description: Mild plaque. Percent internal carotid artery stenosis: Is a 50%. Vertebral artery: Flow direction is antegrade. IMPRESSION: Stable less than 50% bilateral internal carotid artery stenosis. Dictated by: Paul Balderrama [facility] Interpreted: Tino Recio MD on 12/27/2018 at 14:19 Approved by: Tino Recio M.D. on 12/28/2018 at 8:11
== END ==
PROVIDERS: PCP Family Medicine; Visit Provider Family Medicine
DX: I65.23 Occlusion and stenosis of bilateral carotid arteries (principal); I73.9 Peripheral vascular disease, unspecified
CPT/HCPCS: 93880

== ENCOUNTER 2019-03-12 12:19 | Emergency (ER) | payer MEDICARE, SELFPAY ==
[2018-11-12 21:49] VITALS: BMI 18.8
[2019-03-12 12:20] VITALS: BP 130/72; PULSE 69; RESP 26; TEMP 36.1; O2SAT 99; BMI 19.0
[2019-03-12 12:43] LABS: Appearance Urine UA TURBID; Bilirubin Urine UA 2+ (NEGATIVE); Color Urine UA BROWN; Glucose Urine UA NEGATIVE (Negative); Ketones Urine UA TRACE (NEGATIVE); Leukocyte Esterase Urine UA 1+ (NEGATIVE); Nitrite Urine UA POSITIVE (Negative); Occult Blood Urine UA 3+ (Negative); Protein Urine UA 3+ (Negative); Specific Gravity Urine UA 1.025 (1.000-1.035); pH Urine UA 6.5 (4.5-8.0)
[2019-03-12 12:47] LABS: Ictotest Urine Negative (Negative)
[2019-03-12 12:59] LABS: Amorphous Sediment Urine 1+; RBC Urine >100/HPF (0-5/HPF); WBC Urine 30-100/HPF (0-5/HPF)
[2019-03-12 13:00] LABS: Bacteria Urine Many (>30)
[2019-03-12 13:01] LABS: Culture Indicated Urine Specimen Cultured
[2019-03-12 13:30] VITALS: BP 130/74; PULSE 63; RESP 20; O2SAT 100
[2019-03-12 13:35] LABS: Add Manual Diff / Slide Review NO; Basophils Absolute Auto 100 /uL (0-100); Basophils Percent Auto 0.7 % (0-2); Eosinophils Absolute Auto 200 /uL (0-450); Eosinophils Percent Auto 3.2 % (2-4); Hematocrit 36.3 % (41-53); Hemoglobin 12.3 g/dL (13.5-17.5); Lymphocytes Absolute Auto 900 /uL (1100-4500); Lymphocytes Percent Auto 11.9 % (25-40); Mean Corpuscular Hemoglobin 32.8 PG (26-34); Mean Corpuscular Volume 96.3 fL (80-100); Monocytes Absolute Auto 800 /uL (0-900); Neutrophils Absolute Auto 5700 /uL (1500-7000); Neutrophils Percent Auto 74.2 % (50-75); Platelet Count 277 X10^3/uL (150-400); Red Blood Cell Count 3.76 X10^6/uL (4.5-5.9); Red Cell Distribution Width 14.8 % (11.6-14.8); White Blood Cell Count 7.6 X10^3/uL (4.5-11.0)
[2019-03-12 13:40] LABS: Prothrombin Time 11.8 SECONDS (10.1-12.7)
[2019-03-12 13:43] LABS: PTT Partial Thromboplastin Tim 29 SECONDS (26.4-36.2)
[2019-03-12 13:44] LABS: Alanine Aminotransferase 15 IU/L (21-72); Albumin Globulin Ratio 1.2 (1.0-2.8); Alkaline Phosphatase 84 U/L (38-126); Aspartate Aminotransferase 15 IU/L (17-59); Bilirubin Total 0.2 mg/dL (0.2-1.3); Blood Urea Nitrogen 17 mg/dL (9-20); Calcium 9.2 mg/dL (8.4-10.2); Carbon Dioxide 23 mmol/L (22-32); Chloride 107 mmol/L (98-107); Estimated Glomerular Filt Rate > 60.0 mL/min (>60); Globulin 3.3 g/dL (1.7-4.1); Glucose 101 mg/dL (80-110); HEMOLYSIS < 15 (0-50); Potassium 4.2 mmol/L (3.4-5.1); Sodium 140 mmol/L (137-145); Total Protein 7.3 g/dL (6.3-8.2)
[2019-03-12 14:30] VITALS: BP 137/70; PULSE 64; RESP 14; O2SAT 100
[2019-03-12] MEDS: SODIUM CHLORIDE 0.9% 1,000 ML 1000 ML IV (15:29)
[2019-03-12] MEDS: levoFLOXacin 250 MG TABLET 500 MG PO (15:29)
--- NOTE | 2019-03-12 15:44 | ED_ITS ---
HPI - Male Genitourinary General Chief complaint: Urogenital-Male Stated complaint: BLADDER INFECTION Time Seen by Provider: 03/12/19 13:20 Source: patient and family Mode of arrival: ambulatory Limitations: no limitations History of Present Illness HPI Narrative: Patient is brought to the emergency department today for hematuria that started last night. Patient states that yesterday he started to notice that he had what appeared to be some blood in his urine. This morning, his daughter states that the patient called her and said that he had passed a large blood clot with urination. Patient has had the symptoms with prior urinary tract infections, and so the daughter decided to bring the patient into the emergency department. Patient denies fevers, nausea, abdominal pain or diarrhea. He states he has been having some pain with urination, especially at the beginning of his stream. Patient does admit that he does not drink any water, and his daughter states he drinks about 1-1.5 cups of juice per day. Patient states that his urine always appears dark. Related Data Home Medications Medication Instructions Recorded Confirmed clopidogrel 37.5 mg PO DAILY #0 11/23/17 11/12/18 hydrocodone-acetaminophen 1 tab PO Q4-6H PRN 11/11/18 11/12/18 losartan 25 mg PO DAILY 11/11/18 11/12/18 Previous Rx's Medication Instructions Recorded finasteride [Proscar] 5 mg PO DAILY #30 tab 11/13/18 megestrol 40 mg PO BID #60 tab 11/13/18 acetaminophen 650 mg PO Q6H PRN #30 tab 12/13/18 levofloxacin [Levaquin] 500 mg PO DAILY #7 tab 03/12/19 Allergies Allergy/AdvReac Type Severity Reaction Status Date / Time pantoprazole [From Protonix] Allergy Unknown Verified 03/12/19 12:28 Review of Systems Constitutional Denies chills, Denies fever(s), Denies lethargy and Denies weakness Eyes Denies change in vision, Denies eye discharge, Denies irritation and Denies loss of vision ENT Ears, Nose, Mouth, and Throat: Denies change in voice, Denies neck pain and Denies sore throat Cardiovascular Denies chest pain, Denies irregular heart rhythm, Denies lightheadedness, Denies palpitations, Denies dyspnea, Denies dyspnea on exertion and Denies orthopnea Respiratory Denies cough, Denies dyspnea, Denies dyspnea on exertion and Denies wheezing Gastrointestinal Gastrointestinal: Denies abdominal pain, Denies change in bowel habits, Denies diarrhea, Denies nausea and Denies vomiting Genitourinary Reports hematuria, Reports dysuria, Denies flank pain, Denies urinary in continence and Denies urinary urgency Musculoskeletal Denies neck pain Integumentary/Breasts Denies pruritus, Denies erythema, Denies rash and Denies wounds Neurologic Denies confusion, Denies loss of vision and Denies weakness Psychiatric Denies anxiety, Denies confusion, Denies depression, Denies homicidal ideation and Denies suicidal ideation Endocrine Denies palpitations Hematologic/Lymphatic Denies easy bruising Allergic/Immunologic Denies wheezing [facility] Medical History Brain tumor (Acute) Chronic back pain greater than 3 months duration (Acute) Difficulty in urination (Acute) Early onset Alzheimer's dementia (Acute) Essential hypertension (Acute) History of stroke (Acute) Malignant neoplasm of throat (Acute) Pain with urination (Acute) Urgency incontinence (Acute) History of bladder cancer (Inactive) Surgical History History of right knee joint replacement (Acute) Status post surgical removal and fulguration of bladder neoplasm (Acute) Status post surgical removal of neoplasm of skin (Acute) Family History Other No family history of cardiac disease Social History household members: none Smoking Status: Never smoker Social History household members: none Smoking Status: Never smoker Exam Initial Vital Signs Initial Vital Signs: Vital Signs Temperature 97 F L 03/12/19 12:20 Pulse Rate 69 03/12/19 12:20 Respiratory Rate 26 H 03/12/19 12:20 Blood Pressure 130/72 03/12/19 12:20 Pulse Oximetry 99 03/12/19 12:20 Const General: cooperative and well developed Nutritional Appearance: well nourished Orientation: alert, awake, oriented x3 and not confused HENRI Head: normocephalic and atraumatic Ears: external ears normal Nose: external nose normal and No nasal discharge Face and sinus: face symmetric and No dry mucous membranes Mouth: oral mucosae normal and moist mucous membranes Teeth and gingiva: dentition normal Eyes General: appearance normal, both eyes and all related structures Eyelids: eyelids normal Conjunctivae: conjunctivae normal Sclera: sclerae normal Pupils: PERRL EOM: EOM intact bilaterally Neck Neck: normal visual inspection, trachea midline, No lymphadenopathy, No midline deformity and No JVD Lymphatic: No lymphedema Chest Chest: normal inspection of the chest Resp Effort & Inspection: normal respiratory effort, able to speak in complete sentences, no respiratory distress and no use of accessory muscles Auscultation: clear to auscultation bilaterally, no rales, no rhonchi and no wheezes Cardio Rate: regular rate Rhythm: regular rhythm Heart Sounds: no click, no gallops, no murmurs and no rubs Pulses: normal peripheral pulses GI Inspection: non-distended Palpation: soft, no hepatosplenomegaly, No guarding, No pulsatile mass and No tender Auscultation: normal bowel sounds Back/Spine/Pelvis Back: No CVA tenderness Cervical Spine: cervical ROM normal and No pain with cervical ROM Thoracic/Lumbar Spine: thoracic and lumbar spine normal to inspection Skin General: no rashes or lesions noted, No jaundice and No petechiae Neuro General: alert, oriented x3, gait normal and no focal motor deficits Speech: speech normal Extrem General: full ROM, no clubbing, cyanosis or edema, no pedal edema and no calf tenderness Psych Appearance: well kempt Mental Status: mental status grossly normal Attitude: cooperative Thought Content: normal and suicidality Judgment: judgment good Course Course Narrative: Patient's urine was found to be dark with some vicky hematuria in the emergency department. Urinalysis was performed and showed a large amount of red blood cells, as well as being strongly positive for infection. Patient was treated with Levaquin and also given a L of IV fluid for his volume contraction. We have discussed the need for the patient to work on drinking more fluids even though this is difficult for him secondary to the radiation he received for his throat cancer. We have discussed the need for him to take his antibiotics every day until the course is complete. Patient and daughter agreeable to this plan. We have discussed the usual indications for return. Orders Ordered: Discontinued Medications Sodium Chloride (Normal Saline 0.9%) 1,000 mls @ 1,000 mls/hr IV BOLUS ONE Stop: 03/12/19 16:11 Last Infusion: 03/12/19 16:32 Dose: 0 mls/hr Admin: 03/12/19 15:29 Dose: 1,000 mls/hr Levofloxacin (Levaquin) 500 mg PO NOW ONE Stop: 03/12/19 15:02 Last Admin: 03/12/19 15:29 Dose: 500 mg Vital Signs - 8 hr 03/12/19 12:20 03/12/19 13:30 03/12/19 14:30 Temperature 97 F L Pulse Rate 69 63 64 Respiratory Rate 26 H 20 14 Blood Pressure 130/72 Blood Pressure [Right Arm] 130/74 137/70 Pulse Oximetry 99 100 100 MDM - Male Genitourinary Medical Records Attestation: I reviewed the patient's medical records. Lab Data Attestation: I reviewed the patient's lab results. Result diagrams: 03/12/19 13:15 03/12/19 13:15 Lab Results 03/12/19 03/12/19 03/12/19 Range/Units 12:31 13:15 13:15 WBC 7.6 (4.5-11.0) X10^3/uL RBC 3.76 L (4.5-5.9) X10^6/uL Hgb 12.3 L (13.5-17.5) g/dL Hct 36.3 L (41-53) % MCV 96.3 (80-100) fL MCH 32.8 (26-34) PG MCHC 34.0 (30-36) % RDW 14.8 (11.6-14.8) % Plt Count 277 (150-400) X10^3/uL Neut % (Auto) 74.2 (50-75) % Lymph % (Auto) 11.9 L (25-40) % [place] % (Auto) 10.0 (3-14) % Eos % (Auto) 3.2 (2-4) % Baso % (Auto) 0.7 (0-2) % Neut # (Auto) 5700 (0392-7688) /uL Lymph # (Auto) 900 L (7007-9756) /uL [place] # (Auto) 800 (0-900) /uL Eos # (Auto) 200 (0-450) /uL Baso # (Auto) 100 (0-100) /uL PT 11.8 (10.1-12.7) SECONDS INR 1.0 (0.9-1.3) APTT 29 (26.4-36.2) SECONDS Sodium (137-145) mmol/L Potassium (3.4-5.1) mmol/L Chloride (98-107) mmol/L Carbon Dioxide (22-32) mmol/L BUN (9-20) mg/dL Creatinine (0.66-1.25) mg/dL Estimated GFR (>60) mL/min BUN/Creatinine Ratio (6-22) Glucose (80-110) mg/dL Calcium (8.4-10.2) mg/dL Total Bilirubin (0.2-1.3) mg/dL AST (17-59) IU/L ALT (21-72) IU/L Alkaline Phosphatase (38-126) U/L Total Protein (6.3-8.2) g/dL Albumin (3.5-5.0) g/dL Globulin (1.7-4.1) g/dL Albumin/Globulin Ratio (1.0-2.8) Urine Color Brown Urine Appearance Turbid Urine pH 6.5 (4.5-8.0) Ur Specific Alfred 1.025 (1.000-1.035) Urine Protein 3+ H (Negative) Urine Glucose (UA) Negative (Negative) g/dL Urine Ketones Trace H (NEGATIVE) Urine Occult Blood 3+ H (Negative) Urine Nitrate Positive (Negative) Urine Bilirubin 2+ H (NEGATIVE) Urine Ictotest Negative (Negative) Urine Urobilinogen 2.0 H (0.2) E.U./dL Ur Leukocyte Esterase 1+ H (NEGATIVE) Urine RBC >100/hpf (0-5/HPF) Urine WBC 30-100/hpf H (0-5/HPF) Amorphous Sediment 1+ Urine Bacteria Many (>30) H (None) Ur Culture Indicated? Specimen cultured Blood Type Antibody Screen 03/12/19 03/12/19 Range/Units 13:15 13:15 WBC (4.5-11.0) X10^3/uL RBC (4.5-5.9) X10^6/uL Hgb (13.5-17.5) g/dL Hct (41-53) % MCV (80-100) fL MCH (26-34) PG MCHC (30-36) % RDW (11.6-14.8) % Plt Count (150-400) X10^3/uL Neut % (Auto) (50-75) % Lymph % (Auto) (25-40) % [place] % (Auto) (3-14) % Eos % (Auto) (2-4) % Baso % (Auto) (0-2) % Neut # (Auto) (2995-2380) /uL Lymph # (Auto) (7842-6707) /uL [place] # (Auto) (0-900) /uL Eos # (Auto) (0-450) /uL Baso # (Auto) (0-100) /uL PT (10.1-12.7) SECONDS INR (0.9-1.3) APTT (26.4-36.2) SECONDS Sodium 140 (137-145) mmol/L Potassium 4.2 (3.4-5.1) mmol/L Chloride 107 (98-107) mmol/L Carbon Dioxide 23 (22-32) mmol/L BUN 17 (9-20) mg/dL Creatinine 1.00 (0.66-1.25) mg/dL Estimated GFR > 60.0 (>60) mL/min BUN/Creatinine Ratio 17.0 (6-22) Glucose 101 (80-110) mg/dL Calcium 9.2 (8.4-10.2) mg/dL Total Bilirubin 0.2 (0.2-1.3) mg/dL AST 15 L (17-59) IU/L ALT 15 L (21-72) IU/L Alkaline Phosphatase 84 (38-126) U/L Total Protein 7.3 (6.3-8.2) g/dL Albumin 4.0 (3.5-5.0) g/dL Globulin 3.3 (1.7-4.1) g/dL Albumin/Globulin Ratio 1.2 (1.0-2.8) Urine Color Urine Appearance Urine pH (4.5-8.0) Ur Specific Alfred (1.000-1.035) Urine Protein (Negative) Urine Glucose (UA) (Negative) g/dL Urine Ketones (NEGATIVE) Urine Occult Blood (Negative) Urine Nitrate (Negative) Urine Bilirubin (NEGATIVE) Urine Ictotest (Negative) Urine Urobilinogen (0.2) E.U./dL Ur Leukocyte Esterase (NEGATIVE) Urine RBC (0-5/HPF) Urine WBC (0-5/HPF) Amorphous Sediment Urine Bacteria (None) Ur Culture Indicated? Blood Type O Negative Antibody Screen Negative Discharge Plan Departure Patient Disposition: Home Clinical Impression: Acute dehydration Urinary tract infection Qualifiers: Urinary tract infection type: acute cystitis Hematuria presence: with hematuria Qualified Code(s): N30.01 - Acute cystitis with hematuria Discharge Date/Time: 03/12/19 16:49 Interventions: ED Discharge Assessment Last Done: 03/12/19 16:48 Prescriptions: New levofloxacin [Levaquin] 500 mg tablet 500 mg PO DAILY Qty: 7 RF: 0 No Action clopidogrel 75 MG tablet 37.5 mg PO DAILY Qty: 0 RF: 0 finasteride [Proscar] 5 mg tablet 5 mg PO DAILY Qty: 30 RF: 0 megestrol 40 mg tablet 40 mg PO BID Qty: 60 RF: 0 losartan 50 mg Tablet 25 mg PO DAILY RF: 0 hydrocodone-acetaminophen 5-325 mg tablet 1 tab PO Q4-6H PRN (Reason: pain) RF: 0 acetaminophen 325 mg tablet 650 mg PO Q6H PRN (Reason: pain) Qty: 30 RF: 0 Referrals: Quincy Price MD [Primary Care Provider] -
[2019-03-12 16:36] VITALS: BP 149/70; PULSE 55; RESP 18; O2SAT 97
== END 2019-03-12 16:49 | disposition home or self-care (01) ==
PROVIDERS: Emergency Provider Emergency Medicine; PCP Family Medicine
DX: N30.01 Acute cystitis with hematuria (principal)
CPT/HCPCS: 36415; 36591; 80053; 81001; 85025; 85610; 85730; 86850; 86900; 86901; 87077; 87086; 87147; 87186; 96360; 99283

== ENCOUNTER 2019-04-08 17:09 | Emergency (ER) | payer OTHER, MEDICARE, SELFPAY ==
[2018-11-12 21:49] VITALS: BMI 18.8
[2019-04-08 17:16] VITALS: BP 134/53; PULSE 73; RESP 22; TEMP 36.7; O2SAT 100; BMI 21.7
[2019-04-08 17:18] VITALS: BP 134/53; PULSE 74; RESP 22; TEMP 36.7; O2SAT 99
[2019-04-08 17:51] VITALS: BP 114/66; PULSE 82; RESP 22; O2SAT 99
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
[2019-04-08 18:30] VITALS: BP 156/57; PULSE 71; RESP 17; O2SAT 99
[2019-04-08 19:10] VITALS: BP 152/65; PULSE 75; RESP 18; O2SAT 98
[2019-04-08 21:07] VITALS: BP 126/77; PULSE 67; RESP 22; O2SAT 100
== END 2019-04-08 21:55 | disposition home or self-care (01) ==
PROVIDERS: Emergency Provider Emergency Medicine; PCP Family Medicine
DX: T14.90XA Injury, unspecified, initial encounter (principal); V89.2XXA Person injured in unspecified motor-vehicle accident, traffic, initial encounter; Z79.01 Long term (current) use of anticoagulants
CPT/HCPCS: 99282; 99283

== ENCOUNTER → 2019-04-11 12:10 | Outpatient (CLI) | payer MEDICARE, SELFPAY ==
[2018-11-12 21:49] VITALS: BMI 18.8
--- NOTE | 2019-04-11 | DI.RAD.S_ITS ---
PROCEDURE: XR SHOULDER RT MIN 2V INDICATIONS: RT SHOULDER PAIN TECHNIQUE: 3 views of the shoulder were acquired. COMPARISON: [facility], , SHOULDER MINIMUM 2VIEW RIGHT, 12/12/2015, 13:19. FINDINGS: Bones: No fractures or dislocations. No suspicious bony lesions. Visualized ribs appear intact. High riding appearance of the humeral head. Moderate shoulder joint degeneration. Soft tissues: No suspicious soft tissue calcifications. IMPRESSION: High riding appearance of the humeral head suggesting long-standing rotator cuff pathology. This could be further assessed with noncontrast shoulder MRI as clinically warranted. Mild right shoulder joint degeneration. Dictated by: Nikolai Hemphill M.D. on 04/11/2019 at 13:54 Approved by: Nikolai Hemphill M.D. on 04/11/2019 at 13:58
--- NOTE | 2019-04-11 | DI.RAD.S_ITS ---
PROCEDURE: XR CHEST 2V INDICATIONS: COUGH TECHNIQUE: 2 views of the chest were acquired. COMPARISON: [facility], CR, XR CHEST 1V, 09/18/2018, 17:52. [facility], CR, XR CHEST 1V, 11/12/2018, 16:52. [facility], CR, XR CHEST 2V, 12/20/2018, 9:28. FINDINGS: Surgical changes and devices: None. Lungs and pleura: Prominent left apical opacity is probably first rib chondrocalcinosis and grossly unchanged. Ill-defined nodular foci projecting the right lung base are probably superimposition of shadows. No acute consolidation. No pleural effusions or pneumothorax. Mediastinum: Mediastinal contours are normal. Heart size is normal. Bones and chest wall: Scoliosis and diffuse spondylosis. IMPRESSION: No acute disease. Ill-defined subcentimeter nodular appearance in the right lung base is probably superimposition of shadows although this could be confirmed with repeat PA and lateral chest radiographs in 3 months to exclude pulmonary nodule. Dictated by: Nikolai Hemphill M.D. on 04/11/2019 at 13:58 Approved by: Nikolai Hemphill M.D. on 04/11/2019 at 14:01
== END ==
PROVIDERS: PCP Family Medicine; Visit Provider Family Medicine
DX: M25.511 Pain in right shoulder (principal); R05 Cough; M19.011 Primary osteoarthritis, right shoulder
CPT/HCPCS: 71046; 73030

== ENCOUNTER 2020-05-22 16:28 | Inpatient (IN) | payer MEDICARE, SELFPAY ==
[2018-11-12 21:49] VITALS: BMI 18.8
[2020-05-22 16:30] VITALS: BP 193/81; PULSE 71; RESP 16; TEMP 36.8; O2SAT 100
--- NOTE | 2020-05-22 16:54 | DI.RAD.S_ITS ---
PROCEDURE: XR CHEST 1V INDICATIONS: pre op - left hip pain TECHNIQUE: One view of the chest was acquired. COMPARISON: [facility], CR, XR CHEST 1V, 11/12/2018, 16:52. [facility], CR, XR CHEST 2V, 12/20/2018, 9:28. [facility], CR, XR HIP W PEL IF DONE LT 2V, 05/22/2020, 16:56. [facility], CR, XR CHEST 2V, 04/11/2019, 12:22. FINDINGS: Surgical changes and devices: None. Lungs and pleura: On this supine examination, no large pneumothorax or large pleural effusions are seen. No focal areas of lung consolidation are seen. Mediastinum: The cardiac contours are within normal limits. The aorta demonstrates calcification and tortuosity. Bones and chest wall: No suspicious bony lesions. There is moderate dextroconvex scoliosis. Age-appropriate bony degenerative changes are seen. Overlying soft tissues appear unremarkable. IMPRESSION: Portable chest within normal limits for age, with senescent changes noted. Dictated by: Kun Rodriguez M.D. on 05/22/2020 at 16:33 Approved by: Kun Rodriguez M.D. on 05/22/2020 at 16:34
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
--- NOTE | 2020-05-22 16:55 | PC.NURSE ---
pt has good pulses on th left foot. pt is having a lot of pain in the hip. Dr. Marcelo aware
[2020-05-22] MEDS: HYDROMORPHONE 0.5 MG INJ IV ×2 (17:02→18:22)
[2020-05-22] MEDS: SODIUM CHLORIDE 0.9% 1,000 ML 150 ML IV (17:03)
[2020-05-22 17:06] VITALS: BP 168/83; PULSE 83; RESP 24; O2SAT 97
[2020-05-22 17:06] LABS: Appearance Urine UA CLOUDY; Bilirubin Urine UA NEGATIVE (NEGATIVE); Color Urine UA YELLOW; Glucose Urine UA TRACE g/dL (Negative); Ketones Urine UA TRACE (NEGATIVE); Leukocyte Esterase Urine UA 1+ (NEGATIVE); Nitrite Urine UA NEGATIVE (Negative); Occult Blood Urine UA 3+ (Negative); Protein Urine UA TRACE (Negative); Specific Gravity Urine UA 1.015 (1.000-1.035); Urobilinogen Urine UA 0.2 E.U./dL (0.2)
[2020-05-22 17:12] LABS: Add Manual Diff / Slide Review NO; Basophils Absolute Auto 0 /uL (0-100); Basophils Percent Auto 0.3 % (0-2); Eosinophils Absolute Auto 100 /uL (0-450); Eosinophils Percent Auto 0.7 % (2-4); Hematocrit 36.2 % (41-53); Hemoglobin 12.2 g/dL (13.5-17.5); Lymphocytes Absolute Auto 600 /uL (1100-4500); Lymphocytes Percent Auto 4.4 % (25-40); Mean Corpuscular HGB Conc 33.5 % (30-36); Mean Corpuscular Hemoglobin 32.3 PG (26-34); Mean Corpuscular Volume 96.4 fL (80-100); Monocytes Absolute Auto 900 /uL (0-900); Monocytes Percent Auto 6.2 % (3-14); Neutrophils Absolute Auto 12400 /uL (1500-7000); Neutrophils Percent Auto 88.4 % (50-75); Platelet Count 242 X10^3/uL (150-400); Red Blood Cell Count 3.76 X10^6/uL (4.5-5.9); Red Cell Distribution Width 14.3 % (11.6-14.8); White Blood Cell Count 14.1 X10^3/uL (4.5-11.0)
[2020-05-22 17:15] LABS: Bacteria Urine Many (>30); Culture Indicated Urine Specimen Cultured; RBC Urine 5-10/HPF (0-5/HPF); WBC Urine 30-100/HPF (0-5/HPF)
[2020-05-22 17:27] LABS: Alanine Aminotransferase 18 IU/L (<50); Albumin 3.6 g/dL (3.5-5.0); Albumin Globulin Ratio 1.1 (1.0-2.8); Alkaline Phosphatase 110 U/L (38-126); Aspartate Aminotransferase 26 IU/L (17-59); BUN Creatinine Ratio 22.5 (6-22); Bilirubin Total 0.2 mg/dL (0.2-1.3); Blood Urea Nitrogen 23 mg/dL (9-20); Calcium 8.8 mg/dL (8.4-10.2); Carbon Dioxide 23 mmol/L (22-32); Chloride 109 mmol/L (98-107); Estimated Glomerular Filt Rate > 60.0 mL/min (>60); Globulin 3.3 g/dL (1.7-4.1); Glucose 103 mg/dL (80-110); HEMOLYSIS < 15 (0-50); Potassium 4.2 mmol/L (3.4-5.1); Sodium 139 mmol/L (137-145); Total Protein 6.9 g/dL (6.3-8.2)
--- NOTE | 2020-05-22 17:39 | ED_ITS ---
HPI - Fall General Chief Complaint: Fall Stated Complaint: GLF/L Hip Pain Time Seen by Provider: 05/22/20 16:54 Source: patient and EMS Mode of arrival: EMS Related Data Home Medications Medication Instructions Recorded Confirmed clopidogrel 37.5 mg PO DAILY #0 11/23/17 11/12/18 hydrocodone-acetaminophen 1 tab PO Q4-6H PRN 11/11/18 11/12/18 losartan 25 mg PO DAILY 11/11/18 11/12/18 Previous Rx's Medication Instructions Recorded finasteride [Proscar] 5 mg PO DAILY #30 tab 11/13/18 megestrol 40 mg PO BID #60 tab 11/13/18 acetaminophen 650 mg PO Q6H PRN #30 tab 12/13/18 levofloxacin [Levaquin] 500 mg PO DAILY #7 tab 03/12/19 Allergies Allergy/AdvReac Type Severity Reaction Status Date / Time pantoprazole [From Protonix] Allergy Unknown Verified 03/12/19 12:28 Patient History Medical History (Updated 04/23/19 @ 00:00 by ) Brain tumor (Acute) Chronic back pain greater than 3 months duration (Acute) Difficulty in urination (Acute) Early onset Alzheimer's dementia (Acute) Essential hypertension (Acute) History of bladder cancer (Inactive) History of stroke (Acute) Malignant neoplasm of throat (Acute) Pain with urination (Acute) Urgency incontinence (Acute) Surgical History History of right knee joint replacement (Acute) Status post surgical removal and fulguration of bladder neoplasm (Acute) Status post surgical removal of neoplasm of skin (Acute) Family History Other No family history of cardiac disease Social History household members: none Smoking Status: Never smoker Smoking Status: Never smoker alcohol intake frequency: holidays/special occasions only Substance Use Type: does not use Exam Initial Vital Signs Initial Vital Signs: Vital Signs Temperature 98.3 F 05/22/20 16:30 Pulse Rate 71 05/22/20 16:30 Respiratory Rate 16 05/22/20 16:30 Blood Pressure 193/81 H 05/22/20 16:30 Pulse Oximetry 100 05/22/20 16:30 Course Orders Ordered: ED Orders 05/22/20 16:54 XR chest 1V Stat XR hip w pel if done LT 2V Stat 05/22/20 16:55 EKG-12 Lead Stat 05/22/20 17:00 Urinalysis and Microscopic Stat Urine Culture Stat 05/22/20 17:06 Complete Blood Count AUTO DIFF Stat Comprehensive Metabolic Panel Stat Sodium Chloride (Normal Saline 0.9%) 1,000 mls @ 150 mls/hr IV CONT MARY Last Admin: 05/22/20 17:03 Dose: 150 mls/hr Documented by: MACARIO Discontinued Medications Hydromorphone HCl (Dilaudid) 0.5 mg IV NOW ONE Stop: 05/22/20 16:55 Last Admin: 05/22/20 17:02 Dose: 0.5 mg Documented by: MACARIO Vital Signs Vital signs: Vital Signs - 8 hr 05/22/20 16:30 05/22/20 17:06 Temperature 98.3 F Pulse Rate 71 83 Respiratory Rate 16 24 Blood Pressure 193/81 H Blood Pressure [Right Arm] 168/83 H Pulse Oximetry 100 97 MDM - Fall Medical Records Attestation: I reviewed the patient's medical records. Lab Data Attestation: I reviewed the patient's lab results. Lab results narrative: With slightly elevated white blood cell count and mi croscopic urinalysis showed leukocyte esterase and bacteria possibility of a pre-admission UTIs entertained. Result diagrams: 05/22/20 17:06 05/22/20 17:06 Labs: Lab Results 05/22/20 05/22/20 05/22/20 Range/Units 17:00 17:06 17:06 WBC 14.1 H (4.5-11.0) X10^3/uL RBC 3.76 L (4.5-5.9) X10^6/uL Hgb 12.2 L (13.5-17.5) g/dL Hct 36.2 L (41-53) % MCV 96.4 (80-100) fL MCH 32.3 (26-34) PG MCHC 33.5 (30-36) % RDW 14.3 (11.6-14.8) % Plt Count 242 (150-400) X10^3/uL Neut % (Auto) 88.4 H (50-75) % Lymph % (Auto) 4.4 L (25-40) % [place] % (Auto) 6.2 (3-14) % Eos % (Auto) 0.7 L (2-4) % Baso % (Auto) 0.3 (0-2) % Neut # (Auto) 59266 H (8288-8785) /uL Lymph # (Auto) 600 L (4816-6987) /uL [place] # (Auto) 900 (0-900) /uL Eos # (Auto) 100 (0-450) /uL Baso # (Auto) 0 (0-100) /uL Sodium 139 (137-145) mmol/L Potassium 4.2 (3.4-5.1) mmol/L Chloride 109 H (98-107) mmol/L Carbon Dioxide 23 (22-32) mmol/L BUN 23 H (9-20) mg/dL Creatinine 1.02 (0.66-1.25) mg/dL Estimated GFR > 60.0 (>60) mL/min BUN/Creatinine Ratio 22.5 H (6-22) Glucose 103 (80-110) mg/dL Calcium 8.8 (8.4-10.2) mg/dL Total Bilirubin 0.2 (0.2-1.3) mg/dL AST 26 (17-59) IU/L ALT 18 (<50) IU/L Alkaline Phosphatase 110 (38-126) U/L Total Protein 6.9 (6.3-8.2) g/dL Albumin 3.6 (3.5-5.0) g/dL Globulin 3.3 (1.7-4.1) g/dL Albumin/Globulin Ratio 1.1 (1.0-2.8) Urine Color Yellow Urine Appearance Cloudy Urine pH 7.0 (4.5-8.0) Ur Specific [place] 1.015 (1.000-1.035) Urine Protein Trace H (Negative) Urine Glucose (UA) Trace H (Negative) g/dL Urine Ketones Trace H (NEGATIVE) Urine Occult Blood 3+ H (Negative) Urine Nitrate Negative (Negative) Urine Bilirubin Negative (NEGATIVE) Urine Urobilinogen 0.2 (0.2) E.U./dL Ur Leukocyte Esterase 1+ H (NEGATIVE) Urine RBC 5-10/hpf H (0-5/HPF) Urine WBC 30-100/hpf H (0-5/HPF) Urine Bacteria Many (>30) H (None) Ur Culture Indicated? Specimen cultured Imaging Data Chest x-ray: Radiologist's Impression: IMPRESSION: Portable chest within normal limits for age, with senescent changes noted. Dictated by: Kun Rodriguez M.D. on 05/22/2020 at 16:33 ECG Data Attestation: I personally reviewed and interpreted this ECG as follows: Interpretation: Sinus rhythm at a rate of 76 Normal axis, normal intervals No acute ischemic changes Discharge Plan Departure Prescriptions: No Action clopidogrel 75 MG tablet 37.5 mg PO DAILY Qty: 0 RF: 0 finasteride [Proscar] 5 mg tablet 5 mg PO DAILY Qty: 30 RF: 0 megestrol 40 mg tablet 40 mg PO BID Qty: 60 RF: 0 levofloxacin [Levaquin] 500 mg tablet 500 mg PO DAILY Qty: 7 RF: 0 losartan 50 mg Tablet 25 mg PO DAILY RF: 0 hydrocodone-acetaminophen 5-325 mg tablet 1 tab PO Q4-6H PRN (Reason: pain) RF: 0 acetaminophen 325 mg tablet 650 mg PO Q6H PRN (Reason: pain) Qty: 30 RF: 0
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
[2020-05-22 18:44] LABS: Lactate (Lactic Acid) 1.4 mmol/L (0.7-2.1)
[2020-05-22] MEDS: CEFTRIAXONE 2 GM/50 ML FROZ.PIGGY IV (18:47)
[2020-05-22 19:00] VITALS: BP 162/78; PULSE 106; RESP 22; O2SAT 94
[2020-05-22 19:39] LABS: COVID19 -Nasal RAPID Negative (Negative)
[2020-05-22 20:15] VITALS: BP 154/98; PULSE 92; RESP 20; TEMP 37; O2SAT 93; O2SAT 97
[2020-05-22 20:30] VITALS: BMI 23.4
[2020-05-22 20:40] LABS: Magnesium 1.8 mg/dL (1.6-2.3)
[2020-05-22] MEDS: HYDROMORPHONE 1 MG INJ 0.5 MG IV (20:50)
[2020-05-22] MEDS: LACTATED RINGERS 1,000 ML 100 ML IV (20:54)
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
[2020-05-22] MEDS: ACETAMINOPHEN 325 MG TABLET 975 MG PO (22:43)
--- NOTE | 2020-05-22 23:22 | PC.NURSE ---
A&O X3, passive, follows directions; moderate to severe pain with repositioning as evidenced by wincing, moaning, irregular breathing; O2 RA=93% LS clear; 1+ edema to BL ankles; SCDs active to RLE; scabs, laceration to scalp and left cheek; patient says, I cannot swallow my pills with water, although no pills given due to NPO; ASHELY Palafox would like a call in the morning with surgery update.
[2020-05-23] VITALS (22 sets, daily range): BP systolic 97–197; BP diastolic 55–95; PULSE 74–99; RESP 13–24; TEMP 36–37.9; O2SAT 85–99
--- NOTE | 2020-05-23 | DI.RAD.S_ITS ---
PROCEDURE: XR HIP W PEL IF DONE LT 2V INDICATIONS: POST OP LEFT HIP ORIF TECHNIQUE: 2 views of the hip were acquired. COMPARISON: [facility], [facility], XR HIP W PEL IF DONE LT 2V, 05/23/2020, 21:02. FINDINGS: Bones: Expected postoperative alignment of intramedullary shana and screw fixation of the proximal left femur. Hardware appears intact Soft tissues: Soft tissue post surgical changes. IMPRESSION: Expected postoperative appearance Dictated by: Nikolai Hemphill M.D. on 05/24/2020 at 10:13 Approved by: Nikolai Hemphill M.D. on 05/24/2020 at 10:14
--- NOTE | 2020-05-23 01:00 | PC.NURSE ---
Addendum entered by Genesis Ryan R.N. 05/23/20 06:10: States pain this morning is 8/10; medicated with Dilaudid. Original Note: Patient is oriented except to day of month and year. Breath sounds CTA with RA sat of 95%. HRR; last telemetry reading recorded at 2014 was SR with occasional PVC's. BP elevated at 169/94. Denies nausea. BT present and abdomen is soft. Indwelling catheter is patent; urine is clear yellow. Able to turn when asked to do so but wanting to remain on back as is more comfortable for him. Denies pain. Left left is shorter and internally rotated. Feet are cool to touch. Has 2+ bilateral foot/ankle edema with some edema also present in distal lower legs. wearing calf SCD on right leg only as was not able to tolerate on left leg. Dressing to posterior head and left faith are CDI. Bruising noted on bilateral UE. Scabbed abrasion on left side of forehead at hairline. Fall risk score is high and bed alarm is activated.
[2020-05-23 06:01] LABS: Add Manual Diff / Slide Review NO; Basophils Absolute Auto 100 /uL (0-100); Basophils Percent Auto 0.5 % (0-2); Eosinophils Absolute Auto 100 /uL (0-450); Eosinophils Percent Auto 1.1 % (2-4); Hematocrit 34.2 % (41-53); Hemoglobin 11.9 g/dL (13.5-17.5); Lymphocytes Absolute Auto 700 /uL (1100-4500); Lymphocytes Percent Auto 5.8 % (25-40); Mean Corpuscular HGB Conc 34.7 % (30-36); Mean Corpuscular Hemoglobin 33.7 PG (26-34); Mean Corpuscular Volume 96.9 fL (80-100); Monocytes Absolute Auto 1000 /uL (0-900); Monocytes Percent Auto 8.6 % (3-14); Neutrophils Absolute Auto 9700 /uL (1500-7000); Platelet Count 221 X10^3/uL (150-400); Red Blood Cell Count 3.53 X10^6/uL (4.5-5.9); Red Cell Distribution Width 14.6 % (11.6-14.8); White Blood Cell Count 11.5 X10^3/uL (4.5-11.0)
[2020-05-23] MEDS: LACTATED RINGERS 1,000 ML 100 ML IV ×2 (06:04→21:51)
[2020-05-23] MEDS: HYDROMORPHONE 1 MG INJ 0.5 MG IV (06:08)
[2020-05-23 06:12] LABS: BUN Creatinine Ratio 23.8 (6-22); Blood Urea Nitrogen 19 mg/dL (9-20); Calcium 8.3 mg/dL (8.4-10.2); Carbon Dioxide 25 mmol/L (22-32); Chloride 107 mmol/L (98-107); Estimated Glomerular Filt Rate > 60.0 mL/min (>60); Glucose 120 mg/dL (80-110); HEMOLYSIS < 15 (0-50); Sodium 135 mmol/L (137-145)
[2020-05-23] MEDS: HYDROMORPHONE 0.5 MG INJ IV ×3 (09:10→16:48)
--- NOTE | 2020-05-23 10:49 | CM.DANOTE ---
DCP: Case received, EMR reviewed and met with patient. Introduced self and role. Patient does have history of dementia, and was also able to contact patient's friend, Taurus Trevino, who is confirmed DPOA, to obtain further information. DCP assessment completed with information currently available. Patient is an 84 year old male who admitted yesterday afternoon to the care of the hospitalist team. PCP: Dr. Edwards. Payer: Medicare/[employer]. Patient came to the hospital via ambulance secondary to a ground level fall. He sustained a left hip trochanteric fracture. Patient resides at [facility] in [place], confirmed this with Taurus. He does not use any DME at facility, and ambulates independently. Briefly spoke to patient. Some confusion noted, did not know the name of the facility that he resides at. After speaking to Taurus, it was determined that he has a son that there is a restraining order against. Taurus confirmed that the only visitors allowed are her and her , Benjamin. Updated GLORIA Richardson, but stated that she did not have copy of restraining order. Called Taurus back, and stated that her , Benjamin, will bring a copy of this document. Son's name is Javy, that there is a restraining order against. Sent referral over to April at [facility]. She will review. Asked Taurus if there is another facility that she may consider as a back up. Mentioned that she does not want [facility]. Stated, other facility in [facility] is ok, just not [facility]. [facility] is currently not accepting patients this week, so can consider [facility] as back up. April at [facility] stated that they do have male beds available. Let her know that patient does have history of dementia, but has been cooperative. Surgery is planned for this pm or early am tomorrow. P: DCP to continue to follow. [facility]. He should be able to make inpatient status since he is having surgery. Torri Dave RN/Relief Captain
--- NOTE | 2020-05-23 11:43 | P.PN_ITS ---
Subjective Subjective Date Patient Seen: 05/23/20 Time Patient Seen: 10:50 Interval history: Mr. Murali Grant is an 84-year-old male with past medical history significant for hypertension, hyperlipidemia, history CVA, early onset Alzheimer's, bladder cancer (s/p TURB), and throat cancer (s/p right gland resection, h/o radiation tx) who was brought in by EMS to the ER following a fall at his assisted living facility in [place]. He was found to have a L intertrochanteric femur fracture. He has no complaints of pain this morning. Surgery will likely be tomorrow at this point. Exam Vital Signs (past 8 hours): - 05/23/20 05:00 05/23/20 08:37 05/23/20 09:02 Temperature 98.4 F Pulse Rate 95 H 74 Respiratory Rate 18 24 Blood Pressure 156/77 H 136/68 Pulse Oximetry 95 95 97 05/23/20 10:48 Temperature Pulse Rate 85 Respiratory Rate 16 Blood Pressure 145/78 H Pulse Oximetry 96 Oxygen Delivery Method Room Air Oxygen Flow Rate 0 Narrative Exam Narrative: GENERAL APPEARANCE: well developed, well nourished, in no acute distress. HEENT: Right facial droop,, PERRLA, conjunctiva clear, EOMs intact without nystagmus, poor dentition lower, denture upper, mucous membranes are dry and pink. NECK/THYROID: neck supple, no JVD, no carotid bruit, no thyromegaly, trachea midline. LYMPH NODES: no cervical or supraclavicular lymphadenopathy. SKIN: [place], warm and dry, no visible lesions, rashes, ulcerations or petechiae. HEART: regular rate and rhythm, S1-S2, 1/6 systolic murmur most prominent over left mid sternal border, no rubs or gallops, brisk capillary refill, 1+ pedal edema. LUNGS: clear to auscultation bilaterally, no coarseness crackles or wheezing, no cough present CHEST: Symmetrical movement, no accessory muscle use, good tidal volume. ABDOMEN: Soft, no distention, no abdominal tenderness, no organomegaly, no f lank or suprapubic tenderness, active bowel tones. BACK: Normal curvature, nontender to palpation, no CVA tenderness on percussion EXTREMITIES: Left leg shortening and external rotation, pain with palpation lateral left hip, distal CMS intact. Slight peripheral edema. NEUROLOGIC: Alert and oriented to person and place, residual right facial droop, fishing boat captain are equal bilateral, mild dysarthria, sensation intact to light touch, hearing grossly normal to speech. PSYCH: Sedated, cooperative, appropriate with stable behavior Objective Labs Result Diagrams: 05/23/20 05:35 05/23/20 05:35 Labs: Laboratory Results - last 24 hr 05/22/20 05/22/20 05/22/20 17:00 17:06 17:06 WBC 14.1 H RBC 3.76 L Hgb 12.2 L Hct 36.2 L MCV 96.4 MCH 32.3 MCHC 33.5 RDW 14.3 Plt Count 242 Neut % (Auto) 88.4 H Lymph % (Auto) 4.4 L [place] % (Auto) 6.2 Eos % (Auto) 0.7 L Baso % (Auto) 0.3 Neut # (Auto) 63982 H Lymph # (Auto) 600 L [place] # (Auto) 900 Eos # (Auto) 100 Baso # (Auto) 0 Sodium 139 Potassium 4.2 Chloride 109 H Carbon Dioxide 23 BUN 23 H Creatinine 1.02 Estimated GFR > 60.0 BUN/Creatinine Ratio 22.5 H Glucose 103 Lactate Calcium 8.8 Phosphorus Magnesium Total Bilirubin 0.2 AST 26 ALT 18 Alkaline Phosphatase 110 Total Protein 6.9 Albumin 3.6 Globulin 3.3 Albumin/Globulin Ratio 1.1 Urine Color Yellow Urine Appearance Cloudy Urine pH 7.0 Ur Specific [place] 1.015 Urine Protein Trace H Urine Glucose (UA) Trace H Urine Ketones Trace H Urine Occult Blood 3+ H Urine Nitrate Negative Urine Bilirubin Negative Urine Urobilinogen 0.2 Ur Leukocyte Esterase 1+ H Urine RBC 5-10/hpf H Urine WBC 30-100/hpf H Urine Bacteria Many (>30) H Ur Culture Indicated? Specimen cultured COVID-19 PCR Blood Type Antibody Screen 05/22/20 05/22/20 05/22/20 17:06 18:00 18:15 WBC RBC Hgb Hct MCV MCH MCHC RDW Plt Count Neut % (Auto) Lymph % (Auto) [place] % (Auto) Eos % (Auto) Baso % (Auto) Neut # (Auto) Lymph # (Auto) [place] # (Auto) Eos # (Auto) Baso # (Auto) Sodium Potassium Chloride Carbon Dioxide BUN Creatinine Estimated GFR BUN/Creatinine Ratio Glucose Lactate 1.4 Calcium Phosphorus Magnesium 1.8 Total Bilirubin AST ALT Alkaline Phosphatase Total Protein Albumin Globulin Albumin/Globulin Ratio Urine Color Urine Appearance Urine pH Ur Specific [place] Urine Protein Urine Glucose (UA) Urine Ketones Urine Occult Blood Urine Nitrate Urine Bilirubin Urine Urobilinogen Ur Leukocyte Esterase Urine RBC Urine WBC Urine Bacteria Ur Culture Indicated? COVID-19 PCR Negative Blood Type Antibody Screen 05/23/20 05/23/20 05/23/20 05:35 05:35 05:35 WBC 11.5 H RBC 3.53 L Hgb 11.9 L Hct 34.2 L MCV 96.9 MCH 33.7 MCHC 34.7 RDW 14.6 Plt Count 221 Neut % (Auto) 84.0 H Lymph % (Auto) 5.8 L [place] % (Auto) 8.6 Eos % (Auto) 1.1 L Baso % (Auto) 0.5 Neut # (Auto) 9700 H Lymph # (Auto) 700 L [place] # (Auto) 1000 H Eos # (Auto) 100 Baso # (Auto) 100 Sodium 135 L Potassium 4.0 Chloride 107 Carbon Dioxide 25 BUN 19 Creatinine 0.80 Estimated GFR > 60.0 BUN/Creatinine Ratio 23.8 H Glucose 120 H Lactate Calcium 8.3 L Phosphorus 3.0 Magnesium Total Bilirubin AST ALT Alkaline Phosphatase Total Protein Albumin Globulin Albumin/Globulin Ratio Urine Color Urine Appearance Urine pH Ur Specific [place] Urine Protein Urine Glucose (UA) Urine Ketones Urine Occult Blood Urine Nitrate Urine Bilirubin Urine Urobilinogen Ur Leukocyte Esterase Urine RBC Urine WBC Urine Bacteria Ur Culture Indicated? COVID-19 PCR Blood Type O Negative Antibody Screen Negative Assessment & Plan Assessment & Plan narrative: This is an 84-year-old male patient was admitted to the hospital following a nonsyncopal ground level fall in which he sustained a left intertrochanteric hip fracture. 1. Pathological left intertrochanteric hip fracture, present on admission, act jose. -the patient sustained a fall landing on his left hip in was nonambulatory following the fall. -radiologist describes the injury as comminuted versus angulated intertrochanteric left hip fracture. -Dr. De La Cruz, Orthopedics, is consult through the emergency department. We appreciate her evaluation and recommendations. -patient will be NPO at midnight pending possible surgery tomorrow. -will hold IVF at this time as he did develop LE edema with fluids. -ordered acetaminophen 975 mg every 8 hours scheduled for pain. -ordered hydromorphone 0.5 mg IV every 4 hours as needed for pain. -further orthopedic orders per Dr. De La Cruz. 2. Osteoporosis, present on admission, active. -patient sustained hip fracture ground level fall consistent with a pathological hip fracture. -ordered vitamin-D 2000 units daily and calcium carbonate 600 mg daily. 3. Acute UTI, present on admission, active. -urinalysis reveals trace protein trace glucose trace ketones. He also has 3+ blood is positive for leukocyte esterase and many bacteria. Urine is reflex to culture. -the patient started on ceftriaxone 2 g IV in the emergency department. Will continue ceftriaxone 2 g IV daily. -will adjust antibiotics pending outcome culture. 4. Normochromic normocytic anemia, present on admission -the patient demonstrates anemia since 2017. On admission he has a hemoglobin of 12.2 and hematocrit of 36.2. -the patient does have a history of bladder and throat cancer but no active neoplastic disease. He has stable renal function at his baseline with a creatinine of 1.02. 5. Essential hypertension, chronic, stable -patient with elevated blood pressure on admission at 193/81. Following pain management on admission to the floor blood pressures improved 154/98. -will hold losartan tomorrow AM in anticipation of possible surgery. -will track blood pressures and assess adequacy of hypertensive management. 6. Hyperlipidemia, chronic. -history of hyperlipidemia in the medical record, patient is presently on no cholesterol-lowering medication. There is no record of cholesterol panel available for review. -this is noncontributory to the patient's current condition and may be followed up on outpatient basis. Isolation: None VTE prophylaxis: SCDs, no anticoagulation is patient is pending surgery IV fluid: lock. Diet: Heart healthy, NPO at midnight. Code status: FULL CODE, Amalia Trevino is his documented DPOA. The patient is admitted to the hospital with left hip fracture requiring surgical intervention. The patient is admitted as an inpatient with expected length of stay to be greater than 2 midnights. COVID-19 COVID-19 status: Negative
[2020-05-23] MEDS: HYDROMORPHONE 2 MG INJ 1 MG IV (14:18)
--- NOTE | 2020-05-23 15:38 | PC.NURSE ---
Day shift Pt refused turns and any hygeine care today. C/o pain, medicated with dilaudid, moaning stopped after medication. POA updated by phone and phone consent done with Luigi BUTCHER. Gino ULND came in later and we had him sign consent as well.
[2020-05-23] MEDS: LACTATED RINGERS 1,000 ML 42 ML IV ×2 (16:50→22:01)
--- NOTE | 2020-05-23 19:08 | DI.RAD.S_ITS ---
PROCEDURE: XR HIP W PEL IF DONE LT 2V INDICATIONS: fluoro intraop hip fracture TECHNIQUE: 2 view(s) of the hip acquired. COMPARISON: [facility], , XR HIP W PEL IF DONE LT 2V, 05/23/2020, 22:14. FINDINGS: Intraoperative fluoroscopic images demonstrate shana and fixation of the left hip. There is good anatomic alignment hardware appears intact. IMPRESSION: Intraoperative left hip fixation. Dictated by: Hanna Lopez M.D. on 05/24/2020 at 10:27 Approved by: Hanna Lopez M.D. on 05/24/2020 at 10:28
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
--- NOTE | 2020-05-23 19:16 | PM.OP.1 ---
Operative Date/Time/Diagnoses Date of procedure: 05/23/20 Time of procedure: 19:50 Pre-op diagnosis: Comminuted left intertrochanteric hip fracture Post-op diagnosis: same Procedure & Clinicians Procedure: Open reduction internal fixation left intertrochanteric hip fracture with a short intramedullary nail Same procedure as scheduled: Yes Indications: This is an 84-year-old who fell and sustained a comminuted and displaced left intertrochanteric hip fracture. He is brought the operating room for open reduction internal fixation with an intramedullary nail. Surgeon: Roula De La Cruz Anesthesia Type: General Operative Notes Findings: Comminuted fracture, adequate reduction, self bone Closure Type: primary Specimen(s): none sent Prosthetic devices, grafts, tissues, transplants, or devices: De La Cruz and Nephew 11.5 x 18 cm 125 degree Tri Gen inner carter De La Cruz and Nephew nail, 100 mm lag screw, 35 mm screw Estimated Blood Loss (mL): 250 Blood products transfused: none Procedure in detail: Patient is brought to the operating room and underwent induction of a general anesthesia. He was carefully transferred to the fracture table his left hip was meticulously reduced and anatomically reduced. Time-out was performed. He was given antibiotics in prepped and draped in a standard sterile fashion. C-arm was used during the procedure to meticulously evaluate the fracture and the fixation. Lateral skin incision was made proximal to the piriformis and in line with the femoral shaft off the tip of the greater trochanter dissection was carried out through skin and subcutaneous tissues. Gelpi retractor was placed. A pin was placed at the femoral lester insertion site. The Reamer was then placed over the guide lester and carefully reamed down to the trochanter. The lester was inserted without difficulty. I selected a short nail 18 cm by 11 1/2 by 125 degree. Lester was inserted without difficulty. I meticulously positioned the lester so that the distal interlock and proximal alignment was appropriate. And checked both femoral anteversion and position of the lester. The lag screw was placed without difficulty as was the secondary compression screw and some compression was achieved across the fracture site. Anatomic reduction was achieved. Distal interlocking was then performed. Fluoroscopy confirmed reduction and all fixation position and length. Wounds were meticulously irrigated with normal saline. They were closed with interrupted Vicryl and skin demarco. The wounds were dressed with Aquacel. Additional local was injected with Marcaine and Exparel. Patient tolerated the procedure well. Complications: none Post-operative Condition: stable Disposition: Acute Care Plan for aftercare: Partial weight-bearing 75 lb max on the left lower extremity. Discharge to rehab when safe.
--- NOTE | 2020-05-23 19:29 | SUR.HOLD ---
Pedal pulses not palpable, doppler attempted and not heard, feet cool, slow capillary refill, Dr. De La Cruz made aware, no new orders.
[2020-05-23] MEDS: CEFAZOLIN 2 GM/100 ML FROZ.PIGGY IV (20:08)
--- NOTE | 2020-05-23 21:15 | SUR.OPER ---
Head on pillow. Supine on fracture table with operative leg secured in traction. Other leg secured in padded stirrup. Arms across chest, secured with sheet.
[2020-05-23] MEDS: BUPIVACAINE LIPOSOME 266 MG/20 ML VIAL INJ (21:21)
[2020-05-23] MEDS: BUPIVACAINE 0.5% W/ EPI (PF) 10 ML VIAL 30 ML INJ (21:22)
--- NOTE | 2020-05-23 22:52 | SUR.PHASEI ---
Stable PACU stay, report to Tal[facility] HUMPHREYS. Pedal pulses still not palpable, Dr. De La Cruz aware.
[2020-05-23] MEDS: LACTATED RINGERS 1,000 ML 125 ML IV (23:05)
--- NOTE | 2020-05-23 23:08 | SUR.PHASEI ---
Pt transported up on o2. Upper l leg dressing with small amount of bloody drainage, lower dressing 50% saturated. Pt left with [facility] in stable condition.
[2020-05-24] VITALS (16 sets, daily range): BP systolic 107–151; BP diastolic 49–94; PULSE 62–102; RESP 15–20; TEMP 36.1–36.9; O2SAT 93–99
[2020-05-24] MEDS: CEFAZOLIN 2 GM/100 ML FROZ.PIGGY IV ×2 (00:07→08:46)
--- NOTE | 2020-05-24 01:47 | PC.NURSE ---
Addendum entered by Genesis Ryan R.N. 05/24/20 05:11: 0430 Noted that telemetry reading at 0400 was documented that patient was in afib with rate of 101. Reviewed h&p and do not note any hx of afib. STATISTICAL MACHINE MECHANICTino Fuller, informed and order received for fluid bolus. Addendum entered by Genesis Ryan R.N. 05/24/20 03:52: Patient noted to be more restless and sats dropping down into 80's with HR up to 120. Denied pain when asked but unable to get him to state what is wrong. FLACC score is 5 so medicated with Oxycodone. Original Note: Patient returned to room from PACU at 2300. Is drowsy but arouseable. Breath sounds CTA with oxygen at 3L/min per NC with sat of 96%. O2 sat at this time is 99% so oxygen decreased to 2L/min. HRR; telemetry reading was SR. BT present; abdomen is soft. Indwelling catheter is patent; urine is clear yellow. Aquacel dressings to left lateral leg intact with drainage covering about 75%. Needing to be repositioned q2h as not moving himself. Denies pain when asked and when sleeping has a FLACC of 0. Feet cool to touch and PP are not palpable/doppler; per Isabel, LASER/ELECTRO OPTICS TECHNICIAN, Dr De La Cruz is aware. He is able to move forefoot bilateraly but does not follow direction to lift leg off bed. Does have 1+ bilateral leg/ankle/foot edema. Bilateral calf SCD's applied. Fall risk score is high and bed alarm is activated.
[2020-05-24] MEDS: OXYCODONE IR 5 MG TABLET PO ×2 (03:23→21:09)
[2020-05-24 05:44] LABS: Hemoglobin 9.6 g/dL (13.5-17.5); Mean Corpuscular Volume 97.1 fL (80-100); Platelet Count 190 X10^3/uL (150-400); Red Blood Cell Count 2.92 X10^6/uL (4.5-5.9); Red Cell Distribution Width 14.1 % (11.6-14.8)
[2020-05-24 05:45] LABS: Hematocrit 28.4 % (41-53)
[2020-05-24 05:50] LABS: BUN Creatinine Ratio 17.9 (6-22); Blood Urea Nitrogen 14 mg/dL (9-20); Calcium 7.8 mg/dL (8.4-10.2); Carbon Dioxide 25 mmol/L (22-32); Chloride 104 mmol/L (98-107); Estimated Glomerular Filt Rate > 60.0 mL/min (>60); Glucose 128 mg/dL (80-110); HEMOLYSIS < 15 (0-50); Magnesium 1.6 mg/dL (1.6-2.3); Potassium 4.3 mmol/L (3.4-5.1); Sodium 133 mmol/L (137-145)
[2020-05-24] MEDS: VANCOMYCIN 1,000 MG/200 ML PIGGYBACK 200 MG IV (05:58)
--- NOTE | 2020-05-24 08:31 | PM.PN.1 ---
Subjective Subjective Date Patient Seen: 05/24/20 Time Patient Seen: 08:31 Interval history: He was stable overnight he still notes moderate left hip pain. His O2 sat was adequate with some oxygen supplementation. Has no complaints this morning and continues with his baseline confusion. Exam Vital Signs (past 8 hours): - 05/24/20 01:01 05/24/20 02:00 05/24/20 02:23 Temperature 97.0 F L 97.2 F L Pulse Rate 94 H 91 H Respiratory Rate 16 20 Blood Pressure 124/74 144/74 H Pulse Oximetry 99 99 99 05/24/20 03:07 05/24/20 03:13 05/24/20 05:07 Temperature 97.7 F Pulse Rate 102 H Respiratory Rate 20 Blood Pressure 147/94 H Pulse Oximetry 97 95 97 Oxygen Delivery Method Nasal Cannula Oxygen Flow Rate 0.5 Narrative Exam Narrative: Dressing has moderate saturation but is not actively leaking, his calf to soft his leg is warm there is anticipated swelling of his leg has some moderate pain with gentle range of motion of his hip. Objective Labs Result Diagrams: 05/24/20 05:30 05/24/20 05:30 Labs: Laboratory Results - last 24 hr 05/24/20 05/24/20 05:30 05:30 WBC 14.0 H RBC 2.92 L Hgb 9.6 L Hct 28.4 L MCV 97.1 MCH 33.0 MCHC 34.0 RDW 14.1 Plt Count 190 Sodium 133 L Potassium 4.3 Chloride 104 Carbon Dioxide 25 BUN 14 Creatinine 0.78 Estimated GFR > 60.0 BUN/Creatinine Ratio 17.9 Glucose 128 H Calcium 7.8 L Magnesium 1.6 Assessment & Plan Assessment & Plan narrative: Doing well status post a left hip open reduction internal fixation. Plan attempt to mobilize out of bed to chair today and anticipate ultimate discharge to senior care facility.
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
--- NOTE | 2020-05-24 13:06 | PT-IP ANOTE ---
Attempted to evaluate this pt at 1215 today and pt was in bed who appeared to be droggy and agitated. Pt did not know why is he in the hospital. He also thought he had a abdominal surgery. Attempted to assist pt to sit up but he refused and stated dont you dare to move my blanket and i dont to do anything. Spoke to PETR Santiago who also recommended to reattempt PT tomorrow morning.
[2020-05-24] MEDS: ACETAMINOPHEN 325 MG TABLET 975 MG PO ×2 (13:18→21:08)
[2020-05-24] MEDS: ASPIRIN EC 81 MG TABLET PO ×2 (13:20→21:09)
[2020-05-24] MEDS: TAMSULOSIN 0.4 MG CAPSULE PO (13:20)
[2020-05-24] MEDS: DOCUSATE 100 MG CAPSULE PO ×2 (13:20→21:09)
[2020-05-24] MEDS: BISACODYL 10 MG SUPP PR (13:22)
--- NOTE | 2020-05-24 15:26 | CM.DPC ---
DCP: continued: case received, EMR reviewed and noted the referral that was pending at [facility]. Spoke with Arlette who confirmed tentative acceptance as long as pt is medically stable, updated COVID test is negative and pt is able to work with therapy. Arlette was able to make this determination after she spoke with the [facility] staff re pt's baseline function at the facility. Met then briefly with pt in course of Team Rounds. He was sleepy and still under influence of yesterday evening's surgical medications. Have left a message for ASHELY Condon: cell: [phone] with request for a callback to continue the DC planning discussion. Last COVID test: 05/22 at 1800: negative. If pt is not able to d/c tomorrow to [facility] he will need another test. Dr. Barkley is aware. PT did try to work with pt today but pt was still too groggy and confused. Per staff at [facility]: pt's prior level of function was ambulation/with supervision and without assistive device. He did not exit seek. Pt at times would get anxious and request his medication for same but he was reportedly doing well at the facility. Will be following closely. Pt is admitted under INPT admission status: as of 05/22. Surgery to repair his fracture was the evening of 05/23. OT order is obtained.
[2020-05-24] MEDS: ONDANSETRON 4 MG ODT PO (15:41)
--- NOTE | 2020-05-24 15:44 | PC.NURSE ---
Addendum entered by Soumya Umanzor R.N. 05/24/20 23:39: Pt refused to reposition @ end of evening shift. No change in dressing drainage to left hip. Ice to site. Medicated for c/o groin pain 09/07. Meds in applesauce as pt states this is easier to swallow. Pt reports h/o swallow difficulties since neck surgery. [place] upright in bed for meds and for 20-30 minutes following. Addendum entered by Soumya Umanzor R.N. 05/24/20 23:38: 2142 Note was documented on wrong patient; please disregard this note re midclavicular line. Addendum entered by Soumya Umanzor R.N. 05/24/20 21:42: Dual lumen midclavicular line placed by [facility] PICC and ready to use. Phos rider and k-rider infusing. Addendum entered by Soumya Umanzor R.N. 05/24/20 19:45: Little interest in evening meal. Offered ensure and pt declined. States does not like water, but prefers orange juice. Continues to deny pain. Incontinent of bowel. INCOME TAX EXPERT x 2 to clean pt and change pt's position. Original Note: Pt resting quietly in bed on right side. Opens eyes to voice. Denies pain, but when asked admits to nausea. Abdomen is soft, but distended. Bowel tones present. Administered zofran ODT. Coarse breath sounds throughout with room air saturation level 97% per continuous monitor. BL calf scd's in place. Oriented to person and place. Able to engage in conversation and make needs known.
[2020-05-24] MEDS: CEFDINIR 300 MG CAPSULE PO (21:09)
[2020-05-24] MEDS: SODIUM CHLORIDE 0.9% FLUSH 10 ML IV (21:21)
[2020-05-25 00:34] VITALS: BP 110/62; PULSE 83; RESP 16; TEMP 36.6; O2SAT 97
--- NOTE | 2020-05-25 00:40 | PC.NURSE ---
Patient is alert and mostly oriented; did not know day of month or day of week and could not recall why he is in the hospital. Breath sounds diminished but CTA with RA sat of 97%. HRR; telemetry reading was SR. Denies nausea. BT hypoactive; did have BM yesterday. Indwelling catheter is patent; urine is clear yellow. Not turning himself in bed but can assist; reluctant to stay on side so waffle cushion to be placed and tilt function of Amy bed utilized to shift position to alter pressure. No new skin issues/concerns. Aquacel dressings to left lateral upper leg are intact with no new drainage/leakage. Denies pain but ice applied for comfort. CMS is intact; PP + by doppler tonight. Is unable to lift left leg off bed. Wearing bilateral calf SCD's. Fall risk score is high and bed alarm is activated.
[2020-05-25 04:50] VITALS: BP 114/58; PULSE 78; RESP 20; TEMP 36.2; O2SAT 95
[2020-05-25 06:30] LABS: Add Manual Diff / Slide Review NO; Basophils Absolute Auto 0 /uL (0-100); Basophils Percent Auto 0.4 % (0-2); Eosinophils Absolute Auto 200 /uL (0-450); Eosinophils Percent Auto 2.5 % (2-4); Hemoglobin 8.1 g/dL (13.5-17.5); Lymphocytes Absolute Auto 500 /uL (1100-4500); Lymphocytes Percent Auto 5.7 % (25-40); Mean Corpuscular HGB Conc 34.5 % (30-36); Mean Corpuscular Hemoglobin 33.4 PG (26-34); Monocytes Absolute Auto 800 /uL (0-900); Monocytes Percent Auto 9.8 % (3-14); Neutrophils Absolute Auto 6600 /uL (1500-7000); Neutrophils Percent Auto 81.6 % (50-75); Platelet Count 155 X10^3/uL (150-400); Red Blood Cell Count 2.41 X10^6/uL (4.5-5.9); Red Cell Distribution Width 14.4 % (11.6-14.8); White Blood Cell Count 8.1 X10^3/uL (4.5-11.0)
[2020-05-25 06:41] LABS: Magnesium 1.8 mg/dL (1.6-2.3)
[2020-05-25 06:52] LABS: Hematocrit 23.4 % (41-53)
[2020-05-25 07:28] VITALS: BP 146/65; PULSE 79; RESP 18; TEMP 36.8; O2SAT 96
[2020-05-25] MEDS: ACETAMINOPHEN 325 MG TABLET 975 MG PO (08:15)
[2020-05-25] MEDS: TAMSULOSIN 0.4 MG CAPSULE PO (08:16)
[2020-05-25] MEDS: polyethylene glycoL 3350 17 GM POWD.PACK PO (08:16)
[2020-05-25 08:17] VITALS: BP 146/75
[2020-05-25] MEDS: LOSARTAN 50 MG TABLET 25 MG PO (08:17)
[2020-05-25] MEDS: OXYCODONE IR 5 MG TABLET PO ×2 (08:17→13:07)
[2020-05-25] MEDS: SODIUM CHLORIDE 0.9% FLUSH 10 ML IV (08:17)
[2020-05-25] MEDS: DOCUSATE 100 MG CAPSULE PO (08:17)
[2020-05-25] MEDS: ASPIRIN EC 81 MG TABLET PO (08:19)
[2020-05-25] MEDS: FINASTERIDE 5 MG TABLET PO (08:20)
[2020-05-25] MEDS: CALCIUM CARB/VIT D3 500/200 TABLET 1 EACH PO (08:20)
[2020-05-25] MEDS: CEFDINIR 300 MG CAPSULE PO (08:20)
--- NOTE | 2020-05-25 08:29 | PM.PNPO.1 ---
Subjective Subjective Date Patient Seen: 05/25/20 Time Patient Seen: 08:29 Interval history: Status post left intramedullary nail for intertrochanteric hip fracture with Dr. De La Cruz. Patient is doing okay today answers questions appropriately. Endorses some left hip pain. Denies fevers or chills. Has been slow to mobilize. Exam Vital Signs (past 8 hours): - 05/25/20 00:34 05/25/20 04:50 05/25/20 08:17 Temperature 97.8 F 97.2 F L Pulse Rate 83 78 Respiratory Rate 16 20 Blood Pressure 110/62 114/58 L 146/75 H Pulse Oximetry 97 95 Oxygen Delivery Method Room Air Oxygen Flow Rate 0 Narrative Exam Narrative: Alert oriented no acute distress HEENT exam normocephalic atraumatic Respiratory unlabored on room air CV exam regular rate and rhythm Musculoskeletal examination left hip has Aquacel dressing was saturation no active leaking. Thigh and lower leg compartments soft. Demonstrates dorsiflexion plantar flexion of the ankle. Objective Labs Result Diagrams: 05/25/20 06:10 05/24/20 05:30 Labs: Laboratory Results - last 24 hr 05/25/20 05/25/20 06:10 06:10 WBC 8.1 RBC 2.41 L Hgb 8.1 L Hct 23.4 L MCV 97.0 MCH 33.4 MCHC 34.5 RDW 14.4 Plt Count 155 Neut % (Auto) 81.6 H Lymph % (Auto) 5.7 L [place] % (Auto) 9.8 Eos % (Auto) 2.5 Baso % (Auto) 0.4 Neut # (Auto) 6600 Lymph # (Auto) 500 L Trigg # (Auto) 800 Eos # (Auto) 200 Baso # (Auto) 0 Magnesium 1.8 Assessment & Plan Post-op Postoperative Procedures: Procedures Operation Date: 05/23/20 17:15 Actual Procedures Side Surgeon s/ p Intramedullary Nailing Femur Left Roula De La Cruz MD Two days status post intramedullary nail left intertrochanteric hip fracture. Aspirin 81 mg b.i.d. and SCDs for DVT prophylaxis DC when medically stable per primary team. Partial weight-bearing 75 lb left lower extremity Follow-up with Dr. De La Cruz in 2 weeks Quality VTE Deep Vein Thrombosis/Pulmonary Embolism Present on Admission: No
[2020-05-25 09:00] VITALS: O2SAT 96
--- NOTE | 2020-05-25 09:29 | CM.DPC ---
DCP: continued: EMR reviewed and met with pt. He is markedly more alert today and answering questions. He is aware that [facility] will [facility] today and that this DCPlanner is calling Taurus and Gino. Both confirmed to be POA. Have spoken with Dr. Varghese who confirms she plans the d/c today and plans to have orders in place by 1100. Arlette is updated. Can accept pt at 1400 via w/c van. PT/OT plan to do a co-tx about noon and to include transfer to chair. Have updated Taurus: she confirms her only contact number is [phone]. Gino's cell: [phone]. (will ask [facility] [place] P: [facility] today: will do PASRR and follow until pt leaves. PETR Palomo is updated.
--- NOTE | 2020-05-25 11:23 | PT.IIE ---
Current Diagnoses Age-related osteoporosis with current pathological fracture, left femur, initial encounter for fracture (05/22/20) Surgery Performed Operation Date: 05/23/20 17:15 Actual Procedures p Intramedullary Nailing Femur(Left) - Roula De La Cruz MD Surgical History (Last Reviewed 05/23/20 @ 19:12 by Roula De La Cruz MD) History of right knee joint replacement (Acute) Status post surgical removal and fulguration of bladder neoplasm (Acute) Status post surgical removal of neoplasm of skin (Acute) Medical History (Last Reviewed 05/23/20 @ 19:12 by Roula De La Cruz MD) Brain tumor (Acute) Chronic back pain greater than 3 months duration (Acute) Difficulty in urination (Acute) Early onset Alzheimer's dementia (Acute) Essential hypertension (Acute) History of bladder cancer (Inactive) History of stroke (Acute) Malignant neoplasm of throat (Acute) Pain with urination (Acute) Urgency incontinence (Acute) Physical Therapy Inpatient Evaluation/Re-Eval M1 PT/OT-IP Prior Functional Status Start: 05/24/20 08:35 Freq: NEEDED Status: Active Protocol: Document 05/25/20 11:23 AB (Rec: 05/25/20 13:18 AB [id number]) Medical Review Prior Functional Status Medical History Reviewed Yes Communication able to make needs known but with confusion Mobility and Gait pt stated that he lives in an MOMO sharing a room with another resident. stated that he is independent with all mobilities and ambulation without AD but staffs provide SBA when he takes a shower Social History Household Members none Living Arrangements Assisted Living Number of Floors (Floors) One Floor Number of Stairs To Enter/Railing? no steps Home Environment Standard Height Toilet,Walk in Shower Home Equipment Shower Seat with Backrest,Hand Held Shower,Grab Bars Near Toilet,Grab Bars In Shower M2 PT-IP Current Condition Start: 05/24/20 08:35 Freq: NEEDED Status: Active Protocol: Document 05/25/20 11:23 AB (Rec: 05/25/20 13:18 AB [id number]) Physical Therapy Current Condition Current Condition Evaluation Date 05/25/20 Treatment Diagnosis L femur fx s/p ORIF; difficulty in walking Onset Date 05/22/20 Precautions Other Precautions falls Weight Bearing Status Weight Bearing Status Partial Weight Bearing Allowed Weight Bearing Amount (enter % LLE: 75# PWB or #) (%) M3 PT-IP Subjective Start: 05/24/20 08:35 Freq: NEEDED Status: Active Protocol: Document 05/25/20 11:23 AB (Rec: 05/25/20 13:18 AB [id number]) Subjective Physical Therapy Visit Type Type Initial Evaluation Visit Start Time 11:23 Visit Stop Time 12:17 Total Visit Minutes 54 Number of BUTCHER ASSISTANT Visits 0 Physical Therapy Visit Comments Patient Comments agreeable to do PT Therapy Pain Assessment Pain When Pain Assessed During Mobility Pain Present Pain Present Pain Reported Location left hip Scale Used pain scale not stated Description Tightness Pain Behaviors Calling Out,Facial Grimacing, Guarding,Holding Area Pain Management Techniques Distraction,Modification of Treatment,Re-positioning, Timing of Activity with Medications M4 PT-IP Mobility and Gait Start: 05/24/20 08:35 Freq: NEEDED Status: Active Protocol: Document 05/25/20 11:23 AB (Rec: 05/25/20 13:18 AB [id number]) PT-Bed Mobility Assessment Supine to Sit Supine to Sit Maximum Assistance,2 Person Assistance,Head of Bed Elevated Scooting Scooting to Edge of Bed Dependent PT-Transfer Assessment Sit to and From Stand Sit to and from Stand Total Assistance,2 Person Assistance,Use of Upper Extremities Equipment Transfer Assistive Device Gait Belt,Front Wheeled Walker Orthotic/Prosthetic Devices or Brace: No Transfers Transfer Destination Chair Transfer Ability Level of Assist Maximum Assistance,2 Person Assistance,Use of Upper Extremities Comments Mobility Comments educated pt with L hip weight bearing precaution. pt with increrase LLE guarding. conducted PROM on LLE to decrease tightness but pt with c/o increase pain. completed supine to sit with HOB elevated max A x 2 and max cues. pt required mod A to maintain sitting on EOB with increase lateral trunk lean to the R. pt c/o increase pain with sitting on L hip. pt also has B knees extended in sitting. instructed to relax and bend. pt has difficulty bending L knee down to floor and c/o increase pain. pt does not want to go back to bed. instructed again with weight bearing restriction on LLE. completed sit to stand max A x 2-3 and max cues. continues to have increase trunk leaning to the R. requires assist to maintain weight bearing restriction on LLE. moved bed from behind the pt and moved chair behind pt to sit down. required max A x 2-3 for controlled descent to chair. positioned pt on chair. call light and table placed within reach. Gait Assessment Comments Gait Comments unable at this time PT-Balance Assessment Sitting Balance and Reactions Static Sitting Balance Ability Fair Dynamic Sitting Balance Ability Poor Standing Balance and Reactions Static Standing Balance Ability Poor Dynamic Standing Balance Ability Poor Device Used FWW M5 PT-IP Objective Assessments Start: 05/24/20 08:35 Freq: NEEDED Status: Active Protocol: Document 05/25/20 11:23 AB (Rec: 05/25/20 13:18 AB [id number]) Orientation Orientation/Cognition Level of Alertness Confusional State Orientation Name,Year,Place,Situation Safety Awareness Decreased Safety Awareness Memory Description Short Term Impaired Gross Range of Motion Lower Extremity ROM Assessment Left Impaired Impairments LLE with increase guarding and c/o increase pain; PROM: 30 deg of knee flexion Strength Lower Extremity Strength Assessment Bilaterally Impaired Comments Strength Comments LLE: 2-/5 RLE: 3+/5 M6 PT-IP Treatment Start: 05/24/20 08:35 Freq: NEEDED Status: Active Protocol: Document 05/25/20 11:23 AB (Rec: 05/25/20 13:18 AB [id number]) Physical Therapy Treatment Exercises Exercises Heel Slides Education Education Provided Weight Bearing Status,Safety M7 PT-IP Assessment and Plan Start: 05/24/20 08:35 Freq: NEEDED Status: Active Protocol: Document 05/25/20 11:23 AB (Rec: 05/25/20 13:18 AB [id number]) PT Summary Assessment and Plan Potential Rehabilitation Potential Fair Status of Condition at Evaluation Evolving Summary Impairments Pain,ROM,Strength,Balance, Coordination,Sensation,Tone, Cognition,Bed Mobility, Transfers,Gait,Activity Tolerance Assessment Summary pt requiring max A x 2-3 with standing and unable to complete a pivot transfer. requires assist with maintain hip weight bearing precaution. pt will require SNF rehab to improve strength and mobility . Goals Bed Mobility Goal Moderate Assistance Transfer Goal Moderate Assistance,Front Wheeled Walker Gait Goal Moderate Assistance,Front Wheel Walker Gait Distance 25 Days to Meet Goals 10 Frequency of Treatment Frequency Of Treatment Twice a Day Treatment Plan Physical Therapy Treatment Plan Bed Mobility Training,Transfer Training,Gait Training, Therapeutic Exercise,Balance Retraining,Post Op Education, Discharge Planning,Hot or Cold Pack,Neuromuscular Re-ed, Coordination Retraining,Manual Therapy Recommendations To Nursing Amount of Assist Needed 3 or More Person Assist, Mechanical Lift Discharge Recommendations PT Discharge Recommendations SNF Rehab Transportation Needs at Discharge Wheelchair/Cabulance
--- NOTE | 2020-05-25 12:14 | OT.IP.EVAL ---
Current Diagnoses Age-related osteoporosis with current pathological fracture, left femur, initial encounter for fracture (05/22/20) Surgery Performed Operation Date: 05/23/20 17:15 Actual Procedures p Intramedullary Nailing Femur(Left) - Roula De La Cruz MD Past Medical History (Last Reviewed 05/23/20 @ 19:12 by Roula De La Cruz MD) Brain tumor (Acute) Chronic back pain greater than 3 months duration (Acute) Difficulty in urination (Acute) Early onset Alzheimer's dementia (Acute) Essential hypertension (Acute) History of bladder cancer (Inactive) History of stroke (Acute) Malignant neoplasm of throat (Acute) Pain with urination (Acute) Urgency incontinence (Acute) Surgical History (Last Reviewed 05/23/20 @ 19:12 by Roula De La Cruz MD) History of right knee joint replacement (Acute) Status post surgical removal and fulguration of bladder neoplasm (Acute) Status post surgical removal of neoplasm of skin (Acute) Occupational Therapy Inpatient Evaluation/Re-Eval M1 PT/OT-IP Prior Functional Status Start: 05/24/20 08:35 Freq: NEEDED Status: Active Protocol: Document 05/25/20 13:55 CGR (Rec: 05/25/20 14:08 CGR [id number]) Medical Review Prior Functional Status Medical History Reviewed Yes Communication able to make needs known but with confusion Mobility and Gait pt stated that he lives in an [facility] sharing a room with another resident. stated that he is independent with all mobilities and ambulation without AD but staffs provide SBA when he takes a shower. Therapy notes from past admits state that he was using a walker for all mobility. Activities of Daily Living and IADL's Pt states that he was independent in all dressing and SBA with bathing. He states that he walks down to the dining carballo for all meals. Social History Household Members none Living Arrangements Assisted Living Number of Floors (Floors) One Floor Number of Stairs To Enter/Railing? no steps Home Environment Standard Height Toilet,Walk in Shower Home Equipment Shower Seat with Backrest,Hand Held Shower,Grab Bars Near Toilet,Grab Bars In Shower Employment Status Retired M2 OT-IP Current Condition Start: 05/25/20 13:55 Freq: Status: Active Protocol: Document 05/25/20 13:55 CGR (Rec: 05/25/20 14:08 R [id number]) Occupational Therapy Current Condition Current Condition Evaluation Date 05/25/20 Treatment Diagnosis L intertrocanteric hip fx s/p 05/23 ORIF with IM nailing Diagnosis Onset Date 05/22/20 Weight Bearing Status Weight Bearing Status Partial Weight Bearing Allowed Weight Bearing Amount (enter % 75 Lbs or #) (%) M3 OT- IP Subjective and Pain Start: 05/25/20 13:55 Freq: Status: Active Protocol: Document 05/25/20 13:55 CGR (Rec: 05/25/20 14:08 CGR [id number]) OT- Subjective Occupational Therapy Visit Type Type Initial Evaluation Visit Start Time 11:25 Visit Stop Time 12:14 Total Visit Minutes 49 Notes co-eval with P.T. Occupational Therapy Visit Comments Patient Comments I don't want to get back to bed. OT Pain Assessment Pain When Pain Assessed During Mobility Pain Present Pain Present Pain Reported Location left hip Scale Used did not rate but calls out. Pain Behaviors Calling Out,Crying,Guarding, Wincing Management Techniques Modification of Treatment,Re- positioning,Timing of Activity with Medications M4 OT- IP ADL's Start: 05/25/20 13:55 Freq: Status: Active Protocol: Document 05/25/20 13:55 CGR (Rec: 05/25/20 14:08 CGR [id number]) OT ADR-Uivx-Aomwrey General Evaluation Self-Feeding Ability Independent Areas Needing Assistance Bringing Utensil to Mouth Comments OT Self-Feeding Comments Pt able to get fork to mouth effectively without assist but food is precut. OT ADL-Grooming Comments OT Grooming Comments Not performed, pt declined OT ADL-Oral Care Comments Oral Care Comments Not performed, pt declined OT ADL-Dressing General Eval Lower Body Dressing Ability Total Assistance Areas Needing Assistance Socks OT ADL-Toileting Comments OT Toileting Comments pt with santoro OT ADL-Bathing Comments OT Bathing Comments not performed at this time M5 OT- IP IADL's Start: 05/25/20 13:55 Freq: Status: Active Protocol: Document 05/25/20 13:55 CGR (Rec: 05/25/20 14:08 CGR [id number]) OT-Instrumental Activities of Daily Living Deficits IADL Deficits Identified Deficits Home Safety Awareness Awareness of Need for Assistance at Home Decreased Awareness Ability to Problem Solve Emergency Unable to Problem Solve Situations Medication Management Medication Management Caregiver Administers Money Management Money Management Caregiver Provides Assistance Meal Preparation Meal Preparation Caregiver Provides Assist Drier Drier Caregiver Provides Assist Driving Driving Comments Pt no longer drives M6 OT- IP Functional Cognition Start: 05/25/20 13:55 Freq: Status: Active Protocol: Document 05/25/20 13:55 CGR (Rec: 05/25/20 14:08 CGR [id number]) Cognitive Factors Limiting Selfcare Function Cognitive Ability Level of Alertness Alert Patient Orientation Name,Age,Birthday,Month,Year, Day of Week,Place,Situation Attention Span Ability Capable of Focused Attention Ability to Follow Commands Able to Follow One Step Commands with Increased Time, Able to Follow One Step Commands with Repetition Memory Description Short Term Impaired Safety Awareness Decreased Recall of Precautions,Decreased Ability to Apply Precautions OT- Vision and Hearing OT- Hearing Assessment OT- Hearing Assessment WFL OT- Vision Assessment Visual Acuity WFL Visual Attentiveness WFL Occular Pursuits WFL Vision Assessment Comments no glasses noted at hospital M7 OT- IP Mobility and Balance Start: 05/25/20 13:55 Freq: Status: Active Protocol: Document 05/25/20 13:55 CGR (Rec: 05/25/20 14:08 CGR [id number]) OT- Bed Mobility Assessment Supine to Sit Supine to Sit Assist Maximum Assistance,2 Person Assistance,Head of Bed Elevated,Bedrails Scooting Scooting to Edge of Bed Maximum Assistance,2 Person Assistance,Head of Bed Elevated,Bedrails OT-Transfer Assessment Sit to and From Stand Sit to and from Stand Maximum Assistance,2 Person Assistance Transfers Transfer Ability Total Assistance Technique Transfer Destination Bed,Chair Transfer Technique stand for transfer of surface bed to chair. Devices Transfer Assistive Devices Gait Belt,Front Wheeled Walker Comments Mobility Comments Pt needed significant assist to get to EOB then into standing but was able to maintain standing with mod a but leans to his R. Pt stood for bed to be moved and chair to be placed behind him. OT- Gait Assessment Comments Gait Ability Comments Pt is unable to ambulate at this time. OT- Balance Assessment Sitting Balance and Reactions Static Sitting Balance Ability Poor Dynamic Sitting Balance Ability Poor Standing Balance and Reactions Static Standing Balance Ability Poor Dynamic Standing Balance Ability Poor M8 OT- IP Objective Assessments Start: 05/25/20 13:55 Freq: Status: Active Protocol: Document 05/25/20 13:55 CGR (Rec: 05/25/20 14:08 CGR [id number]) OT Gross Range of Motion Upper Extremity Range of Motion Assessment Within Functional Limits ROM Impairments Pt states L shld is sore. OT Strength Comments Strength Comments hands 4/5, arms and shlds not tested on this date. OT- Coordination Assessment Upper Extremity Finger to Nose Test Within Functional Limits Finger Tapping Test Within Functional Limits OT-Muscle Tone Assessment Muscle Tone WNL Yes OT Sensation Assessment Edema Edema Absent M9 OT- IP Assessment and Plan Start: 05/25/20 13:55 Freq: Status: Active Protocol: Document 05/25/20 13:55 CGR (Rec: 05/25/20 14:08 CGR [id number]) OT Summary Assessment and Plan Potential Rehabilitation Potential Good Analytic Complexity at Evaluation Moderate Summary OT Impairments Pain,Range of Motion,Strength, Balance,Functional Cognition, Functional Mobility,Self- Feeding,Grooming,Dressing, Toileting,Bathing,Toilet Transfers,Shower Transfers, Activity Tolerance Progress Towards Goals Progressing Toward Goals Assessment Summary Pt presents as a mod complexity evaluation s/p GLF and hip fx requiring sx. Pt will benefit from continued therapy to assist him in returning to his baseline of IND. Pt's cognition, pain, strength and endurace will all be contributing factors to his rehab. Recommend d/c to SNF. Goals Grooming Goal Independent Dressing Goal Independent Toileting Goal Independent Bathing Goal Independent Toilet Transfer Goal Independent Shower Transfer Goal Independent Days to Meet Goals 20 Frequency of Treatment Frequency Of Treatment Once a Day Treatment Plan OT Treatment Plan ADL Training,Functional Cognition Training,Functional Mobility,Patient/Family Education,Discharge Planning Other Treatment Recommendations and Next ADLs seated Treatment Focus Discharge Recommendations OT Discharge Recommendations SNF Rehab Transportation Needs at Discharge Wheelchair/Cabulance
[2020-05-25 12:44] VITALS: BP 100/63; PULSE 79; RESP 18; TEMP 36.7; O2SAT 96
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
--- NOTE | 2020-05-25 14:17 | OT.IP.TRT ---
Current Diagnoses Age-related osteoporosis with current pathological fracture, left femur, initial encounter for fracture (05/22/20) Surgery Performed Operation Date: 05/23/20 17:15 Actual Procedures p Intramedullary Nailing Femur(Left) - Roula De La Cruz MD Occupational Therapy Treatment Note M2 OT-IP Current Condition Start: 05/25/20 13:55 Freq: Status: Active Protocol: Document 05/25/20 13:55 CGR (Rec: 05/25/20 14:08 CGR [id number]) Occupational Therapy Current Condition Current Condition Evaluation Date 05/25/20 Treatment Diagnosis L intertrocanteric hip fx s/p 05/23 ORIF with IM nailing Diagnosis Onset Date 05/22/20 Weight Bearing Status Weight Bearing Status Partial Weight Bearing Allowed Weight Bearing Amount (enter % 75 Lbs or #) (%) M3 OT- IP Subjective and Pain Start: 05/25/20 13:55 Freq: Status: Active Protocol: Document 05/25/20 14:17 CGR (Rec: 05/25/20 14:20 CGR [id number]) OT- Subjective Occupational Therapy Visit Type Type Progress Note Visit Start Time 12:08 Visit Stop Time 12:17 Total Visit Minutes 9 Notes Nursing requesting assist with transfer to w/c for discharge . OT Pain Assessment Pain When Pain Assessed During Mobility Pain Present Pain Present Pain Reported Location left hip Scale Used Pt unable to rate Pain Behaviors Calling Out,Facial Grimacing, Guarding,Wincing Management Techniques Modification of Treatment, Timing of Activity with Medications M4 OT- IP ADL's Start: 05/25/20 13:55 Freq: Status: Active Protocol: Document 05/25/20 13:55 CGR (Rec: 05/25/20 14:08 CGR [id number]) OT HOH-Fgxb-Qosdnzk General Evaluation Self-Feeding Ability Independent Areas Needing Assistance Bringing Utensil to Mouth Comments OT Self-Feeding Comments Pt able to get fork to mouth effectively without assist but food is precut. OT ADL-Grooming Comments OT Grooming Comments Not performed, pt declined OT ADL-Oral Care Comments Oral Care Comments Not performed, pt declined OT ADL-Dressing General Eval Lower Body Dressing Ability Total Assistance Areas Needing Assistance Socks OT ADL-Toileting Comments OT Toileting Comments pt with santoro OT ADL-Bathing Comments OT Bathing Comments not performed at this time M5 OT- IP IADL's Start: 05/25/20 13:55 Freq: Status: Active Protocol: Document 05/25/20 13:55 CGR (Rec: 05/25/20 14:08 CGR [id number]) OT-Instrumental Activities of Daily Living Deficits IADL Deficits Identified Deficits Home Safety Awareness Awareness of Need for Assistance at Home Decreased Awareness Ability to Problem Solve Emergency Unable to Problem Solve Situations Medication Management Medication Management Caregiver Administers Money Management Money Management Caregiver Provides Assistance Meal Preparation Meal Preparation Caregiver Provides Assist Director Of Individual Giving Director Of Individual Giving Caregiver Provides Assist Driving Driving Comments Pt no longer drives M6 OT- IP Functional Cognition Start: 05/25/20 13:55 Freq: Status: Active Protocol: Document 05/25/20 13:55 CGR (Rec: 05/25/20 14:08 CGR [id number]) Cognitive Factors Limiting Selfcare Function Cognitive Ability Level of Alertness Alert Patient Orientation Name,Age,Birthday,Month,Year, Day of Week,Place,Situation Attention Span Ability Capable of Focused Attention Ability to Follow Commands Able to Follow One Step Commands with Increased Time, Able to Follow One Step Commands with Repetition Memory Description Short Term Impaired Safety Awareness Decreased Recall of Precautions,Decreased Ability to Apply Precautions OT- Vision and Hearing OT- Hearing Assessment OT- Hearing Assessment WFL OT- Vision Assessment Visual Acuity WFL Visual Attentiveness WFL Occular Pursuits WFL Vision Assessment Comments no glasses noted at hospital M7 OT- IP Mobility and Balance Start: 05/25/20 13:55 Freq: Status: Active Protocol: Document 05/25/20 14:17 CGR (Rec: 05/25/20 14:20 CGR [id number]) OT-Transfer Assessment Sit to and From Stand Sit to and from Stand Moderate Assistance,Maximum Assistance,2 Person Assistance Transfers Transfer Ability Total Assistance Technique Transfer Destination Chair,Wheelchair Transfer Technique stand for chairs to be switched behind pt. Devices Transfer Assistive Devices Gait Belt,Front Wheeled Walker Comments Mobility Comments Pt needed mod to max x 2 for sit to stand for the recliner to be moved and a w/c to be placed behind pt for transport . OT- Gait Assessment Comments Gait Ability Comments Pt is unable to perform at this time. M8 OT- IP Objective Assessments Start: 05/25/20 13:55 Freq: Status: Active Protocol: Document 05/25/20 13:55 CGR (Rec: 05/25/20 14:08 CGR [id number]) OT Gross Range of Motion Upper Extremity Range of Motion Assessment Within Functional Limits ROM Impairments Pt states L shld is sore. OT Strength Comments Strength Comments hands 4/5, arms and shlds not tested on this date. OT- Coordination Assessment Upper Extremity Finger to Nose Test Within Functional Limits Finger Tapping Test Within Functional Limits OT-Muscle Tone Assessment Muscle Tone WNL Yes OT Sensation Assessment Edema Edema Absent M9 OT- IP Assessment and Plan Start: 05/25/20 13:55 Freq: Status: Active Protocol: Document 05/25/20 14:17 CGR (Rec: 05/25/20 14:20 CGR [id number]) OT Summary Assessment and Plan Potential Rehabilitation Potential Good Analytic Complexity at Evaluation Moderate Summary OT Impairments Pain,Range of Motion,Strength, Balance,Functional Cognition, Functional Mobility,Self- Feeding,Grooming,Dressing, Toileting,Bathing,Toilet Transfers,Shower Transfers, Activity Tolerance Progress Towards Goals Progressing Toward Goals Assessment Summary Pt tolerated second session of the day well for transfer to w/c and d/c to sNF. Goals Grooming Goal Independent Dressing Goal Independent Toileting Goal Independent Bathing Goal Independent Toilet Transfer Goal Independent Shower Transfer Goal Independent Days to Meet Goals 20 Frequency of Treatment Frequency Of Treatment Once a Day Treatment Plan OT Treatment Plan ADL Training,Functional Cognition Training,Functional Mobility,Patient/Family Education,Discharge Planning Other Treatment Recommendations and Next ADLs seated Treatment Focus Discharge Recommendations OT Discharge Recommendations SNF Rehab Transportation Needs at Discharge Wheelchair/Cabulance
--- NOTE | 2020-05-25 14:29 | PC.NURSE ---
Pt up in w/c , belongings packed up and report called to [facility] for transfer. IV removed. Pt out via w/c with Packet by Facility Tranfer with all belongnigs.
== END 2020-05-25 14:31 | DRG 481 ==
LOC: ED 19:32 → AC 19:33
PROVIDERS: Emergency Medicine; Internal Medicine; Orthopaedic Surgery; Admitting Provider Nurse Practitioner Adult Health; Emergency Provider Emergency Medicine; PCP Family Medicine; Referring Provider Emergency Medicine; Visit Provider Nurse Practitioner Adult Health
PROC: 0QS736Z Reposition Left Upper Femur with Intramedullary Internal Fixation Device, Percutaneous Approach (ICD-10-PCS; CPT 27245; principal; 2020-05-23 17:15)
DX: M80.052A Age-related osteoporosis with current pathological fracture, left femur, initial encounter for fracture (principal); N39.0 Urinary tract infection, site not specified; D62 Acute posthemorrhagic anemia; D63.8 Anemia in other chronic diseases classified elsewhere; I10 Essential (primary) hypertension; E78.5 Hyperlipidemia, unspecified; N40.1 Benign prostatic hyperplasia with lower urinary tract symptoms; I69.392 Facial weakness following cerebral infarction; Z85.51 Personal history of malignant neoplasm of bladder; Z85.89 Personal history of malignant neoplasm of other organs and systems; W18.30XA Fall on same level, unspecified, initial encounter; Y92.099 Unspecified place in other non-institutional residence as the place of occurrence of the external cause; Z11.59 Encounter for screening for other viral diseases
CPT/HCPCS: 36415; 51701; 71045; 73502; 76000; 80048; 80053; 81001; 83605; 83735; 84100; 85025; 85027; 86850; 86900; 86901; 87040; 87077; 87086; 87635; 93005; 96361; 96365; 96375; 96376; 97162; 97166; 97530; 99284; C9290; J0690; J0696; J1170; J2405; J2704; J3010

== ENCOUNTER → 2020-06-04 11:46 | Outpatient (ROUT) | payer MEDICARE, SELFPAY ==
[2020-05-22 20:30] VITALS: BMI 23.4
[2020-06-05 21:44] LABS: COVID19 Sendout Not Detected (Not Detect)
== END ==
PROVIDERS: PCP Family Medicine; Visit Provider Internal Medicine
DX: Z11.59 Encounter for screening for other viral diseases (principal)
CPT/HCPCS: 87635

== ENCOUNTER 2020-06-04 19:59 | Emergency (ER) | payer MEDICARE, SELFPAY ==
[2020-06-04] VITALS (7 sets, daily range): BP systolic 135–170; BP diastolic 68–77; PULSE 71–78; RESP 13–19; TEMP 36.8; O2SAT 96–97
[2020-06-04 20:25] LABS: Add Manual Diff / Slide Review NO; Basophils Absolute Auto 100 /uL (0-100); Basophils Percent Auto 0.9 % (0-2); Eosinophils Absolute Auto 300 /uL (0-450); Eosinophils Percent Auto 2.1 % (2-4); Hematocrit 29.9 % (41-53); Lymphocytes Absolute Auto 1100 /uL (1100-4500); Lymphocytes Percent Auto 8.4 % (25-40); Mean Corpuscular HGB Conc 33.3 % (30-36); Mean Corpuscular Hemoglobin 32.6 PG (26-34); Mean Corpuscular Volume 97.9 fL (80-100); Monocytes Absolute Auto 900 /uL (0-900); Monocytes Percent Auto 7.1 % (3-14); Neutrophils Absolute Auto 10400 /uL (1500-7000); Neutrophils Percent Auto 81.5 % (50-75); Platelet Count 643 X10^3/uL (150-400); Red Blood Cell Count 3.05 X10^6/uL (4.5-5.9); Red Cell Distribution Width 15.5 % (11.6-14.8); White Blood Cell Count 12.7 X10^3/uL (4.5-11.0)
[2020-06-04 20:31] LABS: INR 1.1 (0.9-1.3); Prothrombin Time 12.1 SECONDS (10.1-12.7)
[2020-06-04 20:33] LABS: PTT Partial Thromboplastin Tim 29 SECONDS (26.4-36.2)
--- NOTE | 2020-06-04 20:35 | ED_ITS ---
HPI - GI Bleed General Chief complaint: GI Bleed Stated complaint: Abdominal pain Time Seen by Provider: 06/04/20 20:12 Source: patient and EMS Mode of arrival: Ambulatory Limitations: other (History of dementia) History of Present Illness HPI Narrative: The patient lives locally in assisted living. He was admitted here approximately 2.5 weeks ago with a left hip fracture. He underwent intramedullary nailing of the left hip. He is now recovering. He developed epigastric pain tonight, he had a small amount of hematemesis. He has no discomfort now, he tells me he took a pain pill. He denies chest pain or d yspnea. He has no abdominal pain now. He seems sure he spit up the blood, and did not cough at the blood. He denies chest pain or tachypnea. He denies lower extremity pain or swelling. Additionally, he has a history hypertension, hyperlipidemia, CVA, early onset Alzheimer's, bladder cancer, bladder cancer (s/p TURP), and throat cancer (treated by resection the left neck, and radiation). He denies fever, chills, or sore throat. He has no headache. He is currently comfortable. Related Data Home Medications Medication Instructions Recorded Confirmed Centrum Silver Men 1 tab PO DAILY 05/22/20 06/04/20 mupirocin 1 applic TOPICAL DAILY 05/22/20 06/04/20 tamsulosin 0.4 mg PO DAILY 05/22/20 06/04/20 bisacodyl 10 mg WA DAILY PRN 05/24/20 06/04/20 levocetirizine [Allergy Relief 5 mg PO DAILY 05/24/20 06/04/20 (levocetirizin)] loperamide 2 mg PO Q4H PRN 05/24/20 06/04/20 Previous Rx's Medication Instructions Recorded finasteride [Proscar] 5 mg PO DAILY #30 tab 11/13/18 acetaminophen 975 mg PO TID #90 tab 05/25/20 alprazolam 0.25 mg PO BID PRN #5 tab 05/25/20 aspirin 81 mg PO BID #80 tab 05/25/20 docusate sodium [DOK] 100 mg PO BID #60 cap 05/25/20 losartan 25 mg PO DAILY #30 tab 05/25/20 oxycodone 5 mg PO Q3HR PRN #10 tab 05/25/20 polyethylene glycol 3350 17 gm PO DAILY #30 ea 05/25/20 famotidine [Pepcid] 20 mg PO DAILY #30 tab 06/04/20 sulfamethoxazole-trimethoprim 1 tab PO BID 10 Days #20 tab 06/04/20 Allergies Allergy/AdvReac Type Severity Reaction Status Date / Time pantoprazole [From Protonix] Allergy Unknown Verified 03/12/19 12:28 Review of Systems Review of Systems ROS Unobtainable: All systems reviewed & are unremarkable except as noted in HPI and below Constitutional Constitutional: Denies chills, Denies fever(s), Denies lethargy and Denies weakness Comments: No recent illness. Eyes Comments: No complaints ENT Comments: No ENT complaints Cardiovascular Cardiovascular: Denies chest pain, Denies leg edema and Denies dyspnea Respiratory Respiratory: Denies cough and Denies dyspnea Comments: No hemoptysis Gastrointestinal Gastrointestinal: Reports as per HPI (Pain earlier. He may have vomited a small amount of blood.) Genitourinary Comments: No dysuria General plan. A urine culture at the time his recent admission revealed Strep viridans UTI. Musculoskeletal Musculoskeletal: Denies numbness Comments: Left hip pain, no numbness or weakness in lower extremities. No calf tenderness. Integumentary/Breasts Skin/Breast: Denies erythema, Denies rash and Denies wounds Neurologic Neurologic: Denies numbness and Denies weakness Patient History Medical History Brain tumor (Acute) Chronic back pain greater than 3 months duration (Acute) Difficulty in urination (Acute) Early onset Alzheimer's dementia (Acute) Essential hypertension (Acute) History of bladder cancer (Inactive) History of stroke (Acute) Malignant neoplasm of throat (Acute) Pain with urination (Acute) Urgency incontinence (Acute) Surgical History History of right knee joint replacement (Acute) Status post surgical removal and fulguration of bladder neoplasm (Acute) Status post surgical removal of neoplasm of skin (Acute) Family History Other No family history of cardiac disease Social History household members: none Smoking Status: Never smoker Smoking Status: Never smoker alcohol intake frequency: holidays/special occasions only Substance Use Type: does not use Exam Initial Vital Signs Initial Vital Signs: Vital Signs Temperature 98.3 F 06/04/20 20:03 Pulse Rate 71 06/04/20 20:03 Respiratory Rate 18 06/04/20 20:03 Blood Pressure 151/73 H 06/04/20 20:03 Pulse Oximetry 97 06/04/20 20:03 Const General: cooperative, comfortable and No acute distress Nutritional Appearance: well nourished [facility] Throat: posterior oropharynx normal Eyes Conjunctivae: conjunctivae normal Sclera: sclerae normal Neck Neck: No lymphadenopathy and No JVD Chest Chest: normal inspection of the chest Resp Effort & Inspection: normal respiratory effort and able to speak in complete sentences Auscultation: clear to auscultation bilaterally, no rales, no rhonchi and no wheezes Cardio Rate: regular rate Rhythm: regular rhythm Heart Sounds: no click, no gallops, no murmurs and no rubs Pulses: normal peripheral pulses GI Inspection: non-distended Palpation: soft, no hepatosplenomegaly, No guarding and No tender Auscultation: normal bowel sounds Back/Spine/Pelvis Back: No CVA tenderness Skin General: no rashes or lesions noted, No jaundice and No petechiae Neuro General: patient alert, patient oriented x3 and no focal motor deficits Speech: speech normal Extrem General: full ROM, no pedal edema and no calf tenderness Other: Dorsalis pedis pulses are normal bilaterally Psych Appearance: well kempt Speech and Movement: speech and movement normal Affect: normal affect Course Course Course Narrative: Labs are evaluated, H/H is stable. It is noted he is taking aspirin, he is postop left hip surgery. Aspirin is likely a postop instruction. He reported hematemesis, he has no abdominal pain. He has no ongoing symptoms of nausea or pain. He is allergic to Protonix, I started him on Pepcid. Additionally he has a UTI, strep viridans was identified and a urine culture 2 weeks ago. I start him on Septra DS. He is advised to follow-up for repeat CBC in urine testing with his PCM. Orders Ordered: ED Orders 06/04/20 20:02 EKG-12 Lead Stat 06/04/20 20:13 Complete Blood Count AUTO DIFF Stat Comprehensive Metabolic Panel Stat Partial Thromboplastin Time Stat Prothrombin Time INR Stat 06/04/20 20:35 XR chest 1V Stat 06/04/20 20:55 Urine Culture Stat Urine Microscopic Stat Sodium Chloride (Normal Saline 0.9%) 1,000 mls @ 150 mls/hr IV CONT MARY Last Admin: 06/04/20 20:51 Dose: 150 mls/hr Documented by: JUSTIN Discontinued Medications Famotidine (Pepcid) 20 mg in 50 mls @ 200 mls/hr IV NOW ONE Stop: 06/04/20 22:55 Last Infusion: 06/04/20 23:14 Dose: 0 mls/hr Documented by: Admin: 06/04/20 22:48 Dose: 200 mls/hr Documented by: JUSTIN Vital Signs Vital signs: Vital Signs - 8 hr 06/04/20 20:03 06/04/20 21:05 06/04/20 21:30 Temperature 98.3 F Pulse Rate 71 71 75 Respiratory Rate 18 15 19 Blood Pressure 151/73 H 170/77 H Pulse Oximetry 97 97 96 06/04/20 22:00 06/04/20 22:30 06/04/20 23:00 Temperature Pulse Rate 78 77 77 Respiratory Rate 14 13 18 Blood Pressure 159/74 H 135/68 159/73 H Pulse Oximetry 96 96 96 MDM - GI Bleed Lab Data Result diagrams: 06/04/20 20:13 06/04/20 20:13 Labs: Lab Results 06/04/20 06/04/20 06/04/20 Range/Units 20:13 20:13 20:13 WBC 12.7 H (4.5-11.0) X10^3/uL RBC 3.05 L (4.5-5.9) X10^6/uL Hgb 10.0 L (13.5-17.5) g/dL Hct 29.9 L (41-53) % MCV 97.9 (80-100) fL MCH 32.6 (26-34) PG MCHC 33.3 (30-36) % RDW 15.5 H (11.6-14.8) % Plt Count 643 H (150-400) X10^3/uL Neut % (Auto) 81.5 H (50-75) % Lymph % (Auto) 8.4 L (25-40) % [place] % (Auto) 7.1 (3-14) % Eos % (Auto) 2.1 (2-4) % Baso % (Auto) 0.9 (0-2) % Neut # (Auto) 10532 H (2671-6717) /uL Lymph # (Auto) 1100 (6638-1510) /uL [place] # (Auto) 900 (0-900) /uL Eos # (Auto) 300 (0-450) /uL Baso # (Auto) 100 (0-100) /uL PT 12.1 (10.1-12.7) SECONDS INR 1.1 (0.9-1.3) APTT 29 (26.4-36.2) SECONDS Sodium 136 L (137-145) mmol/L Potassium 4.4 (3.4-5.1) mmol/L Chloride 106 (98-107) mmol/L Carbon Dioxide 26 (22-32) mmol/L BUN 26 H (9-20) mg/dL Creatinine 0.87 (0.66-1.25) mg/dL Estimated GFR > 60.0 (>60) mL/min BUN/Creatinine Ratio 29.9 H (6-22) Glucose 111 H (80-110) mg/dL Calcium 9.1 (8.4-10.2) mg/dL Total Bilirubin 0.4 (0.2-1.3) mg/dL AST 33 (17-59) IU/L ALT 34 (<50) IU/L Alkaline Phosphatase 159 H (38-126) U/L Total Protein 6.7 (6.3-8.2) g/dL Albumin 3.3 L (3.5-5.0) g/dL Globulin 3.4 (1.7-4.1) g/dL Albumin/Globulin Ratio 1.0 (1.0-2.8) Urine RBC (0-5/HPF) Urine WBC (0-5/HPF) Urine Bacteria (None) Ur Culture Indicated? 06/04/20 Range/Units 20:55 WBC (4.5-11.0) X10^3/uL RBC (4.5-5.9) X10^6/uL Hgb (13.5-17.5) g/dL Hct (41-53) % MCV (80-100) fL MCH (26-34) PG MCHC (30-36) % RDW (11.6-14.8) % Plt Count (150-400) X10^3/uL Neut % (Auto) (50-75) % Lymph % (Auto) (25-40) % [place] % (Auto) (3-14) % Eos % (Auto) (2-4) % Baso % (Auto) (0-2) % Neut # (Auto) (3364-9053) /uL Lymph # (Auto) (0752-5140) /uL [place] # (Auto) (0-900) /uL Eos # (Auto) (0-450) /uL Baso # (Auto) (0-100) /uL PT (10.1-12.7) SECONDS INR (0.9-1.3) APTT (26.4-36.2) SECONDS Sodium (137-145) mmol/L Potassium (3.4-5.1) mmol/L Chloride (98-107) mmol/L Carbon Dioxide (22-32) mmol/L BUN (9-20) mg/dL Creatinine (0.66-1.25) mg/dL Estimated GFR (>60) mL/min BUN/Creatinine Ratio (6-22) Glucose (80-110) mg/dL Calcium (8.4-10.2) mg/dL Total Bilirubin (0.2-1.3) mg/dL AST (17-59) IU/L ALT (<50) IU/L Alkaline Phosphatase (38-126) U/L Total Protein (6.3-8.2) g/dL Albumin (3.5-5.0) g/dL Globulin (1.7-4.1) g/dL Albumin/Globulin Ratio (1.0-2.8) Urine RBC 1-5/hpf (0-5/HPF) Urine WBC 30-100/hpf H (0-5/HPF) Urine Bacteria Many (>30) H (None) Ur Culture Indicated? Specimen cultured Urine Dip Bedside Urine Glucose Negative Bedside Urine Bilirubin - Negative Bedside Urine Ketone + 15 Urine Specific [place] 1.025 Bedside Urine Occult Blood +++ Bedside Urine pH 5.5 Bedside Urine Protein +/- 15 Bedside Urine Urobilinogen - Negative Bedside Urine Nitrite + Positive Bedside Urine Leukocytes ++ 125 Esterase Imaging Data Chest x-ray: Radiologist's Impression: No acute findings. ECG Data Attestation: I personally reviewed and interpreted this ECG as follows: (Normal sinus rhythm rate 60 beats per minute. No ectopy. Normal intervals. No acute ST T wave changes. Normal study.) Discharge Plan Departure Patient Disposition: Home Clinical Impression: Acute UTI Hematemesis Qualifiers: Nausea presence: unspecified Qualified Code(s): K92.0 - Hematemesis Instructions: DI for Urinary Tract Infection (UTI), Gastrointestinal Bleeding Activity Restrictions/Additional Instructions: Continue current medications, other than no aspirin. No aspirin for the next 3 days. Return to the ER if there is recurrence of vomiting blood. Pepcid 20 mg daily. Septra ds 1 tablet 2 times daily. Talk to your caregivers, your urine should be rechecked in 2 weeks to assure there is no infection. You should have a repeat blood count to be sure you not losing blood internally. Prescriptions: New sulfamethoxazole-trimethoprim 800-160 mg tablet 1 tab PO BID 10 Days Qty: 20 RF: 0 famotidine [Pepcid] 20 mg tablet 20 mg PO DAILY Qty: 30 RF: 0 No Action finasteride [Proscar] 5 mg tablet 5 mg PO DAILY Qty: 30 RF: 0 tamsulosin 0.4 mg Capsule 0.4 mg PO DAILY RF: 0 mupirocin 2 % Ointment 1 applic TOPICAL DAILY RF: 0 Centrum Silver Men 300-600-300 mcg Tablet 1 tab PO DAILY RF: 0 levocetirizine [Allergy Relief (levocetirizin)] 5 mg Tablet 5 mg PO DAILY RF: 0 bisacodyl 10 mg Suppository 10 mg WA DAILY PRN (Reason: Constipation) RF: 0 loperamide 2 mg Tablet 2 mg PO Q4H PRN (Reason: Diarrhea) RF: 0 acetaminophen 325 mg Tablet 975 mg PO TID Qty: 90 RF: 0 aspirin 81 mg Tablet,Delayed Release (Dr/Ec) 81 mg PO BID Qty: 80 RF: 0 losartan 50 mg Tablet 25 mg PO DAILY Qty: 30 RF: 0 polyethylene glycol 3350 17 gram Powder In Packet 17 gm PO DAILY Qty: 30 RF: 0 docusate sodium [DOK] 100 mg Capsule 100 mg PO BID Qty: 60 RF: 0 oxycodone 5 mg Tablet 5 mg PO Q3HR PRN (Reason: Pain, Moderate (4-6)) Qty: 10 RF: 0 alprazolam 0.25 mg Tablet 0.25 mg PO BID PRN (Reason: Anxiety) Qty: 5 RF: 0 Referrals: Quincy Price MD [Primary Care Provider] -
--- NOTE | 2020-06-04 20:35 | DI.RAD.S_ITS ---
PROCEDURE: XR CHEST 1V INDICATIONS: Hemoptysis TECHNIQUE: One view of the chest was acquired. COMPARISON: [facility], CR, XR CHEST 1V, 05/22/2020, 16:56. FINDINGS: Surgical changes and devices: None. Lungs and pleura: Lungs are clear. No pleural effusions or pneumothorax. Mediastinum: Mediastinal contours appear normal. Heart size is normal. Bones and chest wall: No suspicious bony lesions. Moderate reverse S. scoliosis. Overlying soft tissues appear unremarkable. IMPRESSION: No acute cardiopulmonary disease. Dictated by: Elvira Pablo M.D. on 06/04/2020 at 21:29 Approved by: Elvira Pablo M.D. on 06/04/2020 at 21:30
[2020-06-04 20:50] LABS: Alanine Aminotransferase 34 IU/L (<50); Albumin 3.3 g/dL (3.5-5.0); Alkaline Phosphatase 159 U/L (38-126); Aspartate Aminotransferase 33 IU/L (17-59); BUN Creatinine Ratio 29.9 (6-22); Bilirubin Total 0.4 mg/dL (0.2-1.3); Blood Urea Nitrogen 26 mg/dL (9-20); Calcium 9.1 mg/dL (8.4-10.2); Carbon Dioxide 26 mmol/L (22-32); Chloride 106 mmol/L (98-107); Estimated Glomerular Filt Rate > 60.0 mL/min (>60); Globulin 3.4 g/dL (1.7-4.1); Glucose 111 mg/dL (80-110); HEMOLYSIS 17 (0-50); Potassium 4.4 mmol/L (3.4-5.1); Sodium 136 mmol/L (137-145); Total Protein 6.7 g/dL (6.3-8.2)
[2020-06-04] MEDS: SODIUM CHLORIDE 0.9% 1,000 ML 150 ML IV (20:51)
[2020-06-04] MEDS: FAMOTIDINE 20 MG/50 ML PIGGYBACK 200 MG IV (22:48)
[2020-06-04 23:14] LABS: RBC Urine 1-5/HPF (0-5/HPF); WBC Urine 30-100/HPF (0-5/HPF)
[2020-06-04 23:15] LABS: Bacteria Urine Many (>30); Culture Indicated Urine Specimen Cultured
[2020-06-04] MEDS: TRIMETH/SULFA 160/800 (DS) TABLET 1 TAB PO (23:40)
[2020-06-05] VITALS: PULSE 80; O2SAT 98
[2020-06-05 00:45] VITALS: BP 151/71; PULSE 80; RESP 18; O2SAT 97
== END 2020-06-05 01:01 | disposition home or self-care (01) ==
PROVIDERS: Emergency Provider Emergency Medicine; PCP Family Medicine
DX: N39.0 Urinary tract infection, site not specified (principal); K92.0 Hematemesis; Z11.59 Encounter for screening for other viral diseases
CPT/HCPCS: 36415; 71045; 80053; 81003; 81015; 85025; 85610; 85730; 87086; 87186; 87635; 93005; 93010; 96365; 99284

== ENCOUNTER → 2020-07-02 13:53 | Outpatient (CLI) | payer MEDICARE, SELFPAY ==
--- NOTE | 2020-07-02 | DI.RAD.S_ITS ---
PROCEDURE: XR ANKLE LT 2V INDICATIONS: PATHOLOGICAL FRACTURE TECHNIQUE: 3 views of the ankle were acquired. COMPARISON: [facility], , ANKLE 3 VIEWS RIGHT, 01/20/2016, 13:49. FINDINGS: Bones: No fractures or dislocations. Ankle mortise is normally aligned. No suspicious bony lesions. Extensive hindfoot and midfoot osteoarthritis. Plantar calcaneal spur. Soft tissues: No tibiotalar joint effusion. Achilles tendon appears normal. IMPRESSION: Radiographically, no definite or displaced fracture seen however exam limited by severe arthritic changes. As clinically warranted, consider further evaluation with cross-sectional imaging such as CT/MR. Dictated by: Nikolai Hemphill M.D. on 07/02/2020 at 16:39 Approved by: Nikolai Hemphill M.D. on 07/02/2020 at 17:04
--- NOTE | 2020-07-02 | DI.RAD.S_ITS ---
PROCEDURE: XR FOOT LT 2V INDICATIONS: PATHOLOGICAL FRACTURE TECHNIQUE: 2 views of the foot were acquired. COMPARISON: None. FINDINGS: Bones: No fractures or dislocations. No suspicious bony lesions. Plantar calcaneal spur. Diffuse hindfoot and midfoot joint degeneration. There is also severe 1st MTP degenerative joint disease and interphalangeal osteoarthritis. Diffuse osteopenia. Soft tissues: No tibiotalar joint effusion. Achilles tendon appears normal. IMPRESSION: No definite radiographically visible displaced or definite fracture, although evaluation severely suboptimal due to arthritic changes and diffuse osteopenia. Consider further evaluation with cross-sectional imaging as clinically warranted. Dictated by: Nikolai Hemphill M.D. on 07/02/2020 at 17:04 Approved by: Nikolai Hemphill M.D. on 07/02/2020 at 17:06
== END ==
PROVIDERS: PCP Internal Medicine; Referring Provider Nurse Practitioner; Visit Provider Nurse Practitioner
DX: M84.472A Pathological fracture, left ankle, initial encounter for fracture (principal); M25.572 Pain in left ankle and joints of left foot; M19.072 Primary osteoarthritis, left ankle and foot; M77.32 Calcaneal spur, left foot
CPT/HCPCS: 73600; 73620

== ENCOUNTER → 2020-10-28 11:51 | Outpatient (ROUT) | payer MEDICARE, SELFPAY | PROVIDERS: PCP Internal Medicine; Visit Provider Nurse Practitioner | DX: Z13.89 Encounter for screening for other disorder (principal) | CPT/HCPCS: 87070; 87205 ==

== ENCOUNTER → 2021-04-15 13:03 | Outpatient (ROUT) | payer MEDICARE, SELFPAY ==
[2021-04-15 13:15] LABS: Appearance Urine UA CLEAR; Bilirubin Urine UA NEGATIVE (NEGATIVE); Color Urine UA YELLOW; Glucose Urine UA NEGATIVE (Negative); Ketones Urine UA TRACE (NEGATIVE); Leukocyte Esterase Urine UA 1+ (NEGATIVE); Nitrite Urine UA NEGATIVE (Negative); Occult Blood Urine UA 3+ (Negative); Protein Urine UA TRACE (Negative); Specific Gravity Urine UA 1.025 (1.000-1.035); Urobilinogen Urine UA 0.2 E.U./dL (0.2); pH Urine UA 5.5 (4.5-8.0)
[2021-04-15 13:33] LABS: RBC Urine 30-100/HPF (0-5/HPF); WBC Urine 5-10/HPF (0-5/HPF)
[2021-04-15 13:34] LABS: Bacteria Urine Moderate (10-30); Culture Indicated Urine Specimen Cultured; Mucus Urine 1+ (Negative); Squamous Epithelial Cell Urine 0-1 /HPF (0-5/HPF)
== END ==
PROVIDERS: PCP Nurse Practitioner; Visit Provider Hospitalist
DX: R39.89 Other symptoms and signs involving the genitourinary system (principal); Z85.51 Personal history of malignant neoplasm of bladder
CPT/HCPCS: 81001; 87077; 87086; 87185; 87186

== ENCOUNTER 2021-04-18 12:20 | Inpatient (IN) | payer MEDICARE, MEDICAID, SELFPAY ==
[2021-04-18] VITALS (22 sets, daily range): BP systolic 148–224; BP diastolic 76–98; PULSE 56–68; RESP 18–33; TEMP 36.9–38.2; O2SAT 96–100; BMI 22.4
--- NOTE | 2021-04-18 12:20 | DI.RAD.S_ITS ---
PROCEDURE: XR CHEST 1V INDICATIONS: fever TECHNIQUE: One view of the chest was acquired. COMPARISON: [facility], CR, XR CHEST 1V, 06/04/2020, 20:37. FINDINGS: Surgical changes and devices: None. Lungs and pleura: No pleural effusions or pneumothorax. Scattered subsegmental atelectasis and/or scarring. No focal consolidation. Mediastinum: Mediastinal contours appear normal. Chronic unchanged calcified mediastinal lymph node with stable appearance. Heart size is normal. Bones and chest wall: Scoliosis and discogenic changes. Scattered subsegmental scarring and/or atelectasis. No acute consolidation. IMPRESSION: No acute disease. Dictated by: Nikolai Hemphill M.D. on 04/18/2021 at 13:48 Approved by: Nikolai Hemphill M.D. on 04/18/2021 at 13:48
--- NOTE | 2021-04-18 12:20 | DI.CT.S_ITS ---
PROCEDURE: CT STROKE INDICATIONS: right facial droop TECHNIQUE: Noncontrast 4.5 mm thick angled axial sections acquired from the foramen magnum to the vertex, with coronal reformats. For radiation dose reduction, the following was used: automated exposure control, adjustment of mA and/or kV according to patient size. COMPARISON: None. FINDINGS: Image quality: Excellent. CSF spaces: Basal cisterns are patent. No extra-axial fluid collections. The ventricles are symmetric in size and shape. Brain: No intracranial bleeds or masses. There is cerebral volume loss for age, with resultant ventricular and sulcal prominence. There are periventricular and deep white matter chronic small vessel ischemic changes. There is intracranial internal carotid artery atherosclerosis. Skull and face: Calvarium and visualized facial bones appear intact, without suspicious lesions. Sinuses: Moderate to severe right maxillary sinus disease. IMPRESSION: No acute intracranial process. Moderate to severe right maxillary sinus disease. Findings (including all critical results, if any) and recommendations were personally telephoned and discussed with Dr. Menchaca on 04-18-21 12:38 This study fulfills neurological imaging criteria for inclusion or exclusion of acute stroke therapies based on available published neurological guidelines. Dictated by: Nikolai Hemphill M.D. on 04/18/2021 at 12:37 Approved by: Nikolai Hemphill M.D. on 04/18/2021 at 12:40
--- NOTE | 2021-04-18 12:32 | ED_ITS ---
HPI - Neuro Symptoms/Deficit General Chief Complaint: Neuro Symptoms/Deficit Stated Complaint: Stroke Time Seen by Provider: 04/18/21 12:23 Source: EMS Mode of arrival: EMS Limitations: altered mental status History of Present Illness HPI Narrative: Patient is a 85-year-old male with history of dementia frequent UTIs presenting as a code stroke. Last known well of noon. Staff noticed that he was starting of a panic attack which she apparently frequently does on then noticed some right-sided facial droop which point EMS was called. He was found to have temperature of 102? per EMS he is not able to follow commands and is is hyperventilating. EMS reports that he had right arm weakness as well Onset (ago): minute(s) (20) On Anticoagulants: No Related Data Home Medications Medication Instructions Recorded Confirmed Centrum Silver Men 1 tab PO DAILY 05/22/20 04/18/21 tamsulosin 0.4 mg PO DAILY 05/22/20 04/18/21 bisacodyl 10 mg GA DAILY PRN 05/24/20 04/18/21 levocetirizine [Allergy Relief 5 mg PO DAILY 05/24/20 04/18/21 (levocetirizin)] Lactobacillus acidophilus 2,000 mmu cells PO BID 04/18/21 04/18/21 [Acidophilus] calcium carbonate-vitamin D3 1 cap PO BID 04/18/21 04/18/21 lorazepam 0.25 mg PO Q6H PRN 04/18/21 04/18/21 oxycodone 2.5 mg PO Q4HR PRN 04/18/21 04/18/21 sulfamethoxazole-trimethoprim 1 tab PO BID 04/18/21 04/18/21 [Bactrim DS] Previous Rx's Medication Instructions Recorded finasteride [Proscar] 5 mg PO DAILY #30 tab 11/13/18 acetaminophen 975 mg PO TID #90 tab 05/25/20 docusate sodium [DOK] 100 mg PO BID #60 cap 05/25/20 losartan 25 mg PO DAILY #30 tab 05/25/20 polyethylene glycol 3350 17 gm PO DAILY #30 ea 05/25/20 Allergies Allergy/AdvReac Type Severity Reaction Status Date / Time pantoprazole [From Protonix] Allergy Unknown Verified 11/11/20 14:11 Review of Systems Review of Systems ROS Unobtainable: Unobtainable due to medical condition Hematologic/Lymphatic On Anticoagulants: No Patient History Medical History Brain tumor Chronic back pain greater than 3 months duration Difficulty in urination Early onset Alzheimer's dementia Essential hypertension History of bladder cancer History of stroke Malignant neoplasm of throat Pain with urination Urgency incontinence Surgical History History of right knee joint replacement Status post surgical removal and fulguration of bladder neoplasm Status post surgical removal of neoplasm of skin Family History Other No family history of cardiac disease Social History (System 11/11/20 @ 14:11 by Jocelynn Lynn) household members: none Smoking Status: Never smoker Smoking Status: Never smoker alcohol intake frequency: holidays/special occasions only Substance Use Type: does not use Exam Initial Vital Signs Initial Vital Signs: Vital Signs Pulse Rate 64 04/18/21 12:36 Respiratory Rate 25 H 04/18/21 12:36 Pulse Oximetry 98 04/18/21 12:36 GENERAL: Alert 85-year-old male unable to answer questions but does follow some commands appears to be hyperventilating HEENT: Head atraumatic,EOMI, pupils reactive, mild right facial droop dry mucous membranes CARDIOVASCULAR: Regular rate and rhythm without murmurs, rubs or gallops. RESPIRATORY: Breath sounds equal bilaterally, no wheezes rales or rhonchi. ABDOMEN: Soft, nontender. Normoactive bowel sounds all 4 quadrants. No guarding or rebound. EXTREMITIES: Normal range of motion, no clubbing or edema. Neurovascularly intact NEUROLOGICAL: Alert able to squeeze with left hand not able to squeeze with right hand, not able to hold either leg above the gurney, severe aphasia. Difficult to perform an NIH stroke scale inability to follow all commands and communicate SKIN: Warm, dry, no laceration, no petechiae, no rashes or lesions. Course Orders Ordered: ED Orders 04/18/21 12:20 CT Stroke Stat XR chest 1V Stat EKG-12 Lead Stat 04/18/21 12:35 Blood Culture Stat Complete Blood Count AUTO DIFF Stat Comprehensive Metabolic Panel Stat Lactate (Lactic Acid) Stat Lipase Stat Procalcitonin Stat Troponin & CK Cardiac Panel Stat 04/18/21 12:38 CT angio head and neck Stat 04/18/21 12:54 EKG-12 Lead Routine 04/18/21 12:58 COVID19 - ADMIT (EGG PASTEURIZER swab/PCR) Stat COVID19 -Nasal swab/Pre-Proc Stat 04/18/21 13:55 Urinalysis and Microscopic Stat Urine Culture Stat Enoxaparin Sodium (Enoxaparin 30 Mg/0.3 Ml Syringe) 30 mg SUBCUT DAILY [facility] Dextrose/Sodium Chloride (Dextrose 5%-0.45% Ns) 1,000 mls @ 75 mls/hr IV CONT MARY Last Admin: 04/18/21 17:47 Dose: 75 mls/hr Documented by: CHRISTIAN Levofloxacin (Levaquin) 250 mg in 50 mls @ 100 mls/hr IV Q24H [facility] Labetalol HCl (Labetalol 20 Mg/4 Ml Syringe) 5 mg IV Q4HR PRN PRN Reason: SBP > 180 Morphine Sulfate (Morphine 2 Mg/Ml Inj) 2 mg IV Q4HR PRN PRN Reason: Pain, Moderate (4-6) Naloxone HCl (Naloxone 0.4 Mg/Ml Vial) 0.2 mg IV Q2MIN PRN PRN Reason: Opiate Reversal Ondansetron HCl (Ondansetron 4 Mg/2 Ml Inj) 4 mg IV Q8HR PRN PRN Reason: Nausea And Vomiting Discontinued Medications Aspirin (Aspirin Ec 325 Mg Tablet) 325 mg PO NOW ONE Stop: 04/18/21 13:44 Last Admin: 04/18/21 13:57 Dose: Not Given Documented by: STACY Aspirin (Aspirin 300 Mg Supp) 300 mg GA NOW ONE Stop: 04/18/21 13:59 Last Admin: 04/18/21 14:06 Dose: 300 mg Documented by: STACY Sodium Chloride (Normal Saline 0.9%) 1,000 mls @ 1,000 mls/hr IV BOLUS ONE Stop: 04/18/21 14:37 Last Infusion: 04/18/21 15:33 Dose: 0 mls/hr Documented by: Admin: 04/18/21 14:05 Dose: 1,000 mls/hr Documented by: STACY Levofloxacin (Levaquin) 500 mg in 100 mls @ 100 mls/hr IV NOW ONE Stop: 04/18/21 14:37 Last Infusion: 04/18/21 15:07 Dose: 0 mls/hr Documented by: Admin: 04/18/21 14:06 Dose: 100 mls/hr Documented by: STACY Labetalol HCl (Labetalol 20 Mg/4 Ml Syringe) 10 mg IV NOW ONE Stop: 04/18/21 14:04 Last Admin: 04/18/21 14:20 Dose: 10 mg Documented by: STACY Lidocaine HCl (Lidocaine 2% (Glydo) 6 Ml Gel) 6 ml TOP NOW ONE Stop: 04/18/21 13:31 Last Admin: 04/18/21 13:37 Dose: 6 ml Documented by: STACY Vital Signs Vital signs: Vital Signs - 8 hr 04/18/21 12:36 04/18/21 12:50 04/18/21 13:00 Temperature Pulse Rate 64 64 66 Respiratory Rate 25 H 33 H 29 H Blood Pressure 218/86 H Pulse Oximetry 98 98 96 04/18/21 13:01 04/18/21 13:30 04/18/21 14:00 Temperature 100.7 F H Pulse Rate 62 59 L 65 Respiratory Rate 28 H 18 26 H Blood Pressure 189/83 H 207/93 H 224/98 H Pulse Oximetry 97 97 98 MDM - Neuro Symptoms/Deficit Lab Data Attestation: I reviewed the patient's lab results. Result diagrams: 04/18/21 12:35 04/18/21 12:35 Labs: Lab Results 04/18/21 04/18/21 04/18/21 Range/Units 12:35 12:35 12:35 WBC 13.7 H (4.5-11.0) X10^3/uL RBC 3.79 L (4.5-5.9) X10^6/uL Hgb 12.2 L (13.5-17.5) g/dL Hct 36.9 L (41-53) % MCV 97.5 (80-100) fL MCH 32.1 (26-34) PG MCHC 32.9 (30-36) % RDW 14.6 (11.6-14.8) % Plt Count 221 (150-400) X10^3/uL Neut % (Auto) 84.3 H (50-75) % Lymph % (Auto) 7.0 L (25-40) % Dickens % (Auto) 7.3 (3-14) % Eos % (Auto) 1.0 L (2-4) % Baso % (Auto) 0.4 (0-2) % Neut # (Auto) 34887 H (8582-3389) /uL Lymph # (Auto) 1000 L (3573-1366) /uL Dickens # (Auto) 1000 H (0-900) /uL Eos # (Auto) 100 (0-450) /uL Baso # (Auto) 100 (0-100) /uL Sodium 143 (137-145) mmol/L Potassium 3.9 (3.4-5.1) mmol/L Chloride 109 H (98-107) mmol/L Carbon Dioxide 22 (22-32) mmol/L BUN 28 H (9-20) mg/dL Creatinine 2.25 H (0.66-1.25) mg/dL Estimated GFR 27.9 L (>60) mL/min BUN/Creatinine Ratio 12.4 (6-22) Glucose 119 H (80-110) mg/dL Lactate 2.3 H (0.7-2.1) mmol/L Calcium 9.5 (8.4-10.2) mg/dL Total Bilirubin 0.5 (0.2-1.3) mg/dL AST 48 (17-59) IU/L ALT 77 H (<50) IU/L Alkaline Phosphatase 88 (38-126) U/L Total Creatine Kinase 24 L (55-170) U/L CK-MB (CK-2) TNP CK-MB (CK-2) Rel Index TNP Troponin I < 0.012 (0.01-0.034) ng/mL Total Protein 7.6 (6.3-8.2) g/dL Albumin 3.8 (3.5-5.0) g/dL Globulin 3.8 (1.7-4.1) g/dL Albumin/Globulin Ratio 1.0 (1.0-2.8) Lipase 37 (23-300) U/L Procalcitonin 0.12 (<0.5) ng/mL Urine Color Urine Appearance Urine pH (4.5-8.0) Ur Specific [place] (1.000-1.035) Urine Protein (Negative) Urine Glucose (UA) (Negative) g/dL Urine Ketones (NEGATIVE) Urine Occult Blood (Negative) Urine Nitrate (Negative) Urine Bilirubin (NEGATIVE) Urine Urobilinogen (0.2) E.U./dL Ur Leukocyte Esterase (NEGATIVE) Urine RBC (0-5/HPF) Urine WBC (0-5/HPF) Ur Squamous Epith Cells (0-5/HPF) Amorphous Sediment Urine Bacteria (None) Urine Mucus (Negative) Ur Culture Indicated? SARS-CoV-2 (PCR) (Negative) 04/18/21 04/18/21 04/18/21 Range/Units 12:58 12:58 13:55 WBC (4.5-11.0) X10^3/uL RBC (4.5-5.9) X10^6/uL Hgb (13.5-17.5) g/dL Hct (41-53) % MCV (80-100) fL MCH (26-34) PG MCHC (30-36) % RDW (11.6-14.8) % Plt Count (150-400) X10^3/uL Neut % (Auto) (50-75) % Lymph % (Auto) (25-40) % Dickens % (Auto) (3-14) % Eos % (Auto) (2-4) % Baso % (Auto) (0-2) % Neut # (Auto) (9449-8149) /uL Lymph # (Auto) (9218-0438) /uL Dickens # (Auto) (0-900) /uL Eos # (Auto) (0-450) /uL Baso # (Auto) (0-100) /uL Sodium (137-145) mmol/L Potassium (3.4-5.1) mmol/L Chloride (98-107) mmol/L Carbon Dioxide (22-32) mmol/L BUN (9-20) mg/dL Creatinine (0.66-1.25) mg/dL Estimated GFR (>60) mL/min BUN/Creatinine Ratio (6-22) Glucose (80-110) mg/dL Lactate (0.7-2.1) mmol/L Calcium (8.4-10.2) mg/dL Total Bilirubin (0.2-1.3) mg/dL AST (17-59) IU/L ALT (<50) IU/L Alkaline Phosphatase (38-126) U/L Total Creatine Kinase (55-170) U/L CK-MB (CK-2) CK-MB (CK-2) Rel Index Troponin I (0.01-0.034) ng/mL Total Protein (6.3-8.2) g/dL Albumin (3.5-5.0) g/dL Globulin (1.7-4.1) g/dL Albumin/Globulin Ratio (1.0-2.8) Lipase (23-300) U/L Procalcitonin (<0.5) ng/mL Urine Color Yellow Urine Appearance Cloudy Urine pH 5.5 (4.5-8.0) Ur Specific [place] 1.025 (1.000-1.035) Urine Protein 1+ H (Negative) Urine Glucose (UA) Negative (Negative) g/dL Urine Ketones Negative (NEGATIVE) Urine Occult Blood 3+ H (Negative) Urine Nitrate Negative (Negative) Urine Bilirubin Negative (NEGATIVE) Urine Urobilinogen 0.2 (0.2) E.U./dL Ur Leukocyte Esterase 1+ H (NEGATIVE) Urine RBC >100/hpf H (0-5/HPF) Urine WBC 5-10/hpf H (0-5/HPF) Ur Squamous Epith Cells 1-5 /hpf (0-5/HPF) Amorphous Sediment 2+ Urine Bacteria Occasional (0-1) D (None) Urine Mucus 2+ H (Negative) Ur Culture Indicated? Specimen cultured SARS-CoV-2 (PCR) Negative Negative (Negative) Imaging Data CT scan - head: Radiologist's Impression: PROCEDURE: CT STROKE INDICATIONS: right facial droop TECHNIQUE: Noncontrast 4.5 mm thick angled axial sections acquired from the foramen magnum to the vertex, with coronal reformats. For radiation dose reduction, the following was used: automated exposure control, adjustment of mA and/or kV according to patient size. COMPARISON: None. FINDINGS: Image quality: Excellent. CSF spaces: Basal cisterns are patent. No extra-axial fluid collections. The ventricles are symmetric in size and shape. Brain: No intracranial bleeds or masses. There is cerebral volume loss for age, with resultant ventricular and sulcal prominence. There are periventricular and deep white matter chronic small vessel ischemic changes. There is intracranial internal carotid artery atherosclerosis. Skull and face: Calvarium and visualized facial bones appear intact, without suspicious lesions. Sinuses: Moderate to severe right maxillary sinus disease. IMPRESSION: No acute intracranial process. Moderate to severe right maxillary sinus disease. Findings (including all critical results, if any) and recommendations were personally telephoned and discussed with Dr. Menchaca on 04-18-21 12:38 This study fulfills neurological imaging criteria for inclusion or exclusion of acute stroke therapies based on available published neurological guidelines. Dictated by: Nikolai Hemphill M.D. on 04/18/2021 at 12:37 CTA - brain/neck: Radiologist's Impression: PROCEDURE: CT ANGIO HEAD AND NECK INDICATIONS: right facial droop TECHNIQUE: After the administration of intravenous contrast, 1 mm thick sections acquired from the aortic arch through the [place] of [place]. Post-contrast 4.5 mm thick sections then re-acquired from the foramen magnum to the vertex. 3-dimensional vdgbnnp-qifgysvwj-bptpqerwzy (MIP) and/or volume rendering reformats were acquired of the central intracranial vasculature and neck separately. COMPARISON: None. FINDINGS: BRAIN: CSF spaces: Ventricles are grossly unremarkable. Basal cisterns are patent. No extra-axial fluid collections. Brain: No midline shift. No abnormal enhancing mass. Samson-white matter interface appears intact. Skull and face: Calvarium and facial bones appear intact, without suspicious lesions. Orbits appear normal. Sinuses: Moderate to severe right maxillary sinus disease and opacification. HEAD CT ANGIOGRAPHY: Anterior circulation: Intracranial internal carotid arteries (ICA): Patent. Anterior cerebral arteries ([place]): Patent. Middle cerebral arteries (MCA): Patent. Other: No aneurysms are seen. Posterior circulation: Visualized portions of the vertebral arteries: Patent. Basilar artery: Patent. Posterior cerebral arteries (RESPIRATORY MANAGER): Patent. Other: No aneurysms are seen. NECK CT ANGIOGRAPHY: Carotid atherosclerotic findings: Mild bilateral carotid atherosclerotic plaque. Common carotid artery (CCA) origins: Patent. Common carotid arteries (CCA): Patent. Internal carotid arteries (ICA): There is high-grade probably 90% focal stenosis involving the proximal left ICA. No hemodynamically significant right ICA stenosis. Vertebral artery origins: Calcification is present at the origin of the left vertebral artery. Right vertebral artery origin widely patent Extracranial vertebral arteries: Patent. Basilar artery: Patent. Soft tissues: Visualized neck soft tissues demonstrate no suspicious abnormalities. Bones: No suspicious bony lesions. Cervical spondylosis and facet arthropathy. Minimal right frontal scalp swelling, indeterminate although correlate with direct visual inspection. 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 No hemodynamically significant right ICA stenosis No intracranial focal stenosis or occlusion Findings (including all critical results, if any) and recommendations were personally telephoned and discussed with Dr. Menchaca on 04-18-21 12:59 Any quantitative measurements of stenosis were performed using NASCET criteria. Dictated by: Nikolai Hemphill M.D. on 04/18/2021 at 12:51 Approved by: Nikolai Hemphill M.D. on 04/18/2021 at 13:01 Chest x-ray: Radiologist's Impression: PROCEDURE: XR CHEST 1V INDICATIONS: fever TECHNIQUE: One view of the chest was acquired. COMPARISON: [facility], , XR CHEST 1V, 06/04/2020, 20:37. FINDINGS: Surgical changes and devices: None. Lungs and pleura: No pleural effusions or pneumothorax. Scattered subsegmental atelectasis and/or scarring. No focal consolidation. Mediastinum: Mediastinal contours appear normal. Chronic unchanged calcified mediastinal lymph node with stable appearance. Heart size is normal. Bones and chest wall: Scoliosis and discogenic changes. Scattered subsegmental scarring and/or atelectasis. No acute consolidation. IMPRESSION: No acute disease. Dictated by: Nikolai Hemphill M.D. on 04/18/2021 at 13:48 ECG Data Attestation: I personally reviewed and interpreted this ECG as follows: Interpretation: EKG 1. Sinus rhythm rate 68 p.r. interval 160 QRS 80 QTC [address] changes EKG 2. Sinus rhythm rate 65 p.r. interval [address] changes MDM Narrative Medical decision making narrative: At this time patient is brought in as code stroke he is having some severe anxiety has obvious right-sided weakness and aphasia. He is also found to have a UTI he apparently is on antibiotics for which she was started on yesterday. he does have a lactate of 2.4 creatinine of 2.25 and leukocytosis of 13. From April 15 [place] show [place] [address] to enterococcus faecalis and resistant to gentamicin and tetracycline. The patient is found to have high-grade stenosis of internal carotid artery 90% on the the left. 1242 discussed case with patient's DPOA. At this time do not want any ag gressive measures no tPA but to agree with antibiotics and workup for infection. Patient did start trying to speak after being in the emergency department but he has unintelligible words and does continue to have increased anxiety. He continues to be hypertensive as well. He is started on antibiotics for cystitis and UTI. Dr. Barkley accepts patient for admission Discharge Plan Departure Patient Disposition: Admitted As Inpatient Clinical Impression: CVA (cerebral vascular accident), Acute UTI Admit Date/Time: 04/18/21 14:10 Admit Provider: Kole Barkley
--- NOTE | 2021-04-18 12:38 | DI.CT.S_ITS ---
PROCEDURE: CT ANGIO HEAD AND NECK INDICATIONS: right facial droop TECHNIQUE: After the administration of intravenous contrast, 1 mm thick sections acquired from the aortic arch through the [place] of [place]. Post-contrast 4.5 mm thick sections then re-acquired from the foramen magnum to the vertex. 3-dimensional olzdwqs-rrxdsmzdo-uvvyoebgyo (MIP) and/or volume rendering reformats were acquired of the central intracranial vasculature and neck separately. COMPARISON: None. FINDINGS: BRAIN: CSF spaces: Ventricles are grossly unremarkable. Basal cisterns are patent. No extra-axial fluid collections. Brain: No midline shift. No abnormal enhancing mass. Samson-white matter interface appears intact. Skull and face: Calvarium and facial bones appear intact, without suspicious lesions. Orbits appear normal. Sinuses: Moderate to severe right maxillary sinus disease and opacification. HEAD CT ANGIOGRAPHY: Anterior circulation: Intracranial internal carotid arteries (ICA): Patent. Anterior cerebral arteries ([place]): Patent. Middle cerebral arteries (MCA): Patent. Other: No aneurysms are seen. Posterior circulation: Visualized portions of the vertebral arteries: Patent. Basilar artery: Patent. Posterior cerebral arteries (IN SERVICE EDUCATOR): Patent. Other: No aneurysms are seen. NECK CT ANGIOGRAPHY: Carotid atherosclerotic findings: Mild bilateral carotid atherosclerotic plaque. Common carotid artery (CCA) origins: Patent. Common carotid arteries (CCA): Patent. Internal carotid arteries (ICA): There is high-grade probably 90% focal stenosis involving the proximal left ICA. No hemodynamically significant right ICA stenosis. Vertebral artery origins: Calcification is present at the origin of the left vertebral artery. Right vertebral artery origin widely patent Extracranial vertebral arteries: Patent. Basilar artery: Patent. Soft tissues: Visualized neck soft tissues demonstrate no suspicious abnormalities. Bones: No suspicious bony lesions. Cervical spondylosis and facet arthropathy. Minimal right frontal scalp swelling, indeterminate although correlate with direct visual inspection. 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 No hemodynamically significant right ICA stenosis No intracranial focal stenosis or occlusion Findings (including all critical results, if any) and recommendations were personally telephoned and discussed with Dr. Menchaca on 04-18-21 12:59 Any quantitative measurements of stenosis were performed using NASCET criteria. Dictated by: Nikolai Hemphill M.D. on 04/18/2021 at 12:51 Approved by: Nikolai Hemphill M.D. on 04/18/2021 at 13:01
[2021-04-18 12:39] LABS: Add Manual Diff / Slide Review NO; Basophils Absolute Auto 100 /uL (0-100); Basophils Percent Auto 0.4 % (0-2); Eosinophils Absolute Auto 100 /uL (0-450); Hematocrit 36.9 % (41-53); Hemoglobin 12.2 g/dL (13.5-17.5); Lymphocytes Absolute Auto 1000 /uL (1100-4500); Mean Corpuscular HGB Conc 32.9 % (30-36); Mean Corpuscular Hemoglobin 32.1 PG (26-34); Mean Corpuscular Volume 97.5 fL (80-100); Monocytes Absolute Auto 1000 /uL (0-900); Monocytes Percent Auto 7.3 % (3-14); Neutrophils Absolute Auto 11500 /uL (1500-7000); Neutrophils Percent Auto 84.3 % (50-75); Platelet Count 221 X10^3/uL (150-400); Red Blood Cell Count 3.79 X10^6/uL (4.5-5.9); Red Cell Distribution Width 14.6 % (11.6-14.8); White Blood Cell Count 13.7 X10^3/uL (4.5-11.0)
[2021-04-18 12:45] LABS: Alanine Aminotransferase 77 IU/L (<50); Albumin 3.8 g/dL (3.5-5.0); Alkaline Phosphatase 88 U/L (38-126); Aspartate Aminotransferase 48 IU/L (17-59); BUN Creatinine Ratio 12.4 (6-22); Bilirubin Total 0.5 mg/dL (0.2-1.3); Blood Urea Nitrogen 28 mg/dL (9-20); Calcium 9.5 mg/dL (8.4-10.2); Carbon Dioxide 22 mmol/L (22-32); Chloride 109 mmol/L (98-107); Creatine Kinase 24 U/L (55-170); Estimated Glomerular Filt Rate 27.9 mL/min (>60); Globulin 3.8 g/dL (1.7-4.1); Glucose 119 mg/dL (80-110); HEMOLYSIS < 15 (0-50); Lipase 37 U/L (23-300); Potassium 3.9 mmol/L (3.4-5.1); Sodium 143 mmol/L (137-145); Total Protein 7.6 g/dL (6.3-8.2)
--- NOTE | 2021-04-18 12:51 | PC.NURSE ---
Unable to follow any directions. Pt will not raise or hold up either arm to assess NIH but during covid swab patient was able to grab with his left hand to remove swab from nose. But looks distressed , and vaguely repeats I dont know, I dont know.. Pt did not move right arm during swab.
[2021-04-18 12:57] LABS: Troponin I < 0.012 ng/mL (0.01-0.034)
[2021-04-18 13:02] LABS: Procalcitonin 0.12 ng/mL (<0.5)
[2021-04-18 13:17] LABS: COVID19 -Nasal RAPID Negative (Negative)
[2021-04-18 13:17] LABS: Lactate (Lactic Acid) 2.3 mmol/L (0.7-2.1)
[2021-04-18] MEDS: LIDOCAINE 2% (GLYDO) 6 ML GEL TOP (13:37)
[2021-04-18 13:55] LABS: COVID19 - ADMIT (NP swab/PCR) Negative (Negative)
[2021-04-18 14:03] LABS: Appearance Urine UA CLOUDY; Bilirubin Urine UA NEGATIVE (NEGATIVE); Color Urine UA YELLOW; Glucose Urine UA NEGATIVE (Negative); Ketones Urine UA NEGATIVE (NEGATIVE); Leukocyte Esterase Urine UA 1+ (NEGATIVE); Nitrite Urine UA NEGATIVE (Negative); Occult Blood Urine UA 3+ (Negative); Protein Urine UA 1+ (Negative); Specific Gravity Urine UA 1.025 (1.000-1.035); Urobilinogen Urine UA 0.2 E.U./dL (0.2); pH Urine UA 5.5 (4.5-8.0)
[2021-04-18] MEDS: SODIUM CHLORIDE 0.9% 1,000 ML 1000 ML IV (14:05)
[2021-04-18] MEDS: levoFLOXacin 500 MG/100 ML PIGGYBACK 100 MG IV (14:06)
[2021-04-18] MEDS: ASPIRIN 300 MG SUPP PR (14:06)
[2021-04-18 14:17] LABS: Amorphous Sediment Urine 2+; Mucus Urine 2+ (Negative); RBC Urine >100/HPF (0-5/HPF); Squamous Epithelial Cell Urine 1-5 /HPF (0-5/HPF); WBC Urine 5-10/HPF (0-5/HPF)
[2021-04-18 14:18] LABS: Bacteria Urine Occasional (0-1); Culture Indicated Urine Specimen Cultured
[2021-04-18] MEDS: LABETALOL 20 MG/4 ML SYRINGE 10 MG IV (14:20)
[2021-04-18 14:42] LABS: Reflexed Lactate in 2 Hours Y
[2021-04-18 16:35] LABS: Lactate 2HR (Lactic Acid Rflx) 2.4 mmol/L (0.7-2.1)
--- NOTE | 2021-04-18 16:59 | PM.HP.1 ---
History of Present Illness History of Present Illness Date Patient Seen: 04/18/21 Time Patient Seen: 16:59 Chief complaint: Stroke Narrative: Mr. Murali Grant is an 85-year-old male with past medical history significant for hypertension, hyperlipidemia, history CVA, early onset Alzheimer's,, bladder cancer, bladder cancer (s/p TURB), and throat cancer (s/p right gland resection, h/o radiation tx) from local [facility] who presented to the emergency room as a code stroke. His last known well was around 12:00 p.m. staff at the facility related to the emergency room provider that he was having a panic attack, of which she frequently has, but then noted some right-sided facial droop so they called EMS. He was noted to have a temperature of 102 with EMS. No further information is available for review, unable to review additional information as patient is currently not following commands. According to prior notes during previous hospitalization for a hip fracture last year, patient was alert and oriented x2 and had mild dementia. He had reportedly been quite functional at his living facility earlier in the day. In the emergency room, patient was initially hypertensive, but the remainder of his vital signs are unremarkable. Laboratory evaluation revealed a mild leukocytosis with WBC 13.7. Chemistries revealed a creatinine of 2.25 upon a baseline of around 1. Lactate was 2.3. ALT was also mildly elevated at 77. Remainder of his chemistry panels were unremarkable. Troponin testing was negative. Procalcitonin was 0.12. Urinalysis revealed 3+ occult blood, leuk esterase, greater than 100 rbc's, 5-10 wbc's and some squamous epithelial cells. Specimen was sent for culture. COVID-[address] head was unremarkable. CT angiogram did show clinically significant left-sided carotid stenosis. Chest x-ray showed no acute cardiopulmonary process. EKG showed sinus rhythm with occasional PVC. Patient was admitted to Medicine for further management and goals of care discussion in the setting of a likely large acute CVA. Patient History Medical History Brain tumor Chronic back pain greater than 3 months duration Difficulty in urination Early onset Alzheimer's dementia Essential hypertension History of bladder cancer History of stroke Malignant neoplasm of throat Pain with urination Urgency incontinence Surgical History History of right knee joint replacement Status post surgical removal and fulguration of bladder neoplasm Status post surgical removal of neoplasm of skin Comment: Reviewed with chart, patient not able to complete. Family & Social History Family History Other No family history of cardiac disease Social History: household members none Safety & Behavioral: Feels Safe in Current Unwilling to Answer Environment Been Physically Hurt or Unwilling to Answer Threatened By a Person Tobacco & Substance use: Smoking Status Never smoker alcohol intake frequency holiday/special occasion Substance Use Type does not use Meds Home Medications and Allergies Home Medications Medication Instructions Recorded Confirmed Type finasteride [Proscar] 5 mg PO DAILY #30 tab 11/13/18 04/18/21 Rx Centrum Silver Men 1 tab PO DAILY 05/22/20 04/18/21 History tamsulosin 0.4 mg PO DAILY 05/22/20 04/18/21 History bisacodyl 10 mg [place] DAILY PRN 05/24/20 04/18/21 History levocetirizine [Allergy Relief 5 mg PO DAILY 05/24/20 04/18/21 History (levocetirizin)] acetaminophen 975 mg PO TID #90 tab 05/25/20 04/18/21 Rx docusate sodium [DOK] 100 mg PO BID #60 cap 05/25/20 04/18/21 Rx losartan 25 mg PO DAILY #30 tab 05/25/20 04/18/21 Rx polyethylene glycol 3350 17 gm PO DAILY #30 ea 05/25/20 04/18/21 Rx Lactobacillus acidophilus 2,000 mmu cells PO BID 04/18/21 04/18/21 History [Acidophilus] calcium carbonate-vitamin D3 1 cap PO BID 04/18/21 04/18/21 History lorazepam 0.25 mg PO Q6H PRN 04/18/21 04/18/21 History oxycodone 2.5 mg PO Q4HR PRN 04/18/21 04/18/21 History sulfamethoxazole-trimethoprim 1 tab PO BID 04/18/21 04/18/21 History [Bactrim DS] Allergies Allergy/AdvReac Type Severity Reaction Status Date / Time pantoprazole [From Protonix] Allergy Unknown Verified 11/11/20 14:11 Review of Systems Review of Systems ROS: Yes unobtainable due to mental status Exam Vital Signs (past 8 hours): - 04/18/21 12:36 04/18/21 12:50 04/18/21 13:00 Temperature Pulse Rate 64 64 66 Respiratory Rate 25 H 33 H 29 H Blood Pressure 218/86 H Pulse Oximetry 98 98 96 04/18/21 13:01 04/18/21 13:30 04/18/21 14:00 Temperature 100.7 F H Pulse Rate 62 59 L 65 Respiratory Rate 28 H 18 26 H Blood Pressure 189/83 H 207/93 H 224/98 H Pulse Oximetry 97 97 98 04/18/21 14:15 04/18/21 14:20 04/18/21 14:27 Temperature Pulse Rate 62 60 64 Respiratory Rate 22 25 H Blood Pressure 214/95 H 214/95 H Pulse Oximetry 98 99 04/18/21 14:30 04/18/21 14:31 04/18/21 15:19 Temperature Pulse Rate 60 61 68 Respiratory Rate 26 H 24 28 H Blood Pressure 217/88 H 205/85 H Pulse Oximetry 99 99 99 04/18/21 15:30 04/18/21 15:31 04/18/21 16:00 Temperature Pulse Rate 63 64 58 L Respiratory Rate 28 H 27 H 26 H Blood Pressure 185/84 H 215/84 H Pulse Oximetry 98 99 98 04/18/21 16:30 04/18/21 16:31 Temperature Pulse Rate 59 L 56 L Respiratory Rate 22 22 Blood Pressure 207/83 H Pulse Oximetry 99 99 Oxygen Delivery Method Room Air Narrative Exam Narrative: GENERAL APPEARANCE: Chronically ill appearing elderly male, anxious, confused, able to speak but words are profoundly incomprehensible. SKIN: Friable skin, poor turgor HEENT: Normocephalic atraumatic, extraocular muscles are intact, oropharynx is clear and mucous membranes are dry. CHEST: equal chest rise bilaterally, no apparent tenderness. LUNGS: Auscultation of the lungs revealed no wheezes, rhonchi, or rales. CARDIOVASCULAR: There was a regular rate and rhythm without any murmurs, gallops, rubs. Peripheral pulses were 2+ and symmetric. ABDOMEN: Soft with no grimacing or withdrawal to palpation, nondistended MUSCULOSKELETAL: There was no tenderness or effusions noted. EXTREMITIES: No cyanosis, clubbing or edema. NEUROLOGIC: Alert confused, unable to assess orientation due to marked aphasia. R facial droop with R hemiparesis, unable to assess sensation due to inability to communicate. Unable to follow commands. Objective ECG Impression: Sinus rhythm with premature supraventricular complexes without evidence of acute ischemia Imaging CT scan - head: Radiologist's impression: PROCEDURE: CT ANGIO HEAD AND NECK INDICATIONS: right facial droop TECHNIQUE: After the administration of intravenous contrast, 1 mm thick sections acquired from the aortic arch through the [place] of [place]. Post-contrast 4.5 mm thick sections then re-acquired from the foramen magnum to the vertex. 3-dimensional lbthomx-tmjchvbbk-dneqpsyrva (MIP) and/or volume rendering reformats were acquired of the central intracranial vasculature and neck separately. COMPARISON: None. FINDINGS: BRAIN: CSF spaces: Ventricles are grossly unremarkable. Basal cisterns are patent. No extra-axial fluid collections. Brain: No midline shift. No abnormal enhancing mass. Samson-white matter interface appears intact. Skull and face: Calvarium and facial bones appear intact, without suspicious lesions. Orbits appear normal. Sinuses: Moderate to severe right maxillary sinus disease and opacification. HEAD CT ANGIOGRAPHY: Anterior circulation: Intracranial internal carotid arteries (ICA): Patent. Anterior cerebral arteries ([place]): Patent. Middle cerebral arteries (MCA): Patent. Other: No aneurysms are seen. Posterior circulation: Visualized portions of the vertebral arteries: Patent. Basilar artery: Patent. Posterior cerebral arteries (RAILROAD ENGINEER): Patent. Other: No aneurysms are seen. NECK CT ANGIOGRAPHY: Carotid atherosclerotic findings: Mild bilateral carotid atherosclerotic plaque. Common carotid artery (CCA) origins: Patent. Common carotid arteries (CCA): Patent. Internal carotid arteries (ICA): There is high-grade probably 90% focal stenosis involving the proximal left ICA. No hemodynamically significant right ICA stenosis. Vertebral artery origins: Calcification is present at the origin of the left vertebral artery. Right vertebral artery origin widely patent Extracranial vertebral arteries: Patent. Basilar artery: Patent. Soft tissues: Visualized neck soft tissues demonstrate no suspicious abnormalities. Bones: No suspicious bony lesions. Cervical spondylosis and facet arthropathy. Minimal right frontal scalp swelling, indeterminate although correlate with direct visual inspection. 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 No hemodynamically significant right ICA stenosis No intracranial focal stenosis or occlusion CT Head without: Radiologist's impression: PROCEDURE: CT STROKE INDICATIONS: right facial droop TECHNIQUE: Noncontrast 4.5 mm thick angled axial sections acquired from the foramen magnum to the vertex, with coronal reformats. For radiation dose reduction, the following was used: automated exposure control, adjustment of mA and/or kV according to patient size. COMPARISON: None. FINDINGS: Image quality: Excellent. CSF spaces: Basal cisterns are patent. No extra-axial fluid collections. The ventricles are symmetric in size and shape. Brain: No intracranial bleeds or masses. There is cerebral volume loss for age, with resultant ventricular and sulcal prominence. There are periventricular and deep white matter chronic small vessel ischemic changes. There is intracranial internal carotid artery atherosclerosis. Skull and face: Calvarium and visualized facial bones appear intact, without suspicious lesions. Sinuses: Moderate to severe right maxillary sinus disease. IMPRESSION: No acute intracranial process. Moderate to severe right maxillary sinus disease. Findings (including all critical results, if any) and recommendations were personally telephoned and discussed with Dr. Menchaca on 04-18-21 12:38 This study fulfills neurological imaging criteria for inclusion or exclusion of acute stroke therapies based on available published neurological guidelines. Chest x-ray: Radiologist's impression: PROCEDURE: XR CHEST 1V INDICATIONS: fever TECHNIQUE: One view of the chest was acquired. COMPARISON: [facility], , XR CHEST 1V, 06/04/2020, 20:37. FINDINGS: Surgical changes and devices: None. Lungs and pleura: No pleural effusions or pneumothorax. Scattered subsegmental atelectasis and/or scarring. No focal consolidation. Mediastinum: Mediastinal contours appear normal. Chronic unchanged calcified mediastinal lymph node with stable appearance. Heart size is normal. Bones and chest wall: Scoliosis and discogenic changes. Scattered subsegmental scarring and/or atelectasis. No acute consolidation. IMPRESSION: No acute disease. Labs Result Diagrams: 04/18/21 12:35 04/18/21 12:35 Labs: Laboratory Results - last 24 hr 04/18/21 04/18/21 04/18/21 12:35 12:35 12:35 WBC 13.7 H RBC 3.79 L Hgb 12.2 L Hct 36.9 L MCV 97.5 MCH 32.1 MCHC 32.9 RDW 14.6 Plt Count 221 Neut % (Auto) 84.3 H Lymph % (Auto) 7.0 L [place] % (Auto) 7.3 Eos % (Auto) 1.0 L Baso % (Auto) 0.4 Neut # (Auto) 23341 H Lymph # (Auto) 1000 L [place] # (Auto) 1000 H Eos # (Auto) 100 Baso # (Auto) 100 Sodium 143 Potassium 3.9 Chloride 109 H Carbon Dioxide 22 BUN 28 H Creatinine 2.25 H Estimated GFR 27.9 L BUN/Creatinine Ratio 12.4 Glucose 119 H Lactate 2.3 H Calcium 9.5 Total Bilirubin 0.5 AST 48 ALT 77 H Alkaline Phosphatase 88 Total Creatine Kinase 24 L CK-MB (CK-2) TNP CK-MB (CK-2) Rel Index TNP Troponin I < 0.012 Total Protein 7.6 Albumin 3.8 Globulin 3.8 Albumin/Globulin Ratio 1.0 Lipase 37 Procalcitonin 0.12 Urine Color Urine Appearance Urine pH Ur Specific [place] Urine Protein Urine Glucose (UA) Urine Ketones Urine Occult Blood Urine Nitrate Urine Bilirubin Urine Urobilinogen Ur Leukocyte Esterase Urine RBC Urine WBC Ur Squamous Epith Cells Amorphous Sediment Urine Bacteria Urine Mucus Ur Culture Indicated? SARS-CoV-2 (PCR) 04/18/21 04/18/21 04/18/21 12:58 12:58 13:55 WBC RBC Hgb Hct MCV MCH MCHC RDW Plt Count Neut % (Auto) Lymph % (Auto) [place] % (Auto) Eos % (Auto) Baso % (Auto) Neut # (Auto) Lymph # (Auto) [place] # (Auto) Eos # (Auto) Baso # (Auto) Sodium Potassium Chloride Carbon Dioxide BUN Creatinine Estimated GFR BUN/Creatinine Ratio Glucose Lactate Calcium Total Bilirubin AST ALT Alkaline Phosphatase Total Creatine Kinase CK-MB (CK-2) CK-MB (CK-2) Rel Index Troponin I Total Protein Albumin Globulin Albumin/Globulin Ratio Lipase Procalcitonin Urine Color Yellow Urine Appearance Cloudy Urine pH 5.5 Ur Specific [place] 1.025 Urine Protein 1+ H Urine Glucose (UA) Negative Urine Ketones Negative Urine Occult Blood 3+ H Urine Nitrate Negative Urine Bilirubin Negative Urine Urobilinogen 0.2 Ur Leukocyte Esterase 1+ H Urine RBC >100/hpf H Urine WBC 5-10/hpf H Ur Squamous Epith Cells 1-5 /hpf Amorphous Sediment 2+ Urine Bacteria Occasional (0-1) D Urine Mucus 2+ H Ur Culture Indicated? Specimen cultured SARS-CoV-2 (PCR) Negative Negative 04/18/21 15:09 WBC RBC Hgb Hct MCV MCH MCHC RDW Plt Count Neut % (Auto) Lymph % (Auto) [place] % (Auto) Eos % (Auto) Baso % (Auto) Neut # (Auto) Lymph # (Auto) [place] # (Auto) Eos # (Auto) Baso # (Auto) Sodium Potassium Chloride Carbon Dioxide BUN Creatinine Estimated GFR BUN/Creatinine Ratio Glucose Lactate 2.4 H Calcium Total Bilirubin AST ALT Alkaline Phosphatase Total Creatine Kinase CK-MB (CK-2) CK-MB (CK-2) Rel Index Troponin I Total Protein Albumin Globulin Albumin/Globulin Ratio Lipase Procalcitonin Urine Color Urine Appearance Urine pH Ur Specific [place] Urine Protein Urine Glucose (UA) Urine Ketones Urine Occult Blood Urine Nitrate Urine Bilirubin Urine Urobilinogen Ur Leukocyte Esterase Urine RBC Urine WBC Ur Squamous Epith Cells Amorphous Sediment Urine Bacteria Urine Mucus Ur Culture Indicated? SARS-CoV-2 (PCR) Assessment & Plan Assessment & Plan narrative: Mr. Murali Grant is an 85-year-old male with past medical history significant for hypertension, hyperlipidemia, history CVA, early onset Alzheimer's,, bladder cancer, bladder cancer (s/p TURB), and throat cancer (s/p right gland resection, h/o radiation tx) from local facility [facility] who presented to the emergency room as a code stroke. admitted with probable acute CVA, additionally with fever likely UTI. 1. Acute CVA, present on admission - NIHSS 22 on my assessment on admission, however difficult to fully assess given his prior alzheimers, anxiety and apparent panic attack currently as well as the severity of his apparent stroke. - will need goals of care discussion with DPOA, suspect he may not be able to swallow reliably. Will need to treat anxiety and give time to repeat assessment to see if he is able to swallow on command. - CT head without bleeding, no clot on CT angio head and neck but does have L carotid stenosis. - will order MR brain for confirmation of diagnosis, if he is able to stay still reliably that long remains to be seen. - consider repeat CT imaging at a later date to confirm area of infarct if unable to perform MRI depending on goals of care. - suspect transition to hospice if his current function does not improve. However will need to confirm with DPOA when able to be reached. - unable to give oral medications, allow permissive HTN now. Labetalol ordered for SBP >180. Consider rectal asa if consistent with goals of care. Start oral medication if able to swallow reliably. - PT / OT / Speech ordered but patient not reliably following commands currently. - Telemetry and TTE appear unlikely to global climate change analyst strategies at this time. EKG shows NSR and given carotid disease in ipsilateral side of probable infarct afib appears less likely. 2. Acute cystitis with hematuria, present on admission - given levaquin in the ER. has a history of E. coli with intermediate resistance to ceftriaxone noted on prior culture. will continue - UA with primarily hematuria, RBC >100 5-10 WBC and 1-5 squamous cells. Follow up culture. - per ER provider, DPOA agreeable to antibiotics and fluids, POLST states comfort measures only. - consider Possible aspiration given history as well but negative CXR on admission. No neck stiffness on exam to suggest menigitis or encephalitis. Consider LP however this may not be consistent with goals of care and procedurally would be very difficult given current mentation. - will continue levaquin as noted above 3. Essential hypertension, chronic, stable -patient with elevated blood pressure on admission. Will allow for permissive HTN in setting of likely acute CVA. 4. Anxiety, acute on chronic, present on admission - continue ativan 0.25 mg IV prn for anxiety. This is what he takes PO at assisted living. 5. Hyperlipidemia, chronic. - consider home statin if he is able to swallow. 6. Alzheimer's dementia, chronic 7. Possible metabolic Encephalopathy, acute, - suspect worsened mentation is due to CVA, however may be slightly decreased due to acute cystitis or other infectious etiology as discussed above. 8. SKYLER - check renal ultrasound to r/o obstruction, santoro placed on ER arrival. Continue fluids, d5 1/2 NS @ 75 cc per hour. Continue to follow Cr. Code: DNR per POLST form, DPOA is Taurus Trevino according to POLST. Attempted to contact DPOA however did not answer telephone. Dispo: admitted as inpatient. Depending on neurological progression or improvement, suspect highly likely to discharge home to [facility] on hospice. DVT: Lovenox daily Scores NIHSS Level of Conciousness: Alert, keenly responsive Ask month/age: Answers neither question correctly, aphasic, stuporous, coma Open/close eyes, close hand: Performs neither task correctly Best gaze horizontal: Normal Visual garcia: No visual loss Facial palsy: Complete paralysis, absence of movement in the upper and lower face Left arm drift: Drifts down, not to bed Right arm drift: No movement Left leg drift: Some effort against gravity, cannot maintain, drifts down to bed Right leg drift: No movement Limb ataxia: Absent (unable to assess) Sensory on face/arms/legs: Normal, no sensory loss (unable to assess) Best language: Severe aphasia, not much is understood, fragmented Dysarthria: Severe, unintelligible Extinction or inattention: No abnormality (unable to assess) Total NIH Stroke scale score: 22 Quality MIPS - Admit I confirm the patient?s Advance Care Plan is present, Code status is documented, Surrogate decision maker is in patient?s record [If Yes, STOP here]: Yes
--- NOTE | 2021-04-18 17:01 | DI.US.S_ITS ---
PROCEDURE: US RENAL COMPLETE INDICATIONS: SKYLER, r/o obstruction TECHNIQUE: Real-time scanning was performed of the kidneys and bladder, with image documentation. COMPARISON: None. FINDINGS: Kidneys: Kidneys are normal in size. Right kidney measures 9.3 cm long; left kidney measures 10.2 cm long. Right renal cortical thickness is 1.5 cm; left renal cortical thickness is 1.9 cm. Renal cortical echotexture is normal. No hydronephrosis or nephrolithiasis. No suspicious solid mass lesions. Bladder: Bladder is decompressed. No ureteral jets are noted with color Doppler interrogation. (Of note, ureteral jets may not be detectable in up to 25% of cases due to insufficient differences in specific gravity between ureteral and bladder urine). Miscellaneous: No free pelvic fluid. IMPRESSION: Normal size kidneys with no evidence of hydronephrosis. Dictated by: Cy Pelayo M.D. on 04/18/2021 at 19:09 Approved by: Cy Pelayo M.D. on 04/18/2021 at 19:10
[2021-04-18] MEDS: DEXTROSE 5%-0.45% NS 1,000 ML 75 ML IV (17:47)
--- NOTE | 2021-04-18 18:02 | DI.MRI.S_ITS ---
PROCEDURE: MR HEAD/BRAIN WO CON INDICATIONS: CVA TECHNIQUE: Non-contrast axial T1 spin echo, axial T2 fast spin echo, sagittal and axial FLAIR, coronal T2 fast spin echo, axial gradient echo, axial diffusion and ADC through the brain. COMPARISON: [facility], MR, MR STROKE PROTOCOL, 09/05/2018, 21:09. [facility], CT, CT ANGIO HEAD AND NECK, 04/18/2021, 12:23. [facility], CT, CT STROKE, 04/18/2021, 12:23. FINDINGS: Image quality: Excellent. CSF spaces: Ventricles appear symmetric in size and shape. Basal cisterns are patent. No extra-axial fluid collections. Brain: Extensive foci of abnormal signal can be seen on diffusion-weighted imaging throughout the left MCA distribution. There is associated dark signal on the ADC maps. There is developing T2 weighted signal seen within these regions. There is a remote infarction seen involving the posterior inferior right cerebellum. Several remote lacunar infarcts can be seen involving the basal ganglia, including the left thalamus. Note is made of age-appropriate brain parenchymal volume loss and chronic small vessel ischemic changes. No intracranial bleeds or mass effects. There is cerebral volume loss for age. There are periventricular and deep white matter chronic small vessel ischemic changes. Brainstem appears normal. Normal intravascular flow voids are present. Skull and face: Calvarial bone marrow is normal in signal. Orbits are normal. Sinuses: Sinuses and mastoids are otherwise relatively clear. IMPRESSION: Extensive foci of subacute infarction are seen involving the left MCA distribution. Remote right cerebellar infarction seen, which has taken place since 2018. Focal right maxillary sinus disease incidentally noted. Dictated by: Kun Rodriguez M.D. on 04/20/2021 at 12:19 Approved by: Kun Rodriguez M.D. on 04/20/2021 at 12:24
--- NOTE | 2021-04-18 18:13 | PC.NURSE ---
Addendum entered by Soumya Umanzor R.N. 04/18/21 21:22: Per E.R. report, NIH not done d/t pt's inability to follow directions. Addendum entered by Soumya Umanzor R.N. 04/18/21 21:17: Pt anxious whenever staff approach with verbal reassurance and explanation to provide care. Medicated with ativan as per MD order and pt's home med. Kept NPO. Able to manage own secretions and airway. Head of bed elevated. Addendum entered by Soumya Umanzor R.N. 04/18/21 19:22: Moves left arm and hand ad jane. Asks pt if cold and pt nods in the affirmative. Asked pt if in pain and pt delays, but states, I don't know. Supported right arm and right leg on pillows. Warm blanket placed. Addendum entered by Soumya Umanzor R.N. 04/18/21 18:52: Discussion with Dr. Barkley re 250 mg dose of levaquin ordered for this evening. Pt had dose in E.R. Per Dr. Barkley, do not give additional 250 mg this evening. This dose to begin tomorrow. Addendum entered by Soumya Umanzor R.N. 04/18/21 18:45: Pt's POA phones this procedure writer and was transferred in to Dr. Barkley as MD states has attempted to reach this individual. Original Note: Pt to room 208 from E.R. nonverbal, but whimpering. Right side neglect with facial droop. Multiple staff members assist pt to transfer with slider board. Pt ceases whimpering when warm blankets are placed on pt and pt is left alone. Head of bed elevated for pt safety. [place] to gravity. View room for close observation. Dr. Barkley in to see patient.
[2021-04-18] MEDS: LORazepam 2 MG/ML INJ 0.25 MG IV (20:28)
[2021-04-18] MEDS: SODIUM CHLORIDE 0.9% FLUSH 10 ML IV (20:37)
[2021-04-19] VITALS (13 sets, daily range): BP systolic 136–163; BP diastolic 62–92; PULSE 59–72; RESP 16–20; TEMP 36.4–37.6; O2SAT 95–98
--- NOTE | 2021-04-19 01:47 | PC.NURSE ---
Unable to assess NIH scale, except for can say his name, and say no for any pain. Unable to move right extremites, no full stack java developer, has right facial droop. Speech is delayed and slow.
[2021-04-19 05:59] LABS: Add Manual Diff / Slide Review NO; Basophils Absolute Auto 100 /uL (0-100); Basophils Percent Auto 1.1 % (0-2); Eosinophils Absolute Auto 200 /uL (0-450); Eosinophils Percent Auto 1.7 % (2-4); Hematocrit 32.8 % (41-53); Hemoglobin 11.1 g/dL (13.5-17.5); Lymphocytes Absolute Auto 800 /uL (1100-4500); Lymphocytes Percent Auto 8.6 % (25-40); Mean Corpuscular HGB Conc 33.8 % (30-36); Mean Corpuscular Hemoglobin 32.8 PG (26-34); Monocytes Absolute Auto 800 /uL (0-900); Monocytes Percent Auto 8.9 % (3-14); Neutrophils Absolute Auto 7600 /uL (1500-7000); Neutrophils Percent Auto 79.7 % (50-75); Platelet Count 178 X10^3/uL (150-400); Red Blood Cell Count 3.38 X10^6/uL (4.5-5.9); Red Cell Distribution Width 14.2 % (11.6-14.8); White Blood Cell Count 9.5 X10^3/uL (4.5-11.0)
[2021-04-19 06:10] LABS: Alanine Aminotransferase 50 IU/L (<50); Albumin 3.1 g/dL (3.5-5.0); Alkaline Phosphatase 64 U/L (38-126); Aspartate Aminotransferase 25 IU/L (17-59); BUN Creatinine Ratio 13.9 (6-22); Bilirubin Total 0.2 mg/dL (0.2-1.3); Bilirubin Unconjugated 0.3 mg/dL (0.0-1.1); Blood Urea Nitrogen 21 mg/dL (9-20); Calcium 8.1 mg/dL (8.4-10.2); Carbon Dioxide 21 mmol/L (22-32); Chloride 112 mmol/L (98-107); Estimated Glomerular Filt Rate 44.1 mL/min (>60); Globulin 3.2 g/dL (1.7-4.1); Glucose 126 mg/dL (80-110); HEMOLYSIS < 15 (0-50); Magnesium 1.6 mg/dL (1.6-2.3); Potassium 3.3 mmol/L (3.4-5.1); Sodium 140 mmol/L (137-145); Total Protein 6.3 g/dL (6.3-8.2)
[2021-04-19 06:26] LABS: Procalcitonin 0.09 ng/mL (<0.5)
[2021-04-19] MEDS: DEXTROSE 5%-0.45% NS 1,000 ML 75 ML IV ×2 (07:09→20:36)
[2021-04-19] MEDS: LORazepam 2 MG/ML INJ 0.25 MG IV ×2 (08:21→17:30)
[2021-04-19] MEDS: ENOXAPARIN 30 MG/0.3 ML SYRINGE SUBCUT (08:26)
[2021-04-19] MEDS: SODIUM CHLORIDE 0.9% FLUSH 10 ML IV ×2 (09:00→17:32)
--- NOTE | 2021-04-19 11:49 | OT.IP.EVAL ---
Current Diagnoses Cerebral infarction, unspecified (04/18/21) Past Medical History (Last Reviewed 04/18/21 @ 17:34 by Kole Barkley DO) Brain tumor Chronic back pain greater than 3 months duration Difficulty in urination Early onset Alzheimer's dementia Essential hypertension History of bladder cancer History of stroke Malignant neoplasm of throat Pain with urination Urgency incontinence Surgical History (Last Reviewed 04/18/21 @ 17:34 by Kole Barkley DO) History of right knee joint replacement Status post surgical removal and fulguration of bladder neoplasm Status post surgical removal of neoplasm of skin Occupational Therapy Inpatient Evaluation/Re-Eval M1 PT/OT-IP Prior Functional Status Start: 04/19/21 12:02 Freq: NEEDED Status: Active Protocol: Document 04/19/21 12:03 CGR (Rec: 04/19/21 12:35 CGR [id number]) Medical Review Prior Functional Status Medical History Reviewed Yes Communication Pt was a an effective verbal communicator prior to admit with memory deficits. Mobility and Gait Pt was IND for mobility prior to admit per [facility] staff. Activities of Daily Living and IADL's Pt was SBA to IND in ADLs per [facility] staff. Social History Household Members none Living Arrangements Skilled Nurse Facility Employment Status Retired M2 OT-IP Current Condition Start: 04/19/21 12:02 Freq: Status: Active Protocol: Document 04/19/21 12:03 CGR (Rec: 04/19/21 12:35 CGR [id number]) Occupational Therapy Current Condition Current Condition Evaluation Date 04/19/21 Treatment Diagnosis CVA with R sided flacidity Diagnosis Onset Date 04/18/21 M3 OT- IP Subjective and Pain Start: 04/19/21 12:02 Freq: Status: Active Protocol: Document 04/19/21 12:03 CGR (Rec: 04/19/21 12:35 CGR [id number]) OT- Subjective Occupational Therapy Visit Type Type Initial Evaluation Visit Start Time 11:26 Visit Stop Time 11:49 Total Visit Minutes 23 OT Pain Assessment Pain When Pain Assessed At Rest Pain Present Pain Present Denied Pain M4 OT- IP ADL's Start: 04/19/21 12:02 Freq: Status: Active Protocol: Document 04/19/21 12:03 CGR (Rec: 04/19/21 12:35 CGR [id number]) OT [id number] Comments OT Self-Feeding Comments Not performed OT ADL-Grooming General Evaluation Grooming Ability Maximum Assistance Areas Needing Assistance Face Washing Comments OT Grooming Comments Pt was able to bring wash cloth to face but not for functional cleaning. OT ADL-Oral Care General Eval Oral Care Ability Total Assistance OT ADL-Dressing General Eval Upper Body Dressing Ability Total Assistance Lower Body Dressing Ability Total Assistance OT ADL-Toileting General Evaluation Toileting Ability Total Assistance Comments OT Toileting Comments Pt with santoro OT ADL-Bathing Comments OT Bathing Comments Not performed M5 OT- IP IADL's Start: 04/19/21 12:02 Freq: Status: Active Protocol: Document 04/19/21 12:03 CGR (Rec: 04/19/21 12:35 CGR [id number]) OT-Instrumental Activities of Daily Living Deficits IADL Deficits Identified Deficits Home Safety Awareness Awareness of Need for Assistance at Home Decreased Awareness Ability to Problem Solve Emergency Unable to Problem Solve Situations Medication Management Medication Management Caregiver Administers Money Management Money Management Caregiver Provides Assistance Meal Preparation Meal Preparation Caregiver Provides Assist Data Integrity Consultant Data Integrity Consultant Caregiver Provides Assist Driving Driving Comments pt does not drive at baseline M6 OT- IP Functional Cognition Start: 04/19/21 12:02 Freq: Status: Active Protocol: Document 04/19/21 12:03 CGR (Rec: 04/19/21 12:35 CGR [id number]) Cognitive Factors Limiting Selfcare Function Cognitive Ability Level of Alertness Alert Attention Span Ability Capable of Focused Attention, Capable of Sustained Attention Ability to Follow Commands Able to Follow One Step Commands with Increased Time, Able to Follow One Step Commands with Repetition Cognitive Comments Cognitive Assessment Comments Pt's ability to communicate limits ability at this time to assess cognition. OT- Vision and Hearing OT- Hearing Assessment OT- Hearing Assessment WFL OT- Vision Assessment Visual Spacial Neglect Right Vision Assessment Comments Pt unable to follow commands to perform formal visual testing but displays signs of R neglect M7 OT- IP Mobility and Balance Start: 04/19/21 12:02 Freq: Status: Active Protocol: Document 04/19/21 12:03 CGR (Rec: 04/19/21 12:35 CGR [id number]) OT- Bed Mobility Assessment Supine to Sit Supine to Sit Assist Total Assistance Scooting Scooting to Edge of Bed Total Assistance OT-Transfer Assessment Sit to and From Stand Sit to and from Stand Total Assistance,2 Person Assistance Transfers Transfer Ability Total Assistance,2 Person Assistance Technique Transfer Destination Bed,Chair Transfer Technique Squat Pivot Devices Transfer Assistive Devices Gait Belt Comments Mobility Comments Squat pivot to the L OT- Gait Assessment Comments Gait Ability Comments Not performed OT- Balance Assessment Sitting Balance and Reactions Static Sitting Balance Ability Poor Dynamic Sitting Balance Ability Poor Comments Other Balance Tests/Deviations/Treatment Pt is unable to maintain : sitting balance without min to mod assist sitting EOB. M8 OT- IP Objective Assessments Start: 04/19/21 12:02 Freq: Status: Active Protocol: Document 04/19/21 12:03 CGR (Rec: 04/19/21 12:35 CGR [id number]) OT Gross Range of Motion Upper Extremity Range of Motion Assessment Within Functional Limits OT Strength Upper Extremity Strength Assessment Right Impaired Comments Strength Comments LUE 3+/5, RUE 0/5 OT- Coordination Assessment Upper Extremity Finger to Nose Test Bilateral UE Impaired Finger Tapping Test Bilateral UE Impaired Comments Coordination Comments Pt is flaccid to the R and unable to accurately follow commands to the left. OT-Muscle Tone Assessment Muscle Tone WNL No Comments Muscle Tone Comments RUE flaccid OT Sensation Assessment Edema Edema Absent M9 OT- IP Assessment and Plan Start: 04/19/21 12:02 Freq: Status: Active Protocol: Document 04/19/21 12:03 CGR (Rec: 04/19/21 12:35 CGR [id number]) OT Summary Assessment and Plan Potential Rehabilitation Potential Fair Analytic Complexity at Evaluation High Summary OT Impairments Range of Motion,Strength, Balance,Coordination,Tone, Functional Cognition, Functional Mobility,Self- Feeding,Grooming,Dressing, Toileting,Bathing,Toilet Transfers,Shower Transfers, Activity Tolerance Progress Towards Goals Slow Progress due to Medical Issues Assessment Summary Pt presents as a high complexity evaluation s/p admit for stroke like symptoms . Pt is currently presenting with R side UE flaccidity, R neglect, poor balance, poor transfer ability, poor communication, and coordination. Pt will benefit from OT services to address deficits. Recommend SNF for d/ c plans. Goals Self-Feeding Goal Standby Assistance Grooming Goal Standby Assistance Dressing Goal Standby Assistance Toileting Goal Standby Assistance Bathing Goal Standby Assistance Toilet Transfer Goal Standby Assistance Shower Transfer Goal Standby Assistance Days to Meet Goals 30 Frequency of Treatment Frequency Of Treatment Once a Day Treatment Plan OT Treatment Plan ADL Training,Functional Cognition Training,Functional Mobility,Neuromuscular Re- education,Therapeutic Exercises,Vision Retraining, Patient/Family Education, Discharge Planning Other Treatment Recommendations and Next Sitting balance, weight Treatment Focus through R arm. Discharge Recommendations OT Discharge Recommendations SNF Rehab Transportation Needs at Discharge Wheelchair/Cabulance
--- NOTE | 2021-04-19 12:02 | PC.NURSE ---
Patient tearful this morning during assessment, unable to articulate needs, respirations becoming shallow, tachypnea. Comforted patient with reassuring words and reorienting to situation and location. Patient given PRN Ativan, 0.25mg. Patient rested with eyes closed, breathing unlabored. ST in to evaluate patient, patient became tearful. PT in to evaluate patient, patient up to chair, tearful. Patient resting with eyes closed at this time, OT in to evaluate patient, this RN requests they delay to allow patient to rest. OT receptive to plan. Patient currently resting with eyes closed, breathing unlabored, IV infusing at 75cc/hr. Legs elevated, call light in reach.
--- NOTE | 2021-04-19 12:16 | ST.IPIE ---
Visit Care Team Role Provider Type AVA Loya Primary Care Provider Non-Staff Specialty: Nursing Address: [address] [place] [address], [id number] Email: Dayanna Menchaca DO Emergency Provider Physician Referring Provider Specialty: Emergency Medicine Address: [address] [place] [address], [facility] Email: [email or web address] Kole Barkley DO Admit Provider Physician Attending Provider Specialty: Internal Medicine Address: [address] [place] [address] Email: [email or web address] Diagnoses Cerebral infarction, unspecified (04/18/21) Past Medical History (Last Reviewed 04/18/21 @ 17:34 by Kole Barkley DO) Brain tumor (Medical) Chronic back pain greater than 3 months duration (Medical) Difficulty in urination (Medical) Early onset Alzheimer's dementia (Medical) Essential hypertension (Medical) History of bladder cancer (Medical) History of stroke (Medical) Malignant neoplasm of throat (Medical) undergoing radiation therapy Pain with urination (Medical) Urgency incontinence (Medical) ST IP Initial Evaluation Report PITCH FILLER Clinical Swallow Evaluation Start: 04/19/21 11:30 Freq: Status: Active Protocol: Document 04/19/21 11:31 MG (Rec: 04/19/21 12:16 MG [id number]) Clinical Swallow Evaluation Session Time Visit Start Time 10:30 Visit Stop Time 11:10 Total Visit Minutes 40 Visit Information Visit Number 1 Setting Assessment Location Acute Care Visit Type Note Type Initial evaluation Next Note Type Next Note Type Treatment Note Patient Information Identification Type Name,Wristband History Pt is an 85-year-old male with past medical history significant for hypertension, hyperlipidemia, history CVA, early onset Alzheimer's, bladder cancer (s /p TURB), and throat cancer (s /p right gland resection, h/o radiation tx) from local [facility] who presented to the emergency room as a code stroke. His last known well was around 12:00 p.m. staff at the facility related to the emergency room provider that he was having a panic attack, of which she frequently has, but then noted some right-sided facial droop so they called EMS. He was noted to have a temperature of 102 with EMS. No further information is available for review, unable to review additional information as patient is currently not following commands. According to prior notes during previous hospitalization for a hip fracture last year, patient was alert and oriented x2 and had mild dementia. He had reportedly been quite functional at his living facility earlier in the day. CT head was unremarkable. CT angiogram did show clinically significant left-sided carotid stenosis. Chest x-ray showed no acute cardiopulmonary process. EKG showed sinus rhythm with occasional PVC. Patient was admitted to Medicine for further management and goals of care discussion in the setting of a likely large acute CVA. Subjective Observations Pt was seen reclined in bed asleep. Pt was aroused and PITCH FILLER with nurse assist repositioned the pt in bed to perform a speech and swallow assessment. Of note, pt was very tearful throughout evaluation process. Pt babbled unfamiliar words and sounds throughout the session and appeared very anxious. Pt could indicate a yes ( verbalizing yeah) or no ( moving head away) when prompted with a verbal question and given ample wait time for response. Per chart review, pt is on a regular/ thin diet at his facility. Past PITCH FILLER notes on his last admittance, he was on a thin/ dysphagia mechanical diet. Reported by Patient Current Diet Nothing by mouth Baseline Feeding Method Dependent for feeding Patient Questionnaire No Objective Assessment Mental Status Confused,Uncooperative Oral Integrity Sores/Lesions,Xerostomia/Dry mouth Dentition Decay Lip Function Moderate impairment Observation of Lips at Rest Right sided weakness/Drooping Pucker Reduced range of motion, Reduced strength Lip Retraction Reduced range of motion Tongue Function Moderate impairment Observations of Tongue at Rest Involuntary movement(s) Jaw Function Moderate impairment Jaw Opening Reduced range of motion, Reduced strength Jaw Closing Reduced range of motion, Reduced strength Hard/Soft Palate Function Within normal limits Phonation Breathy,Strained/Strangled Comment All information presented above was the result of informal observation during evaluation. Pt cannot follow commands and could not participate in a formal OME at this time. Pt's right side of his mouth is constantly open and he appeared to have some facial asymmetry. Food and Liquid Trials Position During Assessment Upright (90 degrees) Liquids Trialed Ice chips,Thin,Maunie Solids Trialed Puree Oral Impairment Moderately impaired Oral Phase Comments Pt had dry lips/mouth most likely due to right sided opening and NPO status until this evaluation. Pt required dependent feeding at this time . When asked to grab cup or spoon, he did not move. No oral spillage noted on any liquid/solid trials. Pt appeared to masticate solids and hold in mouth for an extended period of time prior to initiating a swallow reflex . Pharyngeal Impairment Moderately impaired Pharyngeal Phase Comments Laryngeal palpation was done on liquid trials. Reduced hyolaryngeal elevation and reduced anterior excursion of the hyoid bone were noted. On all trials of thin liquid (ice chips, teaspoon), pt's swallow was audible and pt presented with a wet/gurgly voice post swallow. On trials of nectar thick liquid ( teaspoon, small cup sip with PITCH FILLER assisting), swallow was less audible and no overt s/sx of aspiration noted. No wet/ gurgly voice heard. On trials of puree solids (teaspoon given by PITCH FILLER), no overt s/sx of aspiration noted. Pt appeared to become very fatigued so further trials were not administered due to pt safety at that time. Fatigue/Endurance Moderate fatigue Comment Pt fatigued quickly during evaluation. Response/Comments Strategies were trialed, however pt did not follow verbal or visual commands. Pt could not implement strategies . Pt did use multiple swallows on solid trials without cueing. Findings Swallowing Function Oropharyngeal phase dysphagia Severity of Swallow Impairment Moderately impaired Contributing Factors to Swallow Reduced alertness or attention Impairment ,Difficulty following directions,Reduced oral strength/coordination/ sensation,Impaired oral- pharyngeal transport,Delayed swallow initiation Prognosis Guarded Based on Cognitive status,Family support,Comorbidities Comment Pt's expressive language is impaired. Pt did answer yes/no questions with PITCH FILLER and appeared to be accurate most times. PITCH FILLER did leave communication board in room and demonstrated using it to the pt. Pt could point to yes/ no with moderate assistance. Continued treatment in this area would be warranted. Impact on Safety and Functioning Risk for aspiration,Risk for inadequate nutrition/hydration Recommendations Instrumental Assessment No Swallowing Treatment Yes Recommended Solids Puree Recommended Liquids Maunie Other Recommendations 1:1 assist on all food/liquid consumption Safety Precautions/Swallowing Supervision needed for all Recommendations meals,To be fed only by trained staff/family,Feed only when alert,Reduce distractions,Remain upright ( 90 degrees) during all oral intake,Upright position at least 30 minutes after meals, Small bites and sips when eating,Slow rate; swallow between bites,No straw,Strict oral care after intake,Check for pocketing Medication Recommendations As Tolerated Discharge Recommendations long-term facility Education Patient/Caregiver Education Described results of evaluation Goals Short-term Goals Pt will tolerate least restrictive diet with minimal assist with eating/drinking. Long-term Goals Pt will tolerate least restrictive diet with no assist with eating/drinking. Pt will tolerate least restrictive diet without demonstrating overt s/sx of aspiration.
--- NOTE | 2021-04-19 13:01 | PT-IP ANOTE ---
checked with pt and nurse requested to hold off on PT since pt just finished with LOAN APPROVER and OT and needed to rest at this time. will f/u in the afternoon.
--- NOTE | 2021-04-19 13:40 | PT.IIE ---
Current Diagnoses Cerebral infarction, unspecified (04/18/21) Surgical History (Last Reviewed 04/18/21 @ 17:34 by Kole Barkley DO) History of right knee joint replacement Status post surgical removal and fulguration of bladder neoplasm Status post surgical removal of neoplasm of skin Medical History (Last Reviewed 04/18/21 @ 17:34 by Kole Barkley DO) Brain tumor Chronic back pain greater than 3 months duration Difficulty in urination Early onset Alzheimer's dementia Essential hypertension History of bladder cancer History of stroke Malignant neoplasm of throat Pain with urination Urgency incontinence Physical Therapy Inpatient Evaluation/Re-Eval M1 PT/OT-IP Prior Functional Status Start: 04/19/21 12:02 Freq: NEEDED Status: Active Protocol: Document 04/19/21 13:40 AB (Rec: 04/19/21 16:05 AB [id number]) Medical Review Prior Functional Status Medical History Reviewed Yes Communication pt is non verbal and has difficulty following directions Mobility and Gait pt unable to verbalize needs and unable to give PLOF info. Per [facility], pt is modified independent with bed mobility, transfers and ambulation using FWW. Activities of Daily Living and IADL's per [facility], pt is able to get dressed by himself, toilet but staff assists pt with shower needs. Social History Household Members none Living Arrangements Assisted Living Number of Stairs To Enter/Railing? pt lives at [facility] Home Environment Standard Height Toilet,Walk in Shower Home Equipment Front Wheel Walker,Shower Seat with Backrest,Hand Held Shower,Hospital Bed M2 PT-IP Current Condition Start: 04/19/21 15:49 Freq: NEEDED Status: Active Protocol: Document 04/19/21 13:40 AB (Rec: 04/19/21 16:05 AB [id number]) Physical Therapy Current Condition Current Condition Evaluation Date 04/19/21 Treatment Diagnosis CVA R sided weakness; difficulty in walking Onset Date 04/18/21 Precautions Other Precautions falls M3 PT-IP Subjective Start: 04/19/21 15:49 Freq: NEEDED Status: Active Protocol: Document 04/19/21 13:40 AB (Rec: 04/19/21 16:05 AB [id number]) Subjective Physical Therapy Visit Type Type Initial Evaluation Visit Start Time 13:40 Visit Stop Time 14:00 Total Visit Minutes 20 Number of TIRE CORD WEAVER Visits 0 M4 PT-IP Mobility and Gait Start: 04/19/21 15:49 Freq: NEEDED Status: Active Protocol: Document 04/19/21 13:40 AB (Rec: 04/19/21 16:05 AB [id number]) PT-Bed Mobility Assessment Sit to Supine Sit to Supine Total Assistance,2 Person Assistance PT-Transfer Assessment Sit to and From Stand Sit to and from Stand Total Assistance Equipment Transfer Assistive Device Gait Belt Orthotic/Prosthetic Devices or Brace: No Transfers Transfer Destination Bed Transfer Technique Squat Pivot Transfer Ability Level of Assist Total Assistance,2 Person Assistance,Use of Upper Extremities Comments Mobility Comments pt sitting on chair. pt is non verbal and occasionally can utter sounds but not words . unable to even nod or shake head for yes or no answers and has difficulty following directions. donned safety belt and instructed pt to lean forward requiring max A and max cues and pt with poor trunk control and with loss of trunk balance forward requiring max A to stabilize. attempted sit to stand from chair but unable despite max A x 2 provided. pt assisted back to bed and required total A x 2 for squat pivot transfers. total A x 2 for sit to supine. positioned pt in bed. attempted R UE/LE exercies. noted increase extensor tone on RLE and flexor tone on RUE. positioned pt in bed. Left pt with NAC in room and took over pt's care. Gait Assessment Comments Gait Comments unable at this time PT-Balance Assessment Sitting Balance and Reactions Static Sitting Balance Ability Poor Dynamic Sitting Balance Ability Poor Standing Balance and Reactions Static Standing Balance Ability Poor Dynamic Standing Balance Ability Poor M5 PT-IP Objective Assessments Start: 04/19/21 15:49 Freq: NEEDED Status: Active Protocol: Document 04/19/21 13:40 AB (Rec: 04/19/21 16:05 AB [id number]) Orientation Orientation/Cognition Level of Alertness Confusional State Language Function Ability Expressive Aphasia,Receptive Aphasia Safety Awareness Decreased Safety Awareness Gross Range of Motion Lower Extremity ROM Assessment Within Functional Limits Impairments increase RLE extensor tone Strength Comments Strength Comments pt unable to follow direction to assess MMT M6 PT-IP Treatment Start: 04/19/21 15:49 Freq: NEEDED Status: Active Protocol: Document 04/19/21 13:40 AB (Rec: 04/19/21 16:05 AB [id number]) Physical Therapy Treatment Education Education Provided Safety M7 PT-IP Assessment and Plan Start: 04/19/21 15:49 Freq: NEEDED Status: Active Protocol: Document 04/19/21 13:40 AB (Rec: 04/19/21 16:05 AB [id number]) PT Summary Assessment and Plan Potential Rehabilitation Potential Fair Status of Condition at Evaluation Evolving Summary Impairments Pain,ROM,Strength,Balance, Coordination,Sensation,Tone, Cognition,Bed Mobility, Transfers,Gait,Activity Tolerance Assessment Summary pt requiring total A x 2 and max cues with all tasks. pt has a diagnosis of Alzheimer's dementia and not had a CVA. pt will need SNF rehab to improve strength and mobility. Goals Bed Mobility Goal Moderate Assistance Transfer Goal Moderate Assistance,Front Wheeled Walker Gait Goal Moderate Assistance,Front Wheel Walker Gait Distance 20 Days to Meet Goals 10 Frequency of Treatment Frequency Of Treatment Twice a Day Treatment Plan Physical Therapy Treatment Plan Bed Mobility Training,Transfer Training,Gait Training, Therapeutic Exercise,Balance Retraining,Discharge Planning, Neuromuscular Re-ed, Coordination Retraining,Manual Therapy Other Recommendations and Next Treatment sitting bal/kianna, transfers Focus Precautions Other Precautions falls Recommendations To Nursing Amount of Assist Needed Mechanical Lift Discharge Recommendations PT Discharge Recommendations SNF Rehab Transportation Needs at Discharge Wheelchair/Cabulance
--- NOTE | 2021-04-19 14:52 | CM.DANOTE ---
Addendum entered by Torri Dave R.N. 04/19/21 15:40: Was able to speak to Milagro nurse at [facility]. She stated that patient uses a FWW at his baseline, he is a fall risk. Stated that he normally can make his needs known. Confirmed that the couple, Gino and Taurus Trevino are DPOA. She mentioned that patient is set up for meals. 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 Denied that patient has had any swallow issues at baseline, but does have some slight right sided facial droop. Original Note: DCP: Case received, EMR reviewed and checked on patient. He has been sleeping, according to staff, he is having difficulty speaking, and engaging in conversation. Confirmed with Mayra in admissions at [facility], that patient is their resident. He is halfway, in a Medicaid bed. Was able to get some information regarding patient, but attempting to have facility nurse call this case therapist back in order to obtain baseline activity status. Completed DCP assessment based on information currently available. Patient is an 85 year old male who admitted yesterday afternoon to the care of the hospitalist team. PCP: Dr. Nelson. Confirmed: Medicare/Medicaid. Patient came to the hospital via ambulance from [facility] secondary to patient possibly havine a CVA. Patient also is noted to have cystitis/UTI. He also has history of dementia. Patient had also came in with a fever of 102. Discussed patient during team rounds, and hospitalist has attempted to get in contact with ASHELY, who is listed as friend. It is unclear if patient will have MRI today. According to staff, patient is non-weight bearing, and has difficulty speaking. Asked Mayra at [facility] about his baseline activity prior to hospitalization. 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 Attempted to reach out to Milagro at [facility], but not able to get through. Mayra will send a text to Milagro, and give her this case therapist's phone number to call back with updated information. P: DCP to continue to follow. Plan is for patient to return to [facility]. It is unclear if hospice consult will be recommended at this point. Patient is DNR. Will attempt to get additional information from Milagro at [facility]. Torri Dave RN/Risk Control Specialist
--- NOTE | 2021-04-19 17:09 | PC.NURSE ---
Addendum entered by Soumya Umanzor R.N. 04/19/21 21:42: NIH not completed this shift d/t pt's level of anxiety, baseline dementia and delayed and occasionally absent speech. Addendum entered by Soumya Umanzor R.N. 04/19/21 20:50: Pt consistently denies pain when asked by staff. Rests quietly without signs of distress or discomfort, but when staff approaches pt for care, even with careful and thorough explanations, pt begins to whimper, furrows brow and has look of fright. Pericare/cath care completed and fresh brief placed. Pt is total care to turn and reposition. Able to manage own airway and secretions. Addendum entered by Soumya Umanzor R.N. 04/19/21 18:03: The longer REAL ESTATE PROFESSOR is in pt's room feeding pt the more visibly anxious and tearful pt becomes. Begins to whimper and breathe at a faster rate. No swallow deficit noted. Took approximately 7 bites of meal and several sips of thickened fluids. Meal was stopped and pt was given iv ativan to manage anxiety. Hospitalist informs this quality analyst/technical writer has spoken to DPOA this evening and DPOA will come to see patient tomorrow and discuss further plan of care. Hospitalist aware MRI has not been done. Original Note: Pt opens eyes to movement in room and to name. Able to wiggle toes to left foot upon command and menu planner with left hand upon command. When answering questions by this quality analyst/technical writer, verbal response is, I don't know. No signs of pain. No movement RUE or RLE. Discussion with hospitalist Dr. Lechuga re speech therapist's recommendations as posted in pt's room and per SIGNS SALES REPRESENTATIVE note. Verbal order obtained to order pt tray based on these recommendations. Pt positioned bolt upright in bed with 1:1 feeder. Suction set up @ wall. REAL ESTATE PROFESSOR feeds pt and pt accepts and is able to state is right handed.
--- NOTE | 2021-04-19 17:49 | PM.PN.1 ---
Subjective Subjective Date Patient Seen: 04/19/21 Time Patient Seen: 10:49 Interval history: Today he is quite emotional. He is tearful in the room. He is unable to speak coherently with me. He is following some commands. Exam Vital Signs (past 8 hours): - 04/19/21 11:56 04/19/21 13:00 04/19/21 15:30 Temperature 99.7 F H 99.6 F Pulse Rate 60 71 Respiratory Rate 18 20 Blood Pressure 145/64 H 163/88 H Pulse Oximetry 97 98 97 Oxygen Delivery Method Room Air Oxygen Flow Rate 0 Narrative Exam Narrative: GEN: anxious confused, ill appearing, tearful, attempting to speak, but words unable to comprehend SKIN: Friable skin, poor turgor HEENT: Normocephalic atraumatic, extraocular muscles are intact, oropharynx is clear and mucous membranes are dry. LUNGS: clear bilaterally with no wheezes, rhonchi, or rales. CARDIOVASCULAR: There was a regular rate and rhythm without any murmurs, gallops, rubs. ABDOMEN: Soft with no grimacing or withdrawal to palpation, nondistended MUSCULOSKELETAL: There was no tenderness or effusions noted. EXTREMITIES: No cyanosis, clubbing or edema. NEUROLOGIC: Alert confused, unable to assess orientation due to marked aphasia. R facial droop with R hemiparesis, unable to assess sensation due to inability to communicate. Able to move squeeze left hand at request Objective Labs Result Diagrams: 04/19/21 05:44 04/19/21 05:44 Labs: Laboratory Results - last 24 hr 04/19/21 04/19/21 05:44 05:44 WBC 9.5 RBC 3.38 L Hgb 11.1 L Hct 32.8 L MCV 97.0 MCH 32.8 MCHC 33.8 RDW 14.2 Plt Count 178 Neut % (Auto) 79.7 H Lymph % (Auto) 8.6 L Addison % (Auto) 8.9 Eos % (Auto) 1.7 L Baso % (Auto) 1.1 Neut # (Auto) 7600 H Lymph # (Auto) 800 L Addison # (Auto) 800 Eos # (Auto) 200 Baso # (Auto) 100 Sodium 140 Potassium 3.3 L Chloride 112 H Carbon Dioxide 21 L BUN 21 H Creatinine 1.51 H Estimated GFR 44.1 L BUN/Creatinine Ratio 13.9 Glucose 126 H Calcium 8.1 L Magnesium 1.6 Total Bilirubin 0.2 Conjugated Bilirubin 0.0 Unconjugated Bilirubin 0.3 AST 25 ALT 50 H Alkaline Phosphatase 64 Total Protein 6.3 Albumin 3.1 L Globulin 3.2 Albumin/Globulin Ratio 1.0 Procalcitonin 0.09 [facility] History Brain tumor Chronic back pain greater than 3 months duration Difficulty in urination Early onset Alzheimer's dementia Essential hypertension History of bladder cancer History of stroke Malignant neoplasm of throat Pain with urination Urgency incontinence Surgical History History of right knee joint replacement Status post surgical removal and fulguration of bladder neoplasm Status post surgical removal of neoplasm of skin Family History Other No family history of cardiac disease Social History (System 11/11/20 @ 14:11 by Jocelynn Lynn) household members: none Smoking Status: Never smoker Assessment & Plan Assessment & Plan narrative: 85M with PMH hypertension, hyperlipidemia, history CVA, early onset Alzheimer's, bladder cancer (s/p TURB), and throat cancer (s/p right gland resection, h/o radiation tx) who presented to the emergency room as a code stroke. admitted with probable acute CVA, additionally with fever likely UTI. 1. Acute CVA, present on admission - NIHSS 22 on admission per physician, however difficult to fully assess given his prior alzheimers, anxiety and apparent panic attack currently as well as the severity of his apparent stroke. - was able to pass swallow evaluation - FABY is interested in hospice, referral ordered - CT head without bleeding, no clot on CT angio head and neck but does have L carotid stenosis. - will order MR brain for confirmation of diagnosis, if he is able to stay still reliably that long remains to be seen, as of now he has been unable to go secondary to anxiety and unable to stay still - consider repeat CT imaging at a later date to confirm area of infarct if unable to perform MRI depending on goals of care. - allow permissive HTN now. Labetalol ordered for SBP >180. Consider rectal asa if consistent with goals of care. Start oral medication if able to swallow reliably. - PT / OT / Speech ordered but patient not reliably following commands currently. - Telemetry and TTE appear unlikely to loom changeover operator strategies at this time. EKG shows NSR and given carotid disease in ipsilateral side of probable infarct afib appears less likely. 2. Acute cystitis with hematuria, present on admission - given levaquin in the ER. has a history of E. coli with intermediate resistance to ceftriaxone noted on prior culture. will continue - UA with primarily hematuria, RBC >100 5-10 WBC and 1-5 squamous cells. Follow up culture. - urine culture shows enterococcus with sensitivity levofloxacin from 04/15 - per ER provider, DPOA agreeable to antibiotics and fluids, POLST states comfort measures only. - will continue levaquin as noted above 3. Essential hypertension, chronic, stable -patient with elevated blood pressure on admission. Will allow for permissive HTN in setting of likely acute CVA. 4. Anxiety, acute on chronic, present on admission - continue ativan 0.25 mg IV prn for anxiety. This is what he takes PO at assisted living. - still having anxiety with IV prn ativan - will order PO ativan 5. Hyperlipidemia, chronic. - consider home statin if he is able to swallow. 6. Alzheimer's dementia, chronic 7. Possible metabolic Encephalopathy, acute, - suspect worsened mentation is due to CVA, however may be slightly decreased due to acute cystitis or other infectious etiology as discussed above. 8. SKYLER - check renal ultrasound which has ruled out obstruction - santoro placed on ER arrival. Continue fluids, d5 1/2 NS @ 75 cc per hour - creatinine initially 2.25 now improved to 1.51 Code: DNR per POLST form, DPOA is Taurus Trevino according to POLST. Discussed with POA Dispo: admitted as inpatient. Depending on neurological progression or improvement, suspect highly likely to discharge home to [facility] on hospice. DVT: Lovenox daily
[2021-04-19] MEDS: levoFLOXacin 250 MG/50 ML PIGGYBACK 100 MG IV (18:45)
[2021-04-20] VITALS (7 sets, daily range): BP systolic 168–180; BP diastolic 80–89; PULSE 58–62; RESP 16–24; TEMP 36.9–37.4; O2SAT 92–99
[2021-04-20 06:46] LABS: Add Manual Diff / Slide Review NO; Basophils Absolute Auto 100 /uL (0-100); Basophils Percent Auto 0.9 % (0-2); Eosinophils Absolute Auto 500 /uL (0-450); Eosinophils Percent Auto 7.3 % (2-4); Hematocrit 30.1 % (41-53); Hemoglobin 10.1 g/dL (13.5-17.5); Lymphocytes Absolute Auto 1100 /uL (1100-4500); Lymphocytes Percent Auto 16.5 % (25-40); Mean Corpuscular HGB Conc 33.6 % (30-36); Mean Corpuscular Hemoglobin 32.9 PG (26-34); Mean Corpuscular Volume 98.1 fL (80-100); Monocytes Absolute Auto 600 /uL (0-900); Monocytes Percent Auto 9.5 % (3-14); Neutrophils Absolute Auto 4300 /uL (1500-7000); Neutrophils Percent Auto 65.8 % (50-75); Platelet Count 165 X10^3/uL (150-400); Red Blood Cell Count 3.06 X10^6/uL (4.5-5.9); White Blood Cell Count 6.6 X10^3/uL (4.5-11.0)
[2021-04-20 07:04] LABS: Alanine Aminotransferase 38 IU/L (<50); Albumin 2.8 g/dL (3.5-5.0); Alkaline Phosphatase 56 U/L (38-126); Aspartate Aminotransferase 21 IU/L (17-59); BUN Creatinine Ratio 15.4 (6-22); Bilirubin Total 0.2 mg/dL (0.2-1.3); Bilirubin Unconjugated 0.3 mg/dL (0.0-1.1); Blood Urea Nitrogen 14 mg/dL (9-20); Calcium 7.6 mg/dL (8.4-10.2); Carbon Dioxide 23 mmol/L (22-32); Chloride 110 mmol/L (98-107); Estimated Glomerular Filt Rate > 60.0 mL/min (>60); Globulin 2.9 g/dL (1.7-4.1); Glucose 103 mg/dL (80-110); HEMOLYSIS < 15 (0-50); Magnesium 1.5 mg/dL (1.6-2.3); Potassium 3.1 mmol/L (3.4-5.1); Sodium 138 mmol/L (137-145); Total Protein 5.7 g/dL (6.3-8.2)
[2021-04-20] MEDS: LORazepam 2 MG/ML INJ 0.25 MG IV (08:20)
[2021-04-20] MEDS: POTASSIUM CHLORIDE 20 MEQ/15 ML UDC 40 MEQ PO (08:26)
[2021-04-20] MEDS: MAGNESIUM SULFATE 2 GM/50 ML PIGGYBACK IV (08:26)
[2021-04-20] MEDS: levoFLOXacin 500 MG/100 ML PIGGYBACK 100 MG IV (08:26)
[2021-04-20] MEDS: SODIUM CHLORIDE 0.9% FLUSH 10 ML IV (08:42)
[2021-04-20] MEDS: ENOXAPARIN 30 MG/0.3 ML SYRINGE SUBCUT (08:50)
--- NOTE | 2021-04-20 09:30 | PT.IPTN ---
Current Diagnoses Cerebral infarction, unspecified (04/18/21) Physical Therapy Treatment Note M2 PT-IP Current Condition Start: 04/19/21 15:49 Freq: NEEDED Status: Active Protocol: Document 04/19/21 13:40 AB (Rec: 04/19/21 16:05 AB [id number]) Physical Therapy Current Condition Current Condition Evaluation Date 04/19/21 Treatment Diagnosis CVA R sided weakness; difficulty in walking Onset Date 04/18/21 Precautions Other Precautions falls M3 PT-IP Subjective Start: 04/19/21 15:49 Freq: NEEDED Status: Active Protocol: Document 04/20/21 09:30 AW (Rec: 04/20/21 10:47 AW [id number]) Subjective Physical Therapy Visit Type Type Treatment Note Visit Start Time 09:12 Visit Stop Time 09:30 Total Visit Minutes 18 Number of FISHING INSTRUCTOR Visits 0 Physical Therapy Visit Comments Patient Comments Pt nods that he is willing to participate with PT M4 PT-IP Mobility and Gait Start: 04/19/21 15:49 Freq: NEEDED Status: Active Protocol: Document 04/20/21 09:30 AW (Rec: 04/20/21 10:47 AW [id number]) PT-Bed Mobility Assessment Sit to Supine Sit to Supine Total Assistance,1 Person Assistance,2 Person Assistance PT-Transfer Assessment Comments Mobility Comments Pt able to verbalize yeah no not really in response to questions. With HOB elevated, pt needed verbal and tactile cues to attend to his right arm as PT provided total assist to transition to sitting EOB. Pt needed max to total assist to maintain seated balance. Pt participated in seated balance activities with minimal ability to reach midline. He was unable to arrest his forward or rightward lean. Pt required total assist and cues to hold RUE with LUE to return to supine. Gait Assessment Comments Gait Comments unable at this time PT-Balance Assessment Sitting Balance and Reactions Static Sitting Balance Ability Poor Dynamic Sitting Balance Ability Poor M5 PT-IP Objective Assessments Start: 04/19/21 15:49 Freq: NEEDED Status: Active Protocol: Document 04/19/21 13:40 AB (Rec: 04/19/21 16:05 AB [id number]) Orientation Orientation/Cognition Level of Alertness Confusional State Language Function Ability Expressive Aphasia,Receptive Aphasia Safety Awareness Decreased Safety Awareness Gross Range of Motion Lower Extremity ROM Assessment Within Functional Limits Impairments increase RLE extensor tone Strength Comments Strength Comments pt unable to follow direction to assess MMT M6 PT-IP Treatment Start: 04/19/21 15:49 Freq: NEEDED Status: Active Protocol: Document 04/20/21 09:30 AW (Rec: 04/20/21 10:47 AW [id number]) Physical Therapy Treatment Education Education Provided Safety M7 PT-IP Assessment and Plan Start: 04/19/21 15:49 Freq: NEEDED Status: Active Protocol: Document 04/20/21 09:30 AW (Rec: 04/20/21 10:47 AW [id number]) PT Summary Assessment and Plan Potential Rehabilitation Potential Fair Summary Impairments Pain,ROM,Strength,Balance, Coordination,Sensation,Tone, Cognition,Bed Mobility, Transfers,Gait,Activity Tolerance Progress Towards Goals Slow Progress due to Medical Issues Assessment Summary Pt is quite tearful but reassurable at this encounter. Pt requiring max to total assist for bed mobility and seated balance due to poor postural control. Did not transfer pt at this time as he indicated desire to remain in bed. Pt will need SNF rehab to improve strength and mobility. Goals Bed Mobility Goal Moderate Assistance Transfer Goal Moderate Assistance,Front Wheeled Walker Gait Goal Moderate Assistance,Front Wheel Walker Gait Distance 20 Days to Meet Goals 10 Frequency of Treatment Frequency Of Treatment Twice a Day Treatment Plan Physical Therapy Treatment Plan Bed Mobility Training,Transfer Training,Gait Training, Therapeutic Exercise,Balance Retraining,Discharge Planning, Neuromuscular Re-ed, Coordination Retraining,Manual Therapy Other Recommendations and Next Treatment sitting bal/kianna, transfers Focus Precautions Other Precautions falls Recommendations To Nursing Amount of Assist Needed Mechanical Lift Discharge Recommendations PT Discharge Recommendations SNF Rehab Transportation Needs at Discharge Wheelchair/Cabulance
--- NOTE | 2021-04-20 11:21 | CM.DPC ---
Addendum entered by Torri Dave R.N. 04/20/21 14:43: MRI completed, noted CVA. Plan is for patient to discharge back to [facility]. Taurus LUND, is aware of plan. P.T. indicates that patient can go by wheel-chair. Contacted Mayra at [facility] and gave her update. administrative support associate time is planned for 1500. Have completed signed meds and prescription, as well as a PASSR. Faxed over to [facility]. Updated white board at main nurses station for picket labor union time. Brenda, nurse, also aware. Electronically faxed over DC Summary, as well as MRI report. Updated Mayra as well that hospice referral was placed, but have not been able to get in touch with them today. Attempted again to reach hospice, and indicates that all lines are busy. Addendum entered by Torri Dave R.N. 04/20/21 12:22: Met with patient's POATaurus. Stated, she is wanting patient to have an MRI, to see if he has really had a stroke, and to determine how much time he has left. Her goal is to get her home set up and have him go home on hospice once she can have this arranged. She understands that patient will have to go back to [facility] before this can happen. Went ahead and sent referral to [facility], and updated Mayra at [facility]. Patient's POA indicated, if he has to go back ambulance, it's ok. Let her know that most likely there will be a charge for transport, but did not include any details. Taurus stated, he needs to go back with whatever is most comfortable for him and does not cause anxiety. Original Note: DCP Cont: Discussed patient during team rounds. Dr. Lechuga was able to contact ASHEYL, and agree on hospice. Went ahead and [facility]ed referral [facility] Updated Mayra, at [facility]. He will need a new PASSR, due to changes. Unclear if he will be able to return back to facility in [place], will have to contact P.T. He is currently a mechanical lift. P: Patient may most likely return to [facility] today. Have faxed over hospice referral, will also follow up with them as well. Will complete a new PASSR. Torri Dave RN/Lean Sensei
--- NOTE | 2021-04-20 11:49 | ST.IPDYTX ---
Visit Care Team Role Provider Type AVA Loya Primary Care Provider Non-Staff Specialty: Nursing Address: [address] [place] [address], [id number] Email: Dayanna Menchaca DO Emergency Provider Physician Referring Provider Specialty: Emergency Medicine Address: [address] [place] [address], [id number] Email: [email or web address] Kole Barkley DO Admit Provider Physician Attending Provider Specialty: Internal Medicine Address: [address] [place] [address], [id number] Email: [email or web address] CLEARING DISTRIBUTION CLERK Dysphagia Treatment CLEARING DISTRIBUTION CLERK Dysphagia Treatment Start: 04/19/21 11:30 Freq: Status: Active Protocol: Document 04/20/21 11:36 MG (Rec: 04/20/21 11:49 MG [id number]) Dysphagia Treatment Session Time Visit Start Time 11:00 Visit Stop Time 11:35 Total Visit Minutes 35 Visit Information Visit Number 2 Setting Assessment Location Acute Care Visit Type Note Type Treatment Note Next Note Type Next Note Type Treatment Note Patient Information Identification Type Name,ID Wristband Subjective Observations Pt was reclined in bed with family member at bedside. CLEARING DISTRIBUTION CLERK checked in with UNLOADER OPERATOR who was feeding pt. Per UNLOADER OPERATOR, pt tolerated nectar thick liquids , however appeared to have some swallowing difficulties with solids. Per UNLOADER OPERATOR, pt's using more expressive language . Treatment Liquids Trialed Ice chips,Dunbar Solids Trialed Puree Administration Type Tea Spoon,Cup Single Sip Oral Strategies Upright at 90 degrees,Double Swallow,Controlled Bite/Sip Size Pharyngeal Strategies Turn Head Left,Chin Tuck, Double Swallow,Small Bites and Sips Treatment Activities CLEARING DISTRIBUTION CLERK trialed ice chips and pt presented with a wet/gurgly voice post swallow. On all trials of nectar thick ( teaspoon, small cup sip with CLEARING DISTRIBUTION CLERK assisting), no overt s/sx of aspiration noted. No wet/ gurlgy voice heard. CLEARING DISTRIBUTION CLERK trialed puree consistency with a 1/2 spoon full of applesauce. Pt reported, that was hard for me to swallow. CLEARING DISTRIBUTION CLERK had pt implement the chin tuck maneuver. Pt followed CLEARING DISTRIBUTION CLERK verbal commands and utilized a chin tuck maneuver on 4 trials of puree consistency. Pt reported, that was easier for me re: using maneuver when swallowing. Per family member, he should have been on a modified diet for a couple of years. Pt continues to spontaneously use a double swallow on solids. Further trials were not administered at this time as pt became emotional and needed support to calm down from CLEARING DISTRIBUTION CLERK and family member. CLEARING DISTRIBUTION CLERK reminded pt about communication board as a tool when he would have difficulty using verbal language to get his wants/ needs met. Pt reported he would try and use if he needed it. Assessment Patient Response to Treatment Fair Rehab Potential Fair Assessment of Improvement Pt is using more verbal expressive language today which is positive. Yesterday pt could only use yes/no. Today pt is using multiple words per sentence (e.g., Will I be here a long time?). Yesterday pt could not follow simple commands and today could implement safe swallow strategy with verbal cueing. Pt benefits from ample wait time to process questions and verbalize responses. Swallowing function appears to remain the same at this time. With the addition of a chin tuck maneuver, pt is safely comsuming puree solids and reported it is easier for him to swallow. Diet Recommendations Recommendations Continue Current Diet Liquids Order Dunbar Diet Order Dysphagia Blenderized Medication Recommendations As Tolerated Comments In carrier may be helpful Additional Dietary Needs Single Sips,Controlled Sips,No Straws,1:1 Assistance, Encourage to Self-Feed, Reminders to Use Strategies Aspiration Precautions Recommended Precautions Upright at 90 Degrees,Frequent Rest Periods,Small Bites/Sips ,Chin Tuck,Double Swallow Treatment Plan Placement Recommendation after Discharge Rn [facility] Appropriate for Continued Therapy Yes: Continue to observe diet and expressive language therapy Therapy Recommendations Pt will tolerate least restrictive diet with minimal assist with eating/drinking. Pt will utilize communication board when verbal language is challenging with minimal reminders as needed. Dysphagia Goals Pt will tolerate least restrictive diet with no assist with eating/drinking. Pt will tolerate least restrictive diet without demonstrating overt s/sx of aspiration.
--- NOTE | 2021-04-20 14:10 | PT-IP ANOTE ---
Pt seen this AM for PT treatment. His activity tolerance is severely limited and is not appropriate for twice daily treatment at this time. Will update plan of care accordingly. Pt may discharge back to [facility] today. If not, will follow up morning of 04/21
--- NOTE | 2021-04-20 14:30 | PM.DS.1 ---
History of Present Illness History of Present Illness Chief complaint: Stroke Narrative: H and P per Kole Barkley: Mr. Murali Grant is an 85-year-old male with past medical history significant for hypertension, hyperlipidemia, history CVA, early onset Alzheimer's,, bladder cancer, bladder cancer (s/p TURB), and throat cancer (s/p right gland resection, h/o radiation tx) from local [facility] who presented to the emergency room as a code stroke. His last known well was around 12:00 p.m. staff at the facility related to the emergency room provider that he was having a panic attack, of which she frequently has, but then noted some right-sided facial droop so they called EMS. He was noted to have a temperature of 102 with EMS. No further information is available for review, unable to review additional information as patient is currently not following commands. According to prior notes during previous hospitalization for a hip fracture last year, patient was alert and oriented x2 and had mild dementia. He had reportedly been quite functional at his living facility earlier in the day. In the emergency room, patient was initially hypertensive, but the remainder of his vital signs are unremarkable. Laboratory evaluation revealed a mild leukocytosis with WBC 13.7. Chemistries revealed a creatinine of 2.25 upon a baseline of around 1. Lactate was 2.3. ALT was also mildly elevated at 77. Remainder of his chemistry panels were unremarkable. Troponin testing was negative. Procalcitonin was 0.12. Urinalysis revealed 3+ occult blood, leuk esterase, greater than 100 rbc's, 5-10 wbc's and some squamous epithelial cells. Specimen was sent for culture. COVID-[address] head was unremarkable. CT angiogram did show clinically significant left-sided carotid stenosis. Chest x-ray showed no acute cardiopulmonary process. EKG showed sinus rhythm with occasional PVC. Patient was admitted to Medicine for further management and goals of care discussion in the setting of a likely large acute CVA. Discharge Providers Provider Date of admission: 04/18/21 14:10 Discharge Date: 04/20/21 Primary care physician: AVA Loya Consults: 04/18/21 17:16 Consult to Occupational Therapy Evaluate & Treat Comment: Physician Instructions: Evaluate and treat Consult to Physical Therapy Evaluate & Treat Comment: Physician Instructions: Evaluate and Treat 04/18/21 17:17 Consult to Speech Therapy Evaluate & Treat Comment: Physician Instructions: Evaluate and treat 04/19/21 17:48 Consult to Hospice Referral Routine Comment: Discharge provider: Rogelio Lechuga MD Summary Hospital Course Discharge Diagnosis: 1. Acute CVA 2. L internal artery carotid stenosis 3. Acute cystitis with hematuria 4. Hypertension 5. Anxiety, acute on chronic 6. Hyperlipidemia 7. Alzheimer's dementia 8. Metabolic encephalopathy 9. Acute kidney injury Hospital Course: Mr. Grant was admitted with new onset confusion and right sided weakness. He was found to have a large infarction in the left MCA distribution on MRI. He was found to have high grade internal carotid artery stenosis of 90% in the left carotid. He was started on aspirin. Initially he had encephalopathy, possibly from the stroke. But he also was found to have a urinary tract infection. He was found to have Enterococcus sensitive to levofloxacin from a urine on 04/15. He was ordered for levofloxacin and should take this through 04/24 for a seven day course. He had a santoro placed for difficulty urinating and this should be removed if possible after completion of antibiotics. For his stroke he is at high risk of having further stroke due to his carotid artery disease. Spoke multiple times with his DPOA, Ms. Trevino, about the risks of further stroke. Patient has a POLST stating he wants comfort care, he is DNR/DNI, he would not want tube feeds, but he is ok for IV antibiotics. She states he is anxious and scared at hospitals, and here he has been anxious and very emotionally labile, fearful, and tearful at times. I did discuss with DPOA about the risks of the carotid artery causing further strokes, but they stated that surgery or stenting is not within his goals of care. She is aware that he may have a large more debilitating stroke. She is interested in having him join, hospice, referral was ordered, and hoping that he can avoid coming back to the hospital. For his stroke he will be treated with aspirin, and high dose atorvastatin. He had permissive hypertension here in the hospital, but was restarted on his blood pressure medications. He should have a target of blood pressure of 140-160 systolic. He did not have any evidence of arrhythmia here, and was not indicated for ECHO given his goals of care and that findings on ECHO would not change medical management as he would not want aggressive intervention. Of note he did have acute kidney injury possibly secondary to his urinary infection which improved with fluids, antibiotics, and with santoro placement. His initial creatinine was 2.25 and improved to 0.91 on discharge. He was able to swallow nectar thick liquids, and should continue on this at SNF, and his goals of care on POLST state he would not want tube feeds. Code: DNR per POLST form, DPOA is Taurus Mikeopen according to POLST. Discussed with POA Exam Vital Signs (past 8 hours): - 04/20/21 08:15 04/20/21 13:00 Temperature 99.3 F 99.2 F Pulse Rate 58 L 62 Respiratory Rate 24 24 Blood Pressure 174/89 H 180/80 H Pulse Oximetry 99 98 Oxygen Delivery Method Room Air Oxygen Flow Rate 0 Narrative Exam Narrative: GEN: anxious confused, tearful, speaking greatly improved SKIN: Friable skin, poor turgor HEENT: Normocephalic atraumatic, extraocular muscles are intact, oropharynx is clear and mucous membranes are dry. LUNGS: clear bilaterally with no wheezes, rhonchi, or rales. CARDIOVASCULAR: There was a regular rate and rhythm without any murmurs, gallops, rubs. ABDOMEN: Soft with no grimacing or withdrawal to palpation, nondistended MUSCULOSKELETAL: There was no tenderness or effusions noted. EXTREMITIES: No cyanosis, clubbing or edema. NEUROLOGIC: Alert but confused. R facial droop with R hemiparesis, sensation decreased in R extremities. Able to move squeeze left hand at request. Speech understandable and improving Objective Labs Result Diagrams: 04/20/21 06:20 04/20/21 06:20 Labs: Laboratory Results - last 24 hr 04/20/21 04/20/21 06:20 06:20 WBC 6.6 RBC 3.06 L Hgb 10.1 L Hct 30.1 L MCV 98.1 MCH 32.9 MCHC 33.6 RDW 14.0 Plt Count 165 Neut % (Auto) 65.8 Lymph % (Auto) 16.5 L [place] % (Auto) 9.5 Eos % (Auto) 7.3 H Baso % (Auto) 0.9 Neut # (Auto) 4300 Lymph # (Auto) 1100 [place] # (Auto) 600 Eos # (Auto) 500 H Baso # (Auto) 100 Sodium 138 Potassium 3.1 L Chloride 110 H Carbon Dioxide 23 BUN 14 Creatinine 0.91 Estimated GFR > 60.0 BUN/Creatinine Ratio 15.4 Glucose 103 Calcium 7.6 L Magnesium 1.5 L Total Bilirubin 0.2 Conjugated Bilirubin 0.0 Unconjugated Bilirubin 0.3 AST 21 ALT 38 Alkaline Phosphatase 56 Total Protein 5.7 L Albumin 2.8 L Globulin 2.9 Albumin/Globulin Ratio 1.0 PFSH Medical History Brain tumor Chronic back pain greater than 3 months duration Difficulty in urination Early onset Alzheimer's dementia Essential hypertension History of bladder cancer History of stroke Malignant neoplasm of throat Pain with urination Urgency incontinence Surgical History History of right knee joint replacement Status post surgical removal and fulguration of bladder neoplasm Status post surgical removal of neoplasm of skin Family History Other No family history of cardiac disease Social History (System 11/11/20 @ 14:11 by Jocelynn Lynn) household members: none Smoking Status: Never smoker Discharge Plan Discharge Plan Patient Disposition: SNF Provider Discharge Comment: Mr. Grant was admitted after having a stroke, he is having new difficulty with moving his R arm and R leg. He was started on aspirin and atorvastatin. He was also found to have a UTI and was started on levofloxacin. He did have improvement with these treatments. He is left with a santoro while completing his treatment for UTI and then can have santoro removed. Discharge orders & Medications Prescriptions: New aspirin 81 mg tablet,delayed release (DR/EC) 81 mg PO DAILY Qty: 30 RF: 0 atorvastatin 80 mg tablet 80 mg PO BEDTIME Qty: 30 RF: 0 levofloxacin 500 mg tablet 500 mg PO DAILY Qty: 5 RF: 0 Continued finasteride [Proscar] 5 mg tablet 5 mg PO DAILY Qty: 30 RF: 0 tamsulosin 0.4 mg Capsule 0.4 mg PO DAILY RF: 0 Centrum Silver Men 300-600-300 mcg Tablet 1 tab PO DAILY RF: 0 levocetirizine [Allergy Relief (levocetirizin)] 5 mg Tablet 5 mg PO DAILY RF: 0 bisacodyl 10 mg Suppository 10 mg RI DAILY PRN (Reason: Constipation) RF: 0 acetaminophen 325 mg Tablet 975 mg PO TID Qty: 90 RF: 0 losartan 50 mg Tablet 25 mg PO DAILY Qty: 30 RF: 0 polyethylene glycol 3350 17 gram Powder In Packet 17 gm PO DAILY Qty: 30 RF: 0 docusate sodium [DOK] 100 mg Capsule 100 mg PO BID Qty: 60 RF: 0 Lactobacillus acidophilus [Acidophilus] Capsule 2,000 mmu cells PO BID RF: 0 calcium carbonate-vitamin D3 600 mg(1,500mg) -400 unit Capsule 1 cap PO BID RF: 0 lorazepam 0.5 mg Tablet 0.25 mg PO Q6H PRN (Reason: Anxiety) Qty: 6 RF: 0 Changed oxycodone 5 mg tablet 2.5 mg PO Q4HR PRN (Reason: Pain (Scale Score 4-6)) Qty: 6 RF: 0 Discontinued sulfamethoxazole-trimethoprim [Bactrim DS] 800-160 mg Tablet 1 tab PO BID RF: 0 Follow up/Referrals: Juli Nelson ARNP [Primary Care Provider] - Discharge Data Primary Care Provider: Juli Nelson [facility] - [place] The patient has current or prior documentation of left ventricular ejection fraction (LVEF) less than 40%, or moderate or severely depressed left ventricular systolic function.: No
[2021-04-20] MEDS: ATORVASTATIN 20 MG TABLET 80 MG PO (14:46)
[2021-04-20] MEDS: ASPIRIN EC 81 MG TABLET PO (14:46)
[2021-04-20] MEDS: LOSARTAN 50 MG TABLET 25 MG PO (14:52)
--- NOTE | 2021-04-20 15:29 | PC.NURSE ---
Pt A&Ox1-2, forgetful. Much improvement today with speech and function. Still with R side facial droop, R side flaccid. MD Clearing patient for discharge this afternoon. Recieved mg and K+ replacement today. Poor po intake, eating about 5-10% of meals, and needing much encouragement for po fluid. Pt with santoro draining clear yellow urine adequeate amount. DPOA at bedside able to complete MRI screening, and pt went for MRI. FABY fermin met with and CM and discussed plan for pt to return to [facility] and hospice consult place. Pt VSS, afebril on RA. LS diminished, started atorvastatin, baby aspirin and losartan prior to discharge able to take small pills in applesauce. Report given to Kriss. and pt transported with facility designee at 1515.
== END 2021-04-20 15:15 | disposition home or self-care (01) | DRG 64 ==
LOC: ED 14:10 → AC 14:11
PROVIDERS: Admitting Provider Internal Medicine; Emergency Provider Emergency Medicine; PCP Nurse Practitioner; Referring Provider Emergency Medicine; Visit Provider Internal Medicine
DX: I63.232 Cerebral infarction due to unspecified occlusion or stenosis of left carotid arteries (principal); G93.41 Metabolic encephalopathy; G81.91 Hemiplegia, unspecified affecting right dominant side; N17.9 Acute kidney failure, unspecified; N30.01 Acute cystitis with hematuria; R47.01 Aphasia; R29.810 Facial weakness; I10 Essential (primary) hypertension; E78.5 Hyperlipidemia, unspecified; R29.722 NIHSS score 22; G30.0 Alzheimer's disease with early onset; F02.80 Dementia in other diseases classified elsewhere, unspecified severity, without behavioral disturbance, psychotic disturbance, mood disturbance, and anxiety; F41.9 Anxiety disorder, unspecified; Z66 Do not resuscitate; Z20.822 Contact with and (suspected) exposure to COVID-19; R39.89 Other symptoms and signs involving the genitourinary system; B95.2 Enterococcus as the cause of diseases classified elsewhere; Z86.73 Personal history of transient ischemic attack (TIA), and cerebral infarction without residual deficits; Z85.51 Personal history of malignant neoplasm of bladder; Z85.89 Personal history of malignant neoplasm of other organs and systems
CPT/HCPCS: 36415; 51701; 70450; 70496; 70498; 70551; 71045; 76770; 80048; 80053; 80076; 81001; 82550; 82962; 83605; 83690; 83735; 84145; 84484; 85025; 87040; 87077; 87086; 87185; 87186; 87635; 92526; 92610; 93005; 93010; 96365; 96375; 97112; 97162; 97167; 97535; 99285; C9803; A9579; J1650; J1956; J2060; J3475